=== PATIENT | female | born 1980 | race African-American/Black ===

== ENCOUNTER 2023-09-28 04:44 | Emergency (ER) | payer OTHER, SELFPAY ==
[2023-09-28] VITALS (48 sets, daily range): BP systolic 122–205; BP diastolic 80–117; PULSE 75–108; RESP 14–31; O2SAT 97–100
--- NOTE | 2023-09-28 04:45 | DI.RAD_ITS ---
Exam(s) XR PORTABLE CHEST AP EXAM: XR PORTABLE CHEST AP CLINICAL HISTORY: central chest paain TECHNIQUE: 2D digital imaging was performed. COMPARISON: No exams were available for comparison FINDINGS: LUNGS: Clear. No pleural abnormality seen. HEART: Normal size. AORTA: Normal diameter. BONES: Unremarkable for age. Soft tissues: Unremarkable. IMPRESSION: No acute findings. DATA REPOSITORY: RADIATION DOSE DELIVERED:
--- NOTE | 2023-09-28 04:45 | RT.EKG_ITS ---
APPROVED REPORT Exam: Resting ECG Reason for Exam: Patient Location: E HR:84 bpm ECG Measurements Heart Rate 84 AXIS CO 151 P 73 QRSd 77 QRS 27 QT 379 T 49 QTc 449 Conclusion Sinus rhythm...normal P axis, V-rate 60- 99 Probable left atrial enlargement...P >50mS, <-0.10mV V1 Probable left ventricular hypertrophy...multiple LVH criteria Physician: no stemi, peaking of t waves present, no prior for comparison
--- NOTE | 2023-09-28 04:56 | ED.GENADUL_ITS ---
Discharge Plan Disposition Patient Disposition: Against Medical Advice Discharge Details Clinical Impression: Chest pain, Calculus of left kidney, Hypertensive urgency Primary Care Provider: Faye,Local ED Provider: Aleksandra Liu Home Meds and New Rx's Prescriptions: No Action lisinopril 5 mg tablet 5 mg PO DAILY oxycodone 10 mg tablet 10 mg PO BID rosuvastatin 10 mg tablet 10 mg PO DAILY Discharge Instructions Additional Instructions: You are leaving the hospital AGAINST MEDICAL ADVICE. You have been having chest pain and had elevated blood pressure in the setting of significant coronary artery disease. You have also been diagnosed with a renal calculus. This is a fairly large stone and will likely need evaluation by a urologist. I recommend that you follow-up closely with your primary care provider or return to the emergency department for reevaluation of your symptoms and resumption of care. You have significant medical comorbidities and it is important that you take your medications daily. Please follow-up with your doctor. Discharge Data Discharge Date/Time-TO BE ENTERED AT DEPARTURE: 09/28/23 10:43 HPI General Date/Time Provider Initiated Documentation: 09/28/23 04:55 . 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 Patient states that 4 days ago she developed mild chest pain which she describes as a tightness and heaviness. She was also diagnosed with COVID at that time. The chest pain is worsened throughout the week, it is worse with activity, normally slightly improved with rest. Patient had been on medication for blood pressure cholesterol and Plavix but she stopped taking her Plavix a month ago because she felt like she was taking too many meds. She denies any falls or trauma. No long trips surgeries or procedures. She denies any tearing or ripping sensation. Pain is in the central chest back region. She denies arm or neck pain. She states that this feels very similar to her previous heart attack. No other complaints at this time. Related Data Home Medications ?Medication ?Instructions ?Recorded ?Confirmed lisinopril 5 mg tablet 5 mg PO DAILY 09/28/23 09/28/23 oxycodone 10 mg tablet 10 mg PO BID 09/28/23 09/28/23 rosuvastatin 10 mg tablet 10 mg PO DAILY 09/28/23 09/28/23 Allergies Allergy/AdvReac Type Severity Reaction Status Date / Time No Known Allergies Allergy Unverified 09/28/23 05:20 General Stated Complaint: Chest Pain [place]: 2 Review of Systems All systems reviewed & are unremarkable except as noted in HPI and below Exam Narrative Exam Narrative: 1.Const: Well-nourished, Well-developed, appearing stated age 2.Eyes: PERRL, no conjunctival injection, and symmetrical lids. 3.ENT: Atraumatic external nose and ears. Moist MM. Neck: Symmetric, trachea midline, No thyromegaly. 4.CVS: +S1/S2, No murmurs or gallops. Peripheral pulses 2+ and equal in all extremities. Brisk capillary refill in all extremities. Mild reproducible chest wall tenderness 5.RESP: Unlabored respiratory effort. Clear to auscultation bilaterally. No wheezes rales or rhonchi 6.GI: Soft, Nontender/Nondistended, No hepatosplenomegaly. No guarding or rebound. 7.MSK: Normocephalic/Atraumatic, Extremities w/o deformity or ttp No cyanosis or clubbing, Normal movement of all extremities, no calf tenderness 8.Skin: Warm, Dry. No rashes or lesions. 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 Sensation grossly intact, no focal neur ologic deficits. 10.Psych: (AAO) x3. 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 Patient states that 4 days ago she developed mild chest pain which she describes as a tightness and heaviness. She was also diagnosed with COVID at that time. The chest pain is worsened throughout the week, it is worse with activity, normally slightly improved with rest. Patient had been on medication for blood pressure cholesterol and Plavix but she stopped taking her Plavix a month ago because she felt like she was taking too many meds. She denies any falls or trauma. No long trips surgerie s or procedures. She denies any tearing or ripping sensation. Pain is in the central chest back region. She denies arm or neck pain. She states that this feels very similar to her previous heart attack. No other complaints at this time. Exam demonstrates an uncomfortable patient, vital signs demonstrate notable hypertension, oxygen saturations good. Radial pulses +2 bilaterally. Lungs are clear. Afebrile. EKG shows significantly peaked T waves in the 2 through V5, no evidence of STEMI. No prior EKG for comparison. She is notably hypertensive. Concern for unstable angina. Symptoms appear inconsistent with dissection or PE. Will get a chest x-ray, blood work, give nitroglycerin and 325 aspirin, monitor closely and reassess. 8:07 AM Patient states that her pain did not improve with the nitroglycerin, however her blood pressure did come down. Repeat EKG does not show change in T waves. No STEMI though. Eventually with some morphine the patient's pain did improve. CTA of the chest shows no evidence of dissection or aneurysm. However surprisingly there is evidence of a 0.5 x 0.4 x 0.8 cm stone in the left mid to distal ureter. There is some moderate hydroureter nephrosis. Creatinine is 1.3, GFR is 52. She has no left flank pain whatsoever. We are pending urinalysis. COVID is positive, proBNP is 1000, initial troponin normal. Pending repeat troponin. With the patient's risk factors and history I do feel that she would benefit from admission and stress testing. Patient will be signed out to my colleague Dr. Lui for follow-up on troponin. FINDINGS: Limitations: Mild motion artifact. VASCULATURE: Pulmonary arteries: Normal. No pulmonary emboli. Aorta: No aortic aneurysm. No aortic dissection. Moderate eccentric calcified and noncalcified plaque in the distal abdominal aorta. Celiac trunk and mesenteric arteries: No occlusion or significant stenosis. Renal arteries: No occlusion or significant stenosis. Single right renal artery. Two left renal arteries. Right iliac arteries: No occlusion or evidence of hemodynamically significant stenosis. Moderate calcified and noncalcified plaque in the right iliac arteries. Left iliac arteries: No occlusion or evidence of hemodynamically significant stenosis. Moderate calcified and noncalcified plaque in the left iliac arteries. CHEST: Lungs: Unremarkable. No consolidation. No masses. Pleural spaces: Unremarkable. No pneumothorax. No pleural effusion. Heart: Heart size at the upper limits of normal. Coronary arteries: No coronary artery calcification noted. ABDOMEN AND PELVIS: Liver: No mass. Gallbladder and biliary ducts: Unremarkable. No calcified stones. No ductal dilation. Pancreas: Unremarkable. No mass. No ductal dilation. Spleen: Unremarkable. No splenomegaly. Adrenal glands: Unremarkable. No mass. Kidneys and ureters: Moderate bilateral renal cortical thinning. A 0.5 x 0.4 x 0.8 cm stone in the left mid to distal ureter, at the level of the mid sacrum, resulting in moderate left hydroureteronephrosis. Mild delay in uptake of contrast material by the left kidney relative to the right kidney. Otherwise unremarkable kidneys. Stomach and bowel: Scattered colonic diverticula, without evidence of diverticulitis. The colon is decompressed, limiting evaluation. Mild prominence of the wall of colon may be related to underdistention. No other gross bowel abnormalities. No bowel obstruction. Appendix: Normal appendix. Intraperitoneal space: Unremarkable. No free air. No significant fluid collection. Urinary bladder: Unremarkable. No mass. Reproductive: Unremarkable as visualized. Lymph nodes: Unremarkable. No enlarged lymph nodes. Bones/joints: Unremarkable. No acute fracture. Soft tissues: Unremarkable. IMPRESSION: 1. A 0.5 x 0.4 x 0.8 cm stone in the left mid to distal ureter, at the level of the mid sacrum, resulting in moderate left hydroureteronephrosis. 2. No evidence of thoracic or abdominal aortic aneurysm or dissection. Quality:[facility] Health Related Social Needs: No Data to Display PFSH All Active Problems (Updated 09/28/23 @ 08:12 by Quentin Henley DO) Hypertensive urgency (Acute) Calculus of left kidney (Acute) Chest pain (Acute) Social History Smoking/Tobacco Use Status: Current-Occasional Smoking risk assessment performed?: Yes Alcohol Intake: never Substance use type: does not use Housing: apartment Do you feel safe at home: Yes Do you feel safe in your relationship?: Yes Sign Out Sign Out Data: Sign Out Comment: History of stents, presented with chest pain for the last 4 days, much worse this morning. Incidental finding of left-sided kidney stone, pending UA. Recommend admission for stress testing and observation secondary to risk factors Last updated by Quentin Henley DO at 09/28/23 08:15
[2023-09-28] MEDS: nitroGLYcerin 0.4 MG TAB (05:00)
[2023-09-28] MEDS: nitroGLYcerin 0.4 MG TAB SL ×2 (05:05→05:15)
[2023-09-28] MEDS: Aspirin 81 MG CHEW 324 MG CH (05:08)
[2023-09-28 05:11] LABS: Abs Immature Grans 0.02 10^3/uL (0.0-0.06); Absolute Basophil Count 0.02 10^3/uL (0.0-0.2); Absolute Eosinophil Count 0.01 10^3/uL (0.0-0.7); Absolute Lymphocyte Count 1.17 10^3/uL (1.2-3.4); Absolute Neutrophil Count 7.48 10^3/uL (1.2-6.7); Basophils % 0.2 %; Eosinophils % 0.1 %; HCT 44.1 % (36.0-46.0); HGB 13.1 g/dL (11.2-15.7); Immature Grans % 0.2 %; Lymphocytes % 13.1 %; MCH 23.6 pg (27.0-33.0); MCHC 29.7 % (32.0-36.0); MCV 79 fL (80-95); MPV 8.6 fL (8.0-11.0); Monocytes % 2.2 %; Neutrophils % 84.2 %; Platelet Count 359 10^3/uL (130-400); RBC 5.56 10^6/uL (3.93-5.22); RDW 20.8 % (11.7-14.6); RDW-SD 58.1 fL
[2023-09-28 05:19] LABS: Anisocytosis 1+
[2023-09-28] MEDS: MORPHine 4 MG/ML SYR IVP (05:19)
[2023-09-28 05:24] LABS: PTT Activated 27.9 sec (23.6-32.8); Prothrombin Time 9.8 sec (9.1-11.1)
[2023-09-28 05:33] LABS: ALT 18 U/L (14-59); AST 24 U/L (15-37); Albumin 3.7 g/dL (3.4-5.0); Alkaline Phosphatase 160 U/L (46-116); Anion Gap 12.5 mmol/L (3-11); BUN 6 mg/dL (7-18); Bilirubin, Total 0.78 mg/dL (0.2-1.0); CO2 21.5 mmol/L (21.0-32.0); CREATININE 1.3 mg/dL (0.55-1.02); Chloride 99 mmol/L (98-107); Estimated GFR 52.65 (mL/min/1.73m2); Glucose 154 mg/dL (74-106); NT-proBNP 1010 pg/mL (<300); Potassium 4.1 mmol/L (3.5-5.1); Sodium 133 mmol/L (136-145); Total Protein 9.8 g/dL (6.4-8.2); Troponin I < 50 ng/L (< or =60)
--- NOTE | 2023-09-28 05:36 | DI.CT_ITS ---
Exam(s) CT THORAX ABD/PEL CTA EXAM: CT THORAX ABD/PEL CTA CLINICAL HISTORY: chest pain, htn emergency, eval for dissection. TECHNIQUE: Imaging Protocol: Axial CT angiography was performed with multi-slice acquisition and m ulti-planar and/or 3D reconstructions. CONTRAST MATERIAL: Intravenous: Omnipaque 350 Contrast volume:structured data in ml Oral: / no COMPARISON: CR,XR XR PORTABLE CHEST AP from 09/28/2023 FINDINGS: CHEST: Pulmonary Arteries: No evidence of filling defect to suggest pulmonary emboli. Tracheobronchial tree: Patent where visualized. Mediastinum and Lucila: No dominant adenopathy or fluid collection. Pulmonary parenchyma: No consolidation or dominant measurable mass. No architectural distortion. Pleura: No effusion or pneumothorax. Heart: The heart is not dilated. No coronary artery calcifications are seen. Aorta: Thoracic aorta non-dilated. Minimal atherosclerotic plaque. No evidence of dissection. Bones: Normal. Tubes, Catheters, and Lines: ABDOMEN AND PELVIS: Abdomen: Celiac axis/mesenteric arteries: No evidence of occlusion or significant stenosis. Renal Arteries: No evidence of occlusion or significant stenosis. Single right renal artery. Two le ft renal arteries. Aorta: No evidence of occlusion or significant stenosis. Moderate to severe calcific plaque. No an eurysm or dissection. Pelvis: Iliac Arteries: Severe calcific plaque. Moderate bilateral stenosis. Common Femoral Arteries: Moderate plaque mild stenosis. ABDOMEN: Liver: Normal density. No measurable mass. Portal, Superior Mesenteric, and Splenic Veins: Unremarkable. Gallbladder and Biliary Tract: No radiodense calculus or dilation. Pancreas: Normal density, no abnormal calcifications or inflammatory process. Spleen: Normal. Adrenals: No masses seen. Kidneys: Normal size,. Multifocal areas of scarring versus lobulation.. Moderate left hydrone phrosis secondary to a 8 x 5 millimeter stone in the distal ureter, at the level of the upper sacrum. No masses seen. Bowel: No obstruction or bowel wall thickening. Appendix is unremarkable. Mild diverticulosis. Peritoneal Cavity: No ascites, collection or mesenteric inflammatory response. Lymph Nodes: Within normal limits. Bones: Unremarkable. Soft Tissues: Unremarkable. PELVIS: Bladder: Symmetric distention, no gross wall thickening. Reproductive Organs: Unremarkable as visualized. Lymph Nodes: Within normal limits. Bones: Within normal limits. IMPRESSION: Chest CT: No acute abnormality. Abdomen pelvic CT: Moderate left hydronephrosis secondary to an 8 x 5 millimeter stone in the lower u reter. Heavy calcific plaque in the mid to distal abdominal aorta is well as both iliac arteries. There is moderate bilateral iliac artery stenosis. RADIATION DOSE DELIVERED: Total DLP DATA REPOSITORY: All CT scans at this facility are submitted to the National Radiology Data Registry (NRDR) Dose Index Registry (DIR) with the [employer] (ACR). RADIATION OPTIMIZATION: All CT scans at this facility use at least one of these dose optimization te chniques: automated exposure control; mA and/or kV adjustment per patient size (includes targeted exa ms where dose is matched to clinical indication); or iterative reconstruction.
[2023-09-28 05:48] LABS: Influenza A PCR Negative (Negative); Influenza B PCR Negative (Negative); RSV PCR Negative (Negative)
[2023-09-28 05:52] LABS: COVID-19 PCR Positive (Negative); Source Nasopharynx
[2023-09-28] MEDS: Normal Saline - Diluent 50 ML VIAL IJ (05:59)
[2023-09-28] MEDS: Omnipaque 350 MG/ML 100 ML BTL IJ (06:00)
--- NOTE | 2023-09-28 06:15 | DI.VRAD_ITS ---
PROCEDURE INFORMATION: Exam: XR Chest Exam date and time: 09/28/2023 5:14 AM Age: 43 years old Clinical indication: Pain; Other: Central chest paain TECHNIQUE: Imaging protocol: Radiologic exam of the chest. Views: 1 view. COMPARISON: No relevant prior studies available. FINDINGS: Limitations: Low lung volumes. Portable technique. Lungs: Unremarkable. No consolidation. Pleural spaces: Unremarkable. No pleural effusion. No pneumothorax. Heart/Mediastinum: Prominence of the cardiac silhouette which may be related to magnification. Bones/joints: Unremarkable. IMPRESSION: No evidence of active cardiopulmonary disease. Dictated and Authenticated by: Crystal Hodge MD. Ordering:BETTY Saavedra MD
--- NOTE | 2023-09-28 06:58 | DI.VRAD_ITS ---
PROCEDURE INFORMATION: Exam: CTA Chest With Contrast CTA Abdomen and Pelvis With Contrast Exam date and time: 09/28/2023 5:52 AM Age: 43 years old Clinical indication: Other: Chest pain, HTN emergency, eval for dissection TECHNIQUE: Imaging protocol: Computed tomographic angiography of the chest with contrast. Exam focused on the arteries. Computed tomographic angiography of the abdomen and pelvis with contrast. Exam focused on the arteries. 3D rendering (Not supervised by radiologist): MIP and/or 3D reconstructed images were created by the technologist. Contrast material: OMNI 350; Contrast volume: 100 ml; Contrast route: INTRAVENOUS (IV); COMPARISON: CR XR PORTABLE CHEST AP 09/28/2023 5:14 AM FINDINGS: Limitations: Mild motion artifact. VASCULATURE: Pulmonary arteries: Normal. No pulmonary emboli. Aorta: No aortic aneurysm. No aortic dissection. Moderate eccentric calcified and noncalcified plaque in the distal abdominal aorta. Celiac trunk and mesenteric arteries: No occlusion or significant stenosis. Renal arteries: No occlusion or significant stenosis. Single right renal artery. Two left renal arteries. Right iliac arteries: No occlusion or evidence of hemodynamically significant stenosis. Moderate calcified and noncalcified plaque in the right iliac arteries. Left iliac arteries: No occlusion or evidence of hemodynamically significant stenosis. Moderate calcified and noncalcified plaque in the left iliac arteries. CHEST: Lungs: Unremarkable. No consolidation. No masses. Pleural spaces: Unremarkable. No pneumothorax. No pleural effusion. Heart: Heart size at the upper limits of normal. Coronary arteries: No coronary artery calcification noted. ABDOMEN AND PELVIS: Liver: No mass. Gallbladder and biliary ducts: Unremarkable. No calcified stones. No ductal dilation. Pancreas: Unremarkable. No mass. No ductal dilation. Spleen: Unremarkable. No splenomegaly. Adrenal glands: Unremarkable. No mass. Kidneys and ureters: Moderate bilateral renal cortical thinning. A 0.5 x 0.4 x 0.8 cm stone in the left mid to distal ureter, at the level of the mid sacrum, resulting in moderate left hydroureteronephrosis. Mild delay in uptake of contrast material by the left kidney relative to the right kidney. Otherwise unremarkable kidneys. Stomach and bowel: Scattered colonic diverticula, without evidence of diverticulitis. The colon is decompressed, limiting evaluation. Mild prominence of the wall of colon may be related to underdistention. No other gross bowel abnormalities. No bowel obstruction. Appendix: Normal appendix. Intraperitoneal space: Unremarkable. No free air. No significant fluid collection. Urinary bladder: Unremarkable. No mass. Reproductive: Unremarkable as visualized. Lymph nodes: Unremarkable. No enlarged lymph nodes. Bones/joints: Unremarkable. No acute fracture. Soft tissues: Unremarkable. IMPRESSION: 1. A 0.5 x 0.4 x 0.8 cm stone in the left mid to distal ureter, at the level of the mid sacrum, resulting in moderate left hydroureteronephrosis. 2. No evidence of thoracic or abdominal aortic aneurysm or dissection. Dictated and Authenticated by: Crystal Hodge MD. Ordering:BETTY Saavedra MD
--- NOTE | 2023-09-28 07:15 | RT.EKG_ITS ---
APPROVED REPORT Exam: Resting ECG Reason for Exam: chest pain Patient Location: E HR:84 bpm ECG Measurements Heart Rate 84 AXIS MD 142 P 49 QRSd 75 QRS 16 QT 401 T 55 QTc 474 Conclusion Sinus rhythm 84 no stemi
[2023-09-28] MEDS: Ketorolac 15 MG/ML VIAL IVP (08:09)
[2023-09-28] MEDS: Tamsulosin 0.4 MG CAPCR PO (08:09)
[2023-09-28 08:29] LABS: Troponin I < 50 ng/L (< or =60)
[2023-09-28] MEDS: Clopidogrel 300 MG TAB PO (08:36)
--- NOTE | 2023-09-28 10:35 | ED.PROG_ITS ---
Date of service: 09/28/23 Time of Service: 10:35 Medical Decision Making Patient was signed out to me from off going provider pending admission to the hospital. I did discussed with the hospitalist. The patient requires hospitalization for her high risk chest pain. Admit orders were placed. She does have a asymptomatic kidney stone at this time. Urinalysis was not obtained. Further evaluation by urology may be indicated. 1040 After admission, the patient was boarding in the emergency department. She stated that she would like to leave the hospital. She stated this just is not my seen . She has the capacity to make medical decisions for herself. I had a long discussion with the patient regarding risks, benefits, and alternatives to my recommended treatment plan, which includes hospitalization, further cardiac evaluation, stress testing, urology consultation and the patient declined, voic ing understanding of the risks but preferring instead to leave against medical advice. Some of the risks we specifically discussed included permanent disability or . I discussed with the patient that they were always welcome back to this department should they change their mind, and that regardless they should follow up with their primary care doctor at the soonest possible opportunity. All questions were answered and the patient left AMA in unchanged condition. Quality:[facility] Health Related Social Needs: No Data to Display Sign Out Sign Out Data: Sign Out Comment: History of stents, presented with chest pain for the last 4 days, much worse this morning. Incidental finding of left-sided kidney stone, pending UA. Recommend admission for stress testing and observation secondary to risk factors Last updated by Quentin Henley DO at 09/28/23 08:15 Discharge Plan Disposition Patient Disposition: Against Medical Advice Discharge Details Clinical Impression: Chest pain, Calculus of left kidney, Hypertensive urgency Primary Care Provider: Faye,Local ED Provider: Aleksandra Liu Home Meds and New Rx's Prescriptions: No Action lisinopril 5 mg tablet 5 mg PO DAILY oxycodone 10 mg tablet 10 mg PO BID rosuvastatin 10 mg tablet 10 mg PO DAILY Discharge Instructions Additional Instructions: You are leaving the hospital AGAINST MEDICAL ADVICE. You have been having chest pain and had elevated blood pressure in the setting of significant coronary artery disease. You have also been diagnosed with a renal calculus. This is a fairly large stone and will likely need evaluation by a urologist. I recommend that you follow-up closely with your primary care provider or return to the [facility] department for reevaluation of your symptoms and resumption of care. You have significant medical comorbidities and it is important that you take your medications daily. Please follow-up with your doctor.
== END 2023-09-28 10:43 | disposition left against medical advice (07) ==
PROVIDERS: Student in an Organized Health Care Education/Training Program; Emergency Provider Emergency Medicine
DX: N13.2 Hydronephrosis with renal and ureteral calculous obstruction (principal); I16.0 Hypertensive urgency; I10 Essential (primary) hypertension; I25.2 Old myocardial infarction; F17.200 Nicotine dependence, unspecified, uncomplicated; Z52.9 Donor of unspecified organ or tissue; Z95.5 Presence of coronary angioplasty implant and graft
CPT/HCPCS: 00123; 36415; 71275; 80053; 87637; 93005; 96374; 96375; 99285; 71045; 74174; 83880; 84484; 85025; 85610; 85730; 93010; 99284; J1885; J2270; J3490

== ENCOUNTER 2023-09-29 06:02 | Emergency (ER) | payer OTHER, SELFPAY ==
[2023-09-29] VITALS (34 sets, daily range): BP systolic 93–135; BP diastolic 59–87; PULSE 82–105; RESP 12–27; TEMP 36.7; O2SAT 97–100
--- NOTE | 2023-09-29 06:00 | RT.EKG_ITS ---
APPROVED REPORT Exam: Resting ECG Reason for Exam: chest pain Patient Location: E HR:102 bpm ECG Measurements Heart Rate 102 AXIS MO 142 P 57 QRSd 74 QRS 18 QT 349 T 80 QTc 455 Conclusion Sinus tachycardia...rate> 99 Left atrial enlargement...P, P'>60mS, <-0.15mV V1 Probable left ventricular hypertrophy...multiple LVH criteria Physician: no stemi, inverted t wave in AVL, improvement of t wave peaking in ant/lateral leads
--- NOTE | 2023-09-29 06:22 | ED.GENADUL_ITS ---
Discharge Plan Discharge Details Chief Complaint: Chest Pain Clinical Impression: Chest pain Primary Care Provider: FayeLocal ED Provider: Quentin Henley Home Meds and New Rx's Prescriptions: No Action lisinopril 5 mg tablet 5 mg PO DAILY oxycodone 10 mg tablet 10 mg PO BID rosuvastatin 10 mg tablet 10 mg PO DAILY clopidogrel [Plavix] 75 mg tablet 75 mg PO DAILY HPI General Date/Time Provider Initiated Documentation: 09/29/23 06:15 . 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 Patient was seen and assessed here by myself yesterday. Her EKGs demonstrated dynamic T wave peaking in the anterior lateral leads, no STEMI or ST elevation though. She did receive a CTA of the chest abdomen and pelvis which showed evidence of a 5 x 4 x 8 mm kidney stone distally in the left ureter. Pain eventually improved with NSAID therapy, morphine and nitro. Patient had been taking medications for cholesterol and hypertension, however she had stopped taking her Plavix. I Plavix loaded her with 300 mg yesterday. The plan was for her to stay and be admitted, at which point I signed her out to my colleague for further discussion with the hospitalist. Unfortunately the patient decided to leave AGAINST MEDICAL ADVICE after this because she wanted to go see her daughter before her daughter left to go traveling. She presents again this morning with continued and worsening chest pain, which continues to be exertional in nature, and improved by rest. She has not taken her morning Plavix. She admits to bilateral low mild back pain, but she denies fever or chills. She denies tearing or ripping sensation. She states the pain feels similar to when she had her last heart attack. Additionally she was diagnosed with COVID about 5 to 6 days ago, and continues to remain COVID-positive with testing including yesterday. She denies any other complaints at this time. No other modifying factors. Related Data Home Medications ?Medication ?Instructions ?Recorded ?Confirmed lisinopril 5 mg tablet 5 mg PO DAILY 09/28/23 09/29/23 oxycodone 10 mg tablet 10 mg PO BID 09/28/23 09/29/23 rosuvastatin 10 mg tablet 10 mg PO DAILY 09/28/23 09/29/23 clopidogrel 75 mg tablet (Plavix) 75 mg PO DAILY 09/29/23 09/29/23 Allergies Allergy/AdvReac Type Severity Reaction Status Date / Time No Known Allergies Allergy Unverified 09/29/23 06:08 General Stated Complaint: Chest Pain [place]: 3 Review of Systems All systems reviewed & are unremarkable except as noted in HPI and below Exam Narrative Exam Narrative: 1.Const: Well-nourished, Well-developed, appearing stated age 2.Eyes: PERRL, no conjunctival injection, and symmetrical lids. 3.ENT: Atraumatic external nose and ears. Moist MM. Neck: Symmetric, trachea midline, No thyromegaly. 4.CVS: +S1/S2, No murmurs or gallops. Peripheral pulses 2+ and equal in all extremities. Brisk capillary refill in all extremities. Radial pulses +2 bilaterally. Dorsalis pedis pulses +2 bilaterally. 5.RESP: Unlabored respiratory effort. Clear to auscultation bilaterally. No wheezes rales or rhonchi 6.GI: Soft, Nontender/Nondistended, No hepatosplenomegaly. No guarding or rebound. 7.MSK: Normocephalic/Atraumatic, Extremities w/o deformity or ttp No cyanosis or clubbing, Normal movement of all extremities 8.Skin: Warm, Dry. No rashes or lesions. 9.Neuro: brick dropper II-XII grossly intact. Sensation grossly intact, no focal neurologic deficits. 10.Psych: (AAO) x3. Appropriate mood and affect Course Vital Signs Vital signs: Vital Signs Temperature 36.7 C 09/29/23 06:05 Pulse 105 H 09/29/23 06:05 Respiratory Rate 20 09/29/23 06:05 Blood Pressure 127/81 09/29/23 06:05 Pulse Oximetry 97 09/29/23 06:05 Temperature 36.7 C 09/29/23 06:05 Temperature Source Oral 09/29/23 06:05 Pulse 105 H 09/29/23 06:05 Respiratory Rate 18 09/29/23 06:10 Respiratory Effort Normal, Non-Labored 09/29/23 06:10 Respiratory Depth Normal 09/29/23 06:10 Respiratory Pattern Normal 09/29/23 06:10 Blood Pressure 127/81 09/29/23 06:05 Blood Pressure Position Sitting 09/29/23 06:05 Pulse Oximetry 97 09/29/23 06:05 Oxygen Delivery Method Room Air 09/29/23 06:05 Oxygen Flow Rate 0 09/29/23 06:05 Pain Level 10 09/29/23 06:10 Medical Decision Making 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 Patient was seen and assessed here by myself yesterday. Her EKGs demonstrated dynamic T wave peaking in the anterior lateral leads, no STEMI or ST elevation though. She did receive a CTA of the chest abdomen and pelvis which showed evidence of a 5 x 4 x 8 mm kidney stone distally in the left ureter. Pain eventually improved with NSAID therapy, morphine and nitro. Patient had been taking medications for cholesterol and hypertension, however she had stopped taking her Plavix. I Plavix loaded her with 300 mg yesterday. The plan was for her to stay and be admitted, at which point I signed her out to my colleague for further discussion with the hospitalist. Unfortunately the patient decided to leave AGAINST MEDICAL ADVICE after this because she wanted to go see her daughter before her daughter left to go traveling. She presents again this morning with continued and worsening chest pain, which continues to be exertional in nature, and improved by rest. She has not taken her morning Plavix. She admits to bilateral low mild back pain, but she denies fever or chills. She denies tearing or ripping sensation. She states the pain feels similar to when she had her last heart attack. Additionally she was diagnosed with COVID about 5 to 6 days ago, and continues to remain COVID-positive with testing including yesterday. She denies any other complaints at this time. No other modifying factors. Exam demonstrates a stable appearing female, blood pressure is normal, mild tachycardia. Pulses intact. EKG shows resolution of the previous peaked T waves, which is certainly concerning in regards to the changes, but also her symptoms and history. No indication for repeat imaging at this time. We will give Flomax, rehydrate, monitor closely and reassess. I do feel that the patient would benefit from cardiac catheterization with her history, the dynamic EKG changes, and her current symptomatology. 7:25 AM Initial troponin stable, we have paged [facility] cardiology and are waiting for their call back. Patient remains hemodynamically stable at this time. Patient will be signed out to my colleague for follow-up with [facility]. Quality:SDOH Health Related Social Needs: No Data to Display [facility] All Active Problems (Updated 09/29/23 @ 07:26 by Quentin Henley DO) Hypertensive urgency (Acute) Calculus of left kidney (Acute) Chest pain (Acute) Social History Smoking/Tobacco Use Status: Current-Occasional Smoking risk assessment performed?: Yes Alcohol Intake: never Substance use type: does not use Housing: apartment Do you feel safe at home: Yes Do you feel safe in your relationship?: Yes
[2023-09-29 06:23] LABS: Abs Immature Grans 0.03 10^3/uL (0.0-0.06); Absolute Eosinophil Count 0.01 10^3/uL (0.0-0.7); Absolute Lymphocyte Count 2.09 10^3/uL (1.2-3.4); Absolute Monocyte Count 0.68 10^3/uL (0.1-0.8); Absolute Neutrophil Count 6.05 10^3/uL (1.2-6.7); Eosinophils % 0.1 %; HCT 39.2 % (36.0-46.0); HGB 11.6 g/dL (11.2-15.7); Immature Grans % 0.3 %; Lymphocytes % 23.6 %; MCH 23.5 pg (27.0-33.0); MCHC 29.6 % (32.0-36.0); MCV 80 fL (80-95); MPV 8.6 fL (8.0-11.0); Monocytes % 7.7 %; Neutrophils % 68.3 %; Platelet Count 275 10^3/uL (130-400); RBC 4.93 10^6/uL (3.93-5.22); RDW 20.5 % (11.7-14.6); RDW-SD 58.4 fL; WBC 8.86 10^3/uL (4.4-10.8)
[2023-09-29] MEDS: ACETAMINOPHEN 1,000 MG/100 ML BTL 400 MG IVPB (06:25)
[2023-09-29] MEDS: Tamsulosin 0.4 MG CAPCR 0.8 MG PO (06:25)
[2023-09-29 06:42] LABS: ALT 16 U/L (14-59); AST 16 U/L (15-37); Albumin 3.3 g/dL (3.4-5.0); Alkaline Phosphatase 137 U/L (46-116); Anion Gap 11.5 mmol/L (3-11); BUN 13 mg/dL (7-18); Bilirubin, Total 0.34 mg/dL (0.2-1.0); CO2 21.5 mmol/L (21.0-32.0); CREATININE 1.3 mg/dL (0.55-1.02); Calcium 8.8 mg/dL (8.5-10.1); Chloride 104 mmol/L (98-107); Estimated GFR 52.65 (mL/min/1.73m2); Glucose 123 mg/dL (74-106); Potassium 3.9 mmol/L (3.5-5.1); Sodium 137 mmol/L (136-145); Total Protein 8.7 g/dL (6.4-8.2); Troponin I < 50 ng/L (< or =60)
[2023-09-29] MEDS: Clopidogrel 75 MG TAB PO (06:43)
[2023-09-29] MEDS: Aspirin 81 MG CHEW 324 MG CH (06:43)
[2023-09-29] MEDS: nitroGLYcerin 0.4 MG TAB SL (07:01)
[2023-09-29 07:18] LABS: Anisocytosis 2+; Diff Comment RBC Morph Reviewed
[2023-09-29] MEDS: Heparin in 0.45% NaCl 25,000 UNIT/250 ML BAG 850 UNIT IV (08:02)
[2023-09-29] MEDS: Rosuvastatin 20 MG TAB 40 MG PO (08:29)
[2023-09-29 08:43] LABS: Bilirubin Negative (Negative); Blood Large (Negative); Clarity Cloudy (Clear); Glucose Negative (Negative); Ketones Negative (Negative); Leukocyte Esterase Large (Negative); Nitrite Negative (Negative); Urobilinogen 0.2 mg/dL (Up to 0.2)
--- NOTE | 2023-09-29 08:48 | W.EDPROG ---
Date of service: 09/29/23 Time of Service: 08:48 Medical Decision Making I received signout on this 43-year-old female with history of cardiac stents. She had ECG changes yesterday and central chest pressure. She has been clopidogrel loaded and is on a heparin drip excepted to the [facility] for left heart catheterization. She was found to have ureterolithiasis yesterday so we will obtain a urinalysis today to ensure that she does not have a UTI. 9:41 AM Patient had a urinalysis result as she was heading [place] [facility] She had large leuk esterase large blood. She was nitrite negative. I uploaded a copy of her results in the [facility] [place]. I asked the radiology team to have the CT chest abdomen pelvis pushed to [facility]. I spoke with cardiology at [facility] and advised Dr. Gracy Kelly about the patient's urinalysis and her left sided UVJ stone with moderate hydro seen on CT yesterday. She will follow-up with the admitting team and consult urology as needed once the patient arrives at [facility]. Quality:[facility] Health Related Social Needs: No Data to Display Sign Out Sign Out Data: Sign Out Comment: Chest pain with dynamic EKG changes. Left AMA yesterday, pending [facility] transfer. Last updated by Quentin Henley DO at 09/29/23 07:48 Discharge Plan Discharge Details Chief Complaint: Chest Pain Clinical Impression: Chest pain Primary Care Provider: Faye,Local ED Provider: Deng Manley Home Meds and New Rx's Prescriptions: No Action lisinopril 5 mg tablet 5 mg PO DAILY oxycodone 10 mg tablet 10 mg PO BID rosuvastatin 10 mg tablet 10 mg PO DAILY clopidogrel [Plavix] 75 mg tablet 75 mg PO DAILY
[2023-09-29 08:53] LABS: Bacteria Moderate HPF (Negative); C & S Indicated? Yes; Casts Negative LPF (Negative); Crystals Negative HPF (Negative); Epithelial Cells Few HPF (Negative); Mucus Negative (Negative); WBC >50 HPF (0-5)
--- NOTE | 2023-10-02 08:40 | NUR.NOTE ---
Urine culture result came back as ESBL ecoli positive. Pt transferred but has been discharged. Result given to Dr. Garcia to review. Nursing Note:
--- NOTE | 2023-10-02 09:24 | W.ED.FU ---
Date of service: 10/02/23 Time of Service: 09:24 Follow Up Plan: Patient's urine is growing resistant E. coli, per chart review also has a kidney stone. Reviewed records from [facility] and was not discharged with any antibiotics and still had a kidney stone when she was discharged. I called and left a message for the patient she did not answer her phone, advised to call back to review these results with her.
--- NOTE | 2023-10-03 09:41 | W.ED.FU ---
Date of service: 10/03/23 Time of Service: 09:41 Follow Up Plan: I called the patient at home as she had E. coli bacteriuria in the setting of ureterolithiasis with a 8 mm UVJ stone concerning for the possibility of infected stone. I advised that she would benefit from IV antibiotics and reassessment given that she was still having flank pain. She said that she would return to the emergency department.
== END 2023-09-29 09:23 | disposition short-term general hospital (02) ==
PROVIDERS: Student in an Organized Health Care Education/Training Program; Emergency Provider Emergency Medicine
DX: R07.9 Chest pain, unspecified (principal); N13.2 Hydronephrosis with renal and ureteral calculous obstruction; I25.2 Old myocardial infarction; I10 Essential (primary) hypertension; E78.00 Pure hypercholesterolemia, unspecified; Z95.5 Presence of coronary angioplasty implant and graft; Z79.02 Long term (current) use of antithrombotics/antiplatelets; Z82.49 Family history of ischemic heart disease and other diseases of the circulatory system
CPT/HCPCS: 00123; 80053; 87077; 93005; 96365; 99285; 81003; 81015; 84484; 85025; 87086; 87186; 93010; J0131; J1644

== ENCOUNTER 2023-10-03 18:44 | Day surgery (SDC) | payer OTHER, SELFPAY ==
[2023-10-03] VITALS (50 sets, daily range): BP systolic 96–145; BP diastolic 54–89; PULSE 100–118; RESP 14–29; TEMP 36.4; O2SAT 93–100
--- NOTE | 2023-10-03 18:45 | RT.EKG_ITS ---
APPROVED REPORT Exam: Resting ECG Reason for Exam: chest pain Patient Location: E HR:115 bpm ECG Measurements Heart Rate 115 AXIS MI 150 P 51 QRSd 73 QRS 29 QT 328 T 45 QTc 455 Conclusion Sinus tachycardia...rate> 99 Probable left atrial enlargement...P >50mS, <-0.10mV V1 Physician: no stemi
--- NOTE | 2023-10-03 19:15 | DI.CT_ITS ---
Exam(s) CT ABDOMEN PELVIS WO EXAM: CT ABDOMEN PELVIS WO CLINICAL HISTORY: vomiting, hx of kidney stone, eval for transition. TECHNIQUE: Imaging Protocol: Axial computed tomography images with coronal and sagittal reformatted images were created and reviewed. Oral: / no COMPARISON: CT CT THORAX ABD/PEL CTA from 09/28/2023 FINDINGS: Lung Bases: No acute findings. Liver: Normal density. No suspicious mass. Gallbladder and biliary tract: No radiodense calculus or biliary dilation. Pancreas: Normal density. No abnormal calcifications or inflammatory process. Spleen: Normal. Kidneys: Normal size, contour and axis. No significant change in position left ureteral calculus the left lower ureter. Similar moderate left hydronephrosis. Tiny nonobstructing stones also noted on the left. No suspicious masses seen. Adrenal glands: No masses seen. Lymph nodes: Within normal limits. Vasculature: Abdominal aorta non-dilated. Severe calcifications again noted. Soft tissues: Unremarkable. Bladder: No wall thickening. No mass or calculi. Bowel: No obstruction or bowel wall thickening. Peritoneal cavity: No ascites. No focal collection. No mesenteric inflammatory response. Reproductive organs: Unremarkable. Bones: Unremarkable for age. IMPRESSION: No change in position of 8 millimeter calculus in the distal left ureter. Stable moderate left hydro nephrosis. RADIATION DOSE DELIVERED: 420.09mGy.cm Total DLP DATA REPOSITORY: All CT scans at this facility are submitted to the National Radiology Data Registry (NRDR) Dose Index Registry (DIR) with the [employer] ([employer]). RADIATION OPTIMIZATION: All CT scans at this facility use at least one of these dose optimization te chniques: automated exposure control; mA and/or kV adjustment per patient size (includes targeted exa ms where dose is matched to clinical indication); or iterative reconstruction.
[2023-10-03 19:16] LABS: Abs Immature Grans 0.05 10^3/uL (0.0-0.06); Absolute Basophil Count 0.02 10^3/uL (0.0-0.2); Absolute Eosinophil Count 0.14 10^3/uL (0.0-0.7); Absolute Monocyte Count 0.65 10^3/uL (0.1-0.8); Absolute Neutrophil Count 4.13 10^3/uL (1.2-6.7); Basophils % 0.2 %; Eosinophils % 1.6 %; HCT 32.3 % (36.0-46.0); HGB 9.8 g/dL (11.2-15.7); Immature Grans % 0.6 %; Lymphocytes % 41.2 %; MCH 24.5 pg (27.0-33.0); MCHC 30.3 % (32.0-36.0); MCV 81 fL (80-95); MPV 8.7 fL (8.0-11.0); Monocytes % 7.7 %; Neutrophils % 48.7 %; Platelet Count 284 10^3/uL (130-400); RDW 20.6 % (11.7-14.6); RDW-SD 59.7 fL; WBC 8.49 10^3/uL (4.4-10.8)
[2023-10-03 19:27] LABS: Diff Comment RBC Morph Reviewed
[2023-10-03 19:28] LABS: Anisocytosis 1+; Hypochromasia 1+
[2023-10-03] MEDS: ACETAMINOPHEN 1,000 MG/100 ML BTL 400 MG IVPB (19:41)
[2023-10-03] MEDS: Ketorolac 15 MG/ML VIAL IVP (19:42)
[2023-10-03 19:45] LABS: ALT 18 U/L (14-59); AST 18 U/L (15-37); Albumin 3.3 g/dL (3.4-5.0); Alkaline Phosphatase 108 U/L (46-116); Anion Gap 7.8 mmol/L (3-11); BUN 16 mg/dL (7-18); Bilirubin, Total 0.22 mg/dL (0.2-1.0); CO2 26.2 mmol/L (21.0-32.0); CREATININE 1.3 mg/dL (0.55-1.02); Calcium 9.1 mg/dL (8.5-10.1); Chloride 105 mmol/L (98-107); Estimated GFR 52.65 (mL/min/1.73m2); Glucose 108 mg/dL (74-106); Potassium 4.9 mmol/L (3.5-5.1); Sodium 139 mmol/L (136-145); Total Protein 8.3 g/dL (6.4-8.2); Troponin I < 50 ng/L (< or =60)
[2023-10-03 20:08] LABS: Bilirubin Negative (Negative); Blood Large (Negative); Clarity Clear (Clear); Glucose Negative (Negative); Ketones Negative (Negative); Leukocyte Esterase Large (Negative); Nitrite Positive (Negative); Specific Gravity 1.015 (1.005-1.025); Urobilinogen 0.2 mg/dL (Up to 0.2)
[2023-10-03 20:21] LABS: Bacteria Moderate HPF (Negative); C & S Indicated? Yes; WBC >50 HPF (0-5)
--- NOTE | 2023-10-03 20:33 | W.ED.GENAD ---
Discharge Plan Discharge Details Chief Complaint: Chest Pain Clinical Impression: Calculus of left kidney Primary Care Provider: FayeLocal ED Provider: Quentin Henley Home Meds and New Rx's Prescriptions: No Action duloxetine [Cymbalta] 30 mg capsule,delayed release(DR/EC) 30 mg PO DAILY lisinopril 5 mg tablet 5 mg PO DAILY oxycodone 10 mg tablet 10 mg PO BID rosuvastatin 10 mg tablet 10 mg PO DAILY HPI General Date/Time Provider Initiated Documentation: 10/03/23 19:06. 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 Patient was recently seen and assessed here on 09/28/2023 for chest pain, CTA at that time showed evidence of a obstructing left-sided kidney stone. She was also COVID-positive. She was supposed to be admitted but eventually left AMA, she returned the next morning, and was seen and assessed again. She was transferred to [facility] for her continued chest pain and EKG changes. While there she had a TTE and stress test which showed no obvious perfusion defect, normal LVEF. She was discharged home with Plavix. It was recommended that she follow-up outpatient for her 8 x 5 mm left urolithiasis. Today at [facility] her urine culture results came back positive for E. coli. She was contacted and recommended that she come in for evaluation. She is not on any antibiotics. Currently she does complain of continued mild right sided chest pain. It is not severe. She still admits to mild fatigue. She also admits to notable left flank pain which is persistent. She admits to chills but she is COVID-positive. She denies any other complaints. Related Data Home Medications ?Medication ?Instructions ?Recorded ?Confirmed lisinopril 5 mg tablet 5 mg PO DAILY 09/28/23 10/03/23 oxycodone 10 mg tablet 10 mg PO BID 09/28/23 10/03/23 rosuvastatin 10 mg tablet 10 mg PO DAILY 09/28/23 10/03/23 duloxetine 30 mg capsule,delayed 30 mg PO DAILY 10/03/23 10/03/23 release (Cymbalta) Allergies Allergy/AdvReac Type Severity Reaction Status Date / Time No Known Allergies Allergy Verified 10/03/23 18:54 General Stated Complaint: Chest Pain [place]: 3 Review of Systems All systems reviewed & are unremarkable except as noted in HPI and below Exam Narrative Exam Narrative: 1.Const: Well-nourished, Well-developed, appearing stated age 2.Eyes: PERRL, no conjunctival injection, and symmetrical lids. 3.ENT: Atraumatic external nose and ears. Moist MM. Neck: Symmetric, trachea midline, No thyromegaly. 4.CVS: +S1/S2, No murmurs or gallops. Peripheral pulses 2+ and equal in all extremities. Brisk capillary refill in all extremities. Reproducible right sided chest wall pain. 5.RESP: Unlabored respiratory effort. Clear to auscultation bilaterally. No wheezes rales or rhonchi 6.GI: Soft, mild left-sided abdominal tenderness. No guarding or rebound. Mild left CVA tenderness. No right-sided tenderness. 7.MSK: Normocephalic/Atraumatic, Extremities w/o deformity or ttp No cyanosis or clubbing, Normal movement of all extremities 8.Skin: Warm, Dry. No rashes or lesions. 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 Sensation grossly intact, no focal neurologic deficits. 10.Psych: (AAO) x3. Appropriate mood and affect Course Vital Signs Vital signs: Vital Signs Temperature 36.4 C L 10/03/23 18:48 Pulse 117 H 10/03/23 18:48 Respiratory Rate 16 10/03/23 18:48 Blood Pressure 117/81 10/03/23 18:48 Pulse Oximetry 97 10/03/23 18:48 Temperature 36.4 C L 10/03/23 18:48 Temperature Source Temporal Artery Scan 10/03/23 18:48 Pulse 106 H 10/03/23 20:01 Pulse 107 H 10/03/23 20:01 Respiratory Rate 23 10/03/23 19:46 Respiratory Effort Normal, Non-Labored 10/03/23 19:13 Respiratory Depth Normal 10/03/23 19:13 Respiratory Pattern Normal 10/03/23 19:13 Blood Pressure 145/89 H 08/28/24 20:01 Blood Pressure Mean 109 08/28/24 20:01 Blood Pressure Position Sitting 10/03/23 18:48 Pulse Oximetry 100 10/03/23 20:01 Oxygen Delivery Method Room Air 10/03/23 18:48 Oxygen Flow Rate 0 10/03/23 18:48 Pain Level 6 10/03/23 19:16 Lab/Test Results Lab/Test Results: 10/03/23 19:59 Urine - Reflex from Ua Urine Culture - Pending Laboratory Tests Range/Units 10/03/23 10/03/23 19:07 19:59 WBC (4.4-10.8) 10^3/uL 8.49 RBC (3.93-5.22) 10^6/uL 4.00 Hgb (11.2-15.7) g/dL 9.8 L Hct (36.0-46.0) % 32.3 L MCV (80-95) fL 81 MCH (27.0-33.0) pg 24.5 L MCHC (32.0-36.0) % 30.3 L RDW (11.7-14.6) % 20.6 H Plt Count (130-400) 10^3/uL 284 MPV (8.0-11.0) fL 8.7 Immature Gran % % 0.6 Neutrophils % % 48.7 Lymphocytes % % 41.2 Monocytes % % 7.7 Eosinophils % % 1.6 Basophils % % 0.2 Nucleated RBC % (0.0-0.3) % 0.0 Absolute Neutrophils (1.2-6.7) 10^3/uL 4.13 Absolute Lymphocytes (1.2-3.4) 10^3/uL 3.50 H Absolute Monocytes (0.1-0.8) 10^3/uL 0.65 Absolute Eosinophils (0.0-0.7) 10^3/uL 0.14 Absolute Basophils (0.0-0.2) 10^3/uL 0.02 RBC Morphology See Below Hypochromasia 1+ Anisocytosis 1+ Sodium (136-145) mmol/L 139 Potassium (3.5-5.1) mmol/L 4.9 Chloride (98-107) mmol/L 105 Carbon Dioxide (21.0-32.0) mmol/L 26.2 Anion Gap (3-11) mmol/L 7.8 BUN (7-18) mg/dL 16 Creatinine (0.55-1.02) mg/dL 1.3 H Est GFR (CKD-EPI 2020) (mL/min/1.73m2) 52.65 Glucose (74-106) mg/dL 108 H Calcium (8.5-10.1) mg/dL 9.1 Total Bilirubin (0.2-1.0) mg/dL 0.22 AST (15-37) U/L 18 ALT (14-59) U/L 18 Alkaline Phosphatase (46-116) U/L 108 Troponin I (< or =60) ng/L < 50 Total Protein (6.4-8.2) g/dL 8.3 H Albumin (3.4-5.0) g/dL 3.3 L Urine Color (Yellow) Yellow Urine Clarity (Clear) Clear Urine pH (5-8) 6.0 Ur Specific [place] (1.005-1.025) 1.015 Urine Protein (Neg-Trace) mg/dL 30 H Urine Ketones (Negative) mg/dL Negative Urine Blood (Negative) Large H Urine Nitrite (Negative) Positive H Urine Bilirubin (Negative) Negative Urine Urobilinogen (Up to 0.2) mg/dL 0.2 Ur Leukocyte Esterase (Negative) Large H Urine RBC Not Applicable Urine WBC (0-5) HPF >50 H Ur Epithelial Cells Not Applicable Urine Crystals Not Applicable Urine Bacteria (Negative) HPF Moderate Urine Mucus Not Applicable Ur Culture Indicated? 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 Patient was recently seen and assessed here on 09/28/2023 for chest pain, CTA at that time showed evidence of a obstructing left-sided kidney stone. She was also COVID-positive. She was supposed to be admitted but eventually left AMA, she returned the next morning, and was seen and assessed again. She was transferred to [facility] for her continued chest pain and EKG changes. While there she had a TTE and stress test which showed no obvious perfusion defect, normal LVEF. She was discharged home with Plavix. It was recommended that she follow-up outpatient for her 8 x 5 mm left urolithiasis. Today at [facility] her urine culture results came back positive for E. coli. She was contacted and recommended that she come in for evaluation. She is not on any antibiotics. Currently she does complain of continued mild right sided chest pain. It is not severe. She still admits to mild fatigue. She also admits to notable left flank pain which is persistent. She admits to chills but she is COVID-positive. She denies any other complaints. Exam demonstrates a stable female, reproducible right-sided chest wall tenderness, reproducible left-sided abdominal pain. No guarding or rebound. Concern for continued obstructed stone. Patient is afebrile, however she does have chills which could be from COVID versus a urinary infection from a stone. No hypotension, no evidence of septic shock. She is mildly tachycardic. Will rehydrate, give Flomax, give cefepime, get a CT scan to evaluate for stone presence, monitor closely and reassess. EKG is demonstrates stability with no evidence of STEMI. 10:32 PM Patient's laboratory workup is returned, no white count, hemoglobin 9.8, no bandemia. Electrolytes normal, renal function stable, GFR 52. Troponin normal. Patient's urinalysis is positive for nitrites leuk esterase and greater than [address] scan shows a continued presence of the kidney stone on the left with obstruction. Patient is afebrile, no hypotension/shock. Patient does not demonstrate evidence of septic shock from urolithiasis. 2 g of cefepime has been administered. [facility] and [facility] are currently full with no availability for transfer. Dr. Caputo was contacted and a message was left. Unfortunately he is off today. However he has scheduled an OR time tomorrow morning at 7 AM. We will keep the patient here and monitor her closely. We will reach out to Dr. Caputo in the morning for potential stenting. But no evidence of septic shock at this time, I do not see an indication for emergent transfer. Additionally he has no local tertiary care centers are able to accept patients for transfer, it would be greater than at 9 or 10-hour disposition to transfer the patient at this point. Patient will be signed out to my colleague Dr Lee. FINDINGS: Lungs: Lung bases clear. Liver: Grossly unremarkable unenhanced liver. Gallbladder and biliary ducts: Gallbladder partially collapsed. No calcified gallstones seen. No biliary dilatation. Pancreas: Grossly unremarkable unenhanced pancreas. Spleen: Grossly unremarkable unenhanced spleen. Adrenal glands: Normal appearing adrenal glands. Kidneys and ureters: 6 mm x 3 mm x 7 mm calcification in the left pelvic ureteral segment just distal to where the ureter crosses the pelvic sidewall vasculature, not significantly changed in position compared with the prior exam from September 28, 2023. Prominent upstream ureterectasis and hydronephrosis, as seen on the prior exam in keeping with obstructive uropathy. Tiny nonobstructing left renal calcifications measuring approximately 1 mm each, presumably additional urinary tract stones and/or vascular calcifications. No right-sided renal calculi, hydronephrosis, or ureterectasis. Stomach and bowel: No oral contrast. Stomach moderately distended with ingested material. No small bowel dilatation to suggest obstruction. Normal-appearing fecal material throughout the colon. No evidence of diverticulitis or colitis. Appendix: Normal appendix. Intraperitoneal space: No gross ascites or free air. Vasculature: Normal caliber abdominal aorta. Moderately extensive atherosclerotic calcification. Lymph nodes: No pathologically enlarged mesenteric, retroperitoneal, or pelvic sidewall lymph nodes. Urinary bladder: Normal appearing urinary bladder. Reproductive: Anteverted uterus, normal in size. Normal-sized ovaries. 10 mm left ovarian follicle redemonstrated. Bones/joints: No acute fracture seen among the bones of the abdomen or pelvis. Soft tissues: Small regions of subcutaneous density in the right anterior abdominal wall. Recent subcutaneous injections? correlation with procedure history recommended. No significant ventral or inguinal hernia. IMPRESSION: 6 mm x 3 mm x 7 mm calcification redemonstrated in the left pelvic ureteral segment just distal to where the ureter crosses the pelvic sidewall vasculature, not significantly changed in position compared with the recent prior exam from September 28, 2023. Prominent upstream ureterectasis and hydronephrosis in keeping with obstructive uropathy. Thank you for allowing us to participate in the care of your patient. Dictated and Authenticated by: Clarence Lockhart MD 10/03/2023 9:02 PM Eastern Time ([place] & [place]) Quality:SDOH Health Related Social Needs: No Data to Display PFSH All Active Problems (Updated 10/03/23 @ 22:37 by Quentin Henley DO) Hypertensive urgency (Acute) Calculus of left kidney (Acute) Chest pain (Acute) Social History Smoking/Tobacco Use Status: Current-Occasional Smoking risk assessment performed?: Yes Alcohol Intake: never Substance use type: does not use Housing: apartment Do you feel safe at home: Yes Do you feel safe in your relationship?: Yes
[2023-10-03] MEDS: Lactated Ringers 1,000 ML 1000 ML IV (21:00)
[2023-10-03] MEDS: Tamsulosin 0.4 MG CAPCR 0.8 MG PO (21:00)
[2023-10-03] MEDS: CEFEPIME 2 GM in Normal Saline 100 ML IVPB (21:00)
--- NOTE | 2023-10-03 21:33 | DI.VRAD_ITS ---
PROCEDURE INFORMATION: Exam: CT Abdomen And Pelvis Without Contrast Exam date and time: 10/03/2023 7:45 PM Age: 43 years old Clinical indication: Other: Vomiting, HX of kidney stone, eval for transition TECHNIQUE: Imaging protocol: Computed tomography of the abdomen and pelvis without contrast. COMPARISON: CT THORAX ABD/PEL CTA 09/28/2023 5:52 AM FINDINGS: Lungs: Lung bases clear. Liver: Grossly unremarkable unenhanced liver. Gallbladder and biliary ducts: Gallbladder partially collapsed. No calcified gallstones seen. No biliary dilatation. Pancreas: Grossly unremarkable unenhanced pancreas. Spleen: Grossly unremarkable unenhanced spleen. Adrenal glands: Normal appearing adrenal glands. Kidneys and ureters: 6 mm x 3 mm x 7 mm calcification in the left pelvic ureteral segment just distal to where the ureter crosses the pelvic sidewall vasculature, not significantly changed in position compared with the prior exam from September 28, 2023. Prominent upstream ureterectasis and hydronephrosis, as seen on the prior exam in keeping with obstructive uropathy. Tiny nonobstructing left renal calcifications measuring approximately 1 mm each, presumably additional urinary tract stones and/or vascular calcifications. No right-sided renal calculi, hydronephrosis, or ureterectasis. Stomach and bowel: No oral contrast. Stomach moderately distended with ingested material. No small bowel dilatation to suggest obstruction. Normal-appearing fecal material throughout the colon. No evidence of diverticulitis or colitis. Appendix: Normal appendix. Intraperitoneal space: No gross ascites or free air. Vasculature: Normal caliber abdominal aorta. Moderately extensive atherosclerotic calcification. Lymph nodes: No pathologically enlarged mesenteric, retroperitoneal, or pelvic sidewall lymph nodes. Urinary bladder: Normal appearing urinary bladder. Reproductive: Anteverted uterus, normal in size. Normal-sized ovaries. 10 mm left ovarian follicle redemonstrated. Bones/joints: No acute fracture seen among the bones of the abdomen or pelvis. Soft tissues: Small regions of subcutaneous density in the right anterior abdominal wall. Recent subcutaneous injections? correlation with procedure history recommended. No significant ventral or inguinal hernia. IMPRESSION: 6 mm x 3 mm x 7 mm calcification redemonstrated in the left pelvic ureteral segment just distal to where the ureter crosses the pelvic sidewall vasculature, not significantly changed in position compared with the recent prior exam from September 28, 2023. Prominent upstream ureterectasis and hydronephrosis in keeping with obstructive uropathy. Dictated and Authenticated by: Clarence Lockhart MD. Ordering:BETTY Saavedra MD
[2023-10-03 23:25] LABS: Lipase 81 U/L (16-77)
[2023-10-03 23:33] LABS: Troponin I < 50 ng/L (< or =60)
[2023-10-04] VITALS (18 sets, daily range): BP systolic 122–148; BP diastolic 77–90; PULSE 92–115; RESP 13–27; O2SAT 93–100
--- NOTE | 2023-10-04 00:56 | ED.PROG_ITS ---
Date of service: 10/04/23 Time of Service: 00:56 Medical Decision Making This patient was signed out to me. Please see previous notes for H&P and initial eval. In brief, 43yo F with obstructing left nephrolithiasis and + UA. Vital signs reassuring. [facility] [place] [facility] both with no capacity; we will have urology available here at [facility] in the morning and it is unlikely patient will be able to be accepted and transported to a more distant tertiary care facility before that time so decision made to monitor closely overnight, discuss with [facility] urology in the am. Called to patient bedside at 0214 as she is stating she wants to leave. I discussed with her the importance of being treated for her infected kidney stone and that we were unable to transfer her overnight, and that urology would be available here in a few hours. I reviewed with her the severity of her condition including that she is at risk for sepsis and and permanent disability; she verbalized understanding of my concerned and stated I hate being in the hospital, I don't want to stay here tonight. She states I will come back in t he morning, this is ridiculous. She demonstrated decision making capacity and I have no indication to hold her against here against her will. Left AMA, declined written discharge instructions. Ambualted out of department with steady gait. Quality:SDOH Health Related Social Needs: No Data to Display Sign Out Sign Out Data: Sign Out Comment: Chronic chest pain, recent negative workup at [facility] just 48 hours ago. Presents with left flank pain, known left-sided obstructing stone, now infected. 2 g of cefepime given, as well as Flomax. NSAID therapy applied. Pending call to [facility] in AM for stenting/stone removal. Last updated by Quentin Henley DO at 10/03/23 23:06 Discharge Plan Disposition Patient Disposition: Against Medical Advice Condition: Serious Discharge Details Chief Complaint: Chest Pain Clinical Impression: Calculus of left kidney, UTI (urinary tract infection) Primary Care Provider: Faye,Local ED Provider: Anamaria Lee Home Meds and New Rx's Prescriptions: No Action duloxetine [Cymbalta] 30 mg capsule,delayed release(DR/EC) 30 mg PO DAILY lisinopril 5 mg tablet 5 mg PO DAILY oxycodone 10 mg tablet 10 mg PO BID rosuvastatin 10 mg tablet 10 mg PO DAILY
== END 2023-10-04 02:29 | disposition left against medical advice (07) ==
LOC: ER 10-04 02:22 → SUR 10-17 21:38
PROVIDERS: Student in an Organized Health Care Education/Training Program; Emergency Provider Student in an Organized Health Care Education/Training Program; Visit Provider Urology
DX: N13.2 Hydronephrosis with renal and ureteral calculous obstruction (principal); N39.0 Urinary tract infection, site not specified; I10 Essential (primary) hypertension; E78.00 Pure hypercholesterolemia, unspecified; Z82.49 Family history of ischemic heart disease and other diseases of the circulatory system; F17.210 Nicotine dependence, cigarettes, uncomplicated; Z53.29 Procedure and treatment not carried out because of patient's decision for other reasons
CPT/HCPCS: 00123; 36415; 80053; 83690; 87077; 93005; 96365; 96367; 96375; 99285; 74176; 81003; 81015; 84484; 85025; 87086; 87186; 93010; J0131; J0692; J1885

== ENCOUNTER 2023-10-04 08:29 | Inpatient (IN) | payer OTHER, SELFPAY ==
[2023-10-04] VITALS (18 sets, daily range): BP systolic 116–154; BP diastolic 62–96; PULSE 80–126; RESP 11–27; TEMP 36.2–36.4; O2SAT 96–99; BMI 27.6
[2023-10-04 10:54] LABS: Abs Immature Grans 0.05 10^3/uL (0.0-0.06); Absolute Basophil Count 0.02 10^3/uL (0.0-0.2); Absolute Eosinophil Count 0.12 10^3/uL (0.0-0.7); Absolute Lymphocyte Count 2.48 10^3/uL (1.2-3.4); Absolute Monocyte Count 0.73 10^3/uL (0.1-0.8); Absolute Neutrophil Count 5.65 10^3/uL (1.2-6.7); Basophils % 0.2 %; Eosinophils % 1.3 %; HCT 30.7 % (36.0-46.0); HGB 9.1 g/dL (11.2-15.7); Immature Grans % 0.6 %; Lymphocytes % 27.4 %; MCH 24.2 pg (27.0-33.0); MCHC 29.6 % (32.0-36.0); MCV 82 fL (80-95); MPV 9.4 fL (8.0-11.0); Monocytes % 8.1 %; Neutrophils % 62.4 %; Platelet Count 304 10^3/uL (130-400); RBC 3.76 10^6/uL (3.93-5.22); RDW 20.7 % (11.7-14.6); RDW-SD 60.9 fL; WBC 9.05 10^3/uL (4.4-10.8)
[2023-10-04 11:15] LABS: Influenza A PCR Negative (Negative); Influenza B PCR Negative (Negative); RSV PCR Negative (Negative)
[2023-10-04 11:17] LABS: COVID-19 PCR Positive (Negative); Source Nasopharynx
[2023-10-04 11:18] LABS: ALT 14 U/L (14-59); AST 15 U/L (15-37); Alkaline Phosphatase 101 U/L (46-116); Anion Gap 8.4 mmol/L (3-11); BUN 16 mg/dL (7-18); Bilirubin, Total 0.22 mg/dL (0.2-1.0); CO2 24.6 mmol/L (21.0-32.0); CREATININE 1.3 mg/dL (0.55-1.02); Chloride 103 mmol/L (98-107); Estimated GFR 52.65 (mL/min/1.73m2); Glucose 107 mg/dL (74-106); Potassium 4.3 mmol/L (3.5-5.1); Sodium 136 mmol/L (136-145); Total Protein 7.7 g/dL (6.4-8.2)
[2023-10-04 11:19] LABS: Anisocytosis 2+
[2023-10-04 11:21] LABS: C-Reactive Protein < 0.50 mg/dL (<or=0.5)
--- NOTE | 2023-10-04 11:28 | HPE_ITS ---
Date of service: 10/04/23 Time of Service: 12:08 Assessment and Plan Assessment and plan (1) UTI (urinary tract infection): Status: Acute (2) Left ureteral calculus: Status: Acute Assessment and plan: With her obstructing stone and her finding of a urinary tract infection, we would recommend placing a ureteral stent. We do not generally do ureteroscopy and holmium laser lithotripsy of the stone while there is an acute infection. She would then be discharged on antibiotics and brought back to the operating room for a second procedure. The procedure would include ureteroscopy and holmium laser lithotripsy and would be planned for a minimum of 1 to 2 weeks from now. 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 She is originally from the [facility]. She has a history of an LA. She has had multiple trips to our emergency department with chest pain. She was transferred to [facility] and had a cardiac workup. No cardiac source of her chest pain was identified. She has a 2-week history of left-sided flank pain. She has some nausea. She has no documented fever but does have some chills. During one of her emergency room visits, she had a CT angiogram looking for pulmonary embolism. An obstructing left ureteral stone was identified. A subsequent urinalysis shows an E. coli urinary tract infection. She is currently agreeable to placement of a ureteral stent to drain her hydronephrotic left kidney She has no prior history of kidney stones. She has no gout but she does tell me that she has rheumatoid arthritis. She routinely takes oxycodone for her arthritis pain. About 10 days ago, she had respiratory symptoms and tested positive for COVID on a home test. Her COVID status was confirmed during her hospital visits. She is now asymptomatic. She has had no prior urologic surgery. She has no history of gout or hyperparathyroidism. Review of Systems Narrative: No fevers No vision change or dysphasia No diabetes or thyroid dysfunction No shortness of breath, cough or hemoptysis Has had chest pain encounters for past week - found to be reproducible on palpations. No palpitations Nausea. No hepatitis, ulcers, jaundice, diarrhea or constipation No seizures, strokes or peripheral neuropathy No bleeding disorders or anemia Rheumatoid arthritis. No gout PFSH All Active Problems (Updated 10/04/23 @ 11:29 by Klever Caputo MD) Left ureteral calculus (Acute) UTI (urinary tract infection) (Acute) Hypertensive urgency (Acute) Calculus of left kidney (Acute) Chest pain (Acute) Social History Smoking/Tobacco Use Status: Current-Occasional Smoking risk assessment performed?: Yes Alcohol Intake: never Substance use type: does not use Housing: apartment Do you feel safe at home: Yes Do you feel safe in your relationship?: Yes Meds Allergies and Home Medications Allergies Allergy/AdvReac Type Severity Reaction Status Date / Time No Known Allergies Allergy Verified 10/04/23 08:44 Home Medications ?Medication ?Instructions ?Recorded ?Confirmed ?Type lisinopril 5 mg tablet 5 mg PO DAILY 09/28/23 10/04/23 History oxycodone 10 mg tablet 10 mg PO BID 09/28/23 10/04/23 History rosuvastatin 10 mg tablet 10 mg PO DAILY 09/28/23 10/04/23 History duloxetine 30 mg capsule,delayed 30 mg PO DAILY 10/03/23 10/04/23 History release (Cymbalta) Exam Narrative Exam Narrative: She does not appear septic or toxic Her vital signs are documented elsewhere in the chart Her chest wall motion is normal. She is not short of breath at rest. Her lungs are clear. Cardiac exam shows a regular rate and rhythm Her abdomen is soft with no peritoneal signs She is awake and alert I reviewed her CT scan on the PACS system. There is a ureteral stone on the left side at approximately the level of the pelvic brim. There is hydronephrosis above the level of the stone Her urinalysis and prior urine culture show an E. coli infection Her white blood count is normal. Her lactate is normal Results Labs 10/04/23 10:43 10/04/23 10:43 Labs: Laboratory Results - last 24 hr 10/04/23 10/04/23 10/04/23 09:05 09:12 10:29 WBC Cancelled RBC Cancelled Hgb Cancelled Hct Cancelled MCV Cancelled MCH Cancelled MCHC Cancelled RDW Cancelled Plt Count Cancelled MPV Cancelled Immature Gran % Cancelled Neutrophils % Cancelled Band Neutrophils % Cancelled Lymphocytes % Cancelled Atypical Lymphs % Cancelled Monocytes % Cancelled Eosinophils % Cancelled Basophils % Cancelled Metamyelocytes % Cancelled Myelocytes % Cancelled Promyelocytes % Cancelled Other Cells % Cancelled Nucleated RBC % Cancelled Absolute Neutrophils Cancelled Absolute Lymphocytes Cancelled Absolute Monocytes Cancelled Absolute Eosinophils Cancelled Absolute Basophils Cancelled RBC Morphology Cancelled Polychromasia Cancelled Hypochromasia Cancelled Poikilocytosis Cancelled Basophilic Stippling Cancelled Anisocytosis Cancelled Microcytosis Cancelled Macrocytosis Cancelled Spherocytes Cancelled Tear Drop Cells Cancelled Ovalocytes Cancelled Stomatocytes Cancelled [place]bl[place] Bodies Cancelled [place] Cells/Echinocytes Cancelled Acanthocytes (Spur) Cancelled Schistocytes Cancelled ESR Cancelled VBG Lactate Sodium Cancelled Potassium Cancelled Chloride Cancelled Carbon Dioxide Cancelled Anion Gap Cancelled BUN Cancelled Creatinine Cancelled Est GFR (CKD-EPI 2020) Cancelled Glucose Cancelled Calcium Cancelled Total Bilirubin Cancelled AST Cancelled ALT Cancelled Alkaline Phosphatase Cancelled C-Reactive Protein Total Protein Cancelled Albumin Cancelled COVID-19 Source Nasopharynx SARS-CoV-2 (PCR) Positive A Influenza Type A (PCR) Negative Influenza Type B (PCR) Negative RSV (PCR) Negative 10/04/23 10:43 WBC 9.05 RBC 3.76 L Hgb 9.1 L Hct 30.7 L MCV 82 MCH 24.2 L MCHC 29.6 L RDW 20.7 H Plt Count 304 MPV 9.4 Immature Gran % 0.6 Neutrophils % 62.4 Band Neutrophils % Lymphocytes % 27.4 Atypical Lymphs % Monocytes % 8.1 Eosinophils % 1.3 Basophils % 0.2 Metamyelocytes % Myelocytes % Promyelocytes % Other Cells % Nucleated RBC % 0.0 Absolute Neutrophils 5.65 Absolute Lymphocytes 2.48 Absolute Monocytes 0.73 Absolute Eosinophils 0.12 Absolute Basophils 0.02 RBC Morphology See Below Polychromasia Hypochromasia Poikilocytosis Basophilic Stippling Anisocytosis 2+ Microcytosis Macrocytosis Spherocytes Tear Drop Cells Ovalocytes Stomatocytes [place] Bodies [place] Cells/Echinocytes Acanthocytes (Spur) Schistocytes ESR VBG Lactate 1.0 Sodium 136 Potassium 4.3 Chloride 103 Carbon Dioxide 24.6 Anion Gap 8.4 BUN 16 Creatinine 1.3 H Est GFR (CKD-EPI 2020) 52.65 Glucose 107 H Calcium 9.0 Total Bilirubin 0.22 AST 15 ALT 14 Alkaline Phosphatase 101 C-Reactive Protein < 0.50 Total Protein 7.7 Albumin 3.0 L COVID-19 Source SARS-CoV-2 (PCR) Influenza Type A (PCR) Influenza Type B (PCR) RSV (PCR) Last Vital Signs Temp 36.4 C 10/04/23 08:43 Pulse 94 H 10/04/23 08:43 Resp 15 10/04/23 08:43 BP 144/90 H 10/04/23 08:43 Pulse Ox 96 10/04/23 08:43 Time Spent Time spent with Patient: <40 minutes Time was spent: preparing to see the patient(eg.review tests), obtaining and/or reviewing separately otained hiistory, referring, communicating with other health critical care physician, indepentently interpreting results and counseling the patient
--- NOTE | 2023-10-04 11:52 | ANES.PREOP_ITS ---
General Info Date of Service Date Performed: 10/04/23 Height: 5 ft 4 in Weight: 73.028 kg Body Mass Index (BMI): 27.6 Surgical Procedure: Operation Date: 10/04/23 10:55 Proposed Procedure Side Surgeon p Cystoscopy with Stent Insertion Left Klveer Caputo MD Meds Allergies and Home Medications Allergies Allergy/AdvReac Type Severity Reaction Status Date / Time No Known Allergies Allergy Verified 10/04/23 08:44 Home Medication ?Medication ?Instructions ?Recorded lisinopril 5 mg tablet 5 mg PO DAILY 09/28/23 oxycodone 10 mg tablet 10 mg PO BID 09/28/23 rosuvastatin 10 mg tablet 10 mg PO DAILY 09/28/23 duloxetine 30 mg capsule,delayed 30 mg PO DAILY 10/03/23 release (Cymbalta) [facility] Active Problems Active Problems: Problem Status Onset Code Left ureteral calculus Acute N20.1 UTI (urinary tract infection) Acute N39.0 Hypertensive urgency Acute I16.0 Calculus of left kidney Acute N20.0 Chest pain Acute R07.9 Tobacco Smoking/Tobacco Use Status: Current-Occasional Alcohol Alcohol Intake: never Substance Use Substance use type: does not use Vital Signs and Lab Results Vital Signs Most Recent Vital Signs in EMR: Most Recent Vital Signs Temp Pulse Resp BP Pulse Ox 36.4 C 94 H 15 144/90 H 96 10/04/23 08:43 10/04/23 08:43 10/04/23 08:43 10/04/23 08:43 10/04/23 08:43 Lab Results 10/04/23 10:43 10/04/23 10:43 Blood Type / Crossmatch: 2 No Data to Display Complete Blood Count: 2 White Blood Count 9.05 10^3/uL (4.4-10.8) 10/04/23 10:43 Red Blood Count 3.76 10^6/uL (3.93-5.22) L 10/04/23 10:43 Hemoglobin 9.1 g/dL (11.2-15.7) L 10/04/23 10:43 Hematocrit 30.7 % (36.0-46.0) L 10/04/23 10:43 Platelet Count 304 10^3/uL (130-400) 10/04/23 10:43 Venous Blood Lactate 1.0 mmol/L (0.6-1.4) 10/04/23 10:43 Complete Metabolic Panel: 2 Sodium 136 mmol/L (136-145) 10/04/23 10:43 Potassium 4.3 mmol/L (3.5-5.1) 10/04/23 10:43 Chloride 103 mmol/L (98-107) 10/04/23 10:43 Carbon Dioxide 24.6 mmol/L (21.0-32.0) 10/04/23 10:43 BUN 16 mg/dL (7-18) 10/04/23 10:43 Creatinine 1.3 mg/dL (0.55-1.02) H 10/04/23 10:43 Est GFR (CKD-EPI 2020) 52.65 (mL/min/1.73m2) 10/04/23 10:43 Calcium 9.0 mg/dL (8.5-10.1) 10/04/23 10:43 Albumin 3.0 g/dL (3.4-5.0) L 10/04/23 10:43 Glucose 107 mg/dL (74-106) H 10/04/23 10:43 C-Reactive Protein < 0.50 mg/dL (<or=0.5) 10/04/23 10:43 Liver Function Panel: 2 Alanine Aminotransferase (ALT/SGPT) 14 U/L (14-59) 10/04/23 10: 43 Aspartate Amino Transf (AST/SGOT) 15 U/L (15-37) 10/04/23 10:43 Coagulation Panel: 2 INR International Normalized Ratio 1.0 (0.9-1.1) 09/28/23 04:5 8 Prothrombin Time 9.8 sec (9.1-11.1) 09/28/23 04:58 Activated Partial Thromboplast Time 27.9 sec (23.6-32.8) 04:58 Cardiac Panel: 2 Troponin I < 50 ng/L (< or =60) 10/03/23 NT-Pro-B Natriuret Pep 1010 pg/mL (<300) H 09/28/23 Arterial Blood Gas: 2 No Data to Display Venous Blood Gas: 2 No Data to Display Pancreas Panel: 2 Lipase 81 U/L (16-77) H 10/03/23 23:05 Thyroid Panel: 2 No Data to Display Infectious Disease: 2 Coronavirus (COVID-19)(PCR) Positive (Negative) A 10/04/23 10: 29 Coronavirus 2019 Source Nasopharynx 10/04/23 10:29 Influenza Virus Type A (PCR) Negative (Negative) 10/04/23 10:2 9 Influenza Virus Type B (PCR) Negative (Negative) 10/04/23 10:2 9 Respiratory Syncytial Virus (PCR) Negative (Negative) 10/04/23 10:29 Blood Cultures: 2 No Data to Display Toxicology Panel: 2 No Data to Display Panel: 2 No Data to Display Imaging and Studies Imaging and Studies Study information below may be from another EMR and interpreted by another provider. Please see original notes in EMR for more complete details. EKG Summary: DATE/TIME OF SERVICE: 10/03/231846 : 1980 PERFORMING LOCATION: ER APPROVED REPORT Exam: Resting ECG Reason for Exam: chest pain Patient Location: E HR:115 bpm ECG Measurements Heart Rate 115 AXIS IN 150 P 51 QRSd 73 QRS 29 QT 328 T45 QTc 455 Conclusion Sinus tachycardia...rate> 99 Probable left atrial enlargement...P >50mS, <-0.10mV V1 Physician: no stemi Anesthesia Assessment and Plan Anesthesia History Personal History: No History of Anesthesia Complications Family History: No Family History of Anesthesia Complications Exercise Tolerance Exercise Tolerance: Metabolic Equivalents>4 Pertinent Negatives Pertinent Negatives: No Symptoms of GERD, No Major Pulmonary Symptoms or Complaints and No History of CVA/TIA Cardiac & Pulmonary Exam Cardiac Exam: Normal S1/S2 Heart Sounds Pulmonary Exam: Clear Bilateral Breath Sounds Implantable Cardiac Device Does patient have a Pacemaker or an ICD?: No Airway Exam Known Difficult Airway: No Mallampati Class: 2 Mouth Opening: Normal (> 3cm) Thyromental Distance: Greater than 3 cm Neck Range of Motion: Full ROM Neck Circumference: Normal Teeth Condition: Normal Dentition ASA Classification ASA Score: ASA 3 Emergency Case?: Yes NPO Status NPO Status: NPO Clears >2 hours, Solids >8 hours Status Status: Negative HCG Anesthesia Plan Resuscitation Status: Full Code Anesthesia Technique: General Anesthesia Airway Planned: Natural Airway Monitors Used: Standard Monitors Preoperative Comments:: Pt. has complicated cardiac history initially presenting with chest pain or DE with PCI/2 stents 01/27. She has stopped taking medications to include plavix, per patient with her physician. and has more recently presented to multiple hospitals with chest pain and nausea with negative troponins. Most recently to [facility] with same complaint, but a kidney stone was noted, despite no flank pain. Plan is to place stent today and admit patient. Pt. had cough and tested at home COVID positive on 09/25 and is now feeling better, no cough while we chatted.
[2023-10-04] MEDS: MORPHine 10 MG/ML VIAL 4 MG IVP (11:54)
[2023-10-04] MEDS: Normal Saline 500 ML IV (11:55)
[2023-10-04] MEDS: PIPERACILLIN/TAZO 3.375 GM in Normal Saline 50 ML IVPB (12:35)
[2023-10-04] MEDS: Omnipaque 300 MG/ML 50 ML BTL (13:07)
[2023-10-04] MEDS: Lidocaine 2% Jelly 11 ML SYR (13:08)
--- NOTE | 2023-10-04 13:31 | DI.RAD_ITS ---
Exam(s) XR RETROGRADE IN OR EXAM: XR RETROGRADE IN OR CLINICAL HISTORY: left kidney stone. TECHNIQUE: Fluoroscopy was provided for the referring physician for guidance with performing retrogr franky procedure. COMPARISON: No exams were available for comparison FINDINGS: Please see procedure note for details. Fluoro time: 46.8 seconds RADIATION DOSE DELIVERED: nayeli Freeman=10.08 mGy
--- NOTE | 2023-10-04 13:33 | ROE_ITS ---
Date of service: 10/04/23 Time of Service: 13:33 Operative Note Operative Note DATE OF PROCEDURE: 10/04/23 PRE-OP DIAGNOSIS: Left ureteral stone POST-OP DIAGNOSIS: same UTI PROCEDURE: Cystoscopy, left retrograde pyelogram, insert left ureteral stent SURGEON: Klever Caputo ANESTHESIA TYPE: Local By Surgeon and General:No Airway Refer to Anesthesia Record ESTIMATED BLOOD LOSS: 5 PATHOLOGY: none sent COMPLICATIONS: None Patient was transported to: floor Patient's condition: stable Implants: 6 [place]ian by 22 to 30 cm left ureteral stent Indications: This is a 43-year-old woman who has had about a 2-month history of left flank pain. She has had multiple ER visits for evaluation of chest pain. During one of the visits, she had a CT scan which demonstrated left hydronephrosis due to an obstructing stone. She has a positive urine culture. She presents for emergent stent placement Findings: Obstructing left ureteral stone Procedure Description: The patient was brought to the operating room on 10/04/2023. After successful induction of general anesthesia, she was placed in the dorsal lithotomy position. She had received a dose of IV antibiotics while she was in the em ergency department. Her genitalia was prepped with Betadine. 2% Xylocaine jelly was instilled into the urethra to act as a local anesthetic. A 22 [place]ian rigid cystoscope was then passed through the urethra into the bladder. The bladder was inspected with a 30 degree lens. Cloudy urine was obtained once the scope was passed into the bladder. The left orifice was identified and the orifice was cannulated with a 5 Namibian access catheter. A retrograde pyelogram was obtained by injecting Omnipaque through the access catheter under fluoroscopic guidance. Left hydronephrosis was identified down to an obstructing left distal ureteral stone. I was initially unable to pass an angled tipped guidewire above the level of the stone, but I was able to pass a straight guidewire above the stone to be dilated collecting system. I removed the access catheter and passed a 6 [place] variable length stent over the wire. The proximal end of the stent was curled in the renal pelvis and the distal end was curled in the bladder. The positioning of the stent was confirmed both fluoroscopically and cystoscopically. The patient tolerated the procedure well with no complications. She was taken up to the medical surgical unit in stable condition.
--- OUTSIDE RECORDS SUMMARY | 2023-10-04 13:53 | XMS_ITS | Encounter Summary ---
Author Organization [facility] Address [facility] [place] [address] Care Team Providers Care Demonstrator [employer] Name Role Phone None Primary Care Provider Unavailabl e Encounter Details Date Type Department Care Team (Late st Contact Info) Description 09/29/2023 Telephone Cardiology at [address] [place] [address] Gracy Kelly MD [facility] [place] [address] Social History Tobacco Use Types Packs/Day Years Used Date Smoking Tobacco: Never Smokeless Tobacco: Never Alcohol Use Standard Drinks/Week Comments Not Currently 0 (1 standard drink = 0.6 oz pur e alcohol) [facility] Inpatient Questions Answer Date Recorded Does Anyone Try to Keep You From Having Contact with Others or Doing Things Outside Your Home? no 09/29/2023 Feels Threatened by Someone no 09/06 Feels Unsafe at Home or Work/School no 09/29/2023 Physical Signs of Abuse Present no 09/29/2023 Sex and Gender Information Value Date Recorded Sex Assigned at Not on file Gender Identity Not on file Sexual Orientation Not on file documented as of this encounter Miscellaneous Notes * Telephone Encounter - Gracy Kelly MD - 09/29/2023 7:48 AM EDT Images from the original note were not included. 09/29/2023 Rod Herrmann Initial Contact Date: 09/29/2023 Initial contact time: 0700 Referring Provider: Dr. Henley Patient Location: [facility] Transfer request for: [facility] Past Medical History: CAD s/p PCI 1-2 years ago in [place] HTN HLD Family hx of CAD Presenting Symptoms per OSH: Patient presented on 09/28/23 with chest pain x2-3 days. Chest pain was mostly typical such as substernal CP when going up stairs. 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 She returned to the ED with chest pain on 09/28. Chest pain has continued to be typical with exertion but also chest pain at rest. Her most severe CP occurred on 09/[address] Henley. Chest pain improved with SL nitro. Patient told ED team that CP resembled that of her prior GA. ED provider reports no other symptoms. Patient was loaded with Plavix 300 and ASA 325 mg. Also received several sublingual nitroglycerintabs. Pertinent Diagnostic Findings 09/27-09/28: EKG: sinus, V1 with RAUL but no STEMI criteria, peaked T waves anterolaterally in earlier EKGs, normal R wave progression Troponins: negative x2 CBC - wbc 8.8, Hgb 11, Plts 215 CTA - no aortic dissection, no PE, heavily calcified aorta, incidental L renal stone nonobstructivebut some L hydronephrosis OSH Interventions: ASA 325 Plavix 300 SL Nitro Plan: Patient with known CAD and risk factors. Story concerning for unstable angina. Although provider says chest pain is relieved at this time. Patient accepted for transfer sometime later on 09/28 for ischemic evaluation - cath versus stress test pending patient's description of symptoms and chest pain syndrome when she arrives. I advised ED team to inquire about ongoing chest pain. If chest pain persists then patient should have heparin gtt added and nitro gtt if needed. I also instructed them to give high intensity statin. Above recommendations were based on my discussion with Dr. Henley; I have not personally interviewed or examined this patient. Advised to call the transfer center back with any changes in the patient condition. I have not personally reviewed all EKGs. Gracy Kelly MD Wire Sawyer PGY6 Pager [phone] Update @ [id number]: - Called from Dr. Manley to update us that: patient had UA that was equivocal. Results of UA can be found under media tab. The ED did NOT give her any antibiotics. This UA will reflex to culture. - [facility] is in the process of pushing those CTA images to us via the transfer center. documented in this encounter Plan of Treatment Not on file documented as of this encounter Visit Diagnoses Not on filedocumented in this encounter Care Teams Dem[employer] Relationship Specialty Start Date End Date None None PCP - General 03/17/23 documented as of this encounter
--- OUTSIDE RECORDS SUMMARY | 2023-10-04 13:53 | XMS_ITS | Clinical Summary ---
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 12/09/2022 Active folic acid (Vitamin B9) 1 mg tablet Take 1 mg by mouth daily. 06/29/2022 Active hydroxychloroquine (Plaquenil) 200 mg tablet Take 200 mg by mouth 2 times daily. 06/29/2022 Active levothyroxine (Synthroid) 50 mcg tablet Take 50 mcg by mouth daily. 03/09/2022 Active lisinopriL (Zestril) 5 mg tablet Take 5 mg by mouth daily. Active magnesium oxide (Mag-Ox) 400 mg (241.3 mg magnesium) Tablet Take 400 mg by mouth 2 times daily. 02/17/2022 Active medroxyPROGESTERone (Provera) 10 mg tablet Take 10 mg by mouth daily. 05/10/2022 Active meloxicam (Mobic) 15 mg tablet Take 15 mg by mouth every morning. 01/24/2022 Active metHOTREXate (TrexalL) 2.5 mg tablet Take 1 tablet by mouth once a week. 03/09/2022 Active potassium chloride ER (Klor-Con M) 10 mEq ER micro-encapsulated crystal tablet Take 10 mEq by mouth 2 times daily. 02/17/2022 Active rosuvastatin (Crestor) 5 mg tablet Take 5 mg by mouth daily. 06/29/2022 Active tiZANidine (Zanaflex) 2 mg tablet Take 2 mg by mouth Every 6 hours. 06/29/2022 Active aspirin EC 81 mg EC (DR) tablet Take 81 mg by mouth daily. Active acetaminophen (Tylenol) 500 mg tablet Take 1,000 mg by mouth every 6 hours as needed for Pain. Active aspirin 81 mg chewable tablet Take 81 mg by mouth daily. 7 tablet 03/17/2023 Active clopidogreL (Plavix) 75 mg tablet Take 1 tablet by mouth daily. 7 tablet 03/17/[address] (Cymbalta) [address] capsule Take 1 capsule by mouth daily. 7 tablet 03/17/2023 Active hydroxychloroquine (Plaquenil) 200 mg tablet Take 1 tablet by mouth 2 times daily. 14 tablet 03/17/2023 Active levothyroxine (Synthroid) 50 mcg tablet Take 1 tablet by mouth daily. 7 tablet 03/17/2023 Active lisinopriL (Zestril) 5 mg tablet Take 1 tablet by mouth daily. 7 tablet 03/17/2023 Active magnesium oxide (Mag-Ox) 400 mg (241.3 mg magnesium) Tablet Take 1 tablet by mouth daily. 7 tablet 03/17/2023 Active folic acid (Vitamin B9) 1 mg tablet Take 1 tablet by mouth daily. 7 tablet 03/17/2023 Active meloxicam (Mobic) 15 mg tablet Take 1 tablet by mouth every morning. 7 tablet 03/17/2023 Active potassium chloride ER (Klor-Con M) 10 mEq ER micro-encapsulated crystal tablet Take 1 tablet by mouth 2 times daily. 14 tablet 03/17/2023 Active rosuvastatin (Crestor) 5 mg tablet Take 1 tablet by mouth daily. 7 tablet 03/17/2023 Active tiZANidine (Zanaflex) 2 mg tablet Take 1 tablet by mouth every 6 hours as needed. 15 tablet 03/17/2023 Active morphine IR (MS IR) 15 mg IR tablet Take 1 tablet by mouth every 6 hours as needed for Pain. 2 tablet 04/09/2023 Active oxyCODONE (Roxicodone) 5 mg tablet Take 1-2 tablets by mouth every 6 hours as needed for Pain. No driving, no alcohol 12 tablet 04/22/2023 Active aspirin 81 mg chewable tabletIndications:DAP T s/p PCI Take 81 mg by mouth daily. Indications: DAPT s/p PCI Active atorvastatin (Lipitor) 40 mg tablet Take 1 tablet by mouth every evening. 1 tablet 3 10/01/2023 Active Active Problems Problem Noted Date Diagnosed Date COVID-19 09/30/2023 Overview (09/30/2023): HDS, not requiring supplemental O2, no treatment while admitted. Reported positive Sunday 09/24 Nephrolithiasis 09/30/2023 Overview (09/30/2023): Treated with tamsulosin to encourage stone passage Back pain 09/29/2023 Encounters Date Type Department Care Team Description 09/29/2023 10:48 AM EDT - 10/01/2023 5:00 PM EDT Hospital Encounter Heart and Vascular Unit Level 3 [place] [address] Jesse Best MD Murphy, Caroline E, MD Chest pain, unspecified type Discharge Disposition: Home 09/29/2023 Telephone Cardiology at [address] [address] Gracy Kelly MD 09/29/2023 External [place] [id number] 09/28/2023 Ancillary Procedure [place] [address] Jesse Best MD from Last 3 Months Social History Tobacco Use Types Packs/Day Years Used Date Smoking Tobacco: Never Smokeless Tobacco: Never Tobacco Cessation:Counseling Given: Not Answered Alcohol Use Standard Drinks/Week Comments Not Currently 0 (1 standard drink = 0.6 oz pur e alcohol) [facility] Utilities Answer Date Recorded In the past 12 months has e [employer], gas, oil, or water company threatened to shut off services in your home? No 10/01/2023 Hunger Vital Sign Answer Date Recorded Within the past 12 months, y ou worried that your food would run out before you got the money to buy more. Never true 10/01/19 24 Within the past 12 months, t he food you bought just didn't last and you didn't have money to get more. Never true 10/01/2023 PRAPARE - Transportation Answer Date Re corded In the past 12 months, has l ack of transportation kept you from medical appointments or from getting medications? No 09/06 In the past 12 months, has l ack of transportation kept you from meetings, work, or from getting things needed for daily living? No 10/01/2023 Housing Stability Vital Sign Answer Cedric e Recorded In the last 12 months, was t here a time when you were not able to pay the mortgage or rent on time? No 10/01/2023 In the past 12 months, how m any times have you moved where you were living? 0 10/01/2023 At any time in the past 12 m [facility], were you homeless or living in a skilled nursing (including now)? No 10/01/2023 DH IPV Inpatient Questions Answer Date Recorded Does Anyone [...] on file Sexual Orientation Not on file Last Filed Vital Signs Vital Sign Reading Time Taken Comments Blood Pressure 146/99 10/01/2023 8:13 AM EDT Pulse 85 10/01/2023 8:13 AM EDT Temperature 36.9 ??C (98.5 ??F) 10/01/2023 8:13 AM ED T Respiratory Rate 18 10/01/2023 8:13 AM EDT Oxygen Saturation 98% 10/01/2023 8:13 AM EDT Inhaled Oxygen Concentration - - Weight 72.3 kg (159 lb 4.8 oz) 10/01/2023 4:29 A M EDT Height 162.6 cm (5' 4) 09/29/2023 10:48 AM EDT Body Mass Index 27.34 09/29/2023 10:48 AM EDT Plan of Treatment Health Maintenance Due Date Last Done Comments HIV screen 05/13/1999 Hepatitis C Screening 05/13/1999 Hepatitis B vaccine (0-59 yr s) (1) 2000 Tdap adult 2000 Tetanus vaccine 2000 HPV test 05/13/2011 PAP Smear 05/13/2011 Breast Cancer Share Decision Needed 2021 Breast Cancer screening 2021 Covid-19 Vaccine (1 - 2022-2 4 season) 2022 Influenza (Flu) vaccine (1 o f 1 - Influenza standard series) 10/07/2023 Diabetes Screening (HgbA1C o r Glucose) 09/30/2026 10/01/2023, 09/30/2023, 09/29/2023, Additional history exists Lipid Screening Discontinued 09/29/2023 Procedures Procedure Name Priority Date/Time Associated Diagnosis Comments SCAN DOC: TELEMETRY STRIPS 10/01/2023 5:02 PM EDT ECHO COMPLETE Routine 10/01/2023 3:05 PM EDT Chest pain, unspecified type SCAN DOC: TELEMETRY STRIPS 10/01/2023 2:20 PM EDT NM PHARMACOLOGIC STRESS CT COMPONENT Routine 10/01/2023 1:40 PM EDT NUCLEAR PHARMACOLOGIC STRESS CARDIOLOGY Routine 10/01/2023 1:28 PM EDT NM PHARMACOLOGIC STRESS AND REST MYOCARDIAL PERFUSION Routine 10/01/2023 12:35 PM EDT SCAN DOC: TELEMETRY STRIPS 10/01/2023 7:34 AM EDT CBC (WITH DIFF) Routine 10/01/2023 4:22 AM EDT MAGNESIUM Routine 10/01/2023 4:21 AM EDT BASIC METABOLIC PANEL Routine 10/01/2023 4:21 AM EDT SCAN DOC: TELEMETRY STRIPS 10/01/2023 12:19 AM EDT SCAN DOC: TELEMETRY STRIPS 09/30/2023 8:41 PM EDT SCAN DOC: TELEMETRY STRIPS 09/30/2023 8:21 AM EDT SCAN DOC: TELEMETRY STRIPS 09/30/2023 7:20 AM EDT MAGNESIUM Routine 09/30/2023 2:58 AM EDT BASIC METABOLIC PANEL Routine 09/30/2023 2:58 AM EDT CBC (WITH DIFF) Routine 09/30/2023 2:58 AM EDT SCAN DOC: TELEMETRY STRIPS 09/30/2023 12:11 AM EDT TROPONIN - SINGLE STAT 09/29/2023 9:2 0 PM EDT EKG 12-LEAD STAT 09/29/2023 8:50 PM EDT Chest pain, unspecified type SCAN DOC: TELEMETRY STRIPS 09/29/2023 8:03 PM EDT RAPID COVID-19 PCR ([facility]) Routine 09/29/2023 3:51 PM EDT TROPONIN - SINGLE STAT 09/29/2023 12: 43 PM EDT TSH Routine 09/29/2023 12:43 PM EDT LIPID PANEL (REFLEX DIRECT LDL) Routine 09/29/2023 12:43 PM EDT HEMOGLOBIN A1C Routine 09/29/2023 12:43 PM EDT HEPATIC FUNCTION PANEL Routine 12:43 PM EDT PHOSPHORUS Routine 09/29/2023 12:43 PM EDT MAGNESIUM Routine 09/29/2023 12:43 PM EDT BASIC METABOLIC PANEL Routine 09/29/2023 12:43 PM EDT CBC (WITH DIFF) Routine 09/29/2023 12:43 PM EDT SCAN DOC: TELEMETRY STRIPS 09/29/2023 12:25 PM EDT SCAN DOC: TELEMETRY STRIPS 09/29/2023 11:45 AM EDT EKG 12-LEAD Routine 09/29/2023 10:55 AM EDT Chest pain, unspecified type MISC EXTERNAL CARDIOLOGY RESULT Routine 09/29/2023 7:03 AM EDT FILM LIBRARY STORAGE ONLY CT CHEST ABDOMEN PELVIS Routine 09/28/2023 12:00 AM EDT from Last 3 Months Results * Scan Doc: Telemetry Strips (10/01/2023 5:02 PM EDT) Only the most recent of11 resultswithin the time period is included. Narrative 10/01/2023 5:02 PM EDT Ordered by an unspecified provider. Scanning Provider MEDIA MGR SCAN EXT O RDR/RSLT * ECHO COMPLETE (10/01/2023 3:05 PM EDT) [facility] EF 58 HEARTLAB SYSTEM Anatomical Region Laterality Modality Cardiac Other 10/01/2023 2:11 PM EDT Narrative 10/01/2023 3:19 PM EDT [address] [place] [address] ? Echocardiogram Report Name: DOUGLAS LI ? Study Date: 10/01/2023 02:11 PM ?BP: 146/99 mmHg ?Patient Location: [facility] 0[facility] A : 1980 ?Height: 163 cm ? Account: [id number] Age: 43 yrs ?Weight: 72 kg Gender: Female ? BSA: 1.8 m2 Ordering Physician: JESSE BEST Referring Physician: DENNIS ANN Performed By: Jass Tan RDCS Reason For Study: chest pain Interpretation Summary Left ventricular systolic function is normal. The left ventricular ejection fraction is 58% by Harrison's biplane. There are no segmental wall motion abnormalities. The LA is moderately dilated. The aortic valve is trileaflet with moderate aortic regurgitation and no significant stenosis. The mitral valve is mildly thickened with moderate mitral regurgitation and no significant stenosis. Other details as noted below. Procedure Complete-[id number]. Satisfactory quality. Left Ventricle Left ventricle is of normal size. Wall thickness is normal. Global left ventricular systolic function is normal. Left ventricular systolic function is normal. The left ventricular ejection fraction is 58% by Harrison's biplane. There are no segmental wall motion abnormalities. Right Ventricle The right ventricle is not well visualized. The right ventricle is of normal size. Right ventricular systolic function is normal. Left Atrium The left atrium is moderately dilated. No abnormality of the interatrial septum is identified. Right Atrium The right atrium is normal. Aortic Valve The aortic valve is tricuspid. There is no aortic stenosis. There is mild to moderate aortic regurgitation. Mitral Valve The mitral valve is structurally normal. There is moderate mitral regurgitation. Tricuspid Valve The tricuspid valve is structurally and functionally normal. There is trace tricuspid regurgitation. Pulmonic Valve The pulmonic valve appears to be structurally and functionally normal. Great Arteries The aortic root is of normal size. No abnormalities are identified. No abnormalities of the pulmonary artery are identified. Venous Inferior vena cava is normal in size. Inferior vena cava collapse greater than 50% with respiration. Pericardium/Pleural The pericardium appears normal. Hemodynamics Left ventricular diastolic function is normal. Left ventricular filling pressure is normal. Ejection Fraction ?2D Measurements ? Volumes EF(MOD-bp): 58.8 % ?IVSd: 0.82 cm ?LAV(MOD- bp) Indexed: ?LVIDd: 5.6 cm ?LVIDs: 4.5 cm ?42.8 ml/m2 ? RA A4Cs_phl: 11.7 cm2 ?LVPWd: 0.82 cm ? EDV(MOD-bp) Indexed: ?RWT: 0.29 {ratio} ?LV mass(C)d: 173.1 grams ? 47.5 ml/m2 ?LV mass(C)dI: 97.2 grams/m2 ?ESV(MOD- bp) Indexed: ?Ao root diam: 2.8 cm ? 19.6 ml/m2 ?Ao root diam index: 1.5 ?SV(LVOT): 51.8 ml ?LVOT diam: 2.0 cm ?TAPSE_phl: 1.6 cm ?SI(LVOT): 29.1 ml/m2 Doppler LV V1 VTI: 17.0 cm Ao V2 VTI: 28.5 cm Ao Max: 170.7 cm/sec Ao valve max: 11.7 mmHg Ao valve mean: 5.7 mmHg MV E max farhad: 85.9 cm/sec MV A max farhad: 94.9 cm/sec MV E/A: 0.91 Lat Peak E' Farhad: 13.7 cm/sec E/e' (lat): 6.3 Med Peak E' Farhad: 9.1 cm/sec E/e' (med): 9.4 E/e' Average: 7.8 WENDY(I,D): 1.8 cm2 Dimensionless index Aov: 0.60 AI P1/2t: 530.4 msec I ?WMSI = 1.00 ? % Normal = 100 ?Segments ??Size X - Cannot ?2 - ?4 - ?1-2 ? small Interpret ?1 - Normal ?? Hypokinetic 3 - Akinetic Dyskinetic ?? 3-5 ? moderate 5 - ? 6-14 ?large Aneurysmal ?15-16 ?? diffuse Procedure Note Mark Mark MD - 10/01/2023 [address] [place] [id number] Echocardiogram Report Name: DOUGLAS LI Study Date: 10/01/2023 02:11 PM BP: 146/99mmHg Patient Location: [address] : 1980 Height: 163 cm Account:[id number] Age: 43 yrs Weight: 72 kg Gender: Female BSA: 1.8 m2 Ordering Physician: JESSE BEST Referring Physician: DENNIS ANN Performed By: Jass Tan RDCS Reason For Study: chest pain Interpretation Summary Left ventricular systolic function is normal. The left ventricularejection fraction is 58% by Harrison's biplane. There are no segmental wall motion abnormalities. The LA is moderately dilated. The aortic valve is trileaflet with moderate aortic regurgitation and no significant stenosis. The mitral valve is mildly thickened with moderate mitral regurgitationand no significant stenosis. Other details as noted below. Procedure Complete-[id number]. Satisfactory quality. Left Ventricle Left ventricle is of normal size. Wall thickness is normal. Global left ventricular systolic function is normal. Left ventricular systolicfunction is normal. The left ventricular ejection fraction is 58% by Harrison'sbiplane. There are no segmental wall motion abnormalities. Right Ventricle The right ventricle is not well visualized. The right ventricle is ofnormal size. Right ventricular systolic function is normal. Left Atrium The left atrium is moderately dilated. No abnormality of the interatrialseptum is identified. Right Atrium The right atrium is normal. Aortic Valve The aortic valve is tricuspid. There is no aortic stenosis. There is mildto moderate aortic regurgitation. Mitral Valve The mitral valve is structurally normal. There is moderate mitralregurgitation. Tricuspid Valve The tricuspid valve is structurally and functionally normal. There istrace tricuspid regurgitation. Pulmonic Valve The pulmonic valve appears to be structurally and functionally normal. Great Arteries The aortic root is of normal size. No abnormalities are identified. No abnormalities of the pulmonary artery are identified. Venous Inferior vena cava is normal in size. Inferior vena cava collapse greaterthan 50% with respiration. Pericardium/Pleural The pericardium appears normal. Hemodynamics Left ventricular diastolic function is normal. Left ventricular fillingpressure is normal. Ejection Fraction 2D Measurements Volumes EF(MOD-bp): 58.8 % IVSd: 0.82 cm LAV(MOD-bp)Indexed: LVIDd: 5.6 cm LVIDs: 4.5 cm 42.8 ml/m2 RA A4Cs_phl: 11.7cm2 LVPWd: 0.82 cm EDV(MOD-bp)Indexed: RWT: 0.29 {ratio} LV mass(C)d: 173.1 grams 47.5 ml/m2 LV mass(C)dI: 97.2 grams/m2 ESV(MOD-bp)Indexed: Ao root diam: 2.8 cm 19.6 ml/m2 Ao root diam index: 1.5 SV(LVOT): 51.8ml LVOT diam: 2.0 cm TAPSE_phl: 1.6 cm SI(LVOT): 29.1ml/m2 Doppler LV V1 VTI: 17.0 cm Ao V2 VTI: 28.5 cm Ao Max: 170.7 cm/sec Ao valve max: 11.7 mmHg Ao valve mean: 5.7 mmHg MV E max farhad: 85.9 cm/sec MV A max farhad: 94.9 cm/sec MV E/A: 0.91 Lat Peak E' Farhad: 13.7 cm/sec E/e' (lat): 6.3 Med Peak E' Farhad: 9.1 cm/sec E/e' (med): 9.4 E/e' Average: 7.8 WENDY(I,D): 1.8 cm2 Dimensionless index Aov: 0.60 AI P1/2t: 530.4 msec I WMSI = 1.00 % Normal = 100 SegmentsSize X - Cannot 2 - 4 - 1-2small Interpret 1 - Normal Hypokinetic 3 - Akinetic Dyskinetic 3-5moderate 5 - 6-14large Aneurysmal 15-16diffuse Jesse Best MD ECHO ORDERABLES * NM Pharmacologic Stress CT Component (10/01/2023 1:40 PM EDT) WORKSTATION ID [id number] [facility] Anatomical Region Laterality Modality Nuclear Medicine Impressions 10/01/2023 2:58 PM EDT 1. ??Limited study secondary to bowel artifact 2. ??No reversible perfusion defect visualized, however, interpretation of the inferior wall is limited 3. ??Visually normal LVEF Thank you for letting us participate in the care of this patient. ??If you are a health care provider and have any questions regarding this report, please contact the number below. ??For patients who have questions please contact the health medicare compliance auditor that requested your imaging first. ? Electronically signed by: José Soto MD, [facility] ([phone]), at 10/01/2023 2:58 PM Narrative 10/01/2023 2:58 PM EDT EXAMINATION: NM PHARMACOLOGIC STRESS AND REST MYOCARDIAL PERFUSION, NM PHARMACOLOGIC STRESS CT COMPONENT CLINICAL HISTORY: 43yo woman w Hx PCI 1-2y ago presenting with chest pain most consistent with Covid infection, but r/o ischemia TECHNIQUE: During rest, 10.4 mCi of technetium-99m sestamibi was administered intravenously. Approximately 20 minutes later, SPECT images of the heart were obtained with reconstruction in the short, vertical long and horizontal long axis. The patient then received regadenoson intravenously at a dose of 0.4 mg. 20 seconds later, 29 mCi of technetium-99m sestamibi was administered intravenously. Images of the heart were then again obtained with SPECT reconstruction. A low-dose CT scan was acquired for the purpose of attenuation correction COMPARISON: None FINDINGS: No fixed or reversible perfusion defects are present, however, study is significantly limited by bowel artifact. ??This limits interpretation of the inferior wall. Functional analysis: Myocardial function: There is normal wall thickening and wall motion. Visually normal ANCILLARY CT FINDINGS: See ct dated 09/28/2023. Procedure Note José Soto MD - 10/01/2023 EXAMINATION: NM PHARMACOLOGIC STRESS AND REST MYOCARDIAL PERFUSION, NM PHARMACOLOGIC STRESS CT COMPONENT CLINICAL HISTORY: 43yo woman w Hx PCI 1-2y ago presenting with chest painmost consistent with Covid infection, but r/o ischemia TECHNIQUE: During rest, 10.4 mCi of technetium-99m sestamibi wasadministered intravenously. Approximately 20 minutes later, SPECT images of the heartwere obtained with reconstruction in the short, vertical long and horizontallong axis. The patient then received regadenoson intravenously at a dose of 0.4 mg.20 seconds later, 29 mCi of technetium-99m sestamibi was administered intravenously. Images of the heart were then again obtained with SPECT reconstruction. A low-dose CT scan was acquired for the purpose of attenuationcorrection COMPARISON: None FINDINGS: No fixed or reversible perfusion defects are present, however, study is significantly limited by bowel artifact. This limits interpretation ofthe inferior wall. Functional analysis: Myocardial function: There is normal wall thickening and wall motion. Visually normal ANCILLARY CT FINDINGS: See ct dated 09/28/2023. IMPRESSION 1. Limited study secondary to bowel artifact 2. No reversible perfusion defect visualized, however, interpretation ofthe inferior wall is limited 3. Visually normal LVEF Thank you for letting us participate in the care of this patient. If youare a health care provider and have any questions regarding this report,please contact the number below. For patients who have questions please contactthe health medicare compliance auditor that requested your imaging first. Electronically signed by: José Soto MD, [facility]([phone]), at 10/01/2023 2:58 PM Jesse Best MD IMG NM ORDERABLES * Nuclear Pharmacologic Stress Cardiology (10/01/2023 1:28 PM EDT) Anatomical Region Laterality Modality Other Jesse Best MD CARDIAC SERVICES O RDERABLES * NM Pharmacologic Stress and Rest Myocardial Perfusion (10/01/2023 12:35 PM EDT) WORKSTATION ID [id number] [facility] Anatomical Region Laterality Modality Nuclear Medicine Impressions 10/01/2023 2:58 PM EDT 1. ??Limited study secondary to bowel artifact 2. ??No reversible perfusion defect visualized, however, interpretation of the inferior wall is limited 3. ??Visually normal LVEF Thank you for letting us participate in the care of this patient. ??If you are a health care provider and have any questions regarding this report, please contact the number below. ??For patients who have questions please contact the health medicare compliance auditor that requested your imaging first. ? Electronically signed by: José Soto MD, [facility] ([phone]), at 10/01/2023 2:58 PM Narrative 10/01/2023 2:58 PM EDT EXAMINATION: NM PHARMACOLOGIC STRESS AND REST MYOCARDIAL PERFUSION, NM PHARMACOLOGIC STRESS CT COMPONENT CLINICAL HISTORY: 43yo woman w Hx PCI 1-2y ago presenting with chest pain most consistent with Covid infection, but r/o ischemia TECHNIQUE: During rest, 10.4 mCi of technetium-99m sestamibi was administered intravenously. Approximately 20 minutes later, SPECT images of the heart were obtained with reconstruction in the short, vertical long and horizontal long axis. The patient then received regadenoson intravenously at a dose of 0.4 mg. 20 seconds later, 29 mCi of technetium-99m sestamibi was administered intravenously. Images of the heart were then again obtained with SPECT reconstruction. A low-dose CT scan was acquired for the purpose of attenuation correction COMPARISON: None FINDINGS: No fixed or reversible perfusion defects are present, however, study is significantly limited by bowel artifact. ??This limits interpretation of the inferior wall. Functional analysis: Myocardial function: There is normal wall thickening and wall motion. Visually normal ANCILLARY CT FINDINGS: See ct dated 09/28/2023. Procedure Note José Soto MD - 10/01/2023 EXAMINATION: NM PHARMACOLOGIC STRESS AND REST MYOCARDIAL PERFUSION, NM PHARMACOLOGIC STRESS CT COMPONENT CLINICAL HISTORY: 43yo woman w Hx PCI 1-2y ago presenting with chest painmost consistent with Covid infection, but r/o ischemia TECHNIQUE: During rest, 10.4 mCi of technetium-99m sestamibi wasadministered intravenously. Approximately 20 minutes later, SPECT images of the heartwere obtained with reconstruction in the short, vertical long and horizontallong axis. The patient then received regadenoson intravenously at a dose of 0.4 mg.20 seconds later, 29 mCi of technetium-99m sestamibi was administered intravenously. Images of the heart were then again obtained with SPECT reconstruction. A low-dose CT scan was acquired for the purpose of attenuationcorrection COMPARISON: None FINDINGS: No fixed or reversible perfusion defects are present, however, study is significantly limited by bowel artifact. This limits interpretation ofthe inferior wall. Functional analysis: Myocardial function: There is normal wall thickening and wall motion. Visually normal ANCILLARY CT FINDINGS: See ct dated 09/28/2023. IMPRESSION 1. Limited study secondary to bowel artifact 2. No reversible perfusion defect visualized, however, interpretation ofthe inferior wall is limited 3. Visually normal LVEF Thank you for letting us participate in the care of this patient. If youare a health care provider and have any questions regarding this report,please contact the number below. For patients who have questions please contactthe health medicare compliance auditor that requested your imaging first. Electronically signed by: José Soto MD, [facility]([phone]), at 10/01/2023 2:58 PM Jesse Best MD [facility] ORDERABLES * (ABNORMAL) CBC (with Diff) (10/01/2023 4:22 AM EDT) Only the most recent of3 resultswithin the time period is included. White Blood Cell 9.46 4.00 - 9.50 x10(3)/mc L 10/01/2023 4:37 AM [facility] Red Blood Cell 4.41 4.00 - 5.21 x10(6)/mc L 10/01/2023 4:37 AM [facility] [facility] Hemoglobin 10.6(L) 11.7 - 15.5 g/dL 10/01/2023 4:37 AM [facility] Hematocrit 35.5(L) 35.7 - 45.8 % 10/01/2023 4:37 AM [facility] Mean Cell Volume 80.5(L) 82.6 - 94.4 fL 10/01/2023 4:37 AM [facility] Mean Cell Hemoglobin 24.0(L) 27.1 - 32.0 pg 10/01/2023 4:37 AM [facility] Mean Cell Hemoglobin Concentration 29.9(L) 31.7 - 35.0 g/dL 10/01/2023 4:37 AM [facility] Platelet 269 145 - 357 x10(3)/mc L 10/01/2023 4:37 AM [facility] Mean Platelet Volume 9.0 7.6 - 12.9 fL 10/01/2023 4:37 AM [facility] RDW Standard Deviation 57.8(H) 37.0 - 46.0 fL 10/01/2023 4:37 AM [facility] RDW coefficient of variation 20.2(H) 11.5 - 14.1 % 10/01/2023 4:37 AM [facility] NRBC% auto 0.0 % 10/01/2023 4:37 AM [facility] NRBC Absolute 0.00 0.00 - 0.00 x10(3)/mc L 10/01/2023 4:37 AM [facility] Neutrophil % 62.3 % 10/01/2023 4:37 AM [facility] Neutrophil Absolute 5.89 1.70 - 6.10 x10(3)/mc L 10/01/2023 4:37 AM [facility] Lymph % 32.2 % 10/01/2023 4:37 AM [facility] Lymph Absolute 3.05 0.90 - 3.20 x10(3)/mc L 10/01/2023 4:37 AM [facility] Monocyte % 3.8 % 10/01/2023 4:37 AM [facility] Monocyte Absolute 0.36 0.30 - 0.90 x10(3)/mc L 10/01/2023 4:37 AM [facility] Eos % 1.1 % 10/01/2023 4:37 AM [facility] Eos Absolute 0.10 0.00 - 0.40 x10(3)/mc L 10/01/2023 4:37 AM [facility] Basophil % 0.3 % 10/01/2023 4:37 AM [facility] Baso Absolute 0.03 0.00 - 0.10 x10(3)/mc L 10/01/2023 4:37 AM [facility] Immature Gran % 0.3 % 4:37 AM [facility] Immature Gran Absolute 0.03 0.00 - 0.04 x10(3)/mc L 10/01/2023 4:37 AM EDT [facility] Blood VENOUS BLOOD SPECIMEN / Unknown IP Care Team Draw / Unknown 10/01/2023 4:22 AM EDT 10/01/2023 4:26 AM EDT Jesse Best MD HEMATOLOGY ORDERAB LES Performing Organization Address City/[facility] Co de Phone Number [facility] [place] [address] * Magnesium (10/01/2023 4:21 AM EDT) Only the most recent of3 resultswithin the time period is included. Magnesium 0.86 0.69 - 1.07 mMol/L 10/01/2023 5:03 AM EDT [facility] Blood VENOUS BLOOD SPECIMEN / Unknown IP Care Team Draw / Unknown 10/01/2023 4:21 AM EDT 10/01/2023 4:26 AM EDT Jesse Best MD CHEMISTRY ORDERABL ES Performing Organization Address [facility] de Phone Number [facility] [place] [address] * (ABNORMAL) Basic Metabolic Panel (10/01/2023 4:21 AM EDT) Only the most recent of3 resultswithin the time period is included. Glucose 95 65 - 99 mg/dL 10/01/2023 5:03 AM EDT [facility] Comment: Fasting Glucose Interpretive Criteria: Normal: 65-99 mg/dL ?? Prediabetes: 100-125 mg/dL ?? Consistent with Diabetes Mellitus: > or = 126 mg/dL ?? Classification and Diagnosis of Diabetes: Standards of Care in Diabetes - 2022. Diabetes Care 202; 46:S19. Fasting is defined as no caloric intake for at least 8 hours. Blood Urea Nitrogen 16 8 - 18 mg/dL 10/01/2023 5:03 AM [facility] Creatinine 1.10 0.70 - 1.20 mg/dL 10/01/2023 5:03 AM [facility] Sodium 134(L) 135 - 145 mMol/L 10/01/2023 5:03 AM [facility] Potassium 4.6 3.5 - 5.0 mMol/L 10/01/2023 5:03 AM [facility] Chloride 104 98 - 107 mMol/L 10/01/2023 5:03 AM [facility] Carbon Dioxide 21(L) 22 - 31 mMol/L 10/01/2023 5:03 AM [facility] Anion Gap 9 5 - 15 mMol/L 10/01/2023 5:03 AM [facility] Calcium 8.8 8.5 - 10.5 mg/dL 10/01/2023 5:03 AM [facility] Est Glomerular Filtration Rate - Female 64 mL/min/1. 73 m?? 10/01/2023 5:03 AM [facility] Comment: This patient's estimated GFR was calculated using the 2020 CKD-EPI equation. The estimated GFR can vary from the measured GFR by up to 30% in the absence of rapidly changing kidney function. Assessment of the estimated GFR is not appropriate when creatinine concentrations are rapidly changing. For clinical situations in which a more precise estimate of GFR is necessary, consider alternative methods of GFR estimation such as a 24-hour urine creatinine clearance. Assignment of CKD stage 1 - 5 for patients with an eGFR near the transition point between stages may be based on clinical assessment of muscle mass and symptoms in addition to eGFR. Link: eGFR Calculator [employer] Fasting Status Yes 10/01/2023 5:03 AM [facility] Blood VENOUS BLOOD SPECIMEN / Unknown IP Care Team Draw / Unknown 10/01/2023 4:21 AM EDT 10/01/2023 4:26 AM EDT Jesse Best MD CHEMISTRY ORDERABL ES [facility] [place] [address] * Troponin - Single (09/29/2023 9:20 PM EDT) Only the most recent of2 resultswithin the time period is included. [facility] Troponin-T, High Sensitivity <6 <=14 ng/L 09/29/2023 10:11 PM EDT [facility] Comment: This patient's troponin T concentration was determined using the A[employer] 5th Generation troponin T assay. According to the fourth universal definition of myocardial infarction, the term acute myocardial infarction should be used when there is acute myocardial injury with clinical evidence of acute myocardial ischemia and with detection of a rise and/or fall of cardiac troponin values with at least one value above the 99th percentile and at least one of the following: - Symptoms of myocardial ischemia; - New ischemic ECG changes; - Development of pathological Q waves; - Imaging evidence of new loss of viable myocardium or new regional wall motion ?? abnormality in a pattern consistent with an ischemic etiology; - Identification of a coronary thrombus by angiography or autopsy (not for type 2 or 3 ?? MIs) Serial measurement of troponin and the change in troponin concentration over time (delta) is crucial for the diagnosis of acute myocardial infarction. Guidance on the interpretation of the new 5th Generation Troponin T values and the delta troponin value can be found in the [facility] Laboratory Test Catalog Troponin - [email or web address] Reference: Fourth Wentworth Definition of Myocardial Infarction. Journal of the [place] College [employer] 2018;72:7946-7992 Blood VENOUS BLOOD SPECIMEN / Unknown IP Care Team Draw / Unknown 09/29/2023 9:20 PM EDT 09/29/2023 9:25 PM EDT Maria C Barnes MD CHEMISTRY ORDERABL ES [facility] [place] [address] * EKG 12 Lead (09/29/2023 8:50 PM EDT) [facility] Ventricular rate 84 BPM MUSE SYSTEM Atrial Rate 84 BPM MUSE SYSTEM P-R Interval 150 ms MUSE SYSTEM QRS Duration 72 ms MUSE SYSTEM Q-T Interval 376 ms MUSE SYSTEM QTC Calculated (Bezet) 444 ms MUSE SYSTEM Calculated P Garner 38 degrees MUSE SYSTEM Calculated R Garner 20 degrees MUSE SYSTEM Calculated T Garner 46 degrees MUSE SYSTEM INTERPRETATION Normal sinus rhythm Normal ECG When compared with ECG of 29-SEP-2023 10:55, No significant change was found Confirmed by MD STORM ARMIN ([id number]) on 09/30/2023 1:43:36 PM MUSE SYSTEM 09/29/2023 8:50 PM EDT 09/30/2023 1:43 PM EDT Jesse Best MD ECG ORDERABLES MUSE SYSTEM * (ABNORMAL) COVID-19 PCR (09/29/2023 3:51 PM EDT) [facility] SARS-CoV-2 RNA (Rapid) Detected( A) Not Detected 09/29/2023 5:42 PM EDT [facility] Swab SPECIMEN FROM NASOPHARYNGEAL STRUCTURE / Unknown Non Blood Collection / Unknown 09/29/2023 3:51 PM EDT 09/29/2023 3:57 PM EDT Alexa Duggan MD MICROBIOLOGY - GENE RAL ORDERABLES [facility] [place] [address] * TSH (09/29/2023 12:43 PM EDT) [facility] Thyroid Stimulating Hormone 0.70 0.27 - 4.20 mcIU/mL 09/29/2023 1:26 PM EDT [facility] Comment: Reference Interval (mcIU/mL): ?? Females: ? First Trimester: 0.23-3.88 ? Second Trimester: 0.22-3.90 ? Third Trimester: 0.44-4.66 Blood VENOUS BLOOD SPECIMEN / Unknown Venipuncture / Unknown 09/29/2023 12:43 PM EDT 09/29/2023 12:50 PM EDT Jesse Best MD CHEMISTRY ORDERABL ES Performing Organization Address City/[facility]/ZIP Co de Phone Number [facility] [place] [address] * Phosphorus (09/29/2023 12:43 PM EDT) Phosphorus 2.5 2.5 - 4.5 mg/dL 09/29/2023 1:26 PM EDT [facility] Blood VENOUS BLOOD SPECIMEN / Unknown Venipuncture / Unknown 09/29/2023 12:43 PM EDT 09/29/2023 12:50 PM EDT Jesse Best MD CHEMISTRY ORDERABL ES Performing Organization Address [facility] Co de Phone Number [facility] [place] [address] * (ABNORMAL) Hemoglobin A1c (09/29/2023 12:43 PM EDT) Hemoglobin A1c 6.0(H) 4.3 - 5.6 % 09/29/2023 1:09 PM EDT [facility] Comment: Per ADA guidelines, without clear symptoms of hyperglycemia or a random plasma glucose >199 mg/dL, a single abnormal A1c measurement cannot be used to diagnose diabetes mellitus. The diagnosis must be confirmed by either 1) a concurrent abnormal fasting plasma glucose or impaired response to oral glucose tolerance testing, or 2) an additional abnormal A1c, impaired fasting plasma glucose, or impaired response to oral glucose tolerance testing on a different day. A1c results obtained on patients with altered red blood cell turnover may not be patient portal representative of glycemic control. Reference Interval: 4.3 - 5.6% 5.7 - 6.4%: Consistent with prediabetes >=6.5%: Consistent with diagnosis of diabetes mellitus Estimated Average Glucose 126 mg/dL 09/29/2023 1:09 PM EDT [facility] Blood VENOUS BLOOD SPECIMEN / Unknown Venipuncture / Unknown 09/29/2023 12:43 PM EDT 09/29/2023 12:49 PM EDT Jesse Best MD CHEMISTRY ORDERABL ES Performing Organization Address [facility] de Phone Number [facility] [place] [address] * (ABNORMAL) Hepatic Function Panel (09/29/2023 12:43 PM EDT) Albumin 3.7 3.2 - 5.2 g/dL 09/29/2023 1:26 PM EDT [facility] Aspartate Aminotransferase 17 <=30 unit/L 09/29/2023 1:26 PM EDT [facility] Alanine Aminotransferase 12 0 - 30 unit/L 09/29/2023 1:26 PM EDT [facility] Alkaline Phosphatase 127(H) 35 - 105 unit/L 09/29/2023 1:26 PM EDT [facility] Bilirubin, Total 0.3 <=1.3 mg/dL 09/29/2023 1:26 PM EDT [facility] Bilirubin, Direct <0.2 0.0 - 0.3 mg/dL 09/29/2023 1:26 PM EDT [facility] Protein, Total 7.6 6.1 - 8.0 g/dL 09/29/2023 1:26 PM EDT [facility] Blood VENOUS BLOOD SPECIMEN / Unknown Venipuncture / Unknown 09/29/2023 12:43 PM EDT 09/29/2023 12:50 PM EDT Jesse Best MD CHEMISTRY ORDERABL ES Performing Organization Address [facility]/ZIP Co de Phone Number [facility] [place] [address] * Lipid Panel (Reflex Direct LDL) (09/29/2023 12:43 PM EDT) Cholesterol, Total 175 mg/dL 09/29/2023 1:26 PM EDT [facility] Comment: Desirable: < 200 mg/dL Borderline High: 200 - 239 mg/dL High: > or = 240 mg/dL Triglyceride 286 mg/dL 09/29/2023 1:26 PM EDT [facility] Comment: Normal: <150 mg/dL Borderline High: 150-199 mg/dL High: 200-499 mg/dL Very High: > or =500 mg/dL HDL Cholesterol 64 mg/dL 1:26 PM EDT [facility] Comment:Female: High Risk: < 50 mg/dL LDL Cholesterol 66 mg/dL 4 1:26 PM EDT [facility] Comment: Desirable: <100 mg/dL Above Desirable: 100-129 mg/dL Borderline High: 130-159 mg/dL High: 160-189 mg/dL Very High: > or =190 mg/dL Note: LDL calculation updated to the NIH LDL formula as of 09/09/2023 Non-HDL Cholesterol 111 mg/dL 09/29/2023 1:26 PM EDT [facility] Comment: Desirable: <130 mg/dL Above Desirable: 130-159 mg/dL Borderline High: 160-189 mg/dL High: 190-219 mg/dL Very High: > or = 220 mg/dL Blood VENOUS BLOOD SPECIMEN / Unknown Venipuncture / Unknown 09/29/2023 12:43 PM EDT 09/29/2023 12:50 PM EDT [facility] - 09/29/2023 1:26 PM EDT It is important to review the results of your lipid panel with your health care provider. You can compare your lipid results to the ranges below and whether they are in the desirable range. These ranges are only meant to be used for people without known cardiac disease, history of stroke, or peripheral vascular disease (blockages in the leg arteries or diabetes). If you have one of these conditions, your desirable LDL-C (bad cholesterol) will likely be even lower. ?? ACC/AHA Guidelines (most recently Nancy monroe al. JACC 11/08/21): * For individuals with atherosclerotic cardiovascular disease (ASCVD) or LDL >=190 mg/dL, use a high-intensity statin(40-80 mg atorvastatin or 20-40 mg rosuvastatin with goal >=50% LDL reduction) * For individuals with diabetes, age 40-75 without ASCVD, moderate-intensity statin (goal 30-49% LDL reduction); consider high intensity statin for those with increased risk. * For adults without diabetes or ASCVD, aged 40-75 with LDL 70-189 mg/dL, estimate 10 year ASCVD risk with smartphrase ??.ASCVDRISK ??or Dynamed Decisions. If 10 year risk is 7.5%-19.9% (intermediate risk), consider moderate intensity statin based on risk enhancers and patient preference. Consider coronary artery calcium test (CT)if there is concern regarding the benefit of a statin. If ten year risk is >=20%, initiate high-intensity statin. * Evaluate for secondary causes of Triglycerides >500 mg/dL or LDL >190 mg/dL. * Lifestyle modification is a critical component of ASCVD risk reduction. * If not reaching LDL goals on maximally tolerated statin, consider ezetimibe and/or a PCSK9 inhibitor: ?* Target for primary prevention: LDL<100 ?* Target for those with ASCVD or diabetes and 10-year risk >=20%: LDL<70 ?* Target for those with very high risk ASCVD: LDL<55 (Very high risk being the presence of 2 or more of: recent acute coronary syndrome, past ? myocardial infarction, ischemic stroke, symptomatic peripheral artery disease) Jesse Best MD CHEMISTRY ORDERABL ES [facility] [place] [address] * External Cardiology Result (09/29/2023 7:03 AM EDT) Anatomical Region Laterality Modality Other Historical Provider EXTERNAL CARDIOLO GY RESULT * Film Library- Storage Only CT Chest Abdomen Pelvis (09/28/2023 12:00 AM EDT) Narrative RAD - 09/29/2023 9:50 AM EDT This exam is auto-finalizing. It's purpose is for storage only. Jesse Best MD IMG FILM LIBRARY O RDERABLES [facility] [place] from Last 3 Months Additional Health Concerns Infection Onset Date Last Indicated COVID-19 Comment:Date of symptom onset: Date of positive test: 09/29/2023 Precautions may be discontinued by the provider care team after the required isolation period (10 or 20 days, depending on the clinical circumstances) when the patient is clinically improving and has been afebrile for 24 hours without fever reducing medications. Estimated date patient will be eligible for precaution removal: 10/10/2023 Please call [phone] with questions. 09/29/2023 09/29/2023 Advance Directives * Attempt Cardiopulmonary Resuscitation - Inpatient (Latest Code Status on File) Date Activated Date Inactivated Comments 09/29/2023 12:15 PM 10/01/2023 7:05 PM Question Answer Comments Code Status decision made by: Patient Content of discussion: Patient states sh e would want chest compressions and wants to live Care Teams Dope And Fabric Worker Relationship Specialty Start Date End Date None None PCP - General 03/17/23
--- OUTSIDE RECORDS SUMMARY | 2023-10-04 13:53 | XMS_ITS | Encounter Summary ---
Author Organization [facility] [place] [address] Care Team Providers Care Trucking Manager Name Role Phone None Primary Care Provider Unavailabl e Encounter Details Date Type Department Care Team (Late st Contact Info) Description 09/29/2023 [place] [id number] Social History Tobacco Use Types Packs/Day Years Used Date Smoking Tobacco: Never Smokeless Tobacco: Never Alcohol Use Standard Drinks/Week Comments Not Currently 0 (1 standard drink = 0.6 oz pur e alcohol) [facility] Utilities Answer Date Recorded In the past 12 months has th e electric, gas, oil, or water company threatened to shut off services in your home? No 10/01/2023 Hunger Vital Sign Answer Date Recorded Within the past 12 months, y ou worried that your food would run out before you got the money to buy more. Never true 10/01/19 Within the past 12 months, t he [...] any time in the past 12 m [facility], were you homeless or living in a [place] health care facility (including now)? No 10/01/2023 [facility] IP[facility] Inpatient [...] on file documented as of this encounter Plan of Treatment Not on file documented as of this encounter Procedures Procedure Name Priority Date/Time Associated Diagnosis Comments MISC EXTERNAL CARDIOLOGY RESULT Routine 09/29/2023 7:03 AM EDT documented in this encounter Results * External Cardiology Result (09/29/2023 7:03 AM EDT) Anatomical Region Laterality Modality Other Historical Provider EXTERNAL CARDIOLO GY RESULT documented in this encounter Visit Diagnoses Not on filedocumented in this encounter Additional Health Concerns Infection Onset Date Last Indicated Resolved Time Rule Out COVID-19 09/29/2023 09/29/2023 09/29/2023 5:42 PM EDT COVID-19 Comment:Date of symptom onset: Date of positive test: 09/29/2023 Precautions may be discontinued by the provider care team after the required isolation period (10 or 20 days, depending on the clinical circumstances) when the patient is clinically improving and has been afebrile for 24 hours without fever reducing medications. Estimated date patient will be eligible for precaution removal: 10/10/2023 Please call [phone] with questions. 09/29/2023 09/29/2023 documented as of this encounter Care Teams Trucking Manager Relationship Specialty Start Date End Date None None PCP - General 03/17/23 documented as of this encounter
--- OUTSIDE RECORDS SUMMARY | 2023-10-04 13:53 | XMS_ITS | Encounter Summary ---
Author Organization [facility] [place] [address] Care Team Providers Care Financial Sales Assistant Name Role Phone None Primary Care Provider Unavailabl e Reason for Visit * Reason Comments Dental Pain Encounter Details Date Type Department Care Team ([facility] st Contact Info) Description 04/09/2023 1:11 PM EST - 04/09/2023 2:47 PM EST Emergency Emergency Department at [address] [phone] Agustin De Santiago, [address] [address] Pain, dental Discharge Disposition: Home Social History Tobacco Use Types Packs/Day Years Used Date Smoking Tobacco: Every Day Cigarettes Smokeless Tobacco: Never DH IPV Inpatient Questions Answer Date Recorded Does Anyone Try to Keep You From Having Contact with Others or Doing Things Outside Your Home? no 04/10/2023 Feels Threatened by Someone no 06/2023 Feels Unsafe at Home or Work/School no 04/10/2023 Physical Signs of Abuse Present no 04/10/2023 Sex and Gender Information Value Date Recorded Sex Assigned at Not on file Gender Identity Not on file Sexual Orientation Not on file documented as of this encounter Last Filed Vital Signs Vital Sign Reading Time Taken Comments Blood Pressure 163/87 04/09/2023 1:15 PM EST Pulse 107 04/09/2023 1:15 PM EST Temperature 36.6 ??C (97.8 ??F) 04/09/2023 1:15 PM ES T Respiratory Rate 24 04/09/2023 1:15 PM EST Oxygen Saturation 100% 04/09/2023 1:15 PM EST Inhaled Oxygen Concentration - - Weight - - Height - - Body Mass Index - - documented in this encounter Discharge Instructions * Discharge Instructions* Agustin De Santiago DO - 04/09/2023 1:24 PM EST Continue antibiotics as prescribed. I provided you a small prescription of morphine IR to be taken for breakthrough pain if Tylenol and ibuprofen are not working. Please call your dentist as they should be managing your pain going forward. For your pain you can take [id number] ibuprofen 400 to 600 mg (2 to 3 tablets) every 6 to 8 hours as needed. If this is not enough you may add Tylenol (acetaminophen) 1-2 pills by mouth up to four times a day in addition to the ibuprofen. Remember that ibuprofen may cause some stomach upset and that taking it with some bland food might help. Tylenol if taken in excess can be very toxic so do not take more than 1 gram (2 x 500 mg pills - they come as 350 mg and 500 mg pills) per dose and not more than a total of 4 grams a day. Many other preparations have acetaminophen included so make sure your total dose does not exceed the limit. * Attachments The following attachments cannot be sent through Care Everywhere. * Tooth and Gum Pain (Citizen [place]) documented in this encounter Medications at Time of Discharge Medication Sig Dispensed Refills Start Date End Date DULoxetine DR (Cymbalta) [address] capsule Take 30 mg by mouth daily. 12/09/2022 folic acid (Vitamin B9) 1 mg tablet Take 1 mg by mouth daily. 06/29/2022 hydroxychloroquine (Plaquenil) 200 mg tablet Take 200 mg by mouth 2 times daily. 06/29/2022 levothyroxine (Synthroid) 50 mcg tablet Take 50 mcg by mouth daily. 03/09/2022 lisinopriL (Zestril) 5 mg tablet Take 5 mg by mouth daily. magnesium oxide (Mag-Ox) 400 mg (241.3 mg magnesium) Tablet Take 400 mg by mouth 2 times daily. 02/17/2022 medroxyPROGESTERone (Provera) 10 mg tablet Take 10 mg by mouth daily. 05/10/2022 meloxicam (Mobic) 15 mg tablet Take 15 mg by mouth every morning. 01/24/2022 metHOTREXate (TrexalL) 2.5 mg tablet Take 1 tablet by mouth once a week. 03/09/2022 potassium chloride ER (Klor-Con M) 10 mEq ER micro-encapsulated crystal tablet Take 10 mEq by mouth 2 times daily. 02/17/2022 rosuvastatin (Crestor) 5 mg tablet Take 5 mg by mouth daily. 06/29/2022 tiZANidine (Zanaflex) 2 mg tablet Take 2 mg by mouth Every 6 hours. 06/29/2022 aspirin EC 81 mg EC (DR) tablet Take 81 mg by mouth daily. acetaminophen (Tylenol) 500 mg tablet Take 1,000 mg by mouth every 6 hours as needed for Pain. morphine IR (MS IR) 15 mg IR tablet Take 1 tablet by mouth every 6 hours as needed for Pain. 2 tablet 04/09/2023 aspirin 81 mg chewable tablet Take 81 mg by mouth daily. 7 tablet 03/17/2023 clopidogreL (Plavix) 75 mg tablet Take 1 tablet by mouth daily. 7 tablet 03/17/[address] (Cymbalta) [address] capsule Take 1 capsule by mouth daily. 7 tablet 03/17/2023 hydroxychloroquine (Plaquenil) 200 mg tablet Take 1 tablet by mouth 2 times daily. 14 tablet 03/17/2023 levothyroxine (Synthroid) 50 mcg tablet Take 1 tablet by mouth daily. 7 tablet 03/17/2023 lisinopriL (Zestril) 5 mg tablet Take 1 tablet by mouth daily. 7 tablet 03/17/2023 magnesium oxide (Mag-Ox) 400 mg (241.3 mg magnesium) Tablet Take 1 tablet by mouth daily. 7 tablet 03/17/2023 folic acid (Vitamin B9) 1 mg tablet Take 1 tablet by mouth daily. 7 tablet 03/17/2023 meloxicam (Mobic) 15 mg tablet Take 1 tablet by mouth every morning. 7 tablet 03/17/2023 potassium chloride ER (Klor-Con M) 10 mEq ER micro-encapsulated crystal tablet Take 1 tablet by mouth 2 times daily. 14 tablet 03/17/2023 rosuvastatin (Crestor) 5 mg tablet Take 1 tablet by mouth daily. 7 tablet 03/17/2023 tiZANidine (Zanaflex) 2 mg tablet Take 1 tablet by mouth every 6 hours as needed. 15 tablet 03/17/2023 clindamycin (Cleocin) 300 mg capsule Take 1 capsule by mouth 3 times daily for 7 days. 21 capsule 04/06/2023 04/13/2023 documented as of this encounter ED Notes * Agustin De Santiago, - 04/09/2023 1:20 PM EST Chief Complaint Patient presents with Dental Pain History obtained from: [x] patient [] patient and family [] family [] EMS [] [facility] paperwork [] External records in [facility] reviewed, when available. Dental Pain 42-year-old female past medical history of inflammatory arthritis on [place] tract, hyperlipidemia, hypertension who presents emergency department with ongoing left lower dental pain. She reports is ongoing for several days. Was evaluated in the emergency department on April 05 again in April 06. She was prescribed clindamycin which she is continuing to take. She reports she was evaluated at [facility] in [place] this morning told she needs a tooth pulled to continue antibiotics as well as Tylenoland ibuprofen and will follow-up with them on May 02. She reports she is in severe pain and needssomething else for pain. She reports some mild subjective fevers but denies chills. Reports left-sided facial pain. She also reports ongoing intermittent chest pain for which she has been seen in theemergency department twice for recently and has an extensive workup including labs, EKGs, and a CATscan of the chest which were unremarkable. She denies abdominal pain, nausea, vomiting, diarrhea, or skin rash. Allergies Allergen Reactions Penicillins Itching Pertinent Past Medical and Surgical Histories, Social History, Medications, Allergies were reviewedin the chart. Review of Systems as per HPI. Physical Exam Vitals and nursing note reviewed. Constitutional: General: She is in acute distress. Appearance: She is well-developed. Comments: Tearful HENT: Head: Normocephalic. Nose: Nose normal. Mouth/Throat: Mouth: Mucous membranes are moist. Pharynx: Oropharynx is clear. Comments: Diffuse poor dentition. Points to left posterior molar as site of pain. No obvious abscess. No trismus or facial edema. Eyes: Conjunctiva/sclera: Conjunctivae normal. Cardiovascular: Rate and Rhythm: Normal rate and regular rhythm. Heart sounds: Normal heart sounds. Pulmonary: Effort: Pulmonary effort is normal. Breath sounds: Normal breath sounds. Lymphadenopathy: Cervical: No cervical adenopathy. Skin: General: Skin is warm and dry. Findings: No rash. Neurological: Mental Status: She is alert and oriented to person, place, and time. Procedures RUI Andrade presents emergency department tearful complaining of ongoing left lower dental pain. She saw [facility] this morning has appointment on May 02 but she tells me she is having difficulty affording her dental care. They had recommended Tylenol and ibuprofen for pain. She is requesting something more for pain and reports that her pain is uncontrolled. Have agreed to give her to tablets ofmorphine IR as a prescription for breakthrough pain however I did discuss with her that her pain should be managed at this point by her dentist. She is also going to continue to call dentist on the dental list per sliding scale services to find something more affordable for her. She did complain of ongoing chest pain which she reports is unchanged from prior. She had an extensive workup for this from the last several days including labs, EKGs, and a CT of the chest which were unremarkable. I donot think additional workup is indicated for her chest pain at this time. ED Course: No orders to display Did this case involve critical care? No 1. Pain, dental Agustin De Santiago DO 04/09/23 [id number] documented in this encounter Plan of Treatment Not on file documented as of this encounter Visit Diagnoses Diagnosis Pain, dental Unspecified disorder of the teeth and supporting structures documented in this encounter Care Teams Financial Sales Assistant Relationship Specialty Start Date End Date None None PCP - General 03/17/23 documented as of this encounter
--- OUTSIDE RECORDS SUMMARY | 2023-10-04 13:53 | XMS_ITS | Encounter Summary ---
Author Organization [facility] [place] [address] Care Team Providers Care Small Animal Veterinarian Name Role Phone None Primary Care Provider Unavailabl e Encounter Details Date Type Department Care Team (Latest Contact Info) Description 04/22/2023 Travel Social History Tobacco Use Types Packs/Day Years Used Date Smoking Tobacco: Every Day Cigarettes Smokeless Tobacco: Never DH IPV Inpatient Questions Answer Date Recorded Does Anyone Try to Keep You From Having Contact with Others or Doing Things Outside Your Home? no 04/22/2023 Feels Threatened by Someone no 04/05 Feels Unsafe at Home or Work/School no 04/22/2023 Physical Signs of Abuse Present no 04/22/2023 Sex and Gender Information Value Date Recorded Sex Assigned at Not on file Gender Identity Not on file Sexual Orientation Not on file documented as of this encounter Plan of Treatment Not on file documented as of this encounter Visit Diagnoses Not on filedocumented in this encounter Care Teams Small Animal Veterinarian Relationship Specialty Start Date End Date None None PCP - General 03/17/23 documented as of this encounter
--- OUTSIDE RECORDS SUMMARY | 2023-10-04 13:53 | XMS_ITS | Encounter Summary ---
Author Organization [facility] Address [place] [id number] Care Team Providers Care Assistant Professor Nurse Education Name Role Phone None Primary Care Provider Unavailabl e Reason for Visit * Reason Comments Chest Pain Encounter Details Date Type Department Care Team ([facility] st Contact Info) Description 04/10/2023 10:37 PM EST - 04/11/2023 3:42 AM EST Emergency Emergency Department at [address] [phone] Elizabeth Thacker MD [address] [place] [address] [place] [address] Chest pain, unspecified type Discharge Disposition: Home Social History Tobacco Use [...] Sign Reading Time Taken Comments Blood Pressure 149/96 04/11/2023 3:00 AM EST Pulse 62 04/11/2023 3:00 AM EST Temperature 36.9 ??C (98.4 ??F) 04/10/2023 10:[address] Respiratory Rate 18 04/11/2023 3:00 AM EST Oxygen Saturation 100% 04/11/2023 3:00 AM EST Inhaled Oxygen Concentration - - Weight 70.8 kg (156 lb 1.4 oz) 04/10/2023 10:40 PM EST Height 162.6 cm (5' 4) 04/10/2023 10:40 PM EST Body Mass Index 26.79 04/10/2023 10:40 PM EST documented in this encounter Discharge Instructions * Discharge Instructions* Elizabeth Thacker MD - 04/11/2023 3:05 AM EST Please read all of the information that accompanies these instructions. You came to the emergency department with chest pain. You have been diagnosed with chest pain. I am not sure what is causing your chest pain at this point. There is no evidence of heart attack or other emergent cause of your chest pain. Please understand that no emergency visit is complete without a follow-up appointment with your primary care provider. Please contact your primary care providers clinic to schedule this follow-up appointment. This is important. You have been given or prescribed medications during this visit that may make you tired or drowsy. Do not drive, do not operate machinery, do not care for others, do no consume alcohol until they arecompletely clear from your system and you feel normal or as directed by a physician. Please seek medical care or return to the emergency department if you develop new or concerning symptom. We are open 24 hours a day, 7 days a week. * Attachments The following attachments cannot be sent through Care Everywhere. * Chest Pain ([place]) documented in this encounter Medications at Time [...] as of this encounter ED Notes * Elizabeth Thacker MD - 04/11/2023 3:42 AM EST Chief Complaint Patient presents with Chest Pain History obtained from: [x] patient [] patient and family [] family [] EMS [] alf paperwork [] External records in [facility] reviewed, when available. Additional records obtained from [] also reviewed. HPI Lupe Herrmann is a 42 y.o. female who presents to the ED w/ chest pain. 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 She has been having severe chest pain over the past several weeks. She hasbeen seen here several times for this, once by myself, and she is continuing to have pain. It was thought that some of her pain was radiation from dental pain but it has been uncontrolled despite morphine at home. She is frustrated because she cannot get her teeth pulled for several weeks. No facial or neck swelling, no fevers. Her chest pain has continued relatively unchanged. It is central, sharp, nonradiating. It doesn't really feel like her prior Mis. Nothing seems to make it better or worse. Allergies Allergen Reactions Penicillins Itching Pertinent Past Medical and Surgical Histories, Social History, Medications, Allergies were reviewedin the chart. Review of Systems as per HPI. Physical Exam Vitals and nursing note reviewed. Constitutional: General: She is in acute distress. Appearance: She is well-developed. She is not diaphoretic. HENT: Head: Normocephalic and atraumatic. Eyes: Conjunctiva/sclera: Conjunctivae normal. Cardiovascular: Rate and Rhythm: Normal rate and regular rhythm. Pulmonary: Effort: Pulmonary effort is normal. No respiratory distress. Breath sounds: Normal breath sounds. No stridor. Abdominal: General: There is no distension. Tenderness: There is no abdominal tenderness. Musculoskeletal: Cervical back: Neck supple. Skin: General: Skin is warm and dry. Capillary Refill: Capillary refill takes less than 2 seconds. Neurological: General: No focal deficit present. Mental Status: She is alert. Psychiatric: Mood and Affect: Mood is anxious. Affect is tearful. Procedures MDM Initial Evaluation, Assessment, and Plan Lupe Herrmann is a 42 y.o. female with hx of CAD who presents to the ED with persistent severe chest pain. She is quite distressed. Vitals are reassuring. I am not quite sure what is causing this pain. It certainly could be referred pain from her teeth but this is unchanged with no evidence of deep space neck infection. She has had evaluation for aortic dissection which was negative. Today whilein the waiting room she had delta troponins which were negative for acs per the institutions hs-[place] guidelines. The description of her pain is not really consistent with acs either so do not feel thatshcaty would benefit from SEPIDEH for chest pain as given the time course of her pain, if this was ACS related, would expect a positive troponin at one of these visits. Her lungs are clear and she has no respiratory component to her pain. I wonder if some of this could be related to esophageal spasm, unfortunately that's not something that can be diagnosed in the emergency department. I do think she would benefit from returning to her home area for more comprehensive outpatient care for further evaluation of what is going on, as we are only able to rule out medical emergencies in the ED and are not going to be able to do the comprehensive follow up that she likely needs for further evaluation of this pain. Important historical elements Chronic conditions addressed that impacted patient's care: CAD, RA Social determinants that impacted care: traveling nurse, no area outpatient care Clinical information obtained from an independent historian: n/a External records reviewed: yes Clinical communication Management of the patient disucssed with the following: n/a Radiology discussion: n/a Management considerations Testing considerations: as documented above in MDM/ED Course I also considered additional diagnoses as documented above Consideration of escalation of care as documented above Data Review and interpretation Labs: See ED course Imaging independently reviewed and interpreted by me: See ED course ED Course: ED Course as of 04/12/232140Apr 11, 20235 Troponin-T HS: 10 XR Chest One View ED Interpretation Noacute process Final Result Negative chest Thank you for letting us participate in the care of this patient. If you are a health care provider and have any questions regarding this report, please contact the number below. For patients who have questions please contact the health assurance services manager health care that requested your imaging first. Electronically signed by: REY OLIVAS MD, [facility] ([phone]), at 04/11/2023 8:24 AM Did this case involve critical care? No 1. Chest pain, unspecified type Elizabeth Thacker MD 04/12/230 documented in this encounter Miscellaneous Notes * ED Triage - Markos Pal RN - 04/10/2023 10:42 PM EST HPI (Adult) Stated Reason for Visit: Pt. presents to the ED with complaints of chest pain. Pt. states that she has had left sided chest pain all day with associated shortness of breath. Pt. states that the pain feels like something is sitting on her chest. Pt. has been seen in this ED recently with similar complaints. History Obtained From: patient documented in this encounter Plan of Treatment Not on file documented as of this encounter Procedures Procedure Name Priority Date/Time Associated Diagnosis Comments HC VENIPUNCTURE Timed 04/11/2023 1:57 AM EST XR CHEST ONE VIEW STAT 04/11/2023 1:2 6 AM EST TROPONIN - SERIES Timed 04/10/2023 11: 52 PM EST TROPONIN - SERIES STAT 04/10/2023 10: 59 PM EST HEMOGRAM STAT 04/10/2023 10:59 PM EST DIFFERENTIAL, AUTOMATED STAT 04/10/2023 10:59 PM EST GOLD TUBE HOLD STAT 04/10/2023 10:59 PM EST BLUE TUBE HOLD STAT 04/10/2023 10:59 PM EST CBC (WITH DIFF) STAT 04/10/2023 10:59 PM EST BASIC METABOLIC PANEL STAT 04/10/2023 10:59 PM EST EKG 12-LEAD STAT 04/10/2023 10:47 PM EST SCAN DOC - EKG PRELIM 04/10/2023 12:00 AM EST documented in this encounter Results * Troponin (04/11/2023 1:57 AM EST) [facility] Troponin-T, High Sensitivity 10 <=14 ng/L [facility] Comment: This patient's troponin T concentration was determined using the Ailyn 5th Generation troponin T assay. The 99th percentile for Troponin T for this test is 14 ng/L for females, and 22 ng/L for males. According to the fourth universal definition of [...] viable myocardium or new regional wall motion abnormality in a pattern consistent with an ischemic etiology; - Identification of a coronary thrombus by angiography or autopsy (not for type 2 or 3 MIs) Serial measurement of troponin and the change in troponin concentration over time (delta) is crucial for the diagnosis of acute myocardial infarction. Guidance on the interpretation of the new 5th Generation Troponin T values and the delta troponin value can be found in the [facility] Test Catalog Troponin - [facility] Test Catalog Reference: Fourth [place] Definition of Myocardial Infarction. Journal of the [place] College [employer] 2018;72:6446-5492 Blood 04/11/2023 1:57 AM EST 04/11/2023 1:59 AM EST Narrative Resulting Agency Comment Spec In Lab Elizabeth Thacker MD CHEMISTRY ORDERABLES [facility] [address] [place] [address] * XR Chest One View (04/11/2023 1:26 AM EST) Anatomical Region Laterality Modality Chest N/A Computed Radiogr aphy Impressions 04/11/2023 8:24 AM EST Negative chest Thank you for letting us participate in the care of this patient. ??If you are a health care provider and have any questions regarding this report, please contact the number below. ??For patients who have questions please contact the health assurance services manager health care that requested your imaging first. ? Electronically signed by: REY OLIVAS MD, [facility] ([phone]), at 04/11/2023 8:24 AM Narrative 04/11/2023 8:24 AM EST EXAMINATION: XR CHEST ONE VIEW CLINICAL HISTORY: CP, SOB TECHNIQUE: 1 view of the chest COMPARISON: None FINDINGS: Procedure Note Rey Olivas MD - 04/11/2023 EXAMINATION: XR CHEST ONE VIEW CLINICAL HISTORY: CP, SOB TECHNIQUE: 1 view of the chest COMPARISON: None FINDINGS: IMPRESSION Negative chest Thank you for letting us participate in the care of this patient. If youare a health care provider and have any questions regarding this report,please contact the number below. For patients who have questions please contactthe health assurance services manager health care that requested your imaging first. Electronically signed by: REY OLIVAS MD, [facility]([phone]), at 04/11/2023 8:24 AM Agustin De Santiago DO IMG DX ORDERABLES * Troponin (04/10/2023 11:52 PM EST) Troponin-T, High Sensitivity 9 <=14 ng/L [facility] Comment: This patient's troponin T concentration was determined using the Ailyn 5th Generation troponin T assay. The 99th percentile for Troponin T for this test is 14 ng/L for females, and 22 ng/L for males. According to the fourth universal definition of [...] viable myocardium or new regional wall motion abnormality in a pattern consistent with an ischemic etiology; - Identification of a coronary thrombus by angiography or autopsy (not for type 2 or 3 MIs) Serial measurement of troponin and the change in troponin concentration over time (delta) is crucial for the diagnosis of acute myocardial infarction. Guidance on the interpretation of the new 5th Generation Troponin T values and the delta troponin value can be found in the [facility] Test Catalog Troponin - [facility] Test Catalog Reference: Fourth [place] Definition of Myocardial Infarction. Journal of the [place] College [employer] 2018;72:3260-2025 Blood 04/10/2023 11:5 2 PM EST 04/11/2023 12:28 AM EST Narrative Resulting Agency Comment Spec In Lab Elizabeth Thacker MD CHEMISTRY ORDERABLES Performing Organization Address City/[facility]/ZIP Co de Phone Number [facility] [address] [place] [address] * Gold Tube HOLD (04/10/2023 10:59 PM EST) Gold Hold Sample in lab. [facility] Blood No Charge / Unknown 04/10/2023 10:59 PM EST 04/10/2023 11:02 PM EST Lab CHEMISTRY ORDERABLES Performing Organization Address City/[facility]/ZIP Co de Phone Number [facility] [address] [place] [phone] * (ABNORMAL) Differential, Automated (04/10/2023 10:59 PM EST) Neutrophil % 53.6 % [facility] Neutrophil Absolute 5.12 1.70 - 6.10 x10(3)/mc L [facility] Lymph % 34.2 % [facility] Lymphocytes Abs 3.3(H) 0.9 - 3.2 x10(3)/mc L [facility] Monocyte % 9.6 % [facility] Monocyte Abs 0.9 0.3 - 0.9 x10(3)/mc L [facility] Eos % 2.0 % [facility] Eosinophils Abs 0.2 0.0 - 0.4 x10(3)/ L [facility] Basophil % 0.4 % [facility] Baso Absolute 0.0 0.0 - 0.1 x10(3)/mc L [facility] Immature Gran % 0.20 % [facility] Comment: Immature granulocytes(IG's)percentage and absolute count will include metamyelocytes, myelocytes, and promyelocytes. Blood smears from CBCs yielding IG's will be scanned manually for concordance. If this scan disagrees with the automated IG or if promyelocytes are noted, a manual differential will be performed. Immature Gran Absolute 0.02 0.00 - 0.04 x10(3)/mc L [facility] Blood 04/10/2023 10:5 9 PM EST 04/10/2023 11:00 PM EST Narrative Resulting Agency Comment Spec In Lab Elizabeth Thacker MD HEMATOLOGY ORDERABLE S [facility] [address] [place] [address] * (ABNORMAL) Hemogram (04/10/2023 10:59 PM EST) White Blood Cell 9.6(H) 4.0 - 9.5 x10(3)/mc L [facility] Red Blood Cell 4.97 4.00 - 5.21 x10(6)/mc L [facility] Hemoglobin 12.8 11.7 - 15.5 g/dL [facility] Hematocrit 41.1 35.7 - 45.8 % [facility] Mean Cell Volume 82.7 82.6 - 94.4 fL [facility] Mean Cell Hemoglobin 25.8(L) 27.1 - 32.0 pg [facility] Mean Cell Hemoglobin Concentration 31.1(L) 31.7 - 35.0 g/dL [facility] Platelet 346 145 - 357 x10(3)/mc L [facility] RDW Standard Deviation 54.6(H) 37.0 - 46.0 fL [facility] RDW coefficient of variation 19.1(H) 11.5 - 14.1 % [facility] Mean Platelet Volume 8.3 7.6 - 12.9 fL [facility] NRBC% auto 0.0 % [facility] NRBC Absolute 0.000 0.000 - 0.000 x10(3)/mc L [facility] Blood 04/10/2023 10:5 9 PM EST 04/10/2023 11:00 PM EST Narrative Resulting Agency Comment Spec In Lab Elizabeth Thacker MD HEMATOLOGY ORDERABLE S [facility] [address] [place] [id number] * Troponin (04/10/2023 10:59 PM EST) Troponin-T, High Sensitivity 9 <=14 ng/L [facility] Comment: This patient's troponin T concentration was determined using the Ailyn 5th Generation troponin T assay. The 99th percentile for Troponin T for this test is 14 ng/L for females, and 22 ng/L for males. According to the fourth universal definition of [...] viable myocardium or new regional wall motion abnormality in a pattern consistent with an ischemic etiology; - Identification of a coronary thrombus by angiography or autopsy (not for type 2 or 3 MIs) Serial measurement of troponin and the change in troponin concentration over time (delta) is crucial for the diagnosis of acute myocardial infarction. Guidance on the interpretation of the new 5th Generation Troponin T values and the delta troponin value can be found in the [facility] Test Catalog Troponin - [facility] Test Catalog Reference: Fourth [place] Definition of Myocardial Infarction. Journal of the [place] College [employer] 2018;72:4210-2747 Blood 04/10/2023 10:5 9 PM EST 04/10/2023 11:00 PM EST Narrative Resulting Agency Comment Spec In Lab Elizabeth Thacker MD CHEMISTRY ORDERABLES [facility] [address] [place] [address] * Basic Metabolic Panel (non-fasting) (04/10/2023 10:59 PM EST) Glucose 97 65 - 199 mg/dL [facility] Comment:Diabetes: >=200 mg/d L plus symptoms Blood Urea Nitrogen 17 8 - 18 mg/dL [facility] Creatinine 1.15 0.70 - 1.20 mg/dL [facility] Sodium 137 135 - 145 mmol/L [facility] Potassium 4.1 3.5 - 5.0 mmol/L [facility] Comment: Please note: ??Patients with WBC >100,000 may have falsely elevated Potassium levels. ??For accurate Potassium quantification in these patients send serum separator tube (gold top) for subsequent determinations. ??Contact the Clinical Chemistry Laboratory if there are any questions. Chloride 101 98 - 107 mmol/L [facility] Carbon Dioxide 22 22 - 31 mmol/L [facility] Anion Gap 14 5 - 15 mmol/L [facility] Calcium 9.6 8.5 - 10.5 mg/dL [facility] Est Glomerular Filtration Rate 61 >=60 mL/min/1. 73 m?? [facility] Comment: This patient's estimated GFR was [...] urine creatinine clearance. Assignment of CKD stage 1-5 for patients with an eGFR near the transition point between stages may be based on clinical assessment of muscle mass and symptoms in addition to eGFR. Blood 04/10/2023 10:5 9 PM EST 04/10/2023 11:00 PM EST Narrative Resulting Agency Comment Spec In Lab Elizabeth Thacker MD CHEMISTRY ORDERABLES Performing Organization Address [facility] Co de Phone Number [facility] [address] [place] [address] * Blue Tube HOLD (04/10/2023 10:59 PM EST) Blue Hold Sample in lab. [facility] Blood 04/10/2023 10:5 9 PM EST 04/10/2023 11:00 PM EST Elizabeth Thacker MD HEMATOLOGY ORDERABLE S Performing Organization Address [facility] Co de Phone Number [facility] [address] [place] [address] * EKG 12 Lead (04/10/2023 10:47 PM EST) Ventricular rate 107 BPM MUSE SYSTEM Atrial Rate 107 BPM MUSE SYSTEM P-R Interval 136 ms MUSE SYSTEM QRS Duration 84 ms MUSE SYSTEM Q-T Interval 356 ms MUSE SYSTEM QTC Calculated (Bezet) 475 ms MUSE SYSTEM Calculated P [place] 73 degrees MUSE SYSTEM Calculated R [place] 67 degrees MUSE SYSTEM Calculated T [place] 58 degrees MUSE SYSTEM INTERPRETATION Sinus tachycardia Biatrial enlargement Nonspecific T wave abnormality Abnormal ECG When compared with ECG of 07-APR-2023 17:31, No significant change was found Confirmed by Matilda Quezada ([id number]) on 04/11/2023 11:53:50 AM MUSE SYSTEM 04/10/2023 10:4 7 PM EST 04/11/2023 11:53 AM EST Elizabeth Thacker MD ECG ORDERABLES Performing Organization Address [facility] Co de Phone Number MUSE SYSTEM * SCAN DOC - EKG PRELIM (04/10/2023 12:00 AM EST) Narrative 04/10/2023 12:00 AM EST Ordered by an unspecified provider. Scanning Provider MEDIA MGR SCAN EXT O RDR/RSLT documented in this encounter Visit Diagnoses Diagnosis Chest pain, unspecified type documented in this encounter Administered Medications Inactive Administered Medications - up to 3 most recent administrations Medication Order MAR Action Action Date Dose Rate Site morphine (4 mg/mL) injection 4 mg 4 mg, Intramuscular, ONCE, 1 dose, On Sun04/11/23 at 0240, STAT Given 04/11/2023 2:51 AM EST 4 mg Right Deltoid documented in this encounter Active and Recently Administered Medications Times are shown in EST. Scheduled Medication Order 04/09/2023 04/10/2023 04/11/2023 morphine (4 mg/mL) injection 4 mg (COMPLETED) 4 mg, Intramuscular, ONCE, 1 dose, On Sun04/11/23 at 0240, STAT 0251 (Given - Provid er: Candis Rg RN) documented in this encounter Care Teams Assistant Professor Nurse Education Relationship Specialty Start Date End Date None None PCP - General 03/17/23 documented as of this encounter
--- OUTSIDE RECORDS SUMMARY | 2023-10-04 13:53 | XMS_ITS | Encounter Summary ---
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 Name Role Phone None Primary Care Provider Unavailabl e Reason for Visit * Reason Comments Chest Pain Encounter Details Date Type Department Care Team ([facility] Contact Info) Description 04/06/2023 12:32 AM EST - 04/06/2023 4:26 AM EST Emergency Emergency Department at [address] [id number] Elizabeth Thacker MD [address] [place] [address] [place] [address] Chest pain, unspecified type; Pain due to dental caries Discharge Disposition: Home Social History Tobacco Use Types Packs/Day Years Used Date Smoking Tobacco: Every Day Cigarettes Smokeless Tobacco: Never DH IPV Inpatient Questions Answer Date Recorded Does Anyone Try to Keep You From Having Contact with Others or Doing Things Outside Your Home? no 04/07/2023 Feels Threatened by Someone no 03/2023 Feels Unsafe at Home or Work/School no 04/07/2023 Physical Signs of Abuse Present no 04/07/2023 Sex and Gender Information Value Date Recorded Sex Assigned at Not on file Gender Identity Not on file Sexual Orientation Not on file documented as of this encounter Last Filed Vital Signs Vital Sign Reading Time Taken Comments Blood Pressure 137/96 04/06/2023 4:24 AM EST Pulse 79 04/06/2023 4:24 AM EST Temperature 36.5 ??C (97.7 ??F) 04/06/2023 4:26 AM ES T Respiratory Rate 22 04/06/2023 4:24 AM EST Oxygen Saturation 100% 04/06/2023 4:24 AM EST Inhaled Oxygen Concentration - - Weight 70.8 kg (156 lb) 04/06/2023 12:39 AM EST Height - - Body Mass Index 25.96 03/17/2023 6:18 PM EST documented in this encounter Discharge Instructions * Discharge Instructions* Elizabeth Thacker MD - 04/06/2023 4:17 AM EST Please read all of the information that accompanies these instructions. You came to the emergency department with chest pain and dental pain. You have been diagnosed with chest pain and dental infection. During your emergency department visit, we evaluated you for emergency causes of your chest pain. Specifically, we ruled out cardiac ischemia (heart attack), pneumothorax (collapsed lung), pulmonary embolism (blood clot in the lungs), pneumonia among other diagnoses. It is possible your chest pain is related to referred pain from your tooth infection. We recommend treating your pain with as needed tylenol, ibuprofen. If your pain does not improve in the next several days, please follow up with your PCP or return to the ED for reevaluation. Take the antibiotics prescribed for your dental infection. Please understand that no emergency visit is [...] to the emergency department if you develop chest pain or pressure, shortness of breath, difficulty breathing, fainting, near fainting, dizziness, or a new or concerning symptom. We are open 24 hours a day, 7 days a week. * Attachments The following attachments cannot be sent through Care Everywhere. * Tooth Decay (Haitian) * Chest Pain (Haitian) documented in this encounter Medications at Time [...] every 6 hours as needed for Pain. aspirin 81 mg chewable tablet Take 81 [...] 6 hours as needed. 15 tablet 03/17/2023 oxyCODONE-acetaminophen (Percocet) 10-325 mg tablet Take 1 tablet by mouth Three times daily as needed. 06/23/2022 04/09/2023 clindamycin (Cleocin) 300 mg capsule Take 1 capsule by mouth 3 times daily for 7 days. 21 capsule 04/06/2023 04/13/2023 oxyCODONE-acetaminophen (Percocet) 10-325 mg tablet Take 1 tablet by mouth every 4 hours as needed for Pain. 15 tablet 03/17/2023 04/09/2023 documented as of this encounter ED Notes * Elizabeth Thacker MD - 04/06/2023 3:12 AM EST Chief Complaint Patient presents with ??? Chest Pain History obtained from: [x] patient [] patient and family [] family [] EMS [] [facility] paperwork [] External records in [facility] reviewed, when available. Additional records obtained from [] also reviewed. LUCA Herrmann is a 42 y.o. female who presents to the ED w/ chest pain. Pt had acute onset of severe central chest pain radiating to her back starting at 8am this morning. It has been constant sinceonset, nothing makes it worse or better. It is characterized as sharp. She has had chest pain in the past and reports a prior hx of MN but is unsure if this pain is similar. She also notes around the same time sudden onset of left upper tooth pain. She has poor dentition at baseline. No face swelling, no foul taste in her mouth. No SOB, no cough, no fevers. No medication taken prior to arrival. Allergies Allergen Reactions ??? Penicillins Itching Pertinent Past Medical and Surgical Histories, Social History, Medications, Allergies were reviewedin the chart. Review of Systems as per HPI. Physical Exam Vitals and nursing note reviewed. Constitutional: General: She is in acute distress. Appearance: She is well-developed. She is not diaphoretic. HENT: Head: Normocephalic and atraumatic. Mouth/Throat: Comments: Poor dentition, multiple broken left upper jaw teeth with exposed nerve roots. No fluctuance or abscess. Floor of mouth is soft, not elevated. No trismus, controlling secretions. No facial or neck swelling Eyes: Conjunctiva/sclera: Conjunctivae normal. Cardiovascular: Rate and Rhythm: Normal rate and regular rhythm. Pulmonary: Effort: Pulmonary effort is normal. Abdominal: General: There is no distension. Musculoskeletal: Cervical back: Neck supple. Skin: General: Skin is warm and dry. Neurological: Mental Status: She is alert and oriented to person, place, and time. Psychiatric: Mood and Affect: Mood is anxious. Affect is tearful. Procedures MDM Initial Evaluation, Assessment, and Plan See ed course Important historical elements Chronic conditions addressed that impacted patient's care: CAD, diabetes, htn, hypothyroid, RA Social determinants that impacted care: traveler Clinical information obtained from an independent historian: [...] course ED Course: ED Course as of 04/06/23 0419 SunApr 06, 2023 005 Lupe Herrmann is a 42 y.o. female who presents to the ED w/ chest pain and dental pain. Pt isanxious and tearful, appears distressed. Vitals significant for hypertension. Poor dentiiton on oral exam without evidence of abscess. Pt has prior hx of CAD, will obtain troponins. Will obtain d dimer to risk stratify for PE. Will treat pain. EKG nsr rate 92, nromal axis, normal intervals, no acute ischemic changes. 0135 Basic Metabolic Panel (non-fasting) Bmp unremarkable 013 Troponin-T HS: 8 Initial trop normal 0136 D-Dimer, Quant: 428 Age adjusted d dimer wnl. No PE scan but given severity of pain on arrival with htn, plan for cta dissection protocol 0304 Troponin-T HS: 7 Pt ruled out for ACS per our institution's hs-TN protocol, awaiting CTA 0325 Beta hCG Quant: <1 0336 Troponin-T HS: [address] Angiogram Chest Abdomen Pelvis w Contrast No acute process on CT scan. She does have atherosclerosis. Workup otherwise reassuring. Plan for d/c home CT Angiogram Chest Abdomen Pelvis w Contrast Final Result 1. Mild to moderate atherosclerotic disease. No aortic dissection or other acute aortic syndrome. 2. No acute abdominal or pelvic process. Thank you for letting us participate in the care of this patient. If you are a health care provider and have any questions regarding this report, please contact the number below. For patients who have questions please contact the health care director rn that requested your imaging first. Did this case involve critical care? No 1. Chest pain, unspecified type 2. Pain due to dental caries Elizabeth Thacker MD 04/06/23 0419 documented in this encounter Plan of Treatment Not on file documented as of this encounter Procedures Procedure Name Priority Date/Time Associated Diagnosis Comments CT ANGIOGRAM CHEST ABDOMEN PELVIS W CONTRAST STAT 04/06/2023 3:43 AM EST TROPONIN - SERIES Timed 04/06/2023 2:5 6 AM EST TROPONIN - SERIES Timed 04/06/2023 2:1 4 AM EST BETA HCG, QUANTITATIVE STAT 04/06/2023 2:14 AM EST TROPONIN - SERIES STAT 04/06/2023 1:0 5 AM EST HEMOGRAM STAT 04/06/2023 1:05 AM EST DIFFERENTIAL, AUTOMATED STAT 04/06/2023 1:05 AM EST D-DIMER, QUANTITATIVE STAT 04/06/2023 1:05 AM EST GOLD TUBE HOLD Routine 04/06/2023 1:05 AM EST BLUE TUBE HOLD STAT 04/06/2023 1:05 AM EST CBC (WITH DIFF) STAT 04/06/2023 1:05 AM EST BASIC METABOLIC PANEL STAT 04/06/2023 1:05 AM EST EKG 12-LEAD STAT 04/06/2023 12:40 AM EST SCAN DOC - EKG PRELIM 04/06/2023 12:00 AM EST documented in this encounter Results * CT Angiogram Chest Abdomen Pelvis w Contrast (04/06/2023 3:43 AM EST) Anatomical Region Laterality Modality Abdomen, Chest Computed Tomogra phy Impressions 04/06/2023 4:12 AM EST 1. ??Mild to moderate atherosclerotic disease. No aortic dissection or other acute aortic syndrome. 2. ??No acute abdominal or pelvic process. Thank you for letting us participate in the care of this patient. ??If you are a health care provider and have any questions regarding this report, please contact the number below. ??For patients who have questions please contact the health care director rn that requested your imaging first. ? Narrative 04/06/2023 4:12 AM EST EXAMINATION: CT ANGIOGRAM CHEST ABDOMEN PELVIS W CONTRAST CLINICAL HISTORY: Severe chest pain radiating to back, hypertension, concern for dissection TECHNIQUE: Helical CT angiogram of the chest, abdomen and pelvis following the intravenous administration of contrast. 85 mL of Omnipaque 350. Maximum intensity projection (MIP) were reformatted. 3-D images were generated on an independent workstation. COMPARISON: None FINDINGS: VASCULAR FINDINGS Heart: Normal size. Thoracic aorta: No stenosis or aneurysm. Arch branch vessel origins: Patent origin and proximal great vessels. Pulmonary arteries: No central or segmental pulmonary artery filling defects Abdominal aorta: Mild narrowing at the juxtarenal and infrarenal renal segment without focal stenosis or aneurysm. Celiac: No stenosis. SMA: No stenosis. Right renal artery: No stenosis. Left renal artery: Duplicated, no stenosis. KESHAV: No stenosis. Right: Common iliac artery: Mild to moderate narrowing, patent. Internal iliac artery: Mild to moderate narrowing, patent. External iliac artery: Scattered mild to moderate narrowing, patent Common femoral artery: Mild narrowing, patent. Proximal superficial femoral artery: Minimal narrowing proximally, patent. Proximal deep profunda femoral arteries mild narrowing proximally, patent. Left: Common iliac artery: Moderate narrowing throughout, patent. Internal iliac artery: Mild narrowing proximally, patent. External iliac artery: Mild narrowing with scattered areas of moderate narrowing, patent. Common femoral artery: Mild to moderate narrowing, patent. Proximal superficial femoral artery: Mild narrowing proximally, patent. Proximal deep profunda femoral arteries mild narrowing proximally, patent. NON-VASCULAR FINDINGS Lungs and large airways: Patent central airways. Minimal dependent atelectasis. No abnormal parenchymal opacity. Pleura: No pleural effusion or pneumothorax. Mediastinum and roger: No mediastinal or hilar lymphadenopathy. Circumferential thickening of the distal esophagus that may represent esophagitis. Liver: Normal. Bile ducts: Not dilated. Gallbladder: No calcified gallstones. No pericholecystic inflammation. Pancreas: Normal. No duct dilation. No peripancreatic stranding or fluid. Spleen: Normal. Adrenals: Normal. Kidneys: Symmetric enhancement. No hydronephrosis. Lymph Nodes: No enlarged lymph nodes. Bowel: No abnormal enhancement, dilation or surrounding inflammatory change. Normal appendix. Peritoneum: No free air. No free or loculated fluid collection. Abdominal wall: Normal. Urinary Bladder: Normal. Reproductive organs: Normal. Osseous structures: No acute osseous findings suspicious osseous lesions. Procedure Note Peri Badillo MD - 04/06/2023 EXAMINATION: CT ANGIOGRAM CHEST ABDOMEN PELVIS W CONTRAST CLINICAL HISTORY: Severe chest pain radiating to back, hypertension,concern for dissection TECHNIQUE: Helical CT angiogram of the chest, abdomen and pelvis followingthe intravenous administration of contrast. 85 mL of Omnipaque 350. Maximum intensity projection (MIP) were reformatted. 3-D images were generated adonay independent workstation. COMPARISON: None FINDINGS: VASCULAR FINDINGS Heart: Normal size. Thoracic aorta: No stenosis or aneurysm. Arch branch vessel origins: Patent origin and proximal great vessels. Pulmonary arteries: No central or segmental pulmonary artery fillingdefects Abdominal aorta: Mild narrowing at the juxtarenal and infrarenal renalsegment without focal stenosis or aneurysm. Celiac: No stenosis. SMA: No stenosis. Right renal artery: No stenosis. Left renal artery: Duplicated, no stenosis. KESHAV: No stenosis. Right: Common iliac artery: Mild to moderate narrowing, patent. Internal iliac artery: Mild to moderate narrowing, patent. External iliac artery: Scattered mild to moderate narrowing, patent Common femoral artery: Mild narrowing, patent. Proximal superficial femoral artery: Minimal narrowing proximally,patent. Proximal deep profunda femoral arteries mild narrowing proximally,patent. Left: Common iliac artery: Moderate narrowing throughout, patent. Internal iliac artery: Mild narrowing proximally, patent. External iliac artery: Mild narrowing with scattered areas of moderate narrowing, patent. Common femoral artery: Mild to moderate narrowing, patent. Proximal superficial femoral artery: Mild narrowing proximally, patent. Proximal deep profunda femoral arteries mild narrowing proximally,patent. NON-VASCULAR FINDINGS Lungs and large airways: Patent central airways. Minimal dependentatelectasis. No abnormal parenchymal opacity. Pleura: No pleural effusion or pneumothorax. Mediastinum and roger: No mediastinal or hilar lymphadenopathy.Circumferential thickening of the distal esophagus that may represent esophagitis. Liver: Normal. Bile ducts: Not dilated. Gallbladder: No calcified gallstones. No pericholecystic inflammation. Pancreas: Normal. No duct dilation. No peripancreatic stranding orfluid. Spleen: Normal. Adrenals: Normal. Kidneys: Symmetric enhancement. No hydronephrosis. Lymph Nodes: No enlarged lymph nodes. Bowel: No abnormal enhancement, dilation or surrounding inflammatorychange. Normal appendix. Peritoneum: No free air. No free or loculated fluid collection. Abdominal wall: Normal. Urinary Bladder: Normal. Reproductive organs: Normal. Osseous structures: No acute osseous findings suspicious osseouslesions. IMPRESSION 1. Mild to moderate atherosclerotic disease. No aortic dissection orother acute aortic syndrome. 2. No acute abdominal or pelvic process. Thank you for letting us participate in the care of this patient. If youare a health care provider and have any questions regarding this report,please contact the number below. For patients who have questions please contactthe health care director rn that requested your imaging first. Elizabeth Thacker MD IM CT ORDERABLES * Troponin (04/06/2023 2:56 AM EST) Troponin-T, High Sensitivity 8 <=14 ng/L [facility] Comment: This patient's troponin T concentration [...] troponin value can be found in the [facility] Test Catalog Troponin - [facility] Test Catalog Reference: Fourth [place] Definition of Myocardial Infarction. Journal of the [place] College [employer] 2018;72:7651-6720 Blood 04/06/2023 2:56 AM EST 04/06/2023 3:04 AM EST Narrative Resulting Agency Comment Spec In Lab Elizabeth Thacker MD CHEMISTRY ORDERABLES [facility] [address] [facility] [place] [address] * Beta HCG, quantitative (04/06/2023 2:14 AM EST) Beta Human Chorionic Gonadotropin, Quantitative <1 mlU/ML [facility] Comment: REFERENCE RANGES NON- FEMALE: ??Less than 5 mIU/mL POSTMENOPAUSAL FEMALE: ??Less than 8 mIU/mL ? -- FEMALES -- Weeks of ? HCG range ??(mIU/mL) ? 3 weeks ? 5.8 - 71.2 ? 4 weeks ? 9.5 - 750 ? 5 weeks ? 217 - 7,138 ? 6 weeks ? 158 - 31,795 ? 7 weeks ? 3,697 - 163,563 ? 8 weeks ? 32,065 - 149,571 ? 9 weeks ? 63,803 - 151,410 ?10 weeks ? 46,509 - 186,977 ?12 weeks ? 27,832 - 210,612 ?14 weeks ? 13,950 - 62,530 ?15 weeks ? 12,039 - 70,971 ?16 weeks ? 9,040 - 56,451 ?17 weeks ? 8,175 - 75,868 ?18 weeks ? 8,150 - 57,176 This result was generated using a Ailyn Navdeep immunoassay. ??Results obtained from other methods or manufacturers cannot be used interchangeably with this method. Blood 04/06/2023 2:14 AM EST 04/06/2023 2:29 AM EST Narrative Resulting Agency Comment Spec In Lab Elizabeth Thcaker MD CHEMISTRY ORDERABLES Performing Organization Address City/State/[facility] Co de Phone Number [facility] [address] [place] [address] * Troponin (04/06/2023 2:14 AM EST) Troponin-T, High Sensitivity 7 <=14 ng/L [facility] Comment: This patient's troponin T concentration [...] troponin value can be found in the [facility] Test Catalog Troponin - [facility] Test Catalog Reference: Fourth [place] Definition of Myocardial Infarction. Journal of the [place] College of [employer]iology 2018;72:9048-3105 Blood 04/06/2023 2:14 AM EST 04/06/2023 2:29 AM EST Narrative Resulting Agency Comment Spec In Lab Elizabeth Thacker MD CHEMISTRY ORDERABLES Performing Organization Address [facility] de Phone Number [facility] [address] [place] [address] * Gold Tube HOLD (04/06/2023 1:05 AM EST) Gold Hold Sample in lab. [facility] Blood No Charge / Unknown 04/06/2023 1:05 AM EST 04/06/2023 1:10 AM EST Elizabeth Thacker MD CHEMISTRY ORDERABLES Performing Organization Address [facility] Co de Phone Number [facility] [address] [place] [address] * Differential, Automated (04/06/2023 1:05 AM EST) Neutrophil % 59.2 % [facility] Neutrophil Absolute 6.05 1.70 - 6.10 x10(3)/mcL [facility] Lymph % 29.5 % [facility] Lymphocytes Abs 3.0 0.9 - 3.2 x10(3)/[facility] Monocyte % 9.0 % [facility] Monocyte Abs 0.9 0.3 - 0.9 x10(3)/[facility] Eos % 1.8 % [facility] Eosinophils Abs 0.2 0.0 - 0.4 x10(3)/[facility] Basophil % 0.3 % [facility] Baso Absolute 0.0 0.0 - 0.1 x10(3)/[facility] Immature Gran % 0.20 % [facility] Comment: Immature granulocytes(IG's)percentage and absolute count will include metamyelocytes, myelocytes, and promyelocytes. Blood smears from CBCs yielding IG's will be scanned manually for concordance. If this scan disagrees with the automated IG or if promyelocytes are noted, a manual differential will be performed. Immature Gran Absolute 0.02 0.00 - 0.04 x10(3)/[facility] Blood 04/06/2023 1:05 AM EST 04/06/2023 1:10 AM EST Narrative Resulting Agency Comment Spec In Lab Elizabeth Thacker MD HEMATOLOGY ORDERABLE S [facility] [address] [place] [id number] * (ABNORMAL) Hemogram (04/06/2023 1:05 AM EST) White Blood Cell 10.2(H) 4.0 - 9.5 x10(3)/mc L [facility] Red Blood Cell 4.96 4.00 - 5.21 x10(6)/mc L [facility] Hemoglobin 12.9 11.7 - 15.5 g/dL [facility] Hematocrit 41.2 35.7 - 45.8 % [facility] Mean Cell Volume 83.1 82.6 - 94.4 fL [facility] Mean Cell Hemoglobin 26.0(L) 27.1 - 32.0 pg [facility] Mean Cell Hemoglobin Concentration 31.3(L) 31.7 - 35.0 g/dL [facility] Platelet 290 145 - 357 x10(3)/mc L [facility] RDW Standard Deviation 63.8(H) 37.0 - 46.0 fL [facility] RDW coefficient of variation 20.8(H) 11.5 - 14.1 % [facility] Mean Platelet Volume 8.3 7.6 - 12.9 fL [facility] NRBC% auto 0.0 % [facility] NRBC Absolute 0.000 0.000 - 0.000 x10(3)/mc L [facility] Blood 04/06/2023 1:05 AM EST 04/06/2023 1:10 AM EST Narrative Resulting Agency Comment Spec In Lab Elizabeth Thacker MD HEMATOLOGY ORDERABLE S Performing Organization Address [facility] Number [facility] [address] [place] [address] * D-Dimer, Quantitative (04/06/2023 1:05 AM EST) D-Dimer 428 0 - 500 FEU ng/ml [facility] Comment: The D-Dimer assay is used to aid in the diagnosis of deep vein thrombosis and pulmonary embolism. A normal D-Dimer result (less than 500 FEU ng/ml) has a negative predictive value of approximately 95% for the exclusion of acute PE and DVT when there is low to moderate pretest probability. Blood 04/06/2023 1:05 AM EST 04/06/2023 1:10 AM EST Narrative Resulting Agency Comment Spec In Lab Elizabeth Thacker MD HEMATOLOGY ORDERABLE S Performing Organization Address [facility] de Phone Number [facility] [address] [place] [address] * Troponin (04/06/2023 1:05 AM EST) Troponin-T, High Sensitivity 8 <=14 ng/L [facility] Comment: This patient's troponin T concentration [...] troponin value can be found in the [facility] Test Catalog Troponin - [facility] Test Catalog Reference: Fourth [place] Definition of Myocardial Infarction. Journal of the [place] [employer] 2018;72:0303-0367 Blood 04/06/2023 1:05 AM EST 04/06/2023 1:10 AM EST Narrative Resulting Agency Comment Spec In Lab Elizabeth Thacker MD CHEMISTRY ORDERABLES [facility] [address] [place] [address] * Basic Metabolic Panel (non-fasting) (04/06/2023 1:05 AM EST) Glucose 116 65 - 199 mg/dL [facility] Comment:Diabetes: >=200 mg/d L plus symptoms Blood Urea Nitrogen 16 8 - 18 mg/dL [facility] Creatinine 1.08 0.70 - 1.20 mg/dL [facility] Sodium 137 135 - 145 mmol/L [facility] Potassium 4.1 3.5 - 5.0 mmol/L [facility] Comment: Please note: ??Patients with WBC >100,000 may have falsely elevated Potassium levels. ??For accurate Potassium quantification in these patients send serum separator tube (gold top) for subsequent determinations. ??Contact the Clinical Chemistry Laboratory if there are any questions. Chloride 100 98 - 107 mmol/L [facility] Carbon Dioxide 27 22 - 31 mmol/L [facility] Anion Gap 10 5 - 15 mmol/L [facility] Calcium 9.4 8.5 - 10.5 mg/dL [facility] Est Glomerular Filtration Rate 66 >=60 mL/min/1. 73 m?? [facility] Comment: This patient's estimated GFR was [...] and symptoms in addition to eGFR. Blood 04/06/2023 1:05 AM EST 04/06/2023 1:10 AM EST Narrative Resulting Agency Comment Spec In Lab Elizabeth Thacker MD CHEMISTRY ORDERABLES Performing Organization Address [facility] de Phone Number [facility] [address] [place] [address] * Blue Tube HOLD (04/06/2023 1:05 AM EST) Blue Hold Sample in lab. [facility] [facility] Blood 04/06/2023 1:05 AM EST 04/06/2023 1:10 AM EST Elizabeth Thacker MD HEMATOLOGY ORDERABLE S Performing Organization Address [facility] de Phone Number [facility] [address] [place] [address] * EKG 12 Lead (04/06/2023 12:40 AM EST) Ventricular rate 92 BPM MUSE SYSTEM Atrial Rate 92 BPM MUSE SYSTEM P-R Interval 148 ms MUSE SYSTEM QRS Duration 72 ms MUSE SYSTEM Q-T Interval 360 ms MUSE SYSTEM QTC Calculated (Bezet) 445 ms MUSE SYSTEM Calculated P Labelle 75 degrees MUSE SYSTEM Calculated R Labelle 70 degrees MUSE SYSTEM Calculated T Labelle 71 degrees MUSE SYSTEM INTERPRETATION Normal sinus rhythm Biatrial enlargement Abnormal ECG When compared with ECG of 17-MAR-2023 17:09, No significant change was found Confirmed by DO Moya Todd A ([id number]) on 04/06/2023 1:03:06 PM MUSE SYSTEM 04/06/2023 12:4 0 AM EST 04/06/2023 1:03 PM EST Elizabeth Thacker MD ECG ORDERABLES MUSE SYSTEM * SCAN DOC - EKG PRELIM (04/06/2023 12:00 AM EST) Narrative 04/06/2023 12:00 AM EST Ordered by an unspecified provider. Scanning Provider MEDIA MGR SCAN EXT O RDR/RSLT documented in this encounter Visit Diagnoses Diagnosis Chest pain, unspecified type Pain due to dental caries documented in this encounter Administered Medications Inactive Administered Medications - up to 3 most recent administrations Medication Order MAR Action Action Date Dose Rate Site aspirin chewable tablet 324 mg 324 mg, Oral, ONCE, 1 dose, On Sun04/06/23 at 0052, STAT Given 04/06/2023 1:10 AM EST 324 mg iohexoL (Omnipaque) (350 mg/mL) solution 85 mL 85 mL, Intravenous, ONCE PRN, 1 dose, Starting on Sun04/06/23 at 0345, Until Sun04/06/23 at 0345, Per Protocol, Warning Vesicant/Irritant Medication , Routine Given 04/06/2023 3:45 AM EST 85 mLs morphine (4 mg/mL) injection 4 mg 4 mg, Intravenous, ONCE, 1 dose, On Sun04/06/23 at 0052, STAT Given 04/06/2023 1:10 AM EST 4 mg documented in this encounter Active and Recently Administered Medications Times are shown in EST. Scheduled Medication Order 04/04/2023 04/05/2023 04/06/2023 aspirin chewable tablet 324 mg (COMPLETED) 324 mg, Oral, ONCE, 1 dose, On Sun04/06/23 at 0052, STAT 0110 (Given - Provid er: Derrell He RN) morphine (4 mg/mL) injection 4 mg (COMPLETED) 4 mg, Intravenous, ONCE, 1 dose, On Sun04/06/23 at 0052, STAT 0110 (Given - Provid er: Derrell He RN) PRN Medication Order 04/04/2023 04/05/2023 04/06/2023 iohexoL (Omnipaque) (350 mg/mL) solution 85 mL (COMPLETED) 85 mL, Intravenous, ONCE PRN, 1 dose, Starting on Sun04/06/23 at 0345, Until Sun04/06/23 at 0345, Per Protocol, Warning Vesicant/Irritant Medication , Routine 0345 (Given - Provid er: Shauna Calderón) documented in this encounter Care Teams Developmental Mathematics Professor Relationship Specialty Start Date End Date None None PCP - General 03/17/23 documented as of this encounter
--- OUTSIDE RECORDS SUMMARY | 2023-10-04 13:53 | XMS_ITS | Encounter Summary ---
Author Organization [facility] [place] [address] Care Team Providers Care Groundwater Consultant Name Role Phone None Primary Care Provider Unavailabl e Encounter Details Date Type Department Care Team (Latest Contact Info) Description 04/09/2023 Travel Social History Tobacco Use Types Packs/Day [...] on filedocumented in this encounter Care Teams Groundwater Consultant Relationship Specialty Start Date End Date None None PCP - General 03/17/23 documented as of this encounter
--- OUTSIDE RECORDS SUMMARY | 2023-10-04 13:53 | XMS_ITS | Encounter Summary ---
Author Organization [facility] [place] [address] Care Team Providers Care Special Education Coordinator Name Role Phone None Primary Care Provider Unavailabl e Encounter Details Date Type Department Care Team (Latest Contact Info) Description 04/07/2023 Travel Social History Tobacco Use Types Packs/Day [...] on filedocumented in this encounter Care Teams Special Education Coordinator Relationship Specialty Start Date End Date None None PCP - General 03/17/23 documented as of this encounter
--- OUTSIDE RECORDS SUMMARY | 2023-10-04 13:53 | XMS_ITS | Encounter Summary ---
[place] [address] Care Team Providers Care Rug Scratcher Name Role Phone None Primary Care Provider Unavailabl e Reason for Visit * Auth/Cert (Routine) Specialty Diagnoses / Procedures Referred By Roverto t Referred To Contact Diagnoses Back pain [place] / dynamic ekg changes Procedures ER OBSVO Alexa Duggan MD [address] [place] [id number] [facility] Referral ID Status Reason Start Date Expiration Date Visits Re quested Visits Authorized [id number] 1 1 Encounter Details Date Type Department Care Team (Latest Contact Info) Description 09/29/2023 10:48 AM EDT - 10/01/2023 5:00 PM EDT Hospital Encounter Heart and Vascular Unit Level 3 [place] [address] Jesse Malave MD [facility] [place] [address] Alexa Duggan MD [address] [place] [id number] Chest pain, unspecified type Discharge Disposition: Home Social History Tobacco Use Types Packs/Day Years Used Date Smoking Tobacco: Never Smokeless Tobacco: Never Tobacco Cessation:Counseling Given: Not Answered Alcohol Use Standard Drinks/Week Comments Not Currently 0 (1 standard drink = 0.6 oz pur e alcohol) [facility] Utilities Answer Date Recorded In the past 12 months has [employer], gas, oil, or water [employer] threatened to shut off services in your [...] any time in the past 12 m [facility], were you homeless or living in a half-way (including now)? No 10/01/2023 IPV Inpatient Questions Answer Date Recorded Does [...] Mass Index 27.34 09/29/2023 10:48 AM EDT documented in this encounter Discharge Summaries * Silvina Kim MD - 10/01/2023 4:19 PM EDT Cardiology - Discharge Summary Patient Name: Douglas Herrmann Patient Age: 43 y.o. Birthdate: 1980 Admit date: 09/29/2023 Discharge date and time: 10/01/2023 Attending Physician: Jesse Malave MD ID: Douglas Herrmann is a 43 y.o. female w/ PMH CAD s/p PCI 1-2y ago, HTN, HLD presenting with chest pain in the setting of Covid-19 infection and back pain 2/2 left nephrolithiasis. Follow-up Recommendations for Providers: Primary Care - Please review Lupe's progress post hospitalization for nephrolithiasis and COVID-19 infection and manage any cardiac risk factors or medication side effects. - Follow up for resolution of her nephrolithiasis - Follow up for prediabetes - Follow up for HTN (not currently on any antihypertensives, was on lisinopril previously. - She was started on atorvastatin 40mg while admitted - Consider SGLT-2i - Follow up for elevated Triglycerides Cardiology - Follow up results of nuclear stress test and TTE obtained while inpatient. - She was started on atorvastatin 40mg daily while admitted PCP Contact Information: No primary care provider on file. No primary physician on file. Phone: None Fax: None Discharge Diagnoses (Hospital Problems) and Secondary Diagnoses (Chronic Problems): Active Hospital Problems Diagnosis Back pain COVID-19 Nephrolithiasis Resolved Hospital Problems No resolved problems to display. Procedures/Cardiac Studies: Pharmacologic stress testing (see full report below) History of Presentation: Ms. Herrmann initially presented yesterday, 09/28/23, to an OSH for 2-3 days of chest pain. The pain waspresent both at rest and with exertion, and was similar to the pain she experienced with her prior WA. She was given SL nitro with improvement. She was loaded with ASA 325 and Plavix 300. She left AMA to see her daughter who was leaving to move to [place] with her family. She then re-presented to the this morning with ongoing chest pain. Her troponins were negative and EKG did not meet STEMI criteria. She underwent CTA showing no PE or aortic dissection, however there was L nephrolithiasis with associated L hydronephrosis. Ms. Herrmann was then transferred to for further evaluation of chest pain. Of note, she tested positive for Covid-19 at home two days ago and endorses a cough. On assessment, she appears comfortable and is afebrile, HDS and on RA. She does endorse ongoing chest pain which is reproducible on palpation. She also endorses significant left flank pain. She denies a Hx of pyelonephritis. Hospital Course: Douglas Herrmann was admitted to the Cardiology Service on 09/29/2023. The following acute and chronic medical issues were identified during this phase of their hospitalization, and managed as summarizedbelow by problem: #CAD with Hx PCI #Chest pain syndrome iso Covid-19 infection Initial concern for ACS given chest pain and history of PCI. Reassuringly, troponins were negative both at OSH and here, and EKG did not meet STEMI criteria. Chest pain was also significantly worsened with palpation on exam. In combination, these findings strongly suggest a chest pain syndrome 2/2 Covid-19 infection. We obtained additional cardiac workup to rule out underlying ischemic etiology with TTE and stress test, which showed no obvious perfusion defect, normal LVEF. We D/C'd her home Plavix as her PCI was >1y ago. On exam, Ms. Herrmann was saturating well on RA and did not require additional treatment of her Covid infection. Continued her home ASA 81mg. Discontinued Plavix given >1yr since PCI. While admitted we also added Atorvastatin 40mg daily given her history of PCI. #Left nephrolithiasis with hydronephrosis CTA from OSH showed an 8x5mm left lower ureter stone with associated hydronephrosis. We encouraged PO hydration, and given the stone size initiated tamsulosin until stone passage. #Prediabetes Douglas's Hb A1c was noted to be 6.0. She had never previously been treated for elevated blood glucose. It was recommended taht she discuss with her PCP at home in [place] regarding further blood glucose management Important Studies and Lab Data: Discharge Labs: Recent Labs 10/01/23 0422 09/30/23 0258 09/29/23 1243 WBC 9.46 6.80 7.00 HGB 10.6* 9.9* 11.0* PLATELET 269 244 276 Recent Labs 10/01/23 0421 09/30/23 0258 09/29/23 1243 NA 134* 136 137 K 4.6 3.9 4.2 CL 104 105 106 CO2 21* 21* 20* BUN 16 19* 14 CREATININE 1.10 1.07 1.11 GLUCOSE 95 101 112 Recent Labs 10/01/23 0421 09/30/23 0258 09/29/23 1243 CALCIUM 8.8 8.4* 8.4* MAGNESIUM 0.86 0.89 0.93 PHOS -- -- 2.5 No results for input(s): CK, TROPONINT in the last 168 hours. Recent Labs 09/29/23 1243 AST 17 ALT 12 ALKPHOS 127* BILITOT 0.3 BILIDIR <0.2 No results for input(s): INR in the last 168 hours. Lab Results Component Value Date CHLPL 175 09/29/2023 HDL 64 09/29/2023 TRIG 286 09/29/2023 LDLCHOL 66 09/29/2023 Recent Labs 09/29/23 1243 HA1C 6.0* Studies: NM Stress Test 09/30 IMPRESSION 1. Limited study secondary to bowel artifact 2. No reversible perfusion defect visualized, however, interpretation of the inferior wall is limited 3. Visually normal LVEF TTE 09/30 Left ventricular systolic function is normal. The left ventricular ejection fraction is 58% by Harrison's biplane. There are no segmental wall motion abnormalities. The LA is moderately dilated. The aortic valve is trileaflet with moderate aortic regurgitation and no significant stenosis. The mitral valve is mildly thickened with moderate mitral regurgitation and no significant stenosis. Other details as noted below. Pending Studies and Lab Data: none Discharge Conditions/Prognosis: Upon discharge the pt is hemodynamically stable, fully ambulatory without requiring supplemental oxygen, afebrile and pain free controlled with stable oral regimen. Discharge to: home without services Discharge Medications: Your Medications New Medications Dose Details atorvastatin 40 mg tablet Commonly known as: Lipitor Take 1 tablet by mouth every evening. 40 mg Quantity: 1 tablet Refills: 3 Continued medications, unchanged Dose Details aspirin 81 mg chewable tablet Take 81 mg by mouth daily. Indications: DAPT s/p PCI 81 mg Refills: 0 STOPPED Medications clopidogreL 75 mg tablet Commonly known as: Plavix Updated Allergies/ADRs: No Known Allergies General Instructions None Patient Instructions Patient Instructions on Discharge to Home Why you were hospitalized: You were hospitalized due to chest and back pain. You had workup at the hospital to determine if your chest pain was due to a blockage in one of the vessels of your heart. Reassuringly, we determinedyou likely did not have a heart attack as the cause of your chest pain. Your pain was likely due toyour viral infection with COVID-19. Your back pain was due to a kidney stone. It was thought that this stone would successfully pass with medication alone, which we administered in the hospital. New Medications: These medications were sent to [facility] on [address] in [place] Aspirin: this is a platelet inhibitor that will help prevent clot build up in your arteries, as well as in the stent that was placed. Continue taking 81mg daily indefinitely. Atorvastatin (lipitor): this is a cholesterol-lowering medication that helps prevent build up of plaque in your arteries. Take this every evening. Medication Changes: Clopidogrel (plavix): you have been on this medication since your previous heart attack. Since ithas been >1 year since your heart attack and stents, you do not need to take this medication anylonger. Please STOP taking your Plavix. When to call your doctor: - Chest pain, worsening shortness of breath, fatigue with usual exertion, or new rest/night time symptoms. - If you become short of breath, cannot lie down to sleep, or have swelling in your legs/ankles or abdomen, contact your health care provider. - Call if you have reduced urination during the day, or worsening back pain. - Call if you develop a temp >100.5 Diet: - Heart healthy: low salt, low fat, low concentrated sweets. Remember to avoid added salt, canned foods, processed foods (ie hot dogs, sausage, cold meats), and foods naturally high in salt, such as potato chips or pizza. Exercise: - Exercise 5-7 days per week as tolerated with gradual increase to 30 minutes per day. Smoking cessation: - If you are currently a smoker, you are strongly urged to stop smoking! Smoking increases the severity and incidence of heart disease, and is a risk factor for cancer and emphysema. Your health careprovider can provide specific measures to assist you, including nicotine supplements, anti-anxiety meds, and support groups in your community. Follow up Appointments: No future appointments. Edger Machine Operator: Please keep your scheduled cardiology follow-up appointment in October in [place] and discuss the medication changes made at this hospitalization. We can have your documents from thisadmission sent over to your cupola patcher helper's office. Your Primary Care Provider: You follow with a PCP at home in [place]. Please follow up with them when you return home in order to discuss your new medications, and potentially getting started on additional medications to manageyour blood sugars. Your Inpatient Doctor(s) at [facility]: Alexa Duggan MD - Attending physician Jesse Malave MD - Attending Physician Silvina Kim MD - Promotions Assistant physician If you have non-emergent questions between now and the time of your follow up appointments: During 8am-5pm Sunday through Sunday call [phone] to speak with a nurse in the cardiology clinic All other times call [phone] and ask to speak to the cnc supervisor upper extremity surgeon. Provider Contact Information: No primary care provider on file. No primary physician on file. Phone: None Fax: None Discharge References/Attachments: Discharge References/Attachments None For questions regarding this document or issues relating to this hospitalization on the Medical Service, please contact your inpatient physician through the [facility] [employer] Counter Person . Issues afterhours and on weekends will be handled by the Edger Machine Operator staff on-call. Signed: Silvina Kim MD Neurology, PGY-1 Cardiology Team S2. Pager [phone] 10/01/2023 documented in this encounter Discharge Instructions * Patient Instructions* Silvina Kim MD - 09/30/2023 9:03 AM EDT Patient Instructions on Discharge to Home Why you were hospitalized: You were hospitalized due to chest and back pain. You had workup at the hospital to determine if your chest pain was due to a blockage in one of the vessels of your heart. Reassuringly, we determinedyou likely did not have a heart attack as the cause of your chest pain. Your pain was likely due toyour viral infection with COVID-19. Your back pain was due to a kidney stone. It was thought that this stone would successfully pass with medication alone, which we administered in the hospital. New Medications: These medications were sent to [facility] on [address] in [place] Aspirin: this is a platelet inhibitor that will help prevent clot build up in your arteries, as well as in the stent that was placed. Continue taking 81mg daily indefinitely. Atorvastatin (lipitor): this is a cholesterol-lowering medication that helps prevent build up of plaque in your arteries. Take this every evening. Medication Changes: Clopidogrel (plavix): you have been on this medication since your previous heart attack. Since ithas been >1 year since your heart attack and stents, you do not need to take this medication anylonger. Please STOP taking your Plavix. When to call your doctor: - Chest pain, worsening shortness of breath, fatigue with usual exertion, or new rest/night time symptoms. - If you become short of breath, cannot lie down to sleep, or have swelling in your legs/ankles or abdomen, contact your health care provider. - Call if you have reduced urination during the day, or worsening back pain. - Call if you develop a temp >100.5 Diet: - Heart healthy: low salt, low fat, low concentrated sweets. Remember to avoid added salt, canned foods, processed foods (ie hot dogs, sausage, cold meats), and foods naturally high in salt, such as potato chips or pizza. Exercise: - Exercise 5-7 days per week as tolerated with gradual increase to 30 minutes per day. Smoking cessation: - If you are currently a smoker, you are strongly urged to stop smoking! Smoking increases the severity and incidence of heart disease, and is a risk factor for cancer and emphysema. Your health careprovider can provide specific measures to assist you, including nicotine supplements, anti-anxiety meds, and support groups in your community. Follow up Appointments: No future appointments. Edger Machine Operator: Please keep your scheduled cardiology follow-up appointment in October in [place] and discuss the medication changes made at this hospitalization. We can have your documents from thisadmission sent over to your cupola patcher helper's office. Your Primary Care Provider: You follow with a PCP at home in [place]. Please follow up with them when you return home in order to discuss your new medications, and potentially getting started on additional medications to manageyour blood sugars. Your Inpatient Doctor(s) at [facility]: Alexa Duggan MD - Attending physician Jesse Malave MD - Attending Physician Silivna Kim MD - Promotions Assistant physician If you have non-emergent questions between now and the time of your follow up appointments: During 8am-5pm Sunday through Sunday call [phone] to speak with a nurse in the cardiology clinic All other times call [phone] and ask to speak to the cnc supervisor upper extremity surgeon. documented in this encounter Medications at Time [...] every 6 hours as needed for Pain. atorvastatin (Lipitor) 40 mg tablet Take 1 tablet by mouth every evening. 1 tablet 3 10/01/2023 aspirin 81 mg chewable tabletIndications:DAPT s/p PCI Take 81 mg by mouth daily. Indications: DAPT s/p PCI oxyCODONE (Roxicodone) 5 mg tablet Take 1-2 tablets by mouth every 6 hours as needed for Pain. No driving, no alcohol 12 tablet 04/22/2023 morphine IR (MS IR) 15 mg IR [...] 6 hours as needed. 15 tablet 03/17/2023 documented as of this encounter Progress Notes * Erika Santos RN - 10/01/2023 4:55 PM EDT Patient alert and oriented x4 throughout shift. Patient had complaint of pain on a couple occasionstreated with tylenol. Patient first refused tele, vitals and echo, but reconsidered and completed nm stress test as well as TTE. Later, patient decided she would be leaving and team decided to discharge her. Discharge instructions provided. Patient had some difficulty obtaining a ride. Ultimately, patient said she would be walking to the gas station where her daughter would pick her up in an hourand a half. * Jesse Malave MD - 10/01/2023 1:01 PM EDT Inpatient Cardiology Progress Note Patient Name: Douglas Herrmann Date of Admission: 09/29/2023 ( Hospital Day 0 days ) Service: S1 ID: Douglas Herrmann is a 43 y.o. female with PMH CAD s/p PCI 1-2y ago, HTN, HLD presenting with chestpain in the setting of Covid-19 infection and back pain 2/2 left nephrolithiasis. Active Problems: Active Hospital Problems Diagnosis Back pain COVID-19 Nephrolithiasis Resolved Hospital Problems No resolved problems to display. 24 hr events: - No acute events overnight - Complained of some worsened flank pain not responding to dilaudid, given 10mg of oxycodone with good effect. - this AM had some CP, reproducible again on exam. ROS: Chest pain reproducible on exam. Denies SOB, palpitations, PND, Orthopnea, dizziness/LH, LE swelling or pain, n/v, abd pain. Physical Exam: Last value Range last 24 hrs Temperature Temp: 36.9 ??C (98.5 ??F) Temp: [36.6 ??C (97.9 ??F)-37.1 ??C (98.8 ??F)] Heart Rate Heart Rate: 85 Heart Rate: [72-92] Blood Pressure BP: (!) 146/99 BP: (124-146)/(83-99) Respiratory Rate Resp: 18 Resp: [18-20] SpO2 SpO2: 98 % SpO2: [98 %-100 %] Weight: Patient Vitals for the past 168 hrs: Weight 10/01/23 0429 72.3 kg (159 lb 4.8 oz) 09/30/23 0730 71.9 kg (158 lb 8.2 oz) 09/29/23 1048 71.3 kg (157 lb 3 oz) Admit Weight: 71.3 kg Yesterday's net I/O's: Intake/Output Summary (Last 24 hours) at 10/01/2023 1328 Last data filed at 10/01/2023 0800 Gross per 24 hour Intake 1900 ml Output 1000 ml Net 900 ml Gen: pleasant female in NAD HEENT: MMM CV: RRR, s1/s2 of nl character and amplitude, no m/r/g Resp: CTAB Abd: nondistended, soft, NT, nabs throughout Ext: WWP, ++ dp/pt pulses, no edema Neuro: alert and responsive. Without focal deficit Labs Recent Labs 10/01/2342109/30/23 0258 09/29/23 1243 WBC 9.46 6.80 7.00 HGB 10.6* 9.9* 11.0* HCT 35.5* 32.7* 36.1 PLATELET 269 244 276 Recent Labs 10/01/2342009/30/23 0258 09/29/23 1243 NA 134* 136 137 K 4.6 3.9 4.2 CL 104 105 106 CO2 21* 21* 20* BUN 16 19* 14 CREATININE 1.10 1.07 1.11 Recent Labs 09/29/23 1243 AST 17 ALT 12 ALKPHOS 127* BILITOT 0.3 BILIDIR <0.2 Recent Labs 10/01/23 04209/30/23 0258 09/29/23 1243 CALCIUM 8.8 8.4* 8.4* MAGNESIUM 0.86 0.89 0.93 PHOS -- -- 2.5 Troponin 6 -> <6 Imaging/Studies: CT Chest 09/27 without evidence of consolidation or effusion 8x5mm left lower ureter stone with associated hydronephrosis. Scheduled Medications: atorvastatin 40 mg Oral QPM sodium chloride 0.9 % (flush) 5 mL Intravenous BID heparin (porcine) 5,000 Units Subcutaneous Q8H KAMRYN tamsulosin 0.4 mg Oral Daily aspirin 81 mg Oral Daily lidocaine 1 patch Transdermal Q24H capsaicin Topical (Top) BID Infusing Medications: PRN Medications: nitroGLYcerin, sodium chloride 0.9 % (flush), lidocaine, benzocaine, acetaminophen Assessment: 43 y.o. female w/ PMH CAD s/p PCI 1-2y ago, HTN, HLD presenting with chest pain in the setting of Covid-19 infection and back pain 2/2 left nephrolithiasis. Initial concern for ACS given chest pain and history of PCI. Reassuringly, troponins were negative both at OSH and here, and EKG did not meet STEMI criteria. Chest pain was also significantly worsened with palpation on exam. In combination, these findings strongly suggest a chest pain syndrome 2/2 Covid-19 infection. Will obtain additional cardiac workup to rule out underlying ischemic etiology with TTE and stress test today 09/30. Will D/C home Plavix as her PCI was >1y ago. On exam, Ms. Herrmann is saturating well on RA and does not require additional treatment of her Covid infection at this time. Will continue conservative management. CTA from OSH showing an 8x5mm left lower ureter stone with associated hydronephrosis. She believes this has passed with the use of tamsulosin. Will manage any residual flank and chest pain with low dose oral dilaudid vs oxycodone in the short term. Plan: #CAD with Hx PCI #Chest pain syndrome iso Covid-19 infection - Continue home ASA 81mg - Started atorvastatin 40mg - d/c'd Metoprolol succinate 25mg - pend TTE - pend Nuclear stress test - Contact and airborne precautions #Left nephrolithiasis with hydronephrosis - Tamsulosin 0.4mg QD - PO oxycodone 5mg q6 prn for pain #COVID-19 infection - Symptomatic management as needed #Routine Diet: Regular diet DVT Prophylaxis: Heparin GI Prophylaxis: Not needed Dispo: Likely suitable for d/c tomorrow 10/01 pending stress test/echo Code Status: Attempt Cardiopulmonary Resuscitation - Inpatient Silvina Kim MD Neurology, PGY-1 Pager [phone], M1-S2 Service 10/01/2023 1:28 PM Cardiology Attending Note I interviewed and examined the patient during comprehensive bedside rounds. I concur with the summary of interval events, active hospital-focused problem list and plan of care as described in the note below. I personally reviewed the medications, laboratory results, treatment decisions and updated the patient. Jesse Malave MD, FACP, FACC Section of Cardiovascular Medicine [facility] [employer] Stewardesselectronics assembler and tester [facility] This patient meets or has met medical criteria to require an inpatient level of care, i.e. a minimum of two midnights in the hospital with multiple complex problems. * Alexa Duggan MD - 09/30/2023 5:56 AM EDT Inpatient Cardiology Progress Note Patient Name: Douglas Herrmann Date of Admission: 09/29/2023 ( Hospital Day 0 days ) Service: S1 ID: Douglas Herrmann is a 43 y.o. female with PMH CAD s/p PCI 1-2y ago, HTN, HLD presenting with chestpain in the setting of Covid-19 infection and back pain 2/2 left nephrolithiasis. Active Problems: Active Hospital Problems Diagnosis Back pain COVID-19 Nephrolithiasis Resolved Hospital Problems No resolved problems to display. 24 hr events: - No acute events overnight - this AM had some CP, reproducible again on exam. ROS: Chest pain reproducible on exam. Denies SOB, palpitations, PND, Orthopnea, dizziness/LH, LE swelling or pain, n/v, abd pain. Physical Exam: Last value Range last 24 hrs Temperature Temp: 37 ??C (98.6 ??F) Temp: [36.8 ??C (98.2 ??F)-37 ??C (98.6 ??F)] Heart Rate Heart Rate: 77 Heart Rate: [77-101] Blood Pressure BP: 142/84 BP: (117-151)/(84-99) Respiratory Rate Resp: 19 Resp: [16-19] SpO2 SpO2: 100 % SpO2: [98 %-100 %] Weight: Patient Vitals for the past 168 hrs: Weight 09/30/23 0730 71.9 kg (158 lb 8.2 oz) 09/29/23 1048 71.3 kg (157 lb 3 oz) Admit Weight: 71.3 kg Yesterday's net I/O's: Intake/Output Summary (Last 24 hours) at 09/30/2023 1136 Last data filed at 09/30/2023 0700 Gross per 24 hour Intake 340 ml Output 300 ml Net 40 ml Gen: pleasant female in NAD HEENT: MMM CV: RRR, s1/s2 of nl character and amplitude, no m/r/g Resp: CTAB Abd: nondistended, soft, NT, nabs throughout Ext: WWP, ++ dp/pt pulses, no edema Neuro: alert and responsive. Without focal deficit Labs Recent Labs 09/30/23 0258 09/29/23 1243 WBC 6.80 7.00 HGB 9.9* 11.0* HCT 32.7* 36.1 PLATELET 244 276 Recent Labs 09/30/23 0258 09/29/23 1243 NA 136 137 K 3.9 4.2 CL 105 106 CO2 21* 20* BUN 19* 14 CREATININE 1.07 1.11 Recent Labs 09/29/23 1243 AST 17 ALT 12 ALKPHOS 127* BILITOT 0.3 BILIDIR <0.2 Recent Labs 09/30/23 0258 09/29/23 1243 CALCIUM 8.4* 8.4* MAGNESIUM 0.89 0.93 PHOS -- 2.5 Troponin 6 -> <6 Imaging/Studies: CT Chest 09/27 without evidence of consolidation or effusion 8x5mm left lower ureter stone with associated hydronephrosis. Scheduled Medications: atorvastatin 40 mg Oral QPM metoprolol succinate XL 25 mg Oral Daily sodium chloride 0.9 % (flush) 5 mL Intravenous BID heparin (porcine) 5,000 Units Subcutaneous Q8H KAMRYN tamsulosin 0.4 mg Oral Daily aspirin 81 mg Oral Daily lidocaine 1 patch Transdermal Q24H capsaicin Topical (Top) BID Infusing Medications: PRN Medications: nitroGLYcerin, sodium chloride 0.9 % (flush), lidocaine, HYDROmorphone OR HYDROmorphone, benzocaine, acetaminophen Assessment: 43 y.o. female w/ PMH CAD s/p PCI 1-2y ago, HTN, HLD presenting with chest pain in the setting of Covid-19 infection and back pain 2/2 left nephrolithiasis. Initial concern for ACS given chest pain and history of PCI. Reassuringly, troponins were negative both at OSH and here, and EKG did not meet STEMI criteria. Chest pain was also significantly worsened with palpation on exam. In combination, these findings strongly suggest a chest pain syndrome 2/2 Covid-19 infection. Will obtain additional cardiac workup to rule out underlying ischemic etiology with TTE and stress test. Will D/C home Plavix as her PCI was >1y ago. On exam, Ms. Herrmann is saturating well on RA and does not require additional treatment of her Covid infection at this time. Will continue conservative management. CTA from OSH showing an 8x5mm left lower ureter stone with associated hydronephrosis. Will encourage PO hydration, and given the stone size will initiate tamsulosin until stone passage. Will manage flank pain with low dose oral dilaudid in the short term. Plan: #CAD with Hx PCI #Chest pain syndrome iso Covid-19 infection - Continue home ASA 81mg - Started atorvastatin 40mg - Started Metoprolol succinate 25mg daily - TTE - Nuclear stress test - Contact and airborne precautions #Left nephrolithiasis with hydronephrosis - Tamsulosin 0.4mg QD - PO Dilaudid 1-2mg for pain #COVID-19 infection - Symptomatic management as needed #Routine Diet: Regular diet DVT Prophylaxis: Heparin GI Prophylaxis: Not needed Dispo: Likely suitable for d/c tomorrow 09/30 pending stress test/echo Code Status: Attempt Cardiopulmonary Resuscitation - Inpatient Silvina Kim MD Neurology, PGY-1 Pager [phone], [id number] Service 09/30/2023 11:36 AM CARDIOLOGY ATTENDING NOTE Patient: Douglas Herrmann Date of Service: 09/30/2023 Date of Admission: 09/29/2023 Length of Stay Hospital Day 0 days 43 year old with history of CAD s/p PCI in 2020 who presented to outside hospital with complaint ofchest discomfort and back pain. Outside troponins x2 and ECG were negative but patient was transferred due to concern for unstable angina. Here trops neg x1 and ECG reassuring. Patient did state thatchest discomfort was central chest pressure similar to prior [place] symptoms - however very reassuring that markers have been negative. I highly suspect discomfort secondary to viral illness, but think reasonable to obtain stress test prior to discharge given known history of early CAD. #Chest Discomfort #Coronary Artery Disease s/p PCI 2020 Plan: -echo, MPS. If low risk, safe for discharge -BB initiation, statin, asa. -stop plavix (erroneously continued since 2020) -hydration, pain support for renal stone -viral illness supportive care Anticipate likely d/c [id number] Attending Attestation Please see Silvina Kim MD???s note for details of the patient history of presentation and data. I have seen and examined the patient myself and reviewed pertinent studies. I have discussed, reviewed and agree with the documented History, Physical findings, Assessment and Plan of care. 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 Cardiology H&P Patient info: Name: Douglas Herrmann : 1980 PCP: No primary care provider on file. PCP phone number: None Date of Admission: 09/29/2023 ( Hospital Day 0 days ) Attending:Alexa Duggan MD ID: Douglas Herrmann is a 43 y.o. female w/ PMH CAD s/p PCI 1-2y ago, HTN, HLD presenting with chest pain in the setting of Covid-19 infection and back pain 2/2 left nephrolithiasis. Ms. Herrmann initially presented yesterday, 09/28/23, to an OSH for 2-3 days of chest pain. The pain waspresent both at rest and with exertion, and was similar to the pain she experienced with her prior [place]. She was given SL nitro with improvement. She was loaded with ASA 325 and Plavix 300. She left AMA to see her daughter who was leaving to move to [place] with her family. She then re-presented to the this morning with ongoing chest pain. Her troponins were negative and EKG did not meet STEMI criteria. She underwent CTA showing no PE or aortic dissection, however there was L nephrolithiasis with associated L hydronephrosis. Ms. Herrmann was then transferred to for further evaluation of chest pain. Of note, she tested positive for Covid-19 at home two days ago and endorses a cough. On assessment, she appears comfortable and is afebrile, HDS and on RA. She does endorse ongoing chest pain which is reproducible on palpation. She also endorses significant left flank pain. She denies a Hx of pyelonephritis. ROS: Per HPI. Home Medications: ASA 81mg QD Plavix 75mg QD PRN Oxycodone for pain related to arthritis Family History: Hx of CAD Social History Tobacco: Smokes ~5 cigarettes daily Vaping: None EtOH: None Illicit drugs: None Objective: Vitals BP 133/81 (BP Location (NBP): Left arm, Patient Position: Lying) Pulse 86 Temp 37.1 ??C (98.7 ??F) (Oral) Resp 18 Ht 162.6 cm (5' 4) Wt 71.3 kg (157 lb 3 oz) LMP 09/29/2023 SpO2 100% BMI 26.98 kg/m?? Physical Exam: Gen: NAD HEENT: anicteric, EOMI intact CV: RRR, no murmurs/rubs/gallops Resp: CTAB, NWOB Abd: Soft, NT, no peritoneal signs Ext: no pedal edema Neuro: no focal deficits noted Skin: no rashes, lesions, or ulcerations noted Labs: Recent Labs 09/29/23 1243 WBC 7.00 HGB 11.0* HCT 36.1 PLATELET 276 MCV 78.1* Recent Labs 09/29/23 1243 NA 137 CL 106 CO2 20* K 4.2 MAGNESIUM 0.93 PHOS 2.5 CALCIUM 8.4* BUN 14 CREATININE 1.11 LFTs Recent Labs 09/29/23 1243 PROT 7.6 ALBUMIN 3.7 AST 17 ALT 12 ALKPHOS 127* BILITOT 0.3 BILIDIR <0.2 Endocrine Recent Labs 09/29/23 1243 TSH 0.70 Imaging/Diagnostics: CT A/P 09/28/23 at OSH Impression: Chest CT: No acute abnormality Abdomen pelvic CT: Moderate left hydronephrosis secondary to an 8x5 millimeter stone in the lower ureter Heavy calcific plaque in the mid to distal abdominal aorta as well as both iliac arteries. There ismoderate bilateral iliac artery stenosis Assessment & Plan: Douglas Herrmann is a 43 y.o. female w/ PMH CAD s/p PCI 1-2y ago, HTN, HLD presenting with chest pain in the setting of Covid-19 infection and back pain 2/2 left nephrolithiasis. #CAD with Hx PCI #Chest pain syndrome iso Covid-19 infection Initial concern for ACS given chest pain and history of PCI. Reassuringly, troponins were negative both at OSH and here, and EKG did not meet STEMI criteria. Chest pain was also significantly worsened with palpation on exam. In combination, these findings strongly suggest a chest pain syndrome 2/2 Covid-19 infection. Will obtain additional cardiac workup to rule out underlying ischemic etiology with TTE and stress test. Will D/C home Plavix as her PCI was >1y ago. On exam, Ms. Herrmann is saturating well on RA and does not require additional treatment of her Covid infection at this time. Will continue conservative management. - Continue home ASA 81mg - TTE - Nuclear stress test - Contact and airborne precautions #Left nephrolithiasis with hydronephrosis CTA from OSH showing an 8x5mm left lower ureter stone with associated hydronephrosis. Will encourage PO hydration, and given the stone size will initiate tamsulosin until stone passage. Will manage flank pain with low dose oral dilaudid in the short term. - Tamsulosin 0.4mg QD - PO Dilaudid 1-2mg for pain #Routine Diet: Regular diet DVT Prophylaxis: Heparin GI Prophylaxis: Not needed Dispo: Pending clinical course - would be appropriate for medicine transfer at this time. Code Status: Attempt Cardiopulmonary Resuscitation - Inpatient Tena Martinez MD Internal Medicine PGY-2 09/29/23 2:02 PM CARDIOLOGY ATTENDING NOTE Patient: Douglas Herrmann Date of Service: 09/29/2023 Date of Admission: 09/29/2023 Length of Stay Hospital Day 0 days Please see the above note for details. This was a shared encounter during which I provided the medical decision making. I have interviewed and examined the patient independently and I concur with theassessment and plan as documented, with exceptions/additions/emphases as noted below. The case was discussed on cardiology rounds and we reviewed the plan of care with the team and patient. 43 year old with history of CAD s/p PCI in 2020 who presented to outside hospital with complaint ofchest discomfort and back pain. Outside troponins x2 and ECG were negative but patient was transferred due to concern for unstable angina. Patient reports pain started on Sunday; on Sunday she alsotested positive for COVID19. Cardiopulmonary exam was notable for chest discomfort being reproducedwith chest wall palpation, and made worse with inspiration. Patient also notably diagnosed with nonobstructive renal stone, so suspect back pain is renal colic #Chest discomfort The timing and character of pain is highly suggestive of noncardiac chest discomfort, and it is reassuring that ECG and trops have been negative Plan: - will plan to obtain echocardiogram and think MPS for risk stratifcation prior to discharge is reasonable given higher pre-test probability of CAD. Otherwise - supportive care for renal stone and viral illness. Anticipate likely discharge Sunday PM Alexa Duggan MD Cardiovascular Medicine Personal Pager [phone] 09/29/2023 documented in this encounter Miscellaneous Notes * Care Management Discharge - Jonna Castorena RN - 10/01/2023 5:00 PM EDT CARE MANAGEMENT FINAL DISCHARGE NOTE Chart reviewed, care reviewed with primary team and at interdisciplinary rounds. Patient is medically ready for discharge to home. Needs for Transition of Care: Per discharge instructions Plan for discharge is: Home w/o Services Outpatient Agency/Support Group Needs: None Agency Referrals & Follow-up Care: Per discharge instructions Transportation: See final CM note Wheelchair van/Ambulance? No Functional status prior to admission: Independent Home Environment: Others in the home: spouse. Current Living Arrangements: home/apartment/condo. Accessibility Concerns:1 level house, 10 RAUL, + hand railing. Current Functional Ability: Independent DME used at home: none DME Needed at Discharge: none Patient is insured through: Primary Insurance: [employer] Payor: CIGNA / Plan: CIGNA POS OPEN ACC / Product Type: *No Product type* / Secondary Insurance: N/A Prescription Coverage: Yes During IA with CM this AM, need for hospital assistance with ride back [facility]. Patient informed that OCM can assist when she is discharged-per team, expected tomorrow. During IA patient tearful and expressed wanting to go home and follow up outpatient. CM messaged MD during discussion and MD stated he was rounding on her shortly. CM discussed with patient and patient agreed to speak with team during rounds before deciding if she would leave AMA. At end of IA discussion, CM informed patient that if after speaking with team she was wanting to leave AMA, notify nurse to request CM to contact for ride assistance. Both MD and bedside RN notified and aware. After rounds MD sent CM message that patient agreed to stay for testing. No further communication receivedon patient. At 4:15 pm CM received message that patient was upset and wanting to leave and expressing that she was not being helped with a ride. CM was unaware of patient need for ride after communication with MD. Team RS and team FINISH REPAIR WORKER out of office for the day at that time. CM looped in ED SW to assist. By the time contact was made with ED SW, patient reportedly had contacted her daughter who waspicking her up and walked out of hospital. * Initial Assessments - Jonna Castorena RN - 10/01/2023 10:32 AM EDT Office of Care Management Initial Assessment Jonna Castorena RN reviewed record and discussed patient with Care Team. Source of Information: Team, bedside nurse, medical record, and Patient, Chart Review Introduced self/reviewed role; services accepted. CM met with patient via telephone to complete IA as patient has COVID. Admitted From: Transfer from another hospital Location: [facility] Reason for Hospitalization: Chest pain Past medical History: No past medical history on file. Hospitalizations Within the Past 30 Days: no previous admission in last 30 days Current Decision-Making Capacity: Self If AD's have not been completed the following surrogate would be surrogate decision maker per [place] surrogate decision making law. (Only good for 180 days) Any patient receiving care in [place] must abide by [place] law. The hierarchy for surrogate decision making is: (a) Patient???s spouse or civil union partner unless there is a divorce proceeding, separation agreement, or restraining order limiting that person???s relationship with the patient. Gilberto Herrmann () [phone] (b) Any adult son or daughter of the patient. (c) Either parent of the patient. (d) Any adult brother or sister of the patient. (e) Any adult grandchild of the patient. (f) Any grandparent of the patient. (g) Any adult aunt, uncle, niece, or nephew of the patient. (h) A close friend of the patient. (i) The agent with financial power of attorney at law or a conservator appointed in accordance with RSA 464-A. (j) The guardian of the patient???s estate. Advance Care Planning: Attempt Cardiopulmonary Resuscitation - Inpatient <no information> -Advanced Directive: No, declines Current Coping/Education/Information Needs: Denies Current Functional Ability: Independent Functional Status Prior to Admission: Independent Prior ADLs & IADLs: Independent with all ADLs & IADLs Home Environment: Others in the home: spouse. Current Living Arrangements: home/apartment/condo. Accessibility Concerns:1 level house, 10 RAUL, + hand railing. In the last 12 months, was there a time when you were not able to pay the mortgage or rent on time?: No In the past 12 months, how many times have you moved where you were living?: 0 At any time in the past 12 months, were you homeless or living in a half-way (including now)?: No In the past 12 months has the electric, gas, oil, or water company threatened to shut off services in your home?: No Within the past 12 months, you worried that your food would run out before you got the money to buymore.: Never true Within the past 12 months, the food you bought just didn't last and you didn't have money to get more.: Never true Resource / Environmental Concerns: Resource/Environmental Concerns: none Home Accessibility Concerns: other (see comments) (no concerns) In the past 12 months, has lack of transportation kept you from medical appointments or from getting medications?: No In the past 12 months, has lack of transportation kept you from meetings, work, or from getting things needed for daily living?: No Current DME: none Home Address confirmed as: [address] [place] [address] [place] [address] Social & Family Supports: All names listed below confirmed with patient as current and correct Extended Emergency Contact Information Primary Emergency Contact: Gilberto Herrmann Mobile Relation: Spouse Current Care Provided by: self Provides Primary Care For: no one Caregiver if needed: none Quality of Family relationships: supportive Community Resources being provided currently: none Behavioral Health History: Denies Substance Use/Abuse listed: Social History Tobacco Use Smoking Status Never Smokeless Tobacco Never In the past year have you used an illegal drug or used a prescription medication for non-medical reasons?: No 0 No problems reported 1-2 Low level 3-5 Moderate level 6-8 Substantial level 9- 10 Severe level In the past year have you had 4 or more drinks a day containing alcohol?: No 0 to 7 points: Low risk 8 to 15 points: Medium risk 16 to 19 points: High risk 20 to 40 points: Addiction likely Other Pertinent/Service Specific Information: Patient lives in [place]. She is up in [place] on a work contract. She is up here alone. Health/Prescription Coverage: Primary Insurance: N/A Payor: / Secondary Insurance: N/A ; Prescription Coverage: Yes Preferred Pharmacy: [address] [facility] [address] [place] [address] [place] Status: Patient is a : No Primary Care Provider confirmed: No primary care provider on file. None [facility] [place] [address] [facility] [place] [address] *Patient does not recall the name of the MD she sees at the [facility] clinic, but confirms she is seen regularly at clinic listed above. Info sent to Arjun to update. Patient/Caregiver Goals of Treatment: Return home at prior level of independent functioning Potential Needs for Transition of Care: outpatient care Agency Referrals: Not Applicable Transportation: other (see comments) (Generally no concerns, However, currently she will need a ride from the hospital to her [facility]) Transportation Anticipated: taxi Concerns to be Addressed: other (see comments) (Requesting hospital assitance returning to her car (left at referring hospital)) Assessment: Patient is admitted to Cardiology S2 service for back pain, COVID- 19, nephrolithiasis. Plan going forward: ECHO, stress test, med optimization, supportive care. CM department to assist with coordination of ride when patient medically ready for d/c. Care Management team will continue to follow and assist with discharge planing and coordination of care as indicated. * Plan of Care - Lulu Egan RN - 10/01/2023 7:26 AM EDT OUTCOME EVALUATION NOTE: OUTCOME SUMMARY: VS stable. NSR on telemetry. Breathing comfortably with acceptable sats on room air. Had severe pain in legs that patient says is her RA pain and also had reproducible chest pain. Oxycodone was givenfor the chest pain unrelieved by hydromorphone and for the pain in legs with good results. PLAN MOVING FORWARD: Pain relief. INDIVIDUALIZED FALL PREVENTION INTERVENTIONS: Patient-specific fall risk factors per assessment: [current deficits]: None Assistance [level of assistance required for transfers and ambulation]: independent Supervision [direct monitoring required during toileting and ADLs]: independent Surveillance [continuous indirect monitoring]: Telemetry Patient-specific fall prevention interventions for sensory deficits provided, if applicable: [X] N/A CPG GOAL OUTCOME EVALUATION: Problem: Adult Inpatient Plan of Care Goal: Plan of Care Review Outcome: Ongoing (Interventions Implemented as Appropriate) Goal: Patient-Specific Goal (Individualized) Outcome: Ongoing (Interventions Implemented as Appropriate) Goal: Absence of Hospital-Acquired Illness or Injury Outcome: Ongoing (Interventions Implemented as Appropriate) Goal: Optimal Comfort and Wellbeing Outcome: Ongoing (Interventions Implemented as Appropriate) Goal: Readiness for Transition of Care Outcome: Ongoing (Interventions Implemented as Appropriate) Problem: Chest Pain Goal: Resolution of Chest Pain Symptoms Outcome: Ongoing (Interventions Implemented as Appropriate) * Plan of Care - Erika Santos RN - 09/30/2023 6:42 PM EDT Problem: Adult Inpatient Plan of Care Goal: Plan of Care Review Outcome: Ongoing (Interventions Implemented as Appropriate) Goal: Patient-Specific Goal (Individualized) Outcome: Ongoing (Interventions Implemented as Appropriate) Goal: Absence of Hospital-Acquired Illness or Injury Outcome: Ongoing (Interventions Implemented as Appropriate) Goal: Optimal Comfort and Wellbeing Outcome: Ongoing (Interventions Implemented as Appropriate) Goal: Readiness for Transition of Care Outcome: Ongoing (Interventions Implemented as Appropriate) Problem: Chest Pain Goal: Resolution of Chest Pain Symptoms Outcome: Ongoing (Interventions Implemented as Appropriate) * Plan of Care - Lulu Egan RN - 09/30/2023 6:42 AM EDT OUTCOME EVALUATION NOTE: OUTCOME SUMMARY: Oriented times 4. VS stable. NSR on telemetry. Breathing comfortably on room air w/ acceptable O2 sats. Had an episode of 8/10 chest pain/pressure. No relief from 1 SL NTG. ECG obtained and was unchanged. Patient was unwilling to take any more NTG d/t headache. Dr. Barnes came to examine the patient and found that the chest pain was reproducible and probably not cardiac. Capsacin cream was applied, but the patient couldn't tolerate it d/t burning. Wiped it off. Lidocaine patch applied. Shedenied any pain relief from the lidocaine PLAN MOVING FORWARD: Pain management. Pharmacologic Stress test and TTE pending. INDIVIDUALIZED FALL PREVENTION INTERVENTIONS: Patient-specific fall risk factors per assessment: [current deficits]: none Assistance [level of assistance required for transfers and ambulation]: Independent Supervision [direct monitoring required during toileting and ADLs]: independent Surveillance [continuous indirect monitoring]: Telemetry Patient-specific fall prevention interventions for sensory deficits provided, if applicable: [X] N/A CPG GOAL OUTCOME EVALUATION: Problem: Adult Inpatient Plan of Care Goal: Plan of Care Review Outcome: Ongoing (Interventions Implemented as Appropriate) Goal: Patient-Specific Goal (Individualized) Outcome: Ongoing (Interventions Implemented as Appropriate) Goal: Absence of Hospital-Acquired Illness or Injury Outcome: Ongoing (Interventions Implemented as Appropriate) Goal: Optimal Comfort and Wellbeing Outcome: Ongoing (Interventions Implemented as Appropriate) Goal: Readiness for Transition of Care Outcome: Ongoing (Interventions Implemented as Appropriate) Problem: Chest Pain Goal: Resolution of Chest Pain Symptoms Outcome: Ongoing (Interventions Implemented as Appropriate) * Plan of Care - Erika Santos, RN - 09/29/2023 3:02 PM EDT Problem: Adult Inpatient Plan of Care Goal: Plan of Care Review Outcome: Ongoing (Interventions Implemented as Appropriate) Goal: Patient-Specific Goal (Individualized) Outcome: Ongoing (Interventions Implemented as Appropriate) Goal: Absence of Hospital-Acquired Illness or Injury Outcome: Ongoing (Interventions Implemented as Appropriate) Goal: Optimal Comfort and Wellbeing Outcome: Ongoing (Interventions Implemented as Appropriate) Goal: Readiness for Transition of Care Outcome: Ongoing (Interventions Implemented as Appropriate) documented in this encounter Plan of Treatment Pending Results Name Type Priority Associated Diagnoses Date /Time EKG 12 Lead ECG Routine Chest pain, unspecified type 09/29/2023 10:55 AM EDT documented as of this encounter Procedures Procedure Name Priority Date/Time Associated Diagnosis Comments ECHO COMPLETE Routine 10/01/2023 3:05 PM EDT Chest pain, unspecified type NM PHARMACOLOGIC STRESS CT COMPONENT Routine 10/01/2023 1:40 PM EDT NUCLEAR PHARMACOLOGIC STRESS CARDIOLOGY Routine 10/01/2023 1:28 PM EDT NM PHARMACOLOGIC STRESS AND REST MYOCARDIAL PERFUSION Routine 10/01/2023 12:35 PM EDT CBC (WITH DIFF) Routine 10/01/2023 4:22 AM EDT MAGNESIUM Routine 10/01/2023 4:21 AM EDT BASIC METABOLIC PANEL Routine 10/01/2023 4:21 AM EDT CBC (WITH DIFF) Routine 09/30/2023 2:58 AM EDT MAGNESIUM Routine 09/30/2023 2:58 AM EDT BASIC METABOLIC PANEL Routine 09/30/2023 2:58 AM EDT TROPONIN - SINGLE STAT 09/29/2023 9:2 0 PM EDT EKG 12-LEAD STAT 09/29/2023 8:50 PM EDT Chest pain, unspecified type RAPID COVID-19 PCR ([facility]) Routine 09/29/2023 3:51 PM EDT TROPONIN - SINGLE STAT 09/29/2023 12: 43 PM EDT CBC (WITH DIFF) Routine 09/29/2023 12:43 PM EDT TSH Routine 09/29/2023 12:43 PM EDT PHOSPHORUS Routine 09/29/2023 12:43 PM EDT MAGNESIUM Routine 09/29/2023 12:43 PM EDT HEMOGLOBIN A1C Routine 09/29/2023 12:43 PM EDT HEPATIC FUNCTION PANEL Routine 12:43 PM EDT LIPID PANEL (REFLEX DIRECT LDL) Routine 09/29/2023 12:43 PM EDT BASIC METABOLIC PANEL Routine 09/29/2023 12:43 PM EDT EKG 12-LEAD Routine 09/29/2023 10:55 AM EDT Chest pain, unspecified type documented in this encounter Results * ECHO COMPLETE (10/01/2023 3:05 PM EDT) EF 58 [facility] Anatomical Region Laterality Modality Cardiac Other 10/01/2023 2:11 PM EDT Narrative 10/01/2023 3:19 PM EDT 1 [place] [address] ? Echocardiogram Report Name: DOUGLAS HERRMANN ? Study Date: 10/01/2023 02:11 PM ?BP: 146/99 mmHg ?Patient Location: [facility] 0366 A : 1980 ?Height: 163 cm ? Account: [id number] Age: 43 yrs ?Weight: 72 kg Gender: Female ? BSA: 1.8 m2 Ordering Physician: JESSE MALAVE Referring Physician: DENNIS ANN Performed By: Jass [...] stenosis. Other details as noted below. Procedure Complete-[id number]. Satisfactory quality. Left Ventricle Left ventricle is [...] Note Mark Mark MD - 10/01/2023 1 [place] [address] Echocardiogram Report Name: DOUGLAS HERRMANN Study Date: 10/01/2023 02:11 PM BP: 146/99mmHg Patient Location: [address] : 1980 Height: 163 cm Account:[id number] Age: 43 yrs Weight: 72 kg Gender: Female BSA: 1.8 m2 Ordering Physician: JESSE MALAVE Referring Physician: DENNIS ANN Performed By: Jass [...] stenosis. Other details as noted below. Procedure Complete-[id number]. Satisfactory quality. Left Ventricle Left ventricle is [...] 3-5moderate 5 - 6-14large Aneurysmal 15-16diffuse Jesse Malave MD ECHO ORDERABLES * NM Pharmacologic Stress CT Component (10/01/2023 1:40 PM EDT) WORKSTATION ID [id number] [facility] Anatomical Region Laterality Modality Nuclear [...] who have questions please contact the health critical care clinical nurse specialist that requested your imaging first. ? Narrative 10/01/2023 2:58 PM EDT EXAMINATION: NM [...] patients who have questions please contactthe health critical care clinical nurse specialist that requested your imaging first. Jesse Malave MD [facility] NM ORDERABLES * Nuclear Pharmacologic Stress Cardiology (10/01/2023 1:28 PM EDT) Anatomical Region Laterality Modality Other Jesse Malave MD CARDIAC SERVICES O RDERABLES * NM Pharmacologic Stress and Rest Myocardial Perfusion (10/01/2023 12:35 PM EDT) WORKSTATION ID [id number] [facility] Anatomical Region Laterality Modality Nuclear [...] who have questions please contact the health critical care clinical nurse specialist that requested your imaging first. ? Narrative 10/01/2023 2:58 PM EDT EXAMINATION: NM [...] NM PHARMACOLOGIC STRESS AND REST MYOCARDIAL PERFUSION, [place] PHARMACOLOGIC STRESS CT COMPONENT CLINICAL HISTORY: 43yo [...] patients who have questions please contactthe health critical care clinical nurse specialist that requested your imaging first. Jesse Malave MD [facility] ORDERABLES * (ABNORMAL) CBC (with Diff) (10/01/2023 4:22 AM EDT) White Blood Cell 9.46 4.00 - 9.50 x10(3)/mc L 10/01/2023 4:[address] [facility] Red Blood Cell 4.41 4.00 - 5.21 x10(6)/mc L 10/01/2023 4:[address] [facility] Hemoglobin 10.6(L) 11.7 - 15.5 g/dL 10/01/2023 4:[address] [facility] Hematocrit 35.5(L) 35.7 - 45.8 % 10/01/2023 4:[address] [facility] Mean Cell Volume 80.5(L) 82.6 - 94.4 fL 10/01/2023 4:[address] [facility] Mean Cell Hemoglobin 24.0(L) 27.1 - 32.0 pg 10/01/2023 4:[address] [facility] Mean Cell Hemoglobin Concentration 29.9(L) 31.7 - 35.0 g/dL 10/01/2023 4:[address] [facility] Platelet 269 145 - 357 x10(3)/mc L 10/01/2023 4:[address] [facility] Mean Platelet Volume 9.0 7.6 - 12.9 fL 10/01/2023 4:[address] [facility] RDW Standard Deviation 57.8(H) 37.0 - 46.0 fL 10/01/2023 4:[address] [facility] RDW coefficient of variation 20.2(H) 11.5 - 14.1 % 10/01/2023 4:[address] [facility] NRBC% auto 0.0 % 10/01/2023 4:[address] [facility] NRBC Absolute 0.00 0.00 - 0.00 x10(3)/mc L 10/01/2023 4:[address] [facility] Neutrophil % 62.3 % 10/01/2023 4:[address] [facility] Neutrophil Absolute 5.89 1.70 - 6.10 x10(3)/mc L 10/01/2023 4:37 AM EDT [facility] Lymph % 32.2 % 10/01/2023 4:37 AM EDT [facility] Lymph Absolute 3.05 0.90 - 3.20 x10(3)/mc L 10/01/2023 4:37 AM EDT [facility] Monocyte % 3.8 % 10/01/2023 4:37 AM EDT [facility] Monocyte Absolute 0.36 0.30 - 0.90 x10(3)/mc L 10/01/2023 4:37 AM EDT [facility] Eos % 1.1 % 10/01/2023 4:37 AM EDT [facility] Eos Absolute 0.10 0.00 - 0.40 x10(3)/mc L 10/01/2023 4:37 AM EDT [facility] Basophil % 0.3 % 10/01/2023 4:37 AM EDT [facility] Baso Absolute 0.03 0.00 - 0.10 x10(3)/mc L 10/01/2023 4:37 AM EDT [facility] Immature Gran % 0.3 % 4:37 AM EDT [facility] Immature Gran Absolute 0.03 0.00 - 0.04 x10(3)/mc L 10/01/2023 4:37 AM EDT [facility] Blood VENOUS BLOOD SPECIMEN / Unknown IP Care Team Draw / Unknown 10/01/2023 4:22 AM EDT 10/01/2023 4:26 AM EDT Jesse Malave MD HEMATOLOGY ORDERAB LES [facility] [place] [address] * Magnesium (10/01/2023 4:21 AM EDT) Magnesium 0.86 0.69 - 1.07 mMol/L 10/01/2023 5:03 AM EDT [facility] Blood VENOUS BLOOD SPECIMEN / Unknown IP Care Team Draw / Unknown 10/01/2023 4:21 AM EDT 10/01/2023 4:26 AM EDT Jesse Malave MD CHEMISTRY ORDERABL ES [facility] [place] [address] * (ABNORMAL) Basic Metabolic Panel (10/01/2023 4:21 AM EDT) Glucose 95 65 - 99 mg/dL 10/01/2023 5:03 AM EDT [facility] Comment: Fasting Glucose Interpretive Criteria: Normal: 65-99 mg/dL ?? Prediabetes: 100-125 mg/dL ?? Consistent with Diabetes Mellitus: > or = 126 mg/dL ?? Classification and Diagnosis of Diabetes: Standards of Care in Diabetes - 2022. Diabetes Care 2022; 46:S19. Fasting is defined as no caloric intake for at least 8 hours. Blood Urea Nitrogen 16 8 - 18 mg/dL 10/01/2023 5:[address] [facility] Creatinine 1.10 0.70 - 1.20 mg/dL 10/01/2023 5:[address] [facility] Sodium 134(L) 135 - 145 mMol/L 10/01/2023 5:[address] [facility] Potassium 4.6 3.5 - 5.0 mMol/L 10/01/2023 5:[address] [facility] Chloride 104 98 - 107 mMol/L 10/01/2023 5:[address] [facility] Carbon Dioxide 21(L) 22 - 31 mMol/L 10/01/2023 5:[address] [facility] Anion Gap 9 5 - 15 mMol/L 10/01/2023 5:[address] [facility] Calcium 8.8 8.5 - 10.5 mg/dL 10/01/2023 5:03 AM EDT [facility] Est Glomerular Filtration Rate - Female 64 mL/min/1. 73 m?? 10/01/2023 5:03 AM EDT [facility] Comment: This patient's estimated GFR was [...] Foundation Fasting Status Yes 10/01/2023 5:03 AM EDT [facility] Blood VENOUS BLOOD SPECIMEN / Unknown IP Care Team Draw / Unknown 10/01/2023 4:21 AM EDT 10/01/2023 4:26 AM EDT Jesse Malave MD CHEMISTRY ORDERABL ES Performing Organization Address City/[facility]/ZIP Co de Phone Number [facility] [place] [address] * Magnesium (09/30/2023 2:58 AM EDT) Magnesium 0.89 0.69 - 1.07 mMol/L 09/30/2023 4:00 AM EDT [facility] Blood VENOUS BLOOD SPECIMEN / Unknown IP Care Team Draw / Unknown 09/30/2023 2:58 AM EDT 09/30/2023 3:20 AM EDT Jesse Malave MD CHEMISTRY ORDERABL ES Performing Organization Address City/[facility]/ZIP Co de Phone Number [facility] [place] [address] * (ABNORMAL) Basic Metabolic Panel (09/30/2023 2:58 AM EDT) Glucose 101 65 - 199 mg/dL 09/30/2023 4:[address] [facility] Comment:Glucose Concentratio n >=200 mg/dL plus symptoms is consistent with Diabetes Mellitus. Blood Urea Nitrogen 19(H) 8 - 18 mg/dL 09/30/2023 4:[address] [facility] Creatinine 1.07 0.70 - 1.20 mg/dL 09/30/2023 4:[address] [facility] Sodium 136 135 - 145 mMol/L 09/30/2023 4:[address] [facility] Potassium 3.9 3.5 - 5.0 mMol/L 09/30/2023 4:[address] [facility] Chloride 105 98 - 107 mMol/L 09/30/2023 4:[address] [facility] Carbon Dioxide 21(L) 22 - 31 mMol/L 09/30/2023 4:[address] [facility] Anion Gap 10 5 - 15 mMol/L 09/30/2023 4:[address] [facility] Calcium 8.4(L) 8.5 - 10.5 mg/dL 09/30/2023 4:[address] [facility] Est Glomerular Filtration Rate - Female 67 mL/min/1. 73 m?? 09/30/2023 4:[address] [facility] Comment: This patient's estimated GFR was [...] eGFR. Link: eGFR Calculator [employer] Blood VENOUS BLOOD SPECIMEN / Unknown IP Care Team Draw / Unknown 09/30/2023 2:58 AM EDT 09/30/2023 3:20 AM EDT Jesse Malave MD CHEMISTRY ORDERABL ES [facility] [place] [address] * (ABNORMAL) CBC (with Diff) (09/30/2023 2:58 AM EDT) White Blood Cell 6.80 4.00 - 9.50 x10(3)/mc L 09/30/2023 3:34 AM EDT [facility] Red Blood Cell 4.11 4.00 - 5.21 x10(6)/mc L 09/30/2023 3:34 AM EDT [facility] Hemoglobin 9.9(L) 11.7 - 15.5 g/dL 09/30/2023 3:34 AM EDT [facility] Hematocrit 32.7(L) 35.7 - 45.8 % 09/30/2023 3:34 AM EDT [facility] Mean Cell Volume 79.6(L) 82.6 - 94.4 fL 09/30/2023 3:34 AM EDT [facility] Mean Cell Hemoglobin 24.1(L) 27.1 - 32.0 pg 09/30/2023 3:34 AM EDT [facility] Mean Cell Hemoglobin Concentration 30.3(L) 31.7 - 35.0 g/dL 09/30/2023 3:34 AM EDT [facility] Platelet 244 145 - 357 x10(3)/mc L 09/30/2023 3:34 AM EDT [facility] Mean Platelet Volume 9.0 7.6 - 12.9 fL 09/30/2023 3:34 AM EDT [facility] RDW Standard Deviation 57.6(H) 37.0 - 46.0 fL 09/30/2023 3:34 AM EDT [facility] RDW coefficient of variation 20.0(H) 11.5 - 14.1 % 09/30/2023 3:[address] [facility] NRBC% auto 0.0 % 09/30/2023 3:[address] [facility] NRBC Absolute 0.00 0.00 - 0.00 x10(3)/mc L 09/30/2023 3:[address] [facility] Neutrophil % 55.7 % 09/30/2023 3:[address] [facility] Neutrophil Absolute 3.78 1.70 - 6.10 x10(3)/mc L 09/30/2023 3:[address] [facility] Lymph % 38.5 % 09/30/2023 3:[address] [facility] Lymph Absolute 2.62 0.90 - 3.20 x10(3)/mc L 09/30/2023 3:[address] [facility] Monocyte % 4.9 % 09/30/2023 3:[address] [facility] Monocyte Absolute 0.33 0.30 - 0.90 x10(3)/mc L 09/30/2023 3:[address] [facility] Eos % 0.7 % 09/30/2023 3:[address] [facility] Eos Absolute 0.05 0.00 - 0.40 x10(3)/mc L 09/30/2023 3:[address] [facility] Basophil % 0.1 % 09/30/2023 3:[address] [facility] Baso Absolute 0.01 0.00 - 0.10 x10(3)/mc L 09/30/2023 3:[address] [facility] Immature Gran % 0.1 % 3:[address] [facility] Immature Gran Absolute 0.01 0.00 - 0.04 x10(3)/mc L 09/30/2023 3:[address] [facility] Blood VENOUS BLOOD SPECIMEN / Unknown IP Care Team Draw / Unknown 09/30/2023 2:58 AM EDT 09/30/2023 3:20 AM EDT Jesse Malave MD HEMATOLOGY ORDERAB LES Performing Organization Address City/[facility]/ZIP Co de Phone Number [facility] [place] [address] * Troponin - Single (09/29/2023 9:20 PM EDT) Troponin-T, High Sensitivity <6 <=14 ng/L 09/29/2023 10:11 PM EDT [facility] Comment: This patient's troponin T concentration [...] troponin value can be found in the [facility] Test Catalog Troponin - [email or web address]/catalogs/[email or web address] Reference: Fourth White Definition of Myocardial Infarction. Journal of the [employer] 2018;72:5589-4856 Blood VENOUS BLOOD SPECIMEN / Unknown IP Care Team Draw / Unknown 09/29/2023 9:20 PM EDT 09/29/2023 9:25 PM EDT Maria C Barnes MD CHEMISTRY ORDERABL ES Performing Organization Address City/[facility]/ZIP Co de Phone Number [facility] [place] [address] * EKG 12 Lead (09/29/2023 8:50 PM EDT) Ventricular rate 84 BPM MUSE SYSTEM Atrial Rate 84 BPM MUSE SYSTEM P-R Interval 150 ms MUSE SYSTEM QRS Duration 72 ms MUSE SYSTEM Q-T Interval 376 ms MUSE SYSTEM QTC Calculated (Bezet) 444 ms MUSE SYSTEM Calculated P [place] 38 degrees MUSE SYSTEM Calculated R [place] 20 degrees MUSE SYSTEM Calculated T [place] 46 degrees MUSE SYSTEM INTERPRETATION Normal sinus rhythm Normal ECG When compared with ECG of 29-SEP-2023 10:55, No significant change was found Confirmed by MD STORM ARMIN ([id number]) on 09/30/2023 1:43:36 PM MUSE SYSTEM 09/29/2023 8:50 PM EDT 09/30/2023 1:43 PM EDT Jesse Malave MD ECG ORDERABLES Performing Organization Address City/[facility]/ZIP Co de Phone Number MUSE SYSTEM * (ABNORMAL) COVID-19 PCR (09/29/2023 3:51 PM EDT) Pathologist [facility] SARS-CoV-2 RNA (Rapid) Detected( A) Not Detected 09/29/2023 5:42 PM EDT [facility] Swab SPECIMEN FROM NASOPHARYNGEAL STRUCTURE / Unknown Non Blood Collection / Unknown 09/29/2023 3:51 PM EDT 09/29/2023 3:57 PM EDT Alexa Duggan MD MICROBIOLOGY - GENE RAL ORDERABLES [facility] [place] [address] * Troponin - Single (09/29/2023 12:43 PM EDT) Pathologist [facility] Troponin-T, High Sensitivity 6 <=14 ng/L 09/29/2023 1:26 PM EDT [facility] Comment: This patient's troponin T concentration [...] troponin value can be found in the [facility] Test Catalog Troponin - [email or web address]/catalogs/[email or web address] Reference: Fourth White Definition of Myocardial Infarction. Journal of the [employer] 2018;72:4031-0400 Blood VENOUS BLOOD SPECIMEN / Unknown Venipuncture / Unknown 09/29/2023 12:43 PM EDT 09/29/2023 12:50 PM EDT Jesse Malave MD CHEMISTRY ORDERABL ES Performing Organization Address City/State/[facility] de Phone Number [facility] [place] [address] * TSH (09/29/2023 12:43 PM EDT) Thyroid Stimulating Hormone 0.70 0.27 - 4.20 mcIU/mL 09/29/2023 1:26 PM EDT [facility] Comment: Reference Interval (mcIU/mL): ?? Females: ? First Trimester: 0.23-3.88 ? Second Trimester: 0.22-3.90 ? Third Trimester: 0.44-4.66 Blood VENOUS BLOOD SPECIMEN / Unknown Venipuncture / Unknown 09/29/2023 12:43 PM EDT 09/29/2023 12:50 PM EDT Jesse Malave MD CHEMISTRY ORDERABL ES [facility] [place] [address] * Lipid Panel (Reflex Direct LDL) (09/29/2023 12:43 PM EDT) Cholesterol, Total 175 mg/dL 09/29/2023 1:26 PM EDT [facility] Comment: Desirable: < 200 mg/dL Borderline High: 200 - 239 mg/dL High: > or = 240 mg/dL Triglyceride 286 mg/dL 09/29/2023 1:26 PM EDT [facility] Comment: Normal: <150 mg/dL Borderline High: 150-199 mg/dL High: 200-499 mg/dL Very High: > or =500 mg/dL HDL Cholesterol 64 mg/dL 1:26 PM EDT [facility] Comment:Female: High Risk: < 50 mg/dL LDL Cholesterol 66 mg/dL 1:26 PM EDT [facility] Comment: Desirable: <100 mg/dL Above Desirable: 100-129 mg/dL Borderline High: 130-159 mg/dL High: 160-189 mg/dL Very High: > or =190 mg/dL Note: LDL calculation updated to the NIH LDL formula as of 09/09/2023 Non-HDL Cholesterol 111 mg/dL 09/29/2023 1:26 PM EDT [facility] Comment: Desirable: <130 mg/dL Above Desirable: 130-159 mg/dL Borderline High: 160-189 mg/dL High: 190-219 mg/dL Very High: > or = 220 mg/dL Blood VENOUS BLOOD SPECIMEN / Unknown Venipuncture / Unknown 09/29/2023 12:43 PM EDT 09/29/2023 12:50 PM EDT Narrative [facility] - 09/29/2023 1:26 PM EDT It [...] ACC/AHA Guidelines (most recently Nancy monroe al. [facility] 11/08/21): * For individuals with atherosclerotic cardiovascular [...] ischemic stroke, symptomatic peripheral artery disease) Jesse Malave MD [place] [address] * (ABNORMAL) Hemoglobin A1c (09/29/2023 12:43 PM EDT) [facility] Hemoglobin A1c 6.0(H) 4.3 - 5.6 % 09/29/2023 1:09 PM EDT [facility] Comment: Per ADA guidelines, without clear [...] red blood cell turnover may not be customer field representative of glycemic control. Reference Interval: 4.3 - 5.6% 5.7 - 6.4%: Consistent with prediabetes >=6.5%: Consistent with diagnosis of diabetes mellitus Estimated Average Glucose 126 mg/dL 09/29/2023 1:09 PM EDT [facility] Blood VENOUS BLOOD SPECIMEN / Unknown Venipuncture / Unknown 09/29/2023 12:43 PM EDT 09/29/2023 12:49 PM EDT Jesse Malave MD CHEMISTRY ORDERABL ES [facility] [place] [address] * (ABNORMAL) Hepatic Function Panel (09/29/2023 12:43 PM EDT) [facility] Albumin 3.7 3.2 - 5.2 g/dL 09/29/2023 1:26 PM EDT [facility] Aspartate Aminotransferase 17 <=30 unit/L 09/29/2023 1:26 PM EDT [facility] Alanine Aminotransferase 12 0 - 30 unit/L 09/29/2023 1:26 PM EDT [facility] Alkaline Phosphatase 127(H) 35 - 105 unit/L 09/29/2023 1:26 PM EDT [facility] Bilirubin, Total 0.3 <=1.3 mg/dL 09/29/2023 1:26 PM EDT [facility] Bilirubin, Direct <0.2 0.0 - 0.3 mg/dL 09/29/2023 1:26 PM EDT [facility] Protein, Total 7.6 6.1 - 8.0 g/dL 09/29/2023 1:26 PM EDT [facility] Blood VENOUS BLOOD SPECIMEN / Unknown Venipuncture / Unknown 09/29/2023 12:43 PM EDT 09/29/2023 12:50 PM EDT Jesse Malave MD CHEMISTRY ORDERABL ES Performing Organization Address City/[facility]/ZIP Co de Phone Number [facility] [place] [address] * Phosphorus (09/29/2023 12:43 PM EDT) Phosphorus 2.5 2.5 - 4.5 mg/dL 09/29/2023 1:26 PM EDT [facility] Blood VENOUS BLOOD SPECIMEN / Unknown Venipuncture / Unknown 09/29/2023 12:43 PM EDT 09/29/2023 12:50 PM EDT Jesse Malave MD CHEMISTRY ORDERABL ES Performing Organization Address City/[facility]/ZIP Co de Phone Number [facility] [place] [address] * Magnesium (09/29/2023 12:43 PM EDT) Magnesium 0.93 0.69 - 1.07 mMol/L 09/29/2023 1:26 PM EDT [facility] Blood VENOUS BLOOD SPECIMEN / Unknown Venipuncture / Unknown 09/29/2023 12:43 PM EDT 09/29/2023 12:50 PM EDT Jesse Malave MD CHEMISTRY ORDERABL ES [facility] [place] [address] * (ABNORMAL) Basic Metabolic Panel (09/29/2023 12:43 PM EDT) Glucose 112 65 - 199 mg/dL 09/29/2023 1:26 PM EDT [facility] Comment:Glucose Concentratio n >=200 mg/dL plus symptoms is consistent with Diabetes Mellitus. Blood Urea Nitrogen 14 8 - 18 mg/dL 09/29/2023 1:26 PM EDT [facility] Creatinine 1.11 0.70 - 1.20 mg/dL 09/29/2023 1:26 PM EDT [facility] Sodium 137 135 - 145 mMol/L 09/29/2023 1:26 PM EDT [facility] Potassium 4.2 3.5 - 5.0 mMol/L 09/29/2023 1:26 PM EDT [facility] Chloride 106 98 - 107 mMol/L 09/29/2023 1:26 PM EDT [facility] Carbon Dioxide 20(L) 22 - 31 mMol/L 09/29/2023 1:26 PM EDT [facility] Anion Gap 11 5 - 15 mMol/L 09/29/2023 1:26 PM EDT [facility] Calcium 8.4(L) 8.5 - 10.5 mg/dL 09/29/2023 1:26 PM EDT [facility] Est Glomerular Filtration Rate - Female 64 mL/min/1. 73 m?? 09/29[facility]2023 1[facility] Comment: This patient's estimated GFR was [...] eGFR. Link: eGFR Calculator [employer] Blood VENOUS BLOOD SPECIMEN / Unknown Venipuncture / Unknown 09/29/2023 12:43 PM EDT 09/29/2023 12:50 PM EDT Jesse Malave MD CHEMISTRY ORDERABL ES [facility] [place] [address] * (ABNORMAL) CBC (with Diff) (09/29/2023 12:43 PM EDT) White Blood Cell 7.00 4.00 - 9.50 x10(3)/mc L 09/29/2023 12:53 PM EDT [facility] Red Blood Cell 4.62 4.00 - 5.21 x10(6)/mc L 09/29/2023 12:53 PM EDT [facility] Hemoglobin 11.0(L) 11.7 - 15.5 g/dL 09/29/2023 12:53 PM EDT [facility] Hematocrit 36.1 35.7 - 45.8 % 09/29/2023 12:53 PM EDT [facility] Mean Cell Volume 78.1(L) 82.6 - 94.4 fL 09/29/2023 12:53 PM EDT [facility] Mean Cell Hemoglobin 23.8(L) 27.1 - 32.0 pg 09/29/2023 12:53 PM EDT [facility] Mean Cell Hemoglobin Concentration 30.5(L) 31.7 - 35.0 g/dL 09/29/2023 12:53 PM EDT [facility] Platelet 276 145 - 357 x10(3)/mc L 09/29/2023 12:53 PM EDT [facility] Mean Platelet Volume 8.7 7.6 - 12.9 fL 09/29/2023 12:53 PM EDT [facility] RDW Standard Deviation 57.0(H) 37.0 - 46.0 fL 09/29/2023 12:[address] [facility] RDW coefficient of variation 20.2(H) 11.5 - 14.1 % 09/29/2023 12:[address] [facility] NRBC% auto 0.0 % 09/29/2023 12:[address] [facility] NRBC Absolute 0.00 0.00 - 0.00 x10(3)/mc L 09/29/2023 12:53 PM EDT [facility] Neutrophil % 58.4 % 09/29/2023 12:[address] [facility] Neutrophil Absolute 4.08 1.70 - 6.10 x10(3)/mc L 09/29/2023 12:[address] [facility] Lymph % 34.1 % 09/29/2023 12:[address] [facility] Lymph Absolute 2.39 0.90 - 3.20 x10(3)/mc L 09/29/2023 12:[address] [facility] Monocyte % 6.7 % 09/29/2023 12:[address] [facility] Monocyte Absolute 0.47 0.30 - 0.90 x10(3)/mc L 09/29/2023 12:[address] [facility] Eos % 0.4 % 09/[facility] Eos Absolute 0.03 0.00 - 0.40 x10(3)/mc L 09/29/2023 12:[address] [facility] Basophil % 0.1 % 09/29/2023 12:[address] [facility] Baso Absolute 0.01 0.00 - 0.10 x10(3)/mc L 09/29/2023 12:53 [facility] Gran % 0.3 % 12:53 PM [facility] Immature Gran Absolute 0.02 0.00 - 0.04 x10(3)/mc L 09/29/2023 12:53 PM EDT [facility] Blood VENOUS BLOOD SPECIMEN / Unknown Venipuncture / Unknown 09/29/2023 12:43 PM EDT 09/29/2023 12:50 PM EDT Jesse Malave MD HEMATOLOGY ORDERAB LES [facility] [place] [address] documented in this encounter Visit Diagnoses Diagnosis Back pain- Primary Backache, unspecified Chest pain, unspecified type COVID-19 Nephrolithiasis Calculus of kidney documented in this encounter Admitting Diagnoses Diagnosis Back pain Backache, unspecified documented in this encounter Administered Medications Inactive Administered Medications - up to 3 most recent administrations Medication Order MAR Action Action Date Dose Rate Site acetaminophen (Tylenol) tablet 650 mg 650 mg, Oral, EVERY 6 HOURS PRN, Starting on 09/29/23 at 1949, Until 10/01/23 at 1900, Pain, Maximum dose of acetaminophen is 4,000 mg from all sources in 24 hours. When ordered for pain, acetaminophen should be given even when other ordered pain medications are indicated., Routine Given 10/01/2023 2:03 PM EDT 650 mg Given 10/01/2023 8:28 AM EDT 650 mg Given 09/30/2023 8:37 PM EDT 650 mg aspirin chewable tablet 81 mg 81 mg, Oral, DAILY, First dose (after last modification) on 09/29/23 at 1330, Until Discontinued, Routine Given 10/01/2023 8:28 AM EDT 81 mg Given 09/30/2023 8:57 AM EDT 81 mg Given 09/29/2023 1:32 PM EDT 81 mg atorvastatin (Lipitor) tablet 40 mg 40 mg, Oral, EVERY EVENING, First dose on 09/30/23 at 1700, Until Discontinued, Routine Given 09/30/2023 5:11 PM EDT 40 mg benzocaine (Orajel) 20 % gel 1 each 1 each, Mucous Membrane, 2 TIMES DAILY PRN, Oral Pain, Starting on 09/29/23 at 1948, Until 10/01/23 at 1900 Given 09/29/2023 9:00 PM EDT 1 each capsaicin (Zostrix) 0.025 % cream Topical (Top), 2 TIMES DAILY, First dose on 09/29/23 at 2200, Until Discontinued Given 09/29/2023 10:08 PM EDT heparin (porcine) (5,000 units/1 mL) subcutaneous injection 5,000 Units 5,000 Units, Subcutaneous, EVERY 8 HOURS SCHEDULED, First dose on 09/29/23 at 1400, Until Discontinued, Routine Given 10/01/2023 2:03 PM EDT 5,000 Units Given 10/01/2023 7:23 AM EDT 5,000 Units Given 09/30/2023 10:20 PM EDT 5,000 Units HYDROmorphone (Dilaudid) tablet 2 mg 2 mg, Oral, EVERY 4 HOURS PRN, Starting on 09/29/23 at 1220, Until Sun10/01/23 at 0413, Pain, For severe pain, Routine Given 09/30/2023 8:37 PM EDT 2 mg Given 09/30/2023 3:18 PM EDT 2 mg Given 09/30/2023 10:45 AM EDT 2 mg ibuprofen (Motrin) tablet 400 mg 400 mg, Oral, EVERY 6 HOURS PRN, Starting on 09/30/23 at 1233, Until Sun10/01/23 at 0900, Pain, for cramping pain, Administer orally with milk or food to minimize GI irritation. Maximum dose of 3,200 mg from all sources in 24 hours, Routine Given 09/30/2023 12:49 PM EDT 400 mg lidocaine (Lidoderm) 5% patch 1 patch 1 patch, Transdermal, Administer over 12 Hours, EVERY 24 HOURS, First dose on 09/29/23 at 2130, Until Discontinued, Apply patch(es) for 12 hours, and then remove for 12 hours., Routine Patch Applied 09/30/2023 10:22 PM EDT 1 patch 20-Other (document in comment section) Patch Applied 09/29/2023 10:08 PM EDT 1 patch 12- Chest (Right) metoprolol succinate XL (Toprol-XL) tablet 25 mg 25 mg, Oral, DAILY, First dose on [place] 09/30/23 at 0945, Until Discontinued, DO NOT CRUSH OR OPEN, Routine Given 10/01/2023 8:28 AM EDT 25 mg Given 09/30/2023 10:45 AM EDT 25 mg nitroGLYcerin (Nitrostat) disintegrating tablet 0.4 mg 0.4 mg, Sublingual, EVERY 5 MIN PRN, Starting on 09/29/23 at 1119, Until Sun10/01/23 at 1900, Chest pain, May repeat every 5 minutes for a total of three doses. Notify provider if chest pain not relieved with nitroGLYcerin. Do not administer nitroGLYcerin if the patient has received or taken phosphodiesterase (PDE-5) inhibitors such as sildenafiL, tadalafiL or vardenafiL within the last 24 to 72 hours., Routine Given 09/29/2023 8:51 PM EDT 0.4 mg oxyCODONE (Roxicodone) tablet 10 mg 10 mg, Oral, ONCE, 1 dose, On 09/30/23 at 2300, Routine Given 09/30/2023 10:49 PM EDT 10 mg oxyCODONE (Roxicodone) tablet 5 mg 5 mg, Oral, EVERY 6 HOURS PRN, Starting on 10/01/23 at 0413, Until Sun10/01/23 at 0905, Pain, Routine Given 10/01/2023 4:30 AM EDT 5 mg regadenoson (Lexiscan) injection 0.4 mg 0.4 mg, Intravenous, ONCE, 1 dose, On Sun10/01/23 at 1415, Radiology Contrast, Routine Given 10/01/2023 1:20 PM EDT 0.4 mg Left Arm sodium chloride 0.9 % (flush) (BD PosiFlush Normal Saline 0.9) flush 5 mL 5 mL, Intravenous, 2 TIMES DAILY, First dose on 09/29/23 at 1330, Until Discontinued, Routine Given 10/01/2023 8:29 AM EDT 5 mLs Given 09/30/2023 8:30 PM EDT 5 mLs Given 09/30/2023 8:57 AM EDT 5 mLs tamsulosin (Flomax) capsule 0.4 mg 0.4 mg, Oral, DAILY, First dose on 09/29/23 at 1300, Until Discontinued, DO NOT CRUSH OR CHEW, Routine Given 10/01/2023 8:28 AM EDT 0.4 mg Given 09/30/2023 8:57 AM EDT 0.4 mg Given 09/29/2023 1:31 PM EDT 0.4 mg technetium (Tc-99m) sestamibi injection 0-30 mCi 0-30 mCi, Intravenous, 2 TIMES DAILY PRN, 2 doses, Starting on Sun10/01/23 at 1232, Until Sun10/01/23 at 1321, Per Protocol, Radiology Contrast, Routine Given 10/01/2023 1:21 PM EDT 29 mCi Left Arm Given 10/01/2023 12:30 PM EDT 10.4 mCi L eft Arm documented in this encounter Active and Recently Administered Medications Times are shown in EDT. Scheduled Medication Order 09/29/2023 09/30/2023 10/01/2023 aspirin chewable tablet 81 mg 81 mg, Oral, DAILY, First dose (after last modification) on Sun09/29/23 at 1330, Until Discontinued, Routine 1332 (Given - Provider: Erika Santos RN) 0857 (Given - Provider: Erika Santos RN) 0828 (Given - Provider: Erika Santos, PRISCILLA) atorvastatin (Lipitor) tablet 40 mg 40 mg, Oral, EVERY EVENING, First dose on Sun09/30/23 at 1700, Until Discontinued, Routine 1711 (Given - Provider: Erika Santos RN) 1700 (Due) capsaicin (Zostrix) 0.025 % cream Topical (Top), 2 TIMES DAILY, First dose on Sun09/29/23 at 2200, Until Discontinued 2208 (Given - Provider: Lulu Egan, PRISCILLA) 0900 (Not Given - Provider: Erika Santos RN - Reason: Patient/family refused)2100 (Not Given - Provider: Lulu Egan RN - Reason: Patient/family refused) 0900 (Not Given - Provider: Erika Santos RN - Reason: Patient/family refused) heparin (porcine) (5,000 units/1 mL) subcutaneous injection 5,000 Units 5,000 Units, Subcutaneous, EVERY 8 HOURS SCHEDULED, First dose on Sun09/29/23 at 1400, Until Discontinued, Routine 1331 (Given - Provider: Erika Santos RN)2209 (Given - Provider: Lulu Egan, PRISCILLA) 0706 (Given - Provider: Lulu Egan, PRISCILLA)1518 (Given - Provider: Erika Santos RN)2220 (Given - Provider: Lulu Egan, PRISCILLA) 0723 (Given - Provider: Lulu Egan, RN)1403 (Given - Provider: Erika Santos RN) lidocaine (Lidoderm) 5% patch 1 patch 1 patch, Transdermal, Administer over 12 Hours, EVERY 24 HOURS, First dose on 09/29/23 at 2130, Until Discontinued, Apply patch(es) for 12 hours, and then remove for 12 hours., Routine 220 (Patch Applied - Provider: Lulu Egan RN) 1008 (Patch Removed - Provider: Erika Santos RN)2222 (Patch Applied - Provider: Lulu Egan RN - Comment: mid chest) 1022 (Patch Removed - Provider: Erika Santos RN) magnesium sulfate 2 g in sterile water 50 mL infusion 2 g, Intravenous, ONCE, 1 dose, On Sun10/01/23 at 1530, Administer over 120 Minutes 1530 (Not Given - Provider: Erika Santos RN - Reason: Patient/family refused) metoprolol succinate XL (Toprol-XL) tablet 25 mg (CANCELED) 25 mg, Oral, DAILY, First dose on 09/30/23 at 0945, Until Discontinued, DO NOT CRUSH OR OPEN, Routine 1045 (Given - Provider: Erika Santos RN) 0828 (Given - Provider: Erika Santos RN) oxyCODONE (Roxicodone) tablet 10 mg (COMPLETED) 10 mg, Oral, ONCE, 1 dose, On 09/30/23 at 2300, Routine 2249 (Given - Provider: Lulu Egan RN) regadenoson (Lexiscan) injection 0.4 mg (COMPLETED) 0.4 mg, Intravenous, ONCE, 1 dose, On 10/01/23 at 1415, Radiology Contrast, Routine 1320 (Given - Provider: Zahida Hess - Comment: Inj Site: LAC[facility]) sodium chloride 0.9 % (flush) (BD PosiFlush Normal Saline 0.9) flush 5 mL 5 mL, Intravenous, 2 TIMES DAILY, First dose on 09/29/23 at 1330, Until Discontinued, Routine 133 (Not Given - Provider: Erika Santos RN - Reason: See comment)2058 (Given - Provider: Lulu Egan RN) 0857 (Given - Provider: Erika Santos, PRISCILLA)2029 (Given - Provider: Lulu Egan RN) 0829 (Given - Provider: Erika Santos, PRISCILLA) tamsulosin (Flomax) capsule 0.4 mg 0.4 mg, Oral, DAILY, First dose on 09/29/23 at 1300, Until Discontinued, DO NOT CRUSH OR CHEW, Routine 133 (Given - Provider: Erika Santos RN) 0857 (Given - Provider: Erika Santos RN) 0828 (Given - Provider: Erika Santos RN) PRN Medication Order 09/29/2023 09/30/2023 10/01/2023 acetaminophen (Tylenol) tablet 650 mg 650 mg, Oral, EVERY 6 HOURS PRN, Starting on 09/29/23 at 1949, Until 10/01/23 at 1900, Pain, Maximum dose of acetaminophen is 4,000 mg from all sources in 24 hours. When ordered for pain, acetaminophen should be given even when other ordered pain medications are indicated., Routine 2031 (Given - Provider: Lulu Egan RN) 0707 (Given - Provider: Lulu Egan RN)2036 (Given - Provider: Lulu Egan RN) 0828 (Given - Provider: Erika Santos RN)140 (Given - Provider: Erika Santos, PRISCILLA) benzocaine (Orajel) 20 % gel 1 each 1 each, Mucous Membrane, 2 TIMES DAILY PRN, Oral Pain, Starting on 09/29/23 at 1948, Until Sun10/01/23 at 1900 2100 (Given - Provider: Lulu Egan RN) HYDROmorphone (Dilaudid) tablet 2 mg (CANCELED)(Linked Group 1) 2 mg, Oral, EVERY 4 HOURS PRN, Starting on 09/29/23 at 1220, Until Sun10/01/23 at 0413, Pain, For severe pain, Routine 1331 (Given - Provider: Erika Santos RN)1854 (Given - Provider: Erika Santos RN) 0124 (Given - Provider: Lulu Egan RN)0706 (Given - Provider: Lulu Egan RN)1045 (Given - Provider: Erika Santos RN)1518 (Given - Provider: Erika Santos RN)2036 (Given - Provider: Lulu Egan RN) ibuprofen (Motrin) tablet 400 mg (CANCELED) 400 mg, Oral, EVERY 6 HOURS PRN, Starting on 09/30/23 at 1233, Until Sun10/01/23 at 0900, Pain, for cramping pain, Administer orally with milk or food to minimize GI irritation. Maximum dose of 3,200 mg from all sources in 24 hours, Routine 1249 (Given - Provider: Erika Santos RN) lidocaine (Xylocaine) 1% (10 mg/mL) injection 3 mg 3 mg (0.3 mL), Subcutaneous, ONCE PRN, 1 dose, Starting on 09/29/23 at 1307, Until Sun10/01/23 at 1900, for discomfort with PIV insertion, Routine nitroGLYcerin (Nitrostat) disintegrating tablet 0.4 mg 0.4 mg, Sublingual, EVERY 5 MIN PRN, Starting on 09/29/23 at 1119, Until Sun10/01/23 at 1900, Chest pain, May repeat every 5 minutes for a total of three doses. Notify provider if chest pain not relieved with nitroGLYcerin. Do not administer nitroGLYcerin if the patient has received or taken phosphodiesterase (PDE-5) inhibitors such as sildenafiL, tadalafiL or vardenafiL within the last 24 to 72 hours., Routine 2050 (Given - Provider: Lulu Egan RN) oxyCODONE (Roxicodone) tablet 5 mg (CANCELED) 5 mg, Oral, EVERY 6 HOURS PRN, Starting on 10/01/23 at 0413, Until Sun10/01/23 at 0905, Pain, Routine 0430 (Given - Provider: Lulu Egan RN) sodium chloride 0.9 % (flush) (BD PosiFlush Normal Saline 0.9) flush 5-20 mL 5-20 mL, Intravenous, EVERY 1 MIN PRN, Starting on 09/29/23 at 1307, Until Sun10/01/23 at 1900, flush, Flush pertains to all indwelling lines. Flush per protocol found in the job aid using the link provided on this medication record., Routine technetium (Tc-99m) sestamibi injection 0-30 mCi (COMPLETED) 0-30 mCi, Intravenous, 2 TIMES DAILY PRN, 2 doses, Starting on 10/01/23 at 1232, Until Sun10/01/23 at 1321, Per Protocol, Radiology Contrast, Routine 1230 (Given - Provider: Marquez Vanessa - Comment: LAC)1321 (Given - Provider: Zahida Hess - Comment: Inj Site: [facility]) Linked Groups Order Group 1: HYDROmorphone (Dilaudid) tablet 1 mg (CANCELED) 1 mg, Oral, EVERY 4 HOURS PRN, Starting on 09/29/23 at 1220, Until Sun10/01/23 at 0413, Pain, For moderate pain, Routine Or HYDROmorphone (Dilaudid) tablet 2 mg (CANCELED)Jump to med 2 mg, Oral, EVERY 4 HOURS PRN, Starting on 09/29/23 at 1220, Until Sun10/01/23 at 0413, Pain, For severe pain, Routine documented in this encounter Additional Health Concerns Infection [...] eligible for precaution removal: 10/10/2023 Please call [phone] with questions. 09/29/2023 09/29/2023 documented as of this encounter Care Teams Rug Scratcher Relationship Specialty Start Date End Date None None PCP - General 03/17/23 documented as of this encounter
--- OUTSIDE RECORDS SUMMARY | 2023-10-04 13:53 | XMS_ITS | Encounter Summary ---
Author Organization [facility] [place] [address] Care Team Providers Care Adjunct Teacher Name Role Phone None Primary Care Provider Unavailabl e Reason for Visit * Reason Comments Back Pain Chest Pain Encounter Details Date Type Department Care Team ([facility] st Contact Info) Description 04/22/2023 1:52 PM EDT - 04/22/2023 5:53 PM EDT Emergency Emergency Department [address] [id number] Wilson Frias MD [address] [place] [id number] Chronic bilateral low back pain without sciatica; Chest pain, unspecified type Discharge Disposition: Home [...] Sign Reading Time Taken Comments Blood Pressure 134/79 04/22/2023 5:39 PM EDT Pulse 86 04/22/2023 5:39 PM EDT Temperature 36.5 ??C (97.7 ??F) 04/22/2023 1:56 PM ED T Respiratory Rate 16 04/22/2023 5:39 PM EDT Oxygen Saturation 98% 04/22/2023 5:39 PM EDT Inhaled Oxygen Concentration - - Weight 70.8 kg (156 lb) 04/22/2023 1:56 PM EDT Height 162.6 cm (5' 4) 04/22/2023 1:56 PM EDT Body Mass Index 26.78 04/22/2023 1:56 PM EDT documented in this encounter Discharge Instructions * Discharge Instructions* Andrew Damon APRN - 04/22/2023 5:10 PM EDT Please read all of the information that accompanies these instructions. You came to the emergency department with chest pain, back pain. You have been diagnosed with chestpain, uncertain cause, back pain musculoskeletal injury. Please understand that no emergency visit is [...] to the emergency department if you develop any new or concerningsymptom. We are open 24 hours a day, 7 days a week. * Attachments The following attachments cannot be sent through Care Everywhere. * Chest Pain (Israeli) * Back Pain (Israeli) documented in this encounter Medications at Time [...] every 6 hours as needed for Pain. oxyCODONE (Roxicodone) 5 mg tablet Take 1-2 [...] tablet 03/17/2023 documented as of this encounter ED Notes * Andrew Damon APRN - 04/22/2023 5:53 PM EDT Chief Complaint Patient presents with Back Pain Chest Pain 1. Chronic bilateral low back pain without sciatica 2. Chest pain, unspecified type Andrew Damon APRN 04/22/23 1805 * Dori Anders - 04/22/2023 3:46 PM EDT Patient presents with: Back Pain Chest Pain HPI Back Pain Associated symptoms include chest pain. Chest Pain Lupe is a 42 years old female with past medical history of Coronary artery disease, s/p LA Dec 2022, hypertension, hyperlipidemia,hypothyroidism, rheumatoid arthritis, who presents to the ER todaywith chief complain of chest pain and back pain which she reported started last night while she wasat work trying to help / lift a patient. She described her back pain as throbbing pain, 11/14. Patient reported having a similar episode couple weeks ago. She reports taking some tylenol at 4am with no significant relieve, indicates that her pain gets worse with trying to lift, pull, or pick anything. Patient reports chills and sweats when her symptomsstarted but no fever. Patient reports a chest pain with dyspnea. Lupe denied nausea, vomiting ordiarrhea. Lupe reports her back pain is new but she has had chest pain before. 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[employer], Allergies Allergen Reactions Penicillins Itching lidocaine (Lidoderm) 5% patch 1 patch morphine IR (MS IR) 15 mg IR tablet DULoxetine DR (Cymbalta) [address] capsule folic acid (Vitamin B9) 1 mg tablet hydroxychloroquine (Plaquenil) 200 mg tablet levothyroxine (Synthroid) 50 mcg tablet lisinopriL (Zestril) 5 mg tablet magnesium oxide (Mag-Ox) 400 mg (241.3 mg magnesium) Tablet medroxyPROGESTERone (Provera) 10 mg tablet meloxicam (Mobic) 15 mg tablet metHOTREXate (TrexalL) 2.5 mg tablet potassium chloride ER (Klor-Con M) 10 mEq ER micro-encapsulated crystal tablet rosuvastatin (Crestor) 5 mg tablet tiZANidine (Zanaflex) 2 mg tablet aspirin EC 81 mg EC (DR) tablet acetaminophen (Tylenol) 500 mg tablet aspirin 81 mg chewable tablet clopidogreL (Plavix) [address] (Cymbalta) [address] capsule hydroxychloroquine (Plaquenil) 200 mg tablet levothyroxine (Synthroid) 50 mcg tablet lisinopriL (Zestril) 5 mg tablet magnesium oxide (Mag-Ox) 400 mg (241.3 mg magnesium) Tablet folic acid (Vitamin B9) 1 mg tablet meloxicam (Mobic) 15 mg tablet potassium chloride ER (Klor-Con M) 10 mEq ER micro-encapsulated crystal tablet rosuvastatin (Crestor) 5 mg tablet tiZANidine (Zanaflex) 2 mg tablet Patient Vitals for the past 8 hrs: BP Temp Pulse Resp SpO2 Height Weight 04/22/23 1356 (!) 148/97 36.5 ??C (97.7 ??F) (!) 108 20 100 % 162.6 cm (5' 4) 70.8 kg (156 lb) Past Medical History: Diagnosis Date CAD (coronary artery disease) Hyperlipidemia Hypertension Hypothyroidism Rheumatoid arthritis Physical Exam Constitutional: Appearance: Normal appearance. HENT: Head: Normocephalic. Cardiovascular: Rate and Rhythm: Tachycardia present. Heart sounds: Normal heart sounds. Pulmonary: Effort: Pulmonary effort is normal. Breath sounds: Normal breath sounds. No wheezing or rhonchi. Comments: Patient lying down on the stretcher in the room, tearing and feels her chest hurts when she breaths. Abdominal: General: Bowel sounds are normal. Palpations: Abdomen is soft. Skin: General: Skin is warm. Neurological: General: No focal deficit present. Mental Status: She is alert and oriented to person, place, and time. Sensory: Sensation is intact. Motor: Motor function is intact. No weakness. Gait: Gait is intact. Deep Tendon Reflexes: Reflexes abnormal. Reflex Scores: Patellar reflexes are 0 on the right side and 0 on the left side. Psychiatric: Mood and Affect: Mood normal. Comments: Patient is tearing and feels anxious Results for orders placed or performed during the hospital encounter of 04/22/23 Basic Metabolic Panel (non-fasting) Result Value Ref Range Glucose Lvl 77 65 - 199 mg/dL BUN 14 8 - 18 mg/dL Creatinine 0.98 0.70 - 1.20 mg/dL Sodium 138 135 - 145 mmol/L Potassium 3.8 3.5 - 5.0 mmol/L Chloride 103 98 - 107 mmol/L CO2 21 (L) 22 - 31 mmol/L Anion Gap 14 5 - 15 mmol/L Calcium 9.9 8.5 - 10.5 mg/dL Estimated GFR 74 >=60 mL/min/1.73 m?? Troponin Result Value Ref Range Troponin-T HS 8 <=14 ng/L Troponin Result Value Ref Range Troponin-T HS 7 <=14 ng/L Hemogram Result Value Ref Range WBC 9.0 4.0 - 9.5 x10(3)/mcL RBC 5.10 4.00 - 5.21 x10(6)/mcL Hemoglobin 13.4 11.7 - 15.5 g/dL Hematocrit 41.9 35.7 - 45.8 % MCV 82.2 (L) 82.6 - 94.4 fL MCH 26.3 (L) 27.1 - 32.0 pg MCHC 32.0 31.7 - 35.0 g/dL Platelets 354 145 - 357 x10(3)/mcL RDWSD 47.4 (H) 37.0 - 46.0 fL RDWCV 17.7 (H) 11.5 - 14.1 % MPV 8.2 7.6 - 12.9 fL nRBC % Auto 0.0 % nRBC Abs Auto 0.000 0.000 - 0.000 x10(3)/mcL Differential, Automated Result Value Ref Range Neutrophils % 59.0 % Neutr Abs (ANC) 5.31 1.70 - 6.10 x10(3)/mcL Lymphocytes % 30.8 % Lymphocytes Abs 2.8 0.9 - 3.2 x10(3)/mcL Monocytes % 8.4 % Monocyte Abs 0.8 0.3 - 0.9 x10(3)/mcL Eosinophils % 1.2 % Eosinophils Abs 0.1 0.0 - 0.4 x10(3)/mcL Basophils % 0.3 % Basophils Abs 0.0 0.0 - 0.1 x10(3)/mcL Immature Gran % 0.30 % Aleisha Gran Abs 0.03 0.00 - 0.04 x10(3)/mcL Gold Tube HOLD Result Value Ref Range Gold Hold Sample in lab. Gold Tube HOLD Result Value Ref Range Gold Hold Sample in lab. Blue Tube HOLD Result Value Ref Range Blue Hold Sample in lab. EKG 12 Lead Result Value Ref Range Ventricular rate 102 BPM Atrial Rate 102 BPM P-R Interval 144 ms QRS Duration 76 ms Q-T Interval 354 ms QTC Calculated (Bezet) 461 ms Calculated P Quap[place] 76 degrees Calculated R Quap[place] 67 degrees Calculated T [place]ap[place] 83 degrees INTERPRETATION Sinus tachycardia Possible Left atrial enlargement Nonspecific ST and T wave abnormality Abnormal ECG When compared with ECG of 10-APR-2023 22:47, No significant change was found Problem List Items Addressed This Visit None Visit Diagnoses Chronic bilateral low back pain without sciatica Chest pain, unspecified type MDM Lupe, 42 years old, who presents with back pain with associated chest pain. Labs were unrevealing for any acute process, patient r/o for ACS. EKG was not significantly different from 04/10/23. Herchest xray was unremarkable for any consolidation, or pleural effusion. Patient had no signs of cauda equina, was treated for musculoskeletal back injury, will have patient follow up with occupational health at her pace of employment. Reviewed return precautions to the ER should any symptoms changeor worsen. Associated attestation - Andrew Damon APRN - 04/22/2023 6:03 PM EDT The patient was seen in conjunction with the nurse practitioner student. I have independently performed saini portions of the history and physical exam. I have personally reviewed nursing notes, vital signs, and diagnostic studies including labs, imaging studies, and EKGs. I have discussed details ofthe case with the student and agree with the assessment and plan as described in the student's note, unless stated otherwise in my separate note. Lupe is a 42-year-old female who presents emergency department today with chief complaint of center lower back pain that developed late last night while she was working after lifting a patient. She reports she has developed chest pain as well. She had per her report a heart attack in 2022. She reports that she gets periodic episodes of chest pain since then. Pain will be center chest, nonradiating will last anywhere from seconds to couple of minutes and generally occurs once to twice a day. This has been ongoing for weeks and not recently changed or worsened. The back pain has no features of cauda equina, no bowel or bladder involvement, no saddle anesthesia, there is no history of IV drug abuse. Patient ruled out for ACS while in the ER, chest x-ray was unrevealing. ECG was without evidence of STEMI. I discussed the findings with Lidia and advised her to contact her cardiology providers for discussion of need for further testing. As to her back pain she will continue NSAIDs at home I will provide a short course of oxycodone to be used for severe pain or to help facilitate sleep. I put her out of work for the next week. She will follow-up with employee health for repeat evaluation in relation to the back pain. I discussed with her return precautions to the ER should her symptoms change, worsen, or recur. * Wilson Frias MD - 04/22/2023 2:02 PM EDT TRIAGE Patient who has history of hypertension, rheumatoid arthritis on methotrexate and ischemic heart disease, status post LA and stenting in December 2022, presents today with chest and back pain. She states that her discomfort started at 4 AM this morning when she was attempting to lift an overweight patient. 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 She reports diffuse pain across her chest and in her upper back. She cannot tell where the primary area of discomfort is. It has been constant since. She is a sobbing and tearful and states that she is afraid to have another heart attack. Looks like the patient has been seen here multiple times this month for dental pain and also chest pain. She has had full chest pain workup on a couple of occasions at least. Patient states she has frequent chest pain. Her pain today is also worse with movement. On physical exam she has diffuse tenderness to palpation of her chest wall as well as her upper back. She is crying and sobbing. She is fully clothed. She will need a full exam once she is in the room. Patient did not fall to the ground or get crushed by the patient. EKG shows sinus tachycardia at 102. No ST elevation or depression Labs to include troponins have been ordered. Will defer pain management and imaging if necessary toprovider in main ED Wilson Frias MD 04/22/23 1405 documented in this encounter Miscellaneous Notes * ED Procedure Note - Andrew Damon APRN - 04/22/2023 5:53 PM EDT Images from the original note were not included. Dori Anders [employer] Instructor Student Emergency Medicine ED Notes Attested Date of Service: 04/22/2023 3:46 PM Attestation signed by Andrew Damon APRN at 04/22/2023 6:03 PM The patient was seen in conjunction with the nurse practitioner student. I have independently performed saini portions of the history and physical exam. I have personally reviewed nursing notes, vital signs, and diagnostic studies including labs, imaging studies, and EKGs. I have discussed details ofthe case with the student and agree with the assessment and plan as described in the student's note, unless stated otherwise in my separate note. Lupe is a 42-year-old female who presents emergency department today with chief complaint of center lower back pain that developed late last night while she was working after lifting a patient. She reports she has developed chest pain as well. She had per her report a heart attack in 2022. She reports that she gets periodic episodes of chest pain since then. Pain will be center chest, nonradiating will last anywhere from seconds to couple of minutes and generally occurs once to twice a day. This has been ongoing for weeks and not recently changed or worsened. The back pain has no features of cauda equina, no bowel or bladder involvement, no saddle anesthesia, there is no history of IV drug abuse. Patient ruled out for ACS while in the ER, chest x-ray was unrevealing. ECG was without evidence of STEMI. I discussed the findings with Lidia and advised her to contact her cardiology providers for discussion of need for further testing. As to her back pain she will continue NSAIDs at home I will provide a short course of oxycodone to be used for severe pain or to help facilitate sleep. I put her out of work for the next week. She will follow-up with employee health for repeat evaluation in relation to the back pain. I discussed with her return precautions to the ER should her symptoms change, worsen, or recur. Expand All Collapse All Patient presents with: Back Pain Chest Pain HPI Back Pain Associated symptoms include chest pain. Chest Pain Lupe is a 42 years old female with past medical history of Coronary artery disease, s/p LA Dec 2022, hypertension, hyperlipidemia,hypothyroidism, rheumatoid arthritis, who presents to the ER todaywith chief complain of chest pain and back pain which she reported started last night while she wasat work trying to help / lift a patient. She described her back pain as throbbing pain, 10/10. Patient reported having a similar episode couple weeks ago. She reports taking some tylenol at 4am with no significant relieve, indicates that her pain gets worse with trying to lift, pull, or pick anything. Patient reports chills and sweats when her symptomsstarted but no fever. Patient reports a chest pain with dyspnea. Lupe denied nausea, vomiting ordiarrhea. Lupe reports her back pain is new but she has had chest pain before. 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[employer], Allergies Allergen Reactions Penicillins Itching lidocaine (Lidoderm) 5% patch 1 patch morphine IR (MS IR) 15 mg IR tablet DULoxetine DR (Cymbalta) [address] capsule folic acid (Vitamin B9) 1 mg tablet hydroxychloroquine (Plaquenil) 200 mg tablet levothyroxine (Synthroid) 50 mcg tablet lisinopriL (Zestril) 5 mg tablet magnesium oxide (Mag-Ox) 400 mg (241.3 mg magnesium) Tablet medroxyPROGESTERone (Provera) 10 mg tablet meloxicam (Mobic) 15 mg tablet metHOTREXate (TrexalL) 2.5 mg tablet potassium chloride ER (Klor-Con M) 10 mEq ER micro-encapsulated crystal tablet rosuvastatin (Crestor) 5 mg tablet tiZANidine (Zanaflex) 2 mg tablet aspirin EC 81 mg EC (DR) tablet acetaminophen (Tylenol) 500 mg tablet aspirin 81 mg chewable tablet clopidogreL (Plavix) [address] (Cymbalta) [address] capsule hydroxychloroquine (Plaquenil) 200 mg tablet levothyroxine (Synthroid) 50 mcg tablet lisinopriL (Zestril) 5 mg tablet magnesium oxide (Mag-Ox) 400 mg (241.3 mg magnesium) Tablet folic acid (Vitamin B9) 1 mg tablet meloxicam (Mobic) 15 mg tablet potassium chloride ER (Klor-Con M) 10 mEq ER micro-encapsulated crystal tablet rosuvastatin (Crestor) 5 mg tablet tiZANidine (Zanaflex) 2 mg tablet Patient Vitals for the past 8 hrs: BP Temp Pulse Resp SpO2 Height Weight 04/22/23 1356 (!) 148/97 36.5 ??C (97.7 ??F) (!) 108 20 100 % 162.6 cm (5' 4) 70.8 kg (156 lb) Past Medical History Past Medical History: Diagnosis Date CAD (coronary artery disease) Hyperlipidemia Hypertension Hypothyroidism Rheumatoid arthritis Physical Exam Constitutional: Appearance: Normal appearance. HENT: Head: Normocephalic. Cardiovascular: Rate and Rhythm: Tachycardia present. Heart sounds: Normal heart sounds. Pulmonary: Effort: Pulmonary effort is normal. Breath sounds: Normal breath sounds. No wheezing or rhonchi. Comments: Patient lying down on the stretcher in the room, tearing and feels her chest hurts when she breaths. Abdominal: General: Bowel sounds are normal. Palpations: Abdomen is soft. Skin: General: Skin is warm. Neurological: General: No focal deficit present. Mental Status: She is alert and oriented to person, place, and time. Sensory: Sensation is intact. Motor: Motor function is intact. No weakness. Gait: Gait is intact. Deep Tendon Reflexes: Reflexes abnormal. Reflex Scores: Patellar reflexes are 0 on the right side and 0 on the left side. Psychiatric: Mood and Affect: Mood normal. Comments: Patient is tearing and feels anxious Results for orders placed or performed during the hospital encounter of 04/22/23 Basic Metabolic Panel (non-fasting) Result Value Ref Range Glucose Lvl 77 65 - 199 mg/dL BUN 14 8 - 18 mg/dL Creatinine 0.98 0.70 - 1.20 mg/dL Sodium 138 135 - 145 mmol/L Potassium 3.8 3.5 - 5.0 mmol/L Chloride 103 98 - 107 mmol/L CO2 21 (L) 22 - 31 mmol/L Anion Gap 14 5 - 15 mmol/L Calcium 9.9 8.5 - 10.5 mg/dL Estimated GFR 74 >=60 mL/min/1.73 m?? Troponin Result Value Ref Range Troponin-T HS 8 <=14 ng/L Troponin Result Value Ref Range Troponin-T HS 7 <=14 ng/L Hemogram Result Value Ref Range WBC 9.0 4.0 - 9.5 x10(3)/mcL RBC 5.10 4.00 - 5.21 x10(6)/mcL Hemoglobin 13.4 11.7 - 15.5 g/dL Hematocrit 41.9 35.7 - 45.8 % MCV 82.2 (L) 82.6 - 94.4 fL MCH 26.3 (L) 27.1 - 32.0 pg MCHC 32.0 31.7 - 35.0 g/dL Platelets 354 145 - 357 x10(3)/mcL RDWSD 47.4 (H) 37.0 - 46.0 fL RDWCV 17.7 (H) 11.5 - 14.1 % MPV 8.2 7.6 - 12.9 fL nRBC % Auto 0.0 % nRBC Abs Auto 0.000 0.000 - 0.000 x10(3)/mcL Differential, Automated Result Value Ref Range Neutrophils % 59.0 % Neutr Abs (ANC) 5.31 1.70 - 6.10 x10(3)/mcL Lymphocytes % 30.8 % Lymphocytes Abs 2.8 0.9 - 3.2 x10(3)/mcL Monocytes % 8.4 % Monocyte Abs 0.8 0.3 - 0.9 x10(3)/mcL Eosinophils % 1.2 % Eosinophils Abs 0.1 0.0 - 0.4 x10(3)/mcL Basophils % 0.3 % Basophils Abs 0.0 0.0 - 0.1 x10(3)/mcL Immature Gran % 0.30 % Aleisha Gran Abs 0.03 0.00 - 0.04 x10(3)/mcL Gold Tube HOLD Result Value Ref Range Gold Hold Sample in lab. Gold Tube HOLD Result Value Ref Range Gold Hold Sample in lab. Blue Tube HOLD Result Value Ref Range Blue Hold Sample in lab. EKG 12 Lead Result Value Ref Range Ventricular rate 102 BPM Atrial Rate 102 BPM P-R Interval 144 ms QRS Duration 76 ms Q-T Interval 354 ms QTC Calculated (Bezet) 461 ms Calculated P Quap[place] 76 degrees Calculated R Quapaw 67 degrees Calculated T [place]apaw 83 degrees INTERPRETATION Sinus tachycardia Possible Left atrial enlargement Nonspecific ST and T wave abnormality Abnormal ECG When compared with ECG of 10-APR-2023 22:47, No significant change was found Problem List Items Addressed This Visit None Visit Diagnoses Chronic bilateral low back pain without sciatica Chest pain, unspecified type MDM Lupe, 42 years old, who presents with back pain with associated chest pain. Labs were unrevealing for any acute process, patient r/o for ACS. EKG was not significantly different from 04/10/23. Herchest xray was unremarkable for any consolidation, or pleural effusion. Patient had no signs of cauda equina, was treated for musculoskeletal back injury, will have patient follow up with occupational health at her pace of employment. Reviewed return precautions to the ER should any symptoms changeor worsen. documented in this encounter Plan of Treatment Not on file documented as of this encounter Procedures Procedure Name Priority Date/Time Associated Diagnosis Comments XR CHEST ONE VIEW STAT 04/22/2023 4:1 1 PM EDT HC VENIPUNCTURE Timed 04/22/2023 4:05 PM EDT HC TROPONIN T STAT 04/22/2023 2:54 PM EDT HEMOGRAM STAT 04/22/2023 2:54 PM EDT DIFFERENTIAL, AUTOMATED STAT 04/22/2023 2:54 PM EDT GOLD TUBE HOLD STAT 04/22/2023 2:54 PM EDT GOLD TUBE HOLD STAT 04/22/2023 2:54 PM EDT BLUE TUBE HOLD STAT 04/22/2023 2:54 PM EDT CBC (WITH DIFF) STAT 04/22/2023 2:54 PM EDT BASIC METABOLIC PANEL STAT 04/22/2023 2:54 PM EDT EKG 12-LEAD STAT 04/22/2023 2:00 PM EDT SCAN DOC - EKG PRELIM 04/22/2023 12:00 AM EDT documented in this encounter Results * XR Chest One View (04/22/2023 4:11 PM EDT) Anatomical Region Laterality Modality Chest N/A Computed Radiogr aphy Impressions 04/22/2023 5:13 PM EDT No consolidation. No pleural effusion. Cardiac silhouette is within normal limits. No evidence of pneumothorax. ?? Thank you for letting us participate in the care of this patient. ??If you are a health care provider and have any questions regarding this report, please contact the number below. ??For patients who have questions please contact the health child care that requested your imaging first. ? Electronically signed by: VINAY ALVAREZ MD, [facility] ([phone]), at 04/22/2023 5:13 PM Narrative 04/22/2023 5:13 PM EDT EXAMINATION: XR CHEST ONE VIEW CLINICAL HISTORY: chest pain TECHNIQUE: 1 views chest COMPARISON: 04/11/2023 FINDINGS: No consolidation. No pleural effusion. Cardiac silhouette is within normal limits. No evidence of pneumothorax. Procedure Note Vinay Alvarez MD - 04/22/2023 EXAMINATION: XR CHEST ONE VIEW CLINICAL HISTORY: chest pain TECHNIQUE: 1 views chest COMPARISON: 04/11/2023 FINDINGS: No consolidation. No pleural effusion. Cardiac silhouette is withinnormal limits. No evidence of pneumothorax. IMPRESSION No consolidation. No pleural effusion. Cardiac silhouette is withinnormal limits. No evidence of pneumothorax. Thank you for letting us participate in the care of this patient. If youare a health care provider and have any questions regarding this report,please contact the number below. For patients who have questions please contactthe health child care that requested your imaging first. Electronically signed by: VINAY ALVAREZ MD, [facility] ([phone]), at 04/22/2023 5:13 PM Andrew Damon [employer] IMG DX ORDERABLES * Troponin (04/22/2023 4:05 PM EDT) Troponin-T, High Sensitivity 7 <=14 ng/L [facility] Comment: This patient's troponin T [...] in the [facility] Test Catalog Troponin - [facility] Test Catalog Reference: Fourth Sheridan Definition of Myocardial Infarction. Journal of the [place] 2018;72:9816-5170 Blood 04/22/2023 4:05 PM EDT 04/22/2023 4:23 PM EDT Narrative Resulting Agency Comment Spec In Lab Wilson Frias MD CHEMISTRY ORDERA BLES Performing Organization Address [facility] Co de Phone Number [facility] [address] [place] [address] * Blue Tube HOLD (04/22/2023 2:54 PM EDT) Blue Hold Sample in lab. [facility] Blood Venous Draw / Unknown 04/22/2023 2:54 PM EDT 04/22/2023 3:00 PM EDT Wilson Frias MD HEMATOLOGY ORDER MATTI Performing Organization Address [facility] Co de Phone Number [facility] [address] [place] [address] * Gold Tube HOLD (04/22/2023 2:54 PM EDT) Gold Hold Sample in lab. [facility] Blood Venous Draw / Unknown 04/22/2023 2:54 PM EDT 04/22/2023 2:59 PM EDT Wilson Frias MD CHEMISTRY ORDERA BLES Performing Organization Address [facility]/ZIP Co de Phone Number [facility] [address] [place] [address] * Gold Tube HOLD (04/22/2023 2:54 PM EDT) Gold Hold Sample in lab. [facility] Blood Venous Draw / Unknown 04/22/2023 2:54 PM EDT 04/22/2023 2:59 PM EDT Wilson Frias MD CHEMISTRY ORDERA BLES Performing Organization Address City/[facility]/ZIP Co de Phone Number [facility] [address] [place] [address] * Differential, Automated (04/22/2023 2:54 PM EDT) Neutrophil % 59.0 % [facility] Neutrophil Absolute 5.31 1.70 - 6.10 x10(3)/[facility] Lymph % 30.8 % [facility] Lymphocytes Abs 2.8 0.9 - 3.2 x10(3)/[facility] Monocyte % 8.4 % [facility] Monocyte Abs 0.8 0.3 - 0.9 x10(3)/[facility] Eos % 1.2 % [facility] Eosinophils Abs 0.1 0.0 - 0.4 x10(3)/[facility] Basophil % 0.3 % [facility] Baso Absolute 0.0 0.0 - 0.1 x10(3)/[facility] Immature Gran % 0.30 % [facility] Comment: Immature granulocytes(IG's)percentage and absolute count will include metamyelocytes, myelocytes, and promyelocytes. Blood smears from CBCs yielding IG's will be scanned manually for concordance. If this scan disagrees with the automated IG or if promyelocytes are noted, a manual differential will be performed. Immature Gran Absolute 0.03 0.00 - 0.04 x10(3)/[facility] Blood 04/22/2023 2:54 PM EDT 04/22/2023 2:59 PM EDT Narrative Resulting Agency Comment Spec In Lab Wilson Frias MD HEMATOLOGY ORDER MATTI Performing Organization Address City/[facility]/ZIP Co de Phone Number [facility] [address] [place] [address] * (ABNORMAL) Hemogram (04/22/2023 2:54 PM EDT) White Blood Cell 9.0 4.0 - 9.5 x10(3)/mc L [facility] Red Blood Cell 5.10 4.00 - 5.21 x10(6)/mc L [facility] Hemoglobin 13.4 11.7 - 15.5 g/dL [facility] Hematocrit 41.9 35.7 - 45.8 % [facility] Mean Cell Volume 82.2(L) 82.6 - 94.4 fL [facility] Mean Cell Hemoglobin 26.3(L) 27.1 - 32.0 pg [facility] Mean Cell Hemoglobin Concentration 32.0 31.7 - 35.0 g/dL [facility] Platelet 354 145 - 357 x10(3)/mc L [facility] RDW Standard Deviation 47.4(H) 37.0 - 46.0 fL [facility] RDW coefficient of variation 17.7(H) 11.5 - 14.1 % [facility] Mean Platelet Volume 8.2 7.6 - 12.9 fL [facility] NRBC% auto 0.0 % [facility] NRBC Absolute 0.000 0.000 - 0.000 x10(3)/mc L [facility] Blood 04/22/2023 2:54 PM EDT 04/22/2023 2:59 PM EDT Narrative Resulting Agency Comment Spec In Lab Wilson Frias MD HEMATOLOGY ORDER MATTI [facility] [address] [place] [address] * Troponin (04/22/2023 2:54 PM EDT) Troponin-T, High Sensitivity 8 <=14 ng/L [facility] Comment: This patient's troponin T [...] in the [facility] Test Catalog Troponin - [facility] Test Catalog Reference: Fourth [place]idan Definition of Myocardial Infarction. Journal of the [place] [employer] 2018;72:8133-6903 Blood 04/22/2023 2:54 PM EDT 04/22/2023 2:59 PM EDT Narrative Resulting Agency Comment Spec In Lab Wilson Frias MD CHEMISTRY ORDERA ELVIRA [facility] [address] [place] [address] * (ABNORMAL) Basic Metabolic Panel (non-fasting) (04/22/2023 2:54 PM EDT) Glucose 77 65 - 199 mg/dL [facility] Comment:Diabetes: >=200 mg/d L plus symptoms Blood Urea Nitrogen 14 8 - 18 mg/dL [facility] Creatinine 0.98 0.70 - 1.20 mg/dL [facility] Sodium 138 135 - 145 mmol/L [facility] Potassium 3.8 3.5 - 5.0 mmol/L [facility] Comment: Please note: ??Patients with WBC >100,000 may have falsely elevated Potassium levels. ??For accurate Potassium quantification in these patients send serum separator tube (gold top) for subsequent determinations. ??Contact the Clinical Chemistry Laboratory if there are any questions. Chloride 103 98 - 107 mmol/L [facility] Carbon Dioxide 21(L) 22 - 31 mmol/L [facility] Anion Gap 14 5 - 15 mmol/L [facility] Calcium 9.9 8.5 - 10.5 mg/dL [facility] Est Glomerular Filtration Rate 74 >=60 mL/min/1. 73 m?? [facility] Comment: This patient's estimated GFR was [...] and symptoms in addition to eGFR. Blood 04/22/2023 2:54 PM EDT 04/22/2023 2:59 PM EDT Narrative Resulting Agency Comment Spec In Lab Wilson Frias MD CHEMISTRY ORDERA BLES Performing Organization Address [facility] Co de Phone Number [facility] [address] [place] [address] * EKG 12 Lead (04/22/2023 2:00 PM EDT) Ventricular rate 102 BPM MUSE SYSTEM Atrial Rate 102 BPM MUSE SYSTEM P-R Interval 144 ms MUSE SYSTEM QRS Duration 76 ms MUSE SYSTEM Q-T Interval 354 ms MUSE SYSTEM QTC Calculated (Bezet) 461 ms MUSE SYSTEM Calculated [place] 76 degrees MUSE SYSTEM Calculated [place] 67 degrees MUSE SYSTEM Calculated [place] 83 degrees MUSE SYSTEM INTERPRETATION Sinus tachycardia Possible Left atrial enlargement Nonspecific ST and T wave abnormality Abnormal ECG When compared with ECG of 10-APR-2023 22:47, No significant change was found Confirmed by MD Elías, [place] ([id number]) on 04/24/2023 10:18:50 AM MUSE SYSTEM 04/22/2023 2:00 PM EDT 04/24/2023 10:18 AM EDT Wilson Frias MD ECG ORDERABLES Performing Organization Address [facility] Co de Phone Number MUSE SYSTEM * SCAN DOC - EKG PRELIM (04/22/2023 12:00 AM EDT) Narrative 04/22/2023 12:00 AM EDT Ordered by an unspecified provider. Scanning Provider MEDIA MGR SCAN EXT O RDR/RSLT documented in this encounter Visit Diagnoses Diagnosis Chronic bilateral low back pain without sciatica Chest pain, unspecified type documented in this encounter Administered Medications Inactive Administered Medications - up to 3 most recent administrations Medication Order MAR Action Action Date Dose Rate Site acetaminophen (Tylenol) tablet 975 mg 975 mg, Oral, ONCE, 1 dose, On 04/22/23 at 1604, Maximum dose of acetaminophen is 4,000 mg from all sources in 24 hours. When ordered for pain, acetaminophen should be given even when other ordered pain medications are indicated., STAT Given 04/22/2023 4:18 PM EDT 975 mg lidocaine (Lidoderm) 5% patch 1 patch 1 patch, Transdermal, Administer over 12 Hours, EVERY 24 HOURS, First dose on 04/22/23 at 1538, Until Discontinued, Apply patch(es) for 12 hours, and then remove for 12 hours., Routine Patch Applied 04/22/2023 3:50 PM EDT 1 patch 20-Other (document in comment section) oxyCODONE (Roxicodone) tablet 10 mg 10 mg, Oral, ONCE, 1 dose, On 04/22/23 at 1604, Do not crush or chew, STAT Given 04/22/2023 4:18 PM EDT 10 mg documented in this encounter Active and Recently Administered Medications Times are shown in EDT. Scheduled Medication Order 04/20/2023 04/21/2023 04/22/2023 acetaminophen (Tylenol) tablet 975 mg (COMPLETED) 975 mg, Oral, ONCE, 1 dose, On 04/22/23 at 1604, Maximum dose of acetaminophen is 4,000 mg from all sources in 24 hours. When ordered for pain, acetaminophen should be given even when other ordered pain medications are indicated., STAT 1618 (Given - Provid er: Eloina Fagan RN) lidocaine (Lidoderm) 5% patch 1 patch 1 patch, Transdermal, Administer over 12 Hours, EVERY 24 HOURS, First dose on 04/22/23 at 1538, Until Discontinued, Apply patch(es) for 12 hours, and then remove for 12 hours., Routine 1550 (Patch Applied - Provider: Eloina Fagan RN - Comment: Mid lower back)1753 (Due: Patch Removed - Provider: Automatic Discharge Provider - Comment: Time automatically adjusted from order being discontinued) oxyCODONE (Roxicodone) tablet 10 mg (COMPLETED) 10 mg, Oral, ONCE, 1 dose, On 04/22/23 at 1604, Do not crush or chew, STAT 1618 (Given - Provid er: Eloina Fagan RN) documented in this encounter Care Teams Adjunct Teacher Relationship Specialty Start Date End Date None None PCP - General 03/17/23 documented as of this encounter
--- OUTSIDE RECORDS SUMMARY | 2023-10-04 13:53 | XMS_ITS | Encounter Summary ---
Author Organization [facility] [place] [address] Care Team Providers Care Post Secondary Professional Name Role Phone None Primary Care Provider Unavailabl e Encounter Details Date Type Department Care Team (Latest Contact Info) Description 04/06/2023 Travel Social History Tobacco Use Types Packs/Day [...] on filedocumented in this encounter Care Teams Post Secondary Professional Relationship Specialty Start Date End Date None None PCP - General 03/17/23 documented as of this encounter
--- OUTSIDE RECORDS SUMMARY | 2023-10-04 13:53 | XMS_ITS | Encounter Summary ---
Author Organization [facility] [place] [address] Care Team Providers Care Mix Mill Tender Name Role Phone None Primary Care Provider Unavailabl e Encounter Details Date Type Department Care Team (Latest Contact Info) Description 04/11/2023 Travel Social History Tobacco Use Types Packs/Day [...] on filedocumented in this encounter Care Teams Mix Mill Tender Relationship Specialty Start Date End Date None None PCP - General 03/17/23 documented as of this encounter
--- OUTSIDE RECORDS SUMMARY | 2023-10-04 13:53 | XMS_ITS | Encounter Summary ---
Author Organization [place] [address] Care Team Providers Care Employment Office Clerk Name Role Phone None Primary Care Provider Unavailabl e Encounter Details Date Type Department Care Team (Latest Contact Info) Description 03/17/2023 Travel Social History Tobacco Use Types Packs/Day Years Used Date Smoking Tobacco: Every Day Cigarettes Smokeless Tobacco: Never DH IPV Inpatient Questions Answer Date Recorded Does Anyone Try to Keep You From Having Contact with Others or Doing Things Outside Your Home? no 03/17/2023 Feels Threatened by Someone no 03/08 Feels Unsafe at Home or Work/School no 03/17/2023 Physical Signs of Abuse Present no 03/17/2023 Sex and Gender Information Value Date Recorded Sex Assigned at Not on file Gender Identity Not on file Sexual Orientation Not on file documented as of this encounter Plan of Treatment Not on file documented as of this encounter Visit Diagnoses Not on filedocumented in this encounter Care Teams Employment Office Clerk Relationship Specialty Start Date End Date None None PCP - General 03/17/23 documented as of this encounter
--- OUTSIDE RECORDS SUMMARY | 2023-10-04 13:53 | XMS_ITS | Encounter Summary ---
Author Organization [facility] [place] [address] Care Team Providers Care Jewel Bearing Grinder Name Role Phone None Primary Care Provider Unavailabl e Reason for Visit * Reason Comments Chest Pain Encounter Details Date Type Department Care Team ([facility] st Contact Info) Description 03/17/2023 5:03 PM EST - 03/17/2023 11:30 PM EST Emergency Emergency Department at [address] [id number] Agustin De Santiago, [address] [place] [address] Lashaun Burrows MD [address] [place] [id number] Chest pain, unspecified type Discharge Disposition: Home [...] Sign Reading Time Taken Comments Blood Pressure 215/103 03/17/2023 11:27 PM EST Pulse 84 03/17/2023 9:01 PM EST Temperature 36.9 ??C (98.5 ??F) 03/17/2023 5:07 PM ES T Respiratory Rate 29 03/17/2023 9:01 PM EST Oxygen Saturation 100% 03/17/2023 9:01 PM EST Inhaled Oxygen Concentration - - Weight 74.8 kg (165 lb) 03/17/2023 6:18 PM EST Height 165.1 cm (5' 5) 03/17/2023 6:18 PM EST Body Mass Index 27.46 03/17/2023 6:18 PM EST documented in this encounter Discharge Instructions * Discharge Instructions* Lashaun Burrows MD - 03/17/2023 10:49 PM EST -Please read all of the information that accompanies these instructions. -You came to the emergency department with chest pain and muscle aches. Your evaluation did not show any evidence of heart attack or infection. -You had been provided with copies of your imaging results, EKGs and lab results to review with your primary provider. -Electronic prescriptions have been sent to [facility] pharmacy in [facility] for a 5 to 7-day supply of your medications. -Please understand that no emergency visit is complete without a follow-up appointment with your primary care provider. Please contact your primary care providers clinic to schedule this follow-up appointment. This is important. -Please seek medical care or return to the emergency department if you develop a new or concerning symptom. We are open 24 hours a day, 7 days a week. * Attachments The following attachments cannot be sent through Care Everywhere. * Chest Pain (Mauritanian) documented in this encounter Medications at Time [...] Three times daily as needed. 06/23/2022 04/09/2023 oxyCODONE-acetaminophen (Percocet) 10-325 mg tablet Take 1 tablet by mouth every 4 hours as needed for Pain. 15 tablet 03/17/2023 04/09/2023 documented as of this encounter ED Notes * Lashaun Burrows MD - 03/17/2023 6:03 PM EST Chief Complaint Patient presents with Chest Pain History obtained from: [x] patient [] patient and family [] family [] EMS [] FDC paperwork [] External records in [facility] reviewed, when available. Additional records obtained from [] also reviewed. Chest Pain 42-year-old female with PMH of CAD (stents in place), hypothyroidism, hypertension and rheumatoid arthritis presents to the emergency department due to chest pain which she describes as an elephant sitting on her chest. Says her symptoms started around 9 AM. Says that she has felt short of breathand nausea. Mild diaphoresis. Pain does not radiate to her back, arms, neck or jaw. She does also say that she has pain in her legs and has not had any of her medications over the past week. Says that she did take her prescription bottles into the pharmacy but they have not filled her medications. She does smoke. She has not otherwise been ill. 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 Allergies Allergen Reactions Penicillins Itching Pertinent Past Medical and Surgical Histories, Social History, Medications, Allergies were reviewedin the chart. Review of Systems as per HPI. No data found. Physical Exam Vitals reviewed. Constitutional: General: She is not in acute distress. Appearance: She is well-developed. She is not ill-appearing, toxic-appearing or diaphoretic. HENT: Head: Normocephalic and atraumatic. Mouth/Throat: Mouth: Mucous membranes are moist. Eyes: General: Right eye: No discharge. Left eye: No discharge. Pupils: Pupils are equal, round, and reactive to light. Cardiovascular: Rate and Rhythm: Normal rate and regular rhythm. Pulses: Normal pulses. Heart sounds: Normal heart sounds. No murmur heard. Pulmonary: Effort: Pulmonary effort is normal. No respiratory distress. Breath sounds: Normal breath sounds. No stridor. No wheezing, rhonchi or rales. Abdominal: General: Bowel sounds are normal. There is no distension. Palpations: Abdomen is soft. Tenderness: There is no abdominal tenderness. There is no right CVA tenderness, left CVA tenderness, guarding or rebound. Musculoskeletal: General: Normal range of motion. Cervical back: Normal range of motion and neck supple. Right lower leg: No edema. Left lower leg: No edema. Skin: General: Skin is warm and dry. Neurological: Mental Status: She is alert and oriented to person, place, and time. Psychiatric: Behavior: Behavior normal. Procedures MDM [] [Chronic conditions affecting care of your patient:] [Discussion of management with physician, qualified healthcare practitioner or appropriate service:] [Consideration of escalation of care/de-escalation of care:] I have reviewed labs and imaging, images and available reports, and they are significant for: [You must include clinically relevant interpretation of images, labs and EKG. Merely including results orthe radiologist's interpretation does not count toward your medical decision making] [Diagnostic tests and prescription drug management considered but not performed:] [Meds managed, started, changed, stopped, or decisions to keep unchanged] ED Course: ED Course as of 03/18/23 2336 Sat Mar 17, 2023 1803 EKG 12 Lead I have reviewed the EKG timed 1709: My interpretation is a narrow complex regular rhythm with a rate of 99, consistent with normal sinus rhythm. No STEMI. 180 WBC: 7.1 No leukocytosis. No anemia. 1802 Creatinine: 1.12 No electrolyte disturbances. No acute kidney injury. 180 Troponin-T HS: 12 I have reviewed the troponin. It is below the maximum upper limit for females. HEART score is 3 based on age, troponin and risk factors (hypertension, smoking, CAD). 181 42-year-old female presents due to chest pain and myalgias. She is afebrile with stable vital signs. Clinically, she is not acutely ill or toxic in appearance. On exam, she is awake, alert and cooperative with the evaluation. Heart has a regular rate and rhythm. Lungs are clear to auscultationbilaterally. Abdomen is soft and nontender. No pedal edema. EKG, initial labs and chest x-ray have been completed and reviewed. Serial troponins are pending. 1907 Troponin-T HS: 9 I have reviewed troponin #2. The delta is -3. 2117 Troponin-T HS: 9 I have reviewed troponin #3. The overall delta is -3. My interpretation is the patient has ruled out for ACS. 2140 EKG 12 Lead I have reviewed the EKG timed 2129: My interpretation is a narrow complex regular rhythm with a rate of 80, consistent with normal sinus rhythm. No STEMI. CT Head wo Contrast (Generic) Final Result No acute intracranial abnormality. Thank you for letting us participate in the care of this patient. If you are a health care provider and have any questions regarding this report, please contact the number below. For patients who have questions please contact the health customer care assistant that requested your imaging first. Electronically signed by: VINAY ALVAREZ MD, [facility] ([phone]), at 03/17/2023 8:31 PM XR Chest PA & Lateral (Generic) ED Interpretation No cardiomegaly. No widened mediastinum. No infiltrate. No acute disease. Anahy Burrows MD Final Result No consolidation. No pleural effusion. Cardiac silhouette is within normal limits. Thank you for letting us participate in the care of this patient. If you are a health care provider and have any questions regarding this report, please contact the number below. For patients who have questions please contact the health customer care assistant that requested your imaging first. Electronically signed by: VINAY ALVAREZ MD, [facility] ([phone]), at 03/17/2023 6:58 PM Results for orders placed or performed during the hospital encounter of 03/17/23 Basic Metabolic Panel (non-fasting) Result Value Ref Range Glucose Lvl 110 65 - 199 mg/dL BUN 10 8 - 18 mg/dL Creatinine 1.12 0.70 - 1.20 mg/dL Sodium 138 135 - 145 mmol/L Potassium 4.1 3.5 - 5.0 mmol/L Chloride 102 98 - 107 mmol/L CO2 25 22 - 31 mmol/L Anion Gap 11 5 - 15 mmol/L Calcium 9.3 8.5 - 10.5 mg/dL Estimated GFR 63 >=60 mL/min/1.73 m?? Troponin Result Value Ref Range Troponin-T HS 12 <=14 ng/L Troponin Result Value Ref Range Troponin-T HS 9 <=14 ng/L Hemogram Result Value Ref Range WBC 7.1 4.0 - 9.5 x10(3)/mcL RBC 5.27 (H) 4.00 - 5.21 x10(6)/mcL Hemoglobin 13.2 11.7 - 15.5 g/dL Hematocrit 43.2 35.7 - 45.8 % MCV 82.0 (L) 82.6 - 94.4 fL MCH 25.0 (L) 27.1 - 32.0 pg MCHC 30.6 (L) 31.7 - 35.0 g/dL Platelets 415 (H) 145 - 357 x10(3)/mcL RDWSD 68.7 (H) 37.0 - 46.0 fL RDWCV 23.5 (H) 11.5 - 14.1 % MPV 8.4 7.6 - 12.9 fL nRBC % Auto 0.0 % nRBC Abs Auto 0.000 0.000 - 0.000 x10(3)/mcL Differential, Automated Result Value Ref Range Neutrophils % 46.3 % Neutr Abs (ANC) 3.30 1.70 - 6.10 x10(3)/mcL Lymphocytes % 39.9 % Lymphocytes Abs 2.8 0.9 - 3.2 x10(3)/mcL Monocytes % 10.7 % Monocyte Abs 0.8 0.3 - 0.9 x10(3)/mcL Eosinophils % 2.4 % Eosinophils Abs 0.2 0.0 - 0.4 x10(3)/mcL Basophils % 0.4 % Basophils Abs 0.0 0.0 - 0.1 x10(3)/mcL Immature Gran % 0.30 % Aleisha Gran Abs 0.02 0.00 - 0.04 x10(3)/mcL Blue Tube HOLD Result Value Ref Range Blue Hold Sample in lab. Gold Tube HOLD Result Value Ref Range Gold Hold Sample in lab. Scan, Peripheral Blood Result Value Ref Range Plat Estimate Increased RBC Morphology Abnormal Macrocytes 1-5 /HPF Microcytes 1-5 /HPF Troponin Result Value Ref Range Troponin-T HS 9 <=14 ng/L EKG 12 Lead Result Value Ref Range Ventricular rate 99 BPM Atrial Rate 99 BPM P-R Interval 142 ms QRS Duration 74 ms Q-T Interval 356 ms QTC Calculated (Bezet) 456 ms Calculated P Lawton 50 degrees Calculated R Lawton 20 degrees Calculated T Law[place] 43 degrees INTERPRETATION Normal sinus rhythm Biatrial enlargement Abnormal ECG No previous ECGs available Did this case involve critical care? No 1. Chest pain, unspecified type -Please read all of the information that accompanies these instructions. -You came to the emergency department with chest pain and muscle aches. Your evaluation did not show any evidence of heart attack or infection. -You had been provided with copies of your imaging results, EKGs and lab results to review with your primary provider. -Electronic prescriptions have been sent to [facility] pharmacy in [facility] for a 5 to 7-day supply of your medications. -Please understand that no emergency visit is complete without a follow-up appointment with your primary care provider. Please contact your primary care providers clinic to schedule this follow-up appointment. This is important. -Please seek medical care or return to the emergency department if you develop a new or concerning symptom. We are open 24 hours a day, 7 days a week. Lashaun Burrows MD 03/18/23 3016 * Agustin De Santiago, DO - 03/17/2023 5:06 PM EST TEAM TRIAGE PROVIDER NOTE: 42-year-old female history coronary disease reports past heart attack in the end of 2022 presents to the emergency department with onset of nonradiating chest pressure described as an elephant sitting on my chest is 9 AM today. Reports associated mild shortness of breath and nausea. Reports mild diaphoresis. She denies recent fever, chills, cough, abdominal pain, vomiting, diarrhea, urinary symptoms or skin rash. She reports the symptoms are similar to her past [place]. She reports being out of her medications for approximately 1 week. She smokes cigarettes. 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 Patient Vitals for the past 24 hrs: Temp Pulse Resp BP SpO2 O2 Device 03/17/23 1707 36.9 ??C (98.5 ??F) 95 17 (!) 158/99 100 % RA EKG shows normal sinus rhythm rate of [address] changes. CBC, BMP, troponin protocol, chest x-ray ordered Agustin De Santiago DO 03/17/23 1711 documented in this encounter Miscellaneous Notes * Consult Note - Jasmin Reese, [facility] - 03/17/2023 6:59 PM EST TelePharmacy Home Medication List Update for Medication Reconciliation 03/17/23 6:59 PM Leeann Herrmann 1980 Allergies Allergen Reactions Penicillins Itching Person Interviewed: patient Quality of Interview/accuracy of medication list: fair Sources used to compile medication list: [x] Epic medication list [x] SureScripts/Dispense Report [] PCP/Specialist list [] Retail pharmacy [x] Patient list [] MAR [x] Other PDMPs for [place] and [place] Changes made to home medication list: Additions: APAP 1000 mg po q6h prn ASA 81 mg po qday Duloxetine 30 mg po qday Folic acid 1 mg po qday Hydroxychloroquine 200 mg po bid Levothyroxine 50 mcg po qday Lisinopril 5 mg po qday Magnesium oxide 400 mg po bid Medroxyprogesterone 10 mg po qday Meloxicam 15 mg po qam MTX 2.5 mg 1 tab po qweek on Oxycodone/APAP 10/325 po tid q4h prn KCl 10 mEq po bid Rosuvastatin 5 mg po qday Tizanidine 2 mg po q6h Deletions: None Changes: None Additional Notes: Pt reports that she has not had any meds (besides APAP) in a week and a half due to issues with pharmacy, pt reports [facility] rx bottles from [facility] to a pharmacy but possibly not actually having anyvalid refills. Per [place] PDMP, pt was getting Percocet 10/325 (90 tabs for 30 day supply) filled regularly while she lived there,she picked up last fill on 01/09/23. Per [place] PDMP, pt has not received any CS rxs yet. Either pt misremembers her sig for MTX or she has been taking it incorrectly- reports taking 1 tab per dose. Recommended changes: Once/if pt restarts opioid tx, educate pt that she cannot take any oral OTC pain meds- Percocet has APAP in it and pt also takes meloxicam. If these are insufficient, she can trytopical diclofenac gel, lidocaine patches, etc. The home medication list is now updated to the best of my knowledge and is ready to be reconciled by the provider. Please contact the TelePharmacy Medication Reconciliation Pharmacist at for any questions. Jasmin Reese RPH documented in this encounter Plan of Treatment Scheduled Orders Name Type Priority Associated Diagnoses Orde r Schedule EKG 12 Lead ECG STAT One Time for 1 Occurrences starting 03/17/2023 until 03/17/2023 documented as of this encounter Procedures Procedure Name Priority Date/Time Associated Diagnosis Comments TROPONIN - SERIES Timed 03/17/2023 8:[address] HEAD WO CONTRAST (GENERIC) STAT 03/17/2023 7:49 PM EST TROPONIN - SERIES Timed 03/17/2023 6:2 6 PM EST XR CHEST PA AND LATERAL STAT 03/17/2023 5:38 PM EST TROPONIN - SERIES STAT 03/17/2023 5:2 2 PM EST SCAN, PERIPHERAL BLOOD STAT 03/17/2023 5:22 PM EST HEMOGRAM STAT 03/17/2023 5:22 PM EST DIFFERENTIAL, AUTOMATED STAT 03/17/2023 5:22 PM EST GOLD TUBE HOLD STAT 03/17/2023 5:22 PM EST BLUE TUBE HOLD STAT 03/17/2023 5:22 PM EST CBC (WITH DIFF) STAT 03/17/2023 5:22 PM EST BASIC METABOLIC PANEL STAT 03/17/2023 5:22 PM EST EKG 12-LEAD STAT 03/17/2023 5:09 PM EST documented in this encounter Results * Troponin (03/17/2023 8:32 PM EST) Troponin-T, High Sensitivity 9 <=14 ng/L [facility] Comment: This patient's troponin T concentration [...] troponin value can be found in the [facility] Test Catalog Troponin - [facility] Test Catalog Reference: Fourth Fourmile Definition of Myocardial Infarction. Journal of the [place] College [employer] 2018;72:4123-1213 Blood 03/17/2023 8:32 PM EST 03/17/2023 8:34 PM EST Narrative Resulting Agency Comment Spec In Lab Agustin De Santiago DO CHEMISTRY ORDERABLES [facility] [address] [place] [address] * CT Head wo Contrast (Generic) (03/17/2023 7:49 PM EST) Anatomical Region Laterality Modality Head Computed Tomogra phy Impressions 03/17/2023 8:31 PM EST No acute intracranial abnormality. Thank you for letting us participate in the care of this patient. ??If you are a health care provider and have any questions regarding this report, please contact the number below. ??For patients who have questions please contact the health customer care assistant that requested your imaging first. ? Electronically signed by: VINAY ALVAREZ MD, [facility] ([phone]), at 03/17/2023 8:31 PM Narrative 03/17/2023 8:31 PM EST EXAMINATION: CT HEAD WO CONTRAST (GENERIC) CLINICAL HISTORY: Headache, new or worsening, neuro deficit (Age 19-49y) MIPS: Unless otherwise stated or recommended, any incidental findings do not require imaging follow up. Dose control: Automated exposure control utilized. Patient had 0 ??CT scan(s) and 0 myocardial perfusion scan(s) in the past 12 months. Any incidental pulmonary nodules require follow-up based on Fleischner Society Guidelines, except patients with an active diagnosis or history of cancer (except basal cell and squamous cell skin carcinoma) and lung cancer screening patients. TECHNIQUE: CT head performed without intravenous contrast administration. COMPARISON: None FINDINGS: Brain: There is no mass or mass effect. There is no hyperdense extra or intra-axial fluid collection. Cerebral ventricles: There is no ventriculomegaly. Paranasal sinuses: Well aerated. Mastoid air cells: Well aerated. ?? Bones/joints: No calvarial fracture. Soft tissues: No evidence of large scalp hematoma or laceration. Procedure Note Vinay Alvarez MD - 03/17/2023 EXAMINATION: CT HEAD WO CONTRAST (GENERIC) CLINICAL HISTORY: Headache, new or worsening, neuro deficit (Age 19-49y) MIPS: Unless otherwise stated or recommended, any incidental findings do notrequire imaging follow up. Dose control: Automated exposure control utilized. Patient had 0 CT scan(s) and 0 myocardial perfusion scan(s) in the past12 months. Any incidental pulmonary nodules require follow-up based on [facility] Guidelines, except patients with an active diagnosis or history ofcancer (except basal cell and squamous cell skin carcinoma) and lung cancerscreening patients. TECHNIQUE: CT head performed without intravenous contrast administration. COMPARISON: None FINDINGS: Brain: There is no mass or mass effect. There is no hyperdense extra or intra-axial fluid collection. Cerebral ventricles: There is no ventriculomegaly. Paranasal sinuses: Well aerated. Mastoid air cells: Well aerated. Bones/joints: No calvarial fracture. Soft tissues: No evidence of large scalp hematoma or laceration. IMPRESSION No acute intracranial abnormality. Thank you for letting us participate in the care of this patient. If youare a health care provider and have any questions regarding this report,please contact the number below. For patients who have questions please contactthe health customer care assistant that requested your imaging first. Electronically signed by: VINAY ALVAREZ MD, [facility] ([phone]), at 03/17/2023 8:31 PM Lashaun Burrows MD [facility] CT ORDERABLES * Troponin (03/17/2023 6:26 PM EST) Troponin-T, High Sensitivity 9 <=14 ng/L [facility] Comment: This patient's troponin T concentration [...] troponin value can be found in the [facility] Test Catalog Troponin - [facility] Test Catalog Reference: Fourth Fourmile Definition of Myocardial Infarction. Journal of the [place] College of [employer]iology 2018;72:7190-6857 Blood 03/17/2023 6:26 PM EST 03/17/2023 6:28 PM EST Narrative Resulting Agency Comment Spec In Lab Agustin De Santiago DO CHEMISTRY ORDERABLES [facility] [address] [place] [address] * XR Chest PA & Lateral (Generic) (03/17/2023 5:38 PM EST) Anatomical Region Laterality Modality Chest N/A Computed Radiogr aphy Impressions 03/17/2023 6:58 PM EST No consolidation. No pleural effusion. Cardiac silhouette is within normal limits. ?? Thank you for letting us participate in the care of this patient. ??If you are a health care provider and have any questions regarding this report, please contact the number below. ??For patients who have questions please contact the health customer care assistant that requested your imaging first. ? Electronically signed by: VINAY ALVAREZ MD, [facility] ([phone]), at 03/17/2023 6:58 PM Narrative 03/17/2023 6:58 PM EST EXAMINATION: XR CHEST PA AND LATERAL (GENERIC) CLINICAL HISTORY: chest pain TECHNIQUE: 2 views chest COMPARISON: None. FINDINGS: No consolidation. No pleural effusion. Cardiac silhouette is within normal limits. Procedure Note Vinay Alvarez MD - 03/17/2023 EXAMINATION: XR CHEST PA AND LATERAL (GENERIC) CLINICAL HISTORY: chest pain TECHNIQUE: 2 views chest COMPARISON: None. FINDINGS: No consolidation. No pleural effusion. Cardiac silhouette is withinnormal limits. IMPRESSION No consolidation. No pleural effusion. Cardiac silhouette is withinnormal limits. Thank you for letting us participate in the care of this patient. If youare a health care provider and have any questions regarding this report,please contact the number below. For patients who have questions please contactthe health customer care assistant that requested your imaging first. Electronically signed by: VINAY ALVAREZ MD, [facility] ([phone]), at 03/17/2023 6:58 PM Agustin De Santiago DO IMG DX ORDERABLES * Scan, Peripheral Blood (03/17/2023 5:22 PM EST) Plat estimate Increased [facility] RBC Morphology Abnormal [facility] Macrocyte 1-5 /HPF [facility] Microcyte 1-5 /HPF [facility] Blood 03/17/2023 5:22 PM EST 03/17/2023 5:30 PM EST Narrative Resulting Agency Comment Spec In Lab Agustin De Santiago DO HEMATOLOGY ORDERABLE S Performing Organization Address [facility] Co de Phone Number [facility] [address] [place] [address] * Gold Tube HOLD (03/17/2023 5:22 PM EST) Pathologist [facility] Gold Hold Sample in lab. [facility] Blood Venous Draw / Unknown 03/17/2023 5:22 PM EST 03/17/2023 5:32 PM EST Agustin De Santiago DO CHEMISTRY ORDERABLES Performing Organization Address [facility]/ZIP Co de Phone Number [facility] [address] [place] [address] * Blue Tube HOLD (03/17/2023 5:22 PM EST) Blue Hold Sample in lab. [facility] Blood Venous Draw / Unknown 03/17/2023 5:22 PM EST 03/17/2023 5:30 PM EST Agustin [facility] HEMATOLOGY ORDERABLE S [facility] [address] [place] [address] * Differential, Automated (03/17/2023 5:22 PM EST) Pathologist [facility] Neutrophil % 46.3 % [facility] Neutrophil Absolute 3.30 1.70 - 6.10 x10(3)/[facility] Lymph % 39.9 % [facility] Lymphocytes Abs 2.8 0.9 - 3.2 x10(3)/[facility] Monocyte % 10.7 % [facility] Monocyte Abs 0.8 0.3 - 0.9 x10(3)/[facility] Eos % 2.4 % [facility] Eosinophils Abs 0.2 0.0 - 0.4 x10(3)/[facility] Basophil % 0.4 % [facility] Baso Absolute 0.0 0.0 - 0.1 x10(3)/[facility] Immature Gran % 0.30 % [facility] Comment: Immature granulocytes(IG's)percentage and absolute count will include metamyelocytes, myelocytes, and promyelocytes. Blood smears from CBCs yielding IG's will be scanned manually for concordance. If this scan disagrees with the automated IG or if promyelocytes are noted, a manual differential will be performed. Immature Gran Absolute 0.02 0.00 - 0.04 x10(3)/[facility] LABORATORY Blood 03/17/2023 5:22 PM EST 03/17/2023 5:30 PM EST Narrative Resulting Agency Comment Spec In Lab Agustin Lenard [facility] HEMATOLOGY ORDERABLE S [facility] [address] [place] [address] * (ABNORMAL) Hemogram (03/17/2023 5:22 PM EST) White Blood Cell 7.1 4.0 - 9.5 x10(3)/mc L [facility] Red Blood Cell 5.27(H) 4.00 - 5.21 x10(6)/mc L [facility] Hemoglobin 13.2 11.7 - 15.5 g/dL [facility] Hematocrit 43.2 35.7 - 45.8 % [facility] Mean Cell Volume 82.0(L) 82.6 - 94.4 fL [facility] Mean Cell Hemoglobin 25.0(L) 27.1 - 32.0 pg [facility] Mean Cell Hemoglobin Concentration 30.6(L) 31.7 - 35.0 g/dL [facility] Platelet 415(H) 145 - 357 x10(3)/mc L [facility] RDW Standard Deviation 68.7(H) 37.0 - 46.0 fL [facility] RDW coefficient of variation 23.5(H) 11.5 - 14.1 % [facility] Mean Platelet Volume 8.4 7.6 - 12.9 fL [facility] NRBC% auto 0.0 % [facility] NRBC Absolute 0.000 0.000 - 0.000 x10(3)/ L [facility] Blood 03/17/2023 5:22 PM EST 03/17/2023 5:30 PM EST Narrative Resulting Agency Comment Spec In Lab Agustin De Santiago DO HEMATOLOGY ORDERABLE S Performing Organization Address City/State/[facility] Co de Phone Number [facility] [address] [place] [address] * Troponin (03/17/2023 5:22 PM EST) Troponin-T, High Sensitivity 12 <=14 ng/L [facility] Comment: This patient's troponin T concentration [...] troponin value can be found in the [facility] Laboratory Test Catalog Troponin - [facility] Laboratory Test Catalog Reference: Fourth [place] Definition of Myocardial Infarction. Journal of the [place] [employer] 2018;72:0560-1322 Blood 03/17/2023 5:22 PM EST 03/17/2023 5:30 PM EST Narrative Resulting Agency Comment Spec In Lab Agustin De Santiago DO CHEMISTRY ORDERABLES Performing Organization Address City/State/[facility] Co de Phone Number [facility] [address] [place], [place] [id number] * Basic Metabolic Panel (non-fasting) (03/17/2023 5:22 PM EST) Glucose 110 65 - 199 mg/dL [facility] Comment:Diabetes: >=200 mg/d L plus symptoms Blood Urea Nitrogen 10 8 - 18 mg/dL [facility] Creatinine 1.12 0.70 - 1.20 mg/dL [facility] Sodium 138 135 - 145 mmol/L [facility] Potassium 4.1 3.5 - 5.0 mmol/L [facility] Comment: Please note: ??Patients with WBC >100,000 may have falsely elevated Potassium levels. ??For accurate Potassium quantification in these patients send serum separator tube (gold top) for subsequent determinations. ??Contact the Clinical Chemistry Laboratory if there are any questions. Chloride 102 98 - 107 mmol/L [facility] Carbon Dioxide 25 22 - 31 mmol/L [facility] Anion Gap 11 5 - 15 mmol/L [facility] Calcium 9.3 8.5 - 10.5 mg/dL [facility] Est Glomerular Filtration Rate 63 >=60 mL/min/1. 73 m?? [facility] Comment: This patient's estimated GFR was [...] and symptoms in addition to eGFR. Blood 03/17/2023 5:22 PM EST 03/17/2023 5:30 PM EST Narrative Resulting Agency Comment Spec In Lab Agustin De Santiago DO CHEMISTRY ORDERABLES [facility] [address] [place] [address] * EKG 12 Lead (03/17/2023 5:09 PM EST) Ventricular rate 99 BPM MUSE SYSTEM Atrial Rate 99 BPM MUSE SYSTEM P-R Interval 142 ms MUSE SYSTEM QRS Duration 74 ms MUSE SYSTEM Q-T Interval 356 ms MUSE SYSTEM QTC Calculated (Bezet) 456 ms MUSE SYSTEM Calculated P [place] 50 degrees MUSE SYSTEM Calculated R [place] 20 degrees MUSE SYSTEM Calculated T [place] 43 degrees MUSE SYSTEM INTERPRETATION Normal sinus rhythm Biatrial enlargement Abnormal ECG No previous ECGs available Confirmed by DO Moya Todd A ([id number]) on 03/19/2023 12:15:19 PM MUSE SYSTEM 03/17/2023 5:09 PM EST 03/19/2023 12:15 PM EST Agustin De Santiago DO ECG ORDERABLES MUSE SYSTEM documented in this encounter Visit Diagnoses Diagnosis Chest pain, unspecified type documented in this encounter Administered Medications Inactive Administered Medications - up to 3 most recent administrations Medication Order MAR Action Action Date Dose Rate Site aspirin chewable tablet 324 mg 324 mg, Oral, ONCE, 1 dose, On 03/17/23 at 1812, STAT Given 03/17/2023 6:24 PM EST 324 mg aspirin chewable tablet 324 mg 324 mg, Oral, ONCE, 1 dose, On 03/17/23 at 2240, STAT Given 03/17/2023 11:03 PM EST 324 mg morphine (4 mg/mL) injection 4 mg 4 mg, Intravenous, ONCE, 1 dose, On 03/17/23 at 1934, STAT Given 03/17/2023 7:38 PM EST 4 mg sodium chloride 0.9% infusion 500 mL, at 4,000 mL/hr, Intravenous, ONCE, 1 dose, On 03/17/23 at 1813 New Bag 03/17/2023 6:25 PM EST 500 mLs 4000 mL/ hr documented in this encounter Active and Recently Administered Medications Times are shown in EST. Scheduled Medication Order 03/15/2023 03/16/2023 03/17/2023 aspirin chewable tablet 324 mg (COMPLETED) 324 mg, Oral, ONCE, 1 dose, On 03/17/23 at 1812, STAT 1824 (Given - Provid er: Markos Pal RN) aspirin chewable tablet 324 mg (COMPLETED) 324 mg, Oral, ONCE, 1 dose, On 03/17/23 at 2240, STAT 2303 (Given - Provid er: Merced Lang RN) morphine (4 mg/mL) injection 4 mg (COMPLETED) 4 mg, Intravenous, ONCE, 1 dose, On 03/17/23 at 1934, STAT 1938 (Given - Provid er: Markos Conway NRP) sodium chloride 0.9% infusion (COMPLETED) 500 mL, at 4,000 mL/hr, Intravenous, ONCE, 1 dose, On 03/17/23 at 1813 1825 (New Bag - Prov ider: Markos Pal RN)1909 (Stopped - Provider: Lauro Starkey NRP) documented in this encounter Care Teams Jewel Bearing Grinder Relationship Specialty Start Date End Date None None PCP - General 03/17/23 documented as of this encounter
--- OUTSIDE RECORDS SUMMARY | 2023-10-04 13:53 | XMS_ITS | Encounter Summary ---
Author Organization [facility] Address [facility] [place] [address] Care Team Providers Care Manager Mail Name Role Phone None Primary Care Provider Unavailabl e Encounter Details Date Type Department Care Team (Late st Contact Info) Description 09/28/2023 Ancillary Procedure [place] [address] Jesse Malave MD [facility] [place] [address] Social History Tobacco Use Types Packs/Day Years Used Date Smoking Tobacco: Never Assessed [facility] Inpatient Questions Answer Date Recorded Does Anyone [...] Procedure Name Priority Date/Time Associated Diagnosis Comments FILM LIBRARY STORAGE ONLY CT CHEST ABDOMEN PELVIS Routine 09/28/2023 12:00 AM EDT documented in this encounter Results * Film Library- Storage Only CT Chest Abdomen Pelvis (09/28/2023 12:00 AM EDT) Narrative [facility] - 09/29/2023 9:50 AM EDT This exam is auto-finalizing. It's purpose is for storage only. Jesse Malave MD IMG FILM LIBRARY O RDERABLES [place], [place] documented in this encounter Visit Diagnoses Not on filedocumented in this encounter Care Teams Manager Mail Relationship Specialty Start Date End Date None None PCP - General 03/17/23 documented as of this encounter
--- OUTSIDE RECORDS SUMMARY | 2023-10-04 13:53 | XMS_ITS | Encounter Summary ---
Author Organization [facility] [place] [address] Care Team Providers Care Creative Recruiter Name Role Phone None Primary Care Provider Unavailabl e Reason for Visit * Reason Comments Chest Pain Dental Pain Encounter Details Date Type Department Care Team ([facility] st Contact Info) Description 04/07/2023 5:19 PM EST - 04/07/2023 7:18 PM EST Emergency Emergency Department at [address] [phone] Quentin Fischer MD [address] [place] [address] Pain, dental Discharge Disposition: Home Social History [...] Sign Reading Time Taken Comments Blood Pressure 155/90 04/07/2023 6:52 PM EST Pulse 75 04/07/2023 6:52 PM EST Temperature 36.8 ??C (98.2 ??F) 04/07/2023 6:52 PM ES T Respiratory Rate 18 04/07/2023 6:52 PM EST Oxygen Saturation 100% 04/07/2023 6:52 PM EST Inhaled Oxygen Concentration - - Weight 70.8 kg (156 lb 1.4 oz) 04/07/2023 5:24 P M EST Height 165.1 cm (5' 5) 04/07/2023 5:24 PM EST Body Mass Index 25.97 04/07/2023 5:24 PM EST documented in this encounter Discharge Instructions * Discharge Instructions* Zahida Yeager PA - 04/07/2023 7:00 PM EST Please read all of the information that accompanies these instructions. You came to the emergency department with jaw pain. You have been diagnosed with dental pain, dental caries. Please understand that no emergency visit is complete without a follow-up appointment. Please follow-up with the dentist as scheduled on Sunday. This is important. Given you a list of local dentists if you are unable to follow-up with your dentist as scheduled onSunday. The antibiotics that you are prescribed by Dr. Thacker according to label instructions. Continue with your meloxicam. Use Tylenol, [id number] according to label instructions. Heat or ice on your face to help alleviate discomfort. Gargle with warm salt water several times a day, avoid sugary drinks. Please seek medical care or return to the emergency department if you develop [] or a new or concerning symptom. We are open 24 hours a day, 7 days a week. * Attachments The following attachments cannot be sent through Care Everywhere. * Tooth and Gum Pain (Iraqi) documented in this encounter Medications at Time [...] as of this encounter ED Notes * Zahida Yeager PA - 04/07/2023 5:26 PM EST Images from the original note were not included. Chief Complaint Patient presents with Chest Pain Dental Pain History obtained from: x patient Patient and family Family EMS senior living paperwork External records in [facility] reviewed, when available. Additional records obtained from also reviewed. 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 She is also complaining of Right Sided chest wall pain from the underwire from her bra. Review of the chart, the patient was seen in the emergency department overnight, she had a workup that included 2 negative troponin, CT angiogram of the chest, abdomen and pelvis that were negative for acute disease, EKG negative for ischemia. Reports she has an appointment with a dentist in [place], [place] in 2 days. Allergies Allergen Reactions Penicillins Itching Pertinent Past Medical and Surgical Histories, Social History, Medications, Allergies were reviewedin the chart. Review of Systems as per HPI. Physical Exam Vitals and nursing note reviewed. Constitutional: Comments: Tearful, sitting up on the stretcher. HENT: Mouth/Throat: Cardiovascular: Rate and Rhythm: Tachycardia present. Lymphadenopathy: Cervical: No cervical adenopathy. Procedures MDM 42-year-old female, left upper dental pain, dental caries without evidence for dental abscess, trismus or submandibular cellulitis. Seen yesterday with chest pain, had a large workup that was negative for an acute cardiac or intra-abdominal event. Is for discharged home, she was given written discharge instructions, she was given a list of localdentist in order to set up ointment for definitive care of her dental pain. Chronic conditions affecting care of your patient: As in HPI Discussion of management with physician, qualified healthcare practitioner or appropriate service: Not applicable Consideration of escalation of care/de-escalation of care: No indication for hospitalization I have reviewed labs and imaging, images and available reports, and they are significant for: Reviewed the workup from yesterday that was extensive for her chest pain and negative. Meds managed, started, changed, stopped, or decisions to keep unchanged [id number] Tylenol and she can either use her prescribed meloxicam or ibuprofen as prescribed. Below are both the pertinent social determinants of health which are impacting this patient's care in the ED today as well the relevant steps taken to address each factor: She does not have a local PCP. 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 She is due to stay until June. For primary care panel management in case she staysin the area and would like to set up with a local primary care provider. She was also given a list of dentists order to arrange follow-up. She reports she has a dentist appointment on Sunday with a dentist in [place], [place]. She was given this list in case the dental appointment falls through. ED Course: ED Course as of 04/07/23 1900 Sat Apr 07, 2023 1801 EKG performed at 1731, normal sinus rhythm, some T wave flattening in V5 and V6. Ventricular rate of 89. 1814 Pt given oxycodone as ordered by triage physician. I offered tylenol & ibuprofen, she declined & requested aspirin. No orders to display Did this case involve critical care? No 1. Pain, dental Please read all of the information that accompanies these instructions. You came to the emergency department with jaw pain. You have been diagnosed with dental pain, dental caries. Please understand that no emergency visit is complete without a follow-up appointment. Please follow-up with the dentist as scheduled on Sunday. This is important. Given you a list of local dentists if you are unable to follow-up with your dentist as scheduled onSunday. The antibiotics that you are prescribed by Dr. Thacker according to label instructions. Continue with your meloxicam. Use Tylenol, [id number] according to label instructions. Heat or ice on your face to help alleviate discomfort. Gargle with warm salt water several times a day, avoid sugary drinks. Please seek medical care or return to the emergency department if you develop or a new or concerning symptom. We are open 24 hours a day, 7 days a week. Zahida Yeager PA 04/07/23 192 documented in this encounter Plan of Treatment Not on file documented as of this encounter Procedures Procedure Name Priority Date/Time Associated Diagnosis Comments SCAN DOC - EKG PRELIM 04/09/2023 12:00 AM EST EKG 12-LEAD STAT 04/07/2023 5:31 PM EST documented in this encounter Results * SCAN DOC - EKG PRELIM (04/09/2023 12:00 AM EST) Narrative 04/09/2023 12:00 AM EST Ordered by an unspecified provider. Scanning Provider MEDIA MGR SCAN EXT O RDR/RSLT * EKG 12 Lead (04/07/2023 5:31 PM EST) Ventricular rate 89 BPM MUSE SYSTEM Atrial Rate 89 BPM MUSE SYSTEM P-R Interval 146 ms MUSE SYSTEM QRS Duration 76 ms MUSE SYSTEM Q-T Interval 374 ms MUSE SYSTEM QTC Calculated (Bezet) 455 ms MUSE SYSTEM Calculated P [place] 67 degrees MUSE SYSTEM Calculated R [place] 62 degrees MUSE SYSTEM Calculated T [place]aka 69 degrees MUSE SYSTEM INTERPRETATION Normal sinus rhythm Biatrial enlargement Nonspecific T wave abnormality Abnormal ECG When compared with ECG of 06-APR-2023 00:40, Nonspecific T wave abnormality now evident in Lateral leads Confirmed by Matilda Quezada ([id number]) on 04/09/2023 2:49:02 PM MUSE SYSTEM 04/07/2023 5:31 PM EST 04/09/2023 2:49 PM EST Quentin Fischer MD ECG ORDERABLES [employer] SYSTEM documented in this encounter Visit Diagnoses Diagnosis Pain, dental Unspecified disorder of the teeth and supporting structures documented in this encounter Administered Medications Inactive Administered Medications - up to 3 most recent administrations Medication Order MAR Action Action Date Dose Rate Site aspirin EC tablet 81 mg 81 mg, Oral, ONCE, 1 dose, On 04/07/23 at 1817, STAT Given 04/07/2023 6:32 PM EST 81 mg oxyCODONE (Roxicodone) tablet 10 mg 10 mg, Oral, ONCE, 1 dose, On 04/07/23 at 1727, Do not crush or chew, STAT Given 04/07/2023 5:53 PM EST 10 mg documented in this encounter Active and Recently Administered Medications Times are shown in EST. Scheduled Medication Order 04/05/2023 04/06/2023 04/07/2023 aspirin EC tablet 81 mg (COMPLETED) 81 mg, Oral, ONCE, 1 dose, On 04/07/23 at 1817, STAT 1832 (Given - Provid er: Mikey Solis RN) oxyCODONE (Roxicodone) tablet 10 mg (COMPLETED) 10 mg, Oral, ONCE, 1 dose, On 04/07/23 at 1727, Do not crush or chew, STAT 1753 (Given - Provid er: Mikey Solis RN) documented in this encounter Care Teams Creative Recruiter Relationship Specialty Start Date End Date None None PCP - General 03/17/23 documented as of this encounter
--- OUTSIDE RECORDS SUMMARY | 2023-10-04 13:54 | XMS_ITS | Encounter Summary ---
Author Organization [facility] Address [address] [place] [id number] Care Team Providers Care Ledger Clerk Name Role Phone Out Of Area, Pcp-Mp Primary Care Provider Zuly dawson Reason for Visit * Reason Comments Chest Pain Pt arrived with c/o of chest pain that radiates into jaw that have been ongoing for 3 days without improvement. C/o of diaphoresis and SOB. no N/V or syncope. PMH of stent placement 2022. Encounter Details Date Type Department Care Team (Late st Contact Info) Description 09/22/2023 15:20 EDT - 09/22/2023 19:31 EDT Emergency [facility] Emergency Department [address] [place] [id number] Frankie Sears MD [address] [place] [address] Arie Guzman MD [address] [facility], Level [address] [place] [address] Chest pain, unspecified type (Primary Dx) Discharge Disposition: Home or Self Care Social History Tobacco Use Types Packs/Day Years Used Date Smoking Tobacco: Never Assessed Sex and Gender Information Value Date Recorded Sex Assigned at Not on file Gender Identity Not on file Sexual Orientation Not on file documented as of this encounter Last Filed Vital Signs Vital Sign Reading Time Taken Comments Blood Pressure 195/112 09/22/2023 1830 EDT Pulse 96 09/22/2023 1528 EDT Temperature 36.8 ??C (98.2 ??F) 09/22/2023 1531 EDT Respiratory Rate 15 09/22/2023 1830 EDT Oxygen Saturation 100% 09/22/2023 1700 EDT Inhaled Oxygen Concentration - - Weight - - Height - - Body Mass Index - - documented in this encounter Discharge Instructions * Discharge Instructions* Laurita Hernandez MD - 09/22/2023 19:13 EDT You were seen in the emergency department for chest pain and shortness of breath that worsened earlier today. Your labs and EKG were reassuring - it does not look like there has been any stress on your heart or signs of a heart attack or blood clot. We gave you some medicine for pain and acid reflux, as sometimes this can also cause chest pain. We recommend following-up with your regular air carrier operations inspector and family doctor when you return home to [place]. Return to the emergency department for any new or concerning symptoms such as worseningchest pain or shortness of breath. * Attachments The following attachments cannot be sent through Care Everywhere. * Chest Pain (Kiswahili) documented in this encounter Medications at Time of Discharge Medication Sig Dispensed Refills Start Date End Date nitrofurantoin, macrocrystal-monohydrat e, (MACROBID) 100 mg capsule Take 1 Capsule by mouth 2 times daily for 5 days. 10 Capsule 09/24/2023 09/29/2023 documented as of this encounter Ordered Prescriptions Prescription Sig Dispensed Refills Start Date End Da te nitrofurantoin, macrocrystal-monohydrate , (MACROBID) 100 mg capsule Take 1 Capsule by mouth 2 times daily for 5 days. 10 Capsule 09/24/2023 09/29/2023 documented in this encounter Discharge Disposition Disposition Code Departure Means Destination Comment s Home or Self [facility] To home, no s/s of distress. Up with steady gait. documented in this encounter ED Notes * Alejandra Pedro - 09/22/2023 1405 EDT Meal order placed * Alejandra Pedro - 09/22/2023 1527 EDT 12 Lead EKG Performed by Alejandra Pedro and shown to Dr. Sears * Frankie Sears MD - 09/22/2023 1519 EDT Emergency Department Visit I, Frankie Sears MD, performed a history and exam of this patient and discussed the case with the resident. I have reviewed and edited this note, and the documentation is consistent with my findings, assessment and plan. I fully participated in the medical decision making. 43-year-old female with prior CAD with PCI in January of last year presenting with 3 days of chestpain is described as sharp. Workup thus far is reassuring with nondiagnostic EKG, initial troponin negative, and negative D-dimer. A second troponin at 3 hours is pending. She has a positive UA however microscopy indicates possible contamination. Will defer antibiotics if patient is asymptomatic. Patient care signed out to Dr. Guzman at change of shift, resident physician Dr. Turpin will follow-up on the 3-hour troponin, please see her full ED note Medical Decision Making This is a 43-year-old female with CAD who presents to the emergency department for chest pain that has been ongoing for the last 3 days but worsened earlier today. Upon arrival in the emergency department she is hemodynamically stable she is very anxious appearing. Her EKG is reassuring. My differential diagnosis includes but is not limited to ACS, pericarditis, PE, costochondritis, pneumonia versus URI or pneumothorax. Will plan for basic cardiac labs including D-dimer and chest x-ray. 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 [SJ] 1638 My independent interpretation no focal infiltrates, no pleural effusions, cardiac silhouette not enlarged [SJ] 1703 Updated the patient on the diagnostic studies so far and plan for repeat troponin @ 1830. she states that her chest pain now feels like her normal episodes and the pain has improved. [SJ] 1713 Urine Squamous Count, Auto(!): Many Contaminated urine sample and patient denies urinary symptoms [SJ] 1752 XR CHEST 2 VIEWS No active cardiopulmonary disease [SJ] 1858 Signed out pending repeat Trope, plan will be to clarify with patient whether she is having kirstin urine symptoms. UA concerning for infection but also grossly contaminated. [GK] 1910 Troponin I (ng/mL): <0.034 [SJ] 1922 Troponin I (second troponin in 3 hours) [GK] 1928 Updated the patient on the repeat troponin which was negative. She is feeling better at this time and agreeable with the plan for discharge home. She also denies having any dysuria or other urinary symptoms. Discussed return precautions as well as that she should reach out to her regular air carrier operations inspector just to let him know that she was in the emergency department for chest pain she was otherwise remained hemodynamically stable [SJ] Relevant Data User Index [GK] Arie Guzman MD [SJ] Laurita Hernandez MD Medical Decision Making Problems Addressed: Chest pain, unspecified type: complicated acute illness or injury Amount and/or Complexity of Data Reviewed Labs: ordered. Decision-making details documented in ED Course. Radiology: ordered. Decision-making details documented in ED Course. ECG/medicine tests: Decision-making details documented in ED Course. Risk OTC drugs. Prescription drug management. Final diagnoses: Chest pain, unspecified type Disposition: Discharged Chief complaint: chest pain LUCA Herrmann is a 43 y.o. female with CAD (stent 2022), HTN and RA who presents to the ED for chest pain that worsened earlier today. The patient notes that she has had intermittent chest pain sinceshe had her stents in January 2023 but over the last 3 days it has become more consistent. The pain has become constant since this morning and it is currently a sharp 9 out of 10. It also radiates down her left arm and she has some associated shortness of breath. Denies recent fever, chills, nausea or vomiting or lower extremity edema. 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 The patient had a prior NSTEMI last year and has multiple stents placed in her heart. She is currently still taking aspirin as well as Plavix and rosuvastatin but does not remember the rest of her medications. History was provided by: patient Records reviewed include:none available Patient's pertinent PMH, FH, SH were reviewed and edited as necessary. Nursing notes reviewed. A medical screening exam was performed. Physical Exam BP (!) 195/112 Pulse 96 Temp 36.8 ??C (98.2 ??F) (Oral) Resp 15 SpO2 100% Physical Exam General: Alert and oriented, tearful Head: Atraumatic Eyes: EOM intact, sclera anicteric, no conjunctival pallor Ears: External ears normal, hearing intact to voice Nose: No discharge or deformities Neck: Supple, full ROM Heart: Regular rate and rhythm, normal S1, S2, no S3, S4, murmurs, or rubs Lungs: Normal work of breathing. Clear to ausculation bilaterally, no wheezing, crackles, or stridor Abdomen: No tenderness to palpation, nondistended, no guarding, peritoneal signs, or masses : Deferred Extremities: 2+ DP and radial pulses bilaterally, warm and well perfused MSK: Normal ROM, no deformities or tenderness to extremities Neuro: Alert and oriented X4 Skin: Warm and dry. No rashes, lesions, or ecchymosis Psych: Normal mood and affect, normal behavior Procedures Procedures documented in this encounter Plan of Treatment Not on file documented as of this encounter Procedures Procedure Name Priority Date/Time Associated Diagnosis Comments ECG REPORT - SCANNED 09/23/2023 22:34 EDT TROPONIN I STAT 09/22/2023 18:28 EDT POCT URINE DIPSTICK, VISUAL READ STAT 09/22/2023 16:41 EDT UA WITH REFLEX SEDIMENT (CULTURE IF POS) Routine 09/22/2023 16:30 EDT Chest pain, unspecified type UA SEDIMENT + REFLEX TO CULTURE Today 09/22/2023 16:30 EDT Chest pain, unspecified type BACTERIAL CULTURE, URINE Today 09/22/2023 16:30 EDT Chest pain, unspecified type XR CHEST 2 VIEWS STAT 09/22/2023 16:0 9 EDT HOLD BLUE TOP STAT 09/22/2023 15:27 EDT TROPONIN I STAT 09/22/2023 15:27 EDT D-DIMER STAT Add-on 09/22/2023 15:27 EDT COMPLETE BLOOD COUNT AND DIFFERENTIAL STAT 09/22/2023 15:27 EDT MAGNESIUM STAT 09/22/2023 15:27 EDT BASIC METABOLIC PANEL (BMP) STAT 09/22/2023 15:27 EDT EKG 12-LEAD STAT 09/22/2023 15:25 EDT documented in this encounter Results * ECG REPORT - SCANNED (09/23/2023 22:34 EDT) 09/23/2023 22:3 4 EDT Scan 2 Product Coordinator PROCEDURE/MINOR ABE GICAL ORDERABLES * TROPONIN I (09/22/2023 18:28 EDT) Troponin I (ng/mL) <0.034 <0.034 ng/mL 09/22/2023 19:[address] [facility] Blood VENOUS BLOOD / Unknown Venipuncture / Unknown 09/22/2023 18:28 EDT 09/22/2023 18:[address] [facility] - 09/22/2023 19:06 EDT The results of this assay can be falsely lowered due to the consumption of Biotin. Frankie Sears MD CHEMISTRY & BLOO D GAS ORDERABLES [facility] [address] [place] [address] * (ABNORMAL) POCT URINE DIPSTICK, VISUAL READ (09/22/2023 16:41 EDT) Color, UA Yellow Yellow, Colorless Clarity, UA Cloudy(A) Clear Glucose, UA Negative Negative mg/dL Bilirubin, UA Negative Negative Ketones, UA Negative Negative mg/dL Spec Grav, UA 1.015 1.001 - 1.030 Blood, UA Trace(A) Negative pH, UA 7.0 5.0 - 8.0 Protein, UA Negative Negative mg/dL Urobilinogen, UA 0.2 0.2 - 1.0 E.U./dL Nitrite, UA Negative Negative Leuk Esterase 3+(A) Negative Comment Urine URINE SPECIMEN OBTAINED BY CLEAN CATCH PROCEDURE / Unknown 09/22/2023 16:41 EDT Frankie Sears MD POINT OF CARE TE ST ORDERABLES * (ABNORMAL) BACTERIAL CULTURE, URINE (09/22/2023 16:30 EDT) Organism ID Greater than 100,000 CFU/ml Escherichia coli(A) VITEK SUSCEPTIBILITY 09/24/2023 7:[address] [facility] Urine URINE SPECIMEN OBTAINED BY CLEAN CATCH PROCEDURE / Unknown Urine Collect / Unknown 09/22/2023 16:30 EDT 09/22/2023 17:06 EDT Narrative Organism Antibiotic Method Susceptibility Escherichia coli Amoxicillin Clavulan ic acid VITEK SUSCEPTIBILITY >=32 ug/mL: Resistant Escherichia coli Ampicillin VITEK SUSCEPTIBILITY >=32 ug/mL: Resistant Escherichia coli Ampicillin Sulbactam VITEK SUSCEPTIBI LITY >=32 ug/mL: Resistant Escherichia coli Cefazolin VITEK SUSCEPTIBILITY >=64 ug/mL: Resistant Escherichia coli Cefepime VITEK SUSCEPTIBILITY <=1 ug/mL: Susceptible Escherichia coli Ceftriaxone VITEK SUSCEPTIBILITY 8 ug/mL: Resistant Escherichia coli Ciprofloxacin VITEK SUSCEPTIBILITY >=4 ug/mL: Resistant Escherichia coli Ertapenem VITEK SUSCEPTIBILITY <=0.5 ug/mL: Susceptible Escherichia coli Gentamicin VITEK SUSCEPTIBILITY <=1 ug/mL: Susceptible Escherichia coli Levofloxacin VITEK SUSCEPTIBILITY >=8 ug/mL: Resistant Escherichia coli Nitrofurantoin VITEK SUSCEPTIBILITY <=16 ug/mL: Susceptible Escherichia coli Piperacillin Tazobactam VITEK SUSCEPT IBILITY 8 ug/mL: Susceptible Escherichia coli Tobramycin VITEK SUSCEPTIBILITY >=16 ug/mL: Resistant Escherichia coli Trimethoprim-Sulfame thox azole VITEK SUSCEPTIBILITY <=20 ug/mL: Susceptible Frankie Sears MD MICROBIOLOGY - G ENERAL ORDERABLES [facility] [address] [place] [address] * (ABNORMAL) UA SEDIMENT + REFLEX TO CULTURE (09/22/2023 16:30 EDT) Urine RBC Count, Manual 0 - 2 0 - 2 Cells/HPF 09/22/2023 17:06 [facility] Urine WBC Count 10 - 50(A) 0 - 3 Cells/HPF 09/22/2023 17:06 [facility] Urine Squamous Count, Manual Many(A) None Seen Cells/HPF 09/22/2023 17:06 [facility] Urine Hyaline Cast Count, Manual <=10 <=10 Casts/LPF 09/22/2023 17:06 [facility] Urine Bacteria Count, Manual Many(A) None Seen Bacteria/H PF 09/22/2023 17:06 [facility] Urine URINE SPECIMEN OBTAINED BY CLEAN CATCH PROCEDURE / Unknown Urine Collect / Unknown 09/22/2023 16:30 EDT 09/22/2023 16:48 EDT [facility] - 09/22/2023 17:06 EDT Urine Sediment Analysis results are unreliable on urines that are unrefrigerated for >2 hrs or refrigerated >8 hrs. A Urine Culture test has been reflexively ordered based on result criteria from the Urine Sediment Analysis. Frankie Sears MD URINALYSIS ORDER MATTI [facility] [address] [place] [address] * (ABNORMAL) UA CASCADE TO CULTURE (09/22/2023 16:30 EDT) Color UA Yellow Colorless, Yellow 09/22/2023 17:03 [facility] Clarity UA Cloudy(A) Clear 09/22/2023 17:03 [facility] Glucose UA Negative Negative mg/dL 09/22/2023 17:03 [facility] Bilirubin UA Negative Negative 09/22/2023 17:03 [facility] Ketones UA Negative Negative 09/22/2023 17:03 [facility] Specific [place], Urine 1.010 1.001 - 1.030 09/22/2023 17:03 [facility] Blood UA Trace(A) Negative 09/22/2023 17:03 [facility] pH, UA 6.0 5.0 - 8.0 09/22/2023 17:03 [facility] Protein UA Negative Negative mg/dL 09/22/2023 17:03 [facility] Urobilinogen UA 0.2 0.2-1.0 mg/dL mg/dL 09/22/2023 17:03 [facility] Nitrite UA Positive(A) Negative 09/22/2023 17:03 [facility] Leukocyte Esterase UA 3+(A) Negative 09/22/2023 17:03 [facility] Urine URINE SPECIMEN OBTAINED BY CLEAN CATCH PROCEDURE / Unknown Urine Collect / Unknown 09/22/2023 16:30 EDT 09/22/2023 16:48 EDT Frankie Sears MD URINALYSIS ORDER MATTI [facility] [address] [place] [address] * XR CHEST 2 VIEWS (09/22/2023 16:09 EDT) Anatomical Region Laterality Modality Computed Radiogr aphy 09/22/2023 16:0 6 EDT Impressions 09/22/2023 17:51 EDT No active cardiopulmonary disease. THIS DOCUMENT HAS BEEN ELECTRONICALLY SIGNED BY NEVILLE SANTOS MD FOR ANY QUESTIONS OR CONCERNS REGARDING THIS REPORT PLEASE CALL [facility] AT [phone] Narrative 09/22/2023 17:51 EDT PROCEDURE INFORMATION: Exam: XR Chest Exam date and time: 09/22/2023 4:06 PM Age: 43 years old Clinical indication: Pain; Chest pressure; Additional info: Chest pain, shortness of breath TECHNIQUE: Imaging protocol: Radiologic exam of the chest. Views: 2 views. COMPARISON: No relevant prior studies available. FINDINGS: Lungs: Lungs are clear with no infiltrate or nodule. Pleural spaces: Unremarkable. No pleural effusion. No pneumothorax. Heart/Mediastinum: Cardiomediastinal silhouette is normal. Bones/joints: Unremarkable. Procedure Note Neville Santos MD - 09/22/2023 PROCEDURE INFORMATION: Exam: XR Chest Exam date and time: 09/22/2023 4:06 PM Age: 43 years old Clinical indication: Pain; Chest pressure; Additional info: Chest pain, shortness of breath TECHNIQUE: Imaging protocol: Radiologic exam of the chest. Views: 2 views. COMPARISON: No relevant prior studies available. FINDINGS: Lungs: Lungs are clear with no infiltrate or nodule. Pleural spaces: Unremarkable. No pleural effusion. No pneumothorax. Heart/Mediastinum: Cardiomediastinal silhouette is normal. Bones/joints: Unremarkable. IMPRESSION No active cardiopulmonary disease. THIS DOCUMENT HAS BEEN ELECTRONICALLY SIGNED BY NEVILLE SANTOS MD FOR ANY QUESTIONS OR CONCERNS REGARDING THIS REPORT PLEASE CALL [facility] [phone] Frankie Sears MD IMG DIAGNOSTIC I MAGING ORDERABLES * D-DIMER (09/22/2023 15:27 EDT) D-Dimer <150 <=230 ng/mL DDU 09/22/2023 16:[address] [facility] Blood VENOUS BLOOD / Unknown Venipuncture / Unknown 09/22/2023 15:27 EDT 09/22/2023 15:[address] [facility] - 09/22/2023 16:00 EDT Cutoff value for the exclusion of DVT and PE: 230 ng/mL D-dimer units. Frankie Sears MD HEMATOLOGY & PF4 ORDERABLES Performing Organization Address [facility]/ZIP Co de Phone Number [facility] [address] [place] [address] * HOLD BLUE TOP (09/22/2023 15:27 EDT) Hold Hold 09/22/2023 16:[address] [facility] Blood VENOUS BLOOD / Unknown Venipuncture / Unknown 09/22/2023 15:27 EDT 09/22/2023 15:31 EDT Frankie Sears MD LAB INFO SERVICE AND SUPPORT & PHONE RESULT Performing Organization Address [facility] Co de Phone Number [facility] [address] [place] [address] * MAGNESIUM (09/22/2023 15:27 EDT) Pathologist [facility] Magnesium 2.0 1.7 - 2.8 mg/dL 09/22/2023 15:[address] [facility] Blood VENOUS BLOOD / Unknown Venipuncture / Unknown 09/22/2023 15:27 EDT 09/22/2023 15:31 EDT Frankie Sears MD CHEMISTRY & BLOO D GAS ORDERABLES Performing Organization Address City/[facility]/ZIP Co de Phone Number [facility] [address] [place], [place] [id number] * TROPONIN I (09/22/2023 15:27 EDT) [facility] Troponin I (ng/mL) <0.034 <0.034 ng/mL [facility]/22[facility]2023 15[facility] Blood VENOUS BLOOD / Unknown Venipuncture / Unknown 09/22/2023 15:27 EDT 09/22/2023 15:31 EDT [facility] - 09/22/2023 15:59 EDT The results of this assay can be falsely lowered due to the consumption of Biotin. Frankie Sears MD CHEMISTRY & BLOO D GAS ORDERABLES [facility] [address] [place] [address] * (ABNORMAL) BASIC METABOLIC PANEL (BMP) (09/22/2023 15:27 EDT) [facility] Sodium 138 136 - 145 mmol/L 09/22/2023 15:52 [facility] Potassium 3.8 3.5 - 5.0 mmol/L 09/22/2023 15:52 [facility] Chloride 108 96 - 110 mmol/L 09/22/2023 15:52 [facility] CO2 Total 20(L) 22 - 32 mmol/L 09/22/2023 15:52 [facility] Anion Gap 10 5 - 14 mmol/L 09/22/2023 15:52 [facility] Glucose 98 70 - 99 mg/dl 09/22/2023 15:52 [facility] Calcium 8.7 8.5 - 10.5 mg/dL 09/22/2023 15:52 [facility] BUN 11 10 - 26 mg/dL 09/22/2023 15:52 [facility] Creatinine 1.10(H) 0.52 - 1.04 mg/dL 09/22/2023 15:52 [facility] eGFR 64 >60 mL/min/1.73 m2 09/22/2023 15:52 [facility] Blood VENOUS BLOOD / Unknown Venipuncture / Unknown 09/22/2023 15:27 EDT 09/22/2023 15:31 EDT Frankie Sears MD CHEMISTRY & BLOO D GAS ORDERABLES [facility] [address] [place] [address] * (ABNORMAL) COMPLETE BLOOD COUNT AND DIFFERENTIAL (09/22/2023 15:27 EDT) WBC 6.31 4.00 - 12.40 K/cmm 09/22/2023 15:34 [facility] RBC 4.09 3.86 - 5.04 M/cmm 09/22/2023 15:34 [facility] Hemoglobin 9.6(L) 11.6 - 15.2 g/dL 09/22/2023 15:34 [facility] HCT 32.1(L) 34.9 - 44.4 % 09/22/2023 15:34 [facility] MCV 79(L) 81 - 98 fL 09/22/2023 15:34 [facility] MCH 23.5(L) 26.7 - 33.3 pg 09/22/2023 15:34 [facility] Hypochromia 1+ 09/22/2023 15:34 [facility] MCHC 29.9(L) 32.1 - 35.9 g/dL 09/22/2023 15:34 [facility] RDW-CV 20.2(H) <14.7 % 09/22/2023 15:34 [facility] RDW-SD 57.5(H) <50.4 fl 09/22/2023 15:34 [facility] Anisocytosis 2+ 09/22/2023 15:34 [facility] PLT 283 141 - 377 K/cmm 09/22/2023 15:34 [facility] MPV 8.3(L) 9.5 - 12.7 fL 09/22/2023 15:34 [facility] % Neutrophils 63.0 % 09/22/2023 15:34 [facility] % Lymphocytes 20.8 % 09/22/2023 15:34 [facility] % Monocytes 13.6 % 09/22/2023 15:34 [facility] % Eosinophils 1.7 % 09/22/2023 15:34 [facility] % Basophils 0.6 % 09/22/2023 15:34 [facility] % Immature Grans 0.3 <0.9 % 09/22/19 15:34 [facility] Absolute Neutrophils 3.97 2.20 - 8.85 K/cmm 09/22/2023 15:34 [facility] Absolute Lymphocytes 1.31 1.09 - 3.30 K/cmm 09/22/2023 15:34 [facility] Absolute Monocytes 0.86(H) 0.10 - 0.80 K/cmm 09/22/2023 15:34 [facility] Absolute Eosinophils 0.11 0.03 - 0.61 K/cmm 09/22/2023 15:34 [facility] ABS Basophils 0.04 0.01 - 0.11 K/cmm 09/22/2023 15:34 [facility] Absolute Immature Grans 0.02 0.00 - 0.06 K/cmm 09/22/2023 15:34 [facility] Type of Differential: Auto 09/22/2023 15:34 [facility] Blood VENOUS BLOOD / Unknown Venipuncture / Unknown 09/22/2023 15:27 EDT 09/22/2023 15:31 EDT Frankie Sears MD PACKAGES & DNA P ROBE ORDERABLES [facility] [address] [place] [address] * EKG 12-LEAD (09/22/2023 15:25 EDT) 09/22/2023 15:2 5 EDT Narrative [facility] - 09/23/2023 22:23 EDT ? [facility] ? Test Date: ?2023-09-22 Pat Name: ? SHANTHEL JEN ?Department: ? Room: ? A03 Gender: ? Female ? 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 DL : ?1980 ? Requested By: ELIAS NORTON Order Number: [id number] ? Georgiana PHELPS: ?? CESILIA DICKSON MD ? Measurements Intervals ?[place] ? Rate: ? 99 ? P: ?46 IL: ? 156 ?QRS: ?17 QRSD: ? 78 ? T: ?45 QT: ? 354 ? QTc: ?454 ? Interpretive Statements Normal sinus rhythm Possible Left atrial enlargement No previous ECG available for comparison I reviewed the tracing and have either agreed or edited the findings in this report. Electronically Signed On 09-23-2023 22:23:29 EDT by CESILIA DICKSON MD. Procedure Note Cesilia Dickson MD - 09/23/2023 [facility] [place] Test Date: 2023-09-22 Pat Name: DOUGLAS HERRMANN Department: Room: A03 Gender: Female Nightclub Manager: DL : 1980 Requested By: ELIAS FISCHER Order Number: [id number] Reading MD: CESILIA DICKSON MD Measurements Intervals [place] Rate: 99 P: 46 IL: 156 QRS: 17 QRSD: 78 T: 45 QT: 354 QTc: 454 Interpretive Statements Normal sinus rhythm Possible Left atrial enlargement No previous ECG available for comparison I reviewed the tracing and have either agreed or edited the findings inthis report. Electronically Signed On 09-23-2023 22:23:29 EDT by WADE PHELPS. Frankie Sears MD CARDIAC ECG AVTAR ANDINO [facility] Organization Address City/State/ZIP Co de Phone Number [facility] documented in this encounter Visit Diagnoses Diagnosis Chest pain, unspecified type- Primary documented in this encounter Administered Medications Inactive Administered Medications - up to 3 most recent administrations Medication Order MAR Action Action Date Dose Rate Site acetaminophen (TYLENOL) tablet 975 mg 975 mg (rounded from 1,000 mg), oral, NOW X1, 1 dose, On 09/22/23 at 1930, Routine Given 09/22/2023 19:15 EDT 975 mg HYDROmorphone (PF) (DILAUDID) 0.5 mg/0.5 mL syringe 0.5 mg 0.5 mg, intravenous, NOW X1, 1 dose, On 09/22/23 at 1600, Routine Given 09/22/2023 15:43 EDT 0.5 mg pantoprazole (PROTONIX) tablet 40 mg 40 mg, oral, NOW X1, 1 dose, On 09/22/23 at 1930, STAT Given 09/22/2023 19:15 EDT 40 mg documented in this encounter Active and Recently Administered Medications Times are shown in EDT. Scheduled Medication Order 09/20/2023 09/21/2023 09/22/2023 acetaminophen (TYLENOL) tablet 975 mg (COMPLETED) 975 mg (rounded from 1,000 mg), oral, NOW X1, 1 dose, On 09/22/23 at 1930, Routine 1915 (Given - Provid er: Eliel Walker RN) HYDROmorphone (PF) (DILAUDID) 0.5 mg/0.5 mL syringe 0.5 mg (COMPLETED) 0.5 mg, intravenous, NOW X1, 1 dose, On 09/22/23 at 1600, Routine 1543 (Given - Provid er: Blossom Reese RN) pantoprazole (PROTONIX) tablet 40 mg (COMPLETED) 40 mg, oral, NOW X1, 1 dose, On 09/22/23 at 1930, STAT 1915 (Given - Provid er: Eliel Walker RN) documented in this encounter Care Teams Ledger Clerk Relationship Specialty Start Date End Date Out Of Area, Pcp-Mp PCP - General 09/22/23 documented as of this encounter
--- OUTSIDE RECORDS SUMMARY | 2023-10-04 13:54 | XMS_ITS | Encounter Summary ---
Author Organization [facility] Address [address] [place] [address] Care Team Providers Care Interactive Multimedia Designer Name Role Phone Out Of Area, Pcp-Mp Primary Care Provider Zuly dawson Reason for Visit * Reason Comments Leg Pain Patient to Emergency room for lower back pain and bilateral leg. Patient states she ran out of her oxycodone that she uses for RA. Patient denies fevers, dyspnea or nausea. Encounter Details Date Type Department Care Team ([facility] st Contact Info) Description 09/28/2023 1:39 EDT - 09/28/2023 2:[address] [facility] Emergency Department [address], [place] [id number] Sally Santos MD [address] [place] [address] COVID-19 (Primary Dx); Essential hypertension Discharge Disposition: Home or Self Care Social History Tobacco Use Types Packs/Day Years Used Date Smoking Tobacco: Some Days Cigarettes Smokeless Tobacco: Never Alcohol Use Standard Drinks/Week Comments Not Currently 0 (1 standard drink = 0.6 oz pur e alcohol) Sex and Gender Information Value Date Recorded Sex Assigned at Not on file Gender Identity Not on file Sexual Orientation Not on file documented as of this encounter Last Filed Vital Signs Vital Sign Reading Time Taken Comments Blood Pressure 192/108 09/28/2023 0142 EDT Pulse 105 09/28/2023 0142 EDT Temperature 36.9 ??C (98.5 ??F) 09/28/2023 0142 EDT Respiratory Rate 22 09/28/2023 0142 EDT Oxygen Saturation 95% 09/28/2023 0142 EDT Inhaled Oxygen Concentration - - Weight 70.8 kg (156 lb) 09/28/20232 EDT Height 162.6 cm (5' 4) 09/28/20232 EDT Body Mass Index 26.78 09/28/2023141 EDT documented in this encounter Functional Status Functional Status Response Date of Assess ment Are you deaf or do you have serious difficulty h earing? No 09/27/2023 documented as of this encounter Discharge Instructions * Discharge Instructions* Sally Santos MD - 09/28/2023 1:56 EDT Take your lisinopril and metoprolol as already prescribed. Drink plenty of fluids. Continue to take 60 mg of ibuprofen every 6 hours as needed for fever or discomfort. Follow-up as needed. Return for increased difficulty breathing, persistent vomiting, worsening symptoms or any other concerns. documented in this encounter Medications at Time of Discharge Medication Sig Dispensed Refills Start Date End Date lisinopriL (PRINIVIL) 5 mg tablet Take 1 Tablet by mouth daily for 30 days. 30 Tablet 09/27/2023 10/27/2023 metoprolol TARtrate (LOPRESSOR) 25 mg tablet Take 1 Tablet by mouth 2 times daily for 30 days. 60 Tablet 09/27/2023 10/27/2023 nitrofurantoin, macrocrystal-monohydrat e, (MACROBID) 100 mg capsule Take 1 Capsule by mouth 2 times daily for 5 days. 10 Capsule 09/24/2023 09/29/2023 documented as of this encounter Discharge Disposition Disposition Code Departure Means Destination Comment s Home or Self [place] documented in this encounter ED Notes * Sally Santos MD - 09/28/2023 0137 EDT Emergency Department Visit Medical Decision Making 43-year-old female with a history of hypertension and coronary artery disease presents with back and leg pain. Patient was diagnosed with COVID-19 2 days ago. Patient was seen in the emergency department the day prior for overall weakness and was also noted to be hypertensive. Patient had run out of her blood pressure medication and was restarted on 5 mg of lisinopril and a prescription for 25 mg of metoprolol twice daily was provided. Patient states she has bilateral leg pain but has had that for the last 7 years for and takes oxycodone for her pain. Patient seen evaluated. No nausea or vomiting. Patient is afebrile with a temp of 98.5. No hypoxia.O2 sat of 98%. Patient states has been taking her ibuprofen and Tylenol. IM Toradol given as patient has not taken medications for about 6 hours. Patient also states that she has been taking her antihypertensives however patient's blood pressurenoted to be 192/108. Patient then states that she is not like taking all of her medications and is only intermittently compliant. Discussed with patient importance of taking her medications regularly. Metoprolol and lisinopril given. With underlying history of rheumatoid arthritis, a dose of dexamethasone given. Work note provided. Will discharge home to follow-up with PCP should symptoms persist. Return precautions provided. Medical Decision Making Risk Prescription drug management. Final diagnoses: COVID-19 Essential hypertension Disposition: Discharged Chief complaint: COVID-19, back and leg pain. LUCA Herrmann is a 43 y.o. female with a history of hypertension and coronary artery disease presents with back and leg pain. Patient was diagnosed with COVID-19 2 days ago. Patient was seen in the emergency department the day prior for overall weakness and was also noted to be hypertensive. Patient had her run out of her blood pressure medication. Patient restarted on 5 mg of lisinopril and a prescription for 25 mg of metoprolol twice daily was provided. History was provided by: Patient Records reviewed include: Chart review including ED visit 09/27/2023 Patient's pertinent PMH, FH, SH were reviewed and edited as necessary. Nursing notes reviewed. A medical screening exam was performed. Physical Exam BP (!) 192/108 (BP Cuff Location: Left arm, BP Patient Position: Sitting) Pulse 105 Temp 36.9 ??C (98.5 ??F) (Oral) Resp 22 Ht 162.6 cm (64) Wt 70.8 kg (156 lb) SpO2 95% BMI 26.78 kg/m?? Physical Exam Vitals and nursing note reviewed. Constitutional: General: She is not in acute distress. Appearance: Normal appearance. Comments: Afebrile HENT: Head: Normocephalic and atraumatic. Right Ear: External ear normal. Left Ear: External ear normal. Nose: Nose normal. Mouth/Throat: Mouth: Mucous membranes are moist. Eyes: Extraocular Movements: Extraocular movements intact. Pupils: Pupils are equal, round, and reactive to light. Cardiovascular: Rate and Rhythm: Normal rate and regular rhythm. Heart sounds: Normal heart sounds. Pulmonary: Effort: Pulmonary effort is normal. Breath sounds: Normal breath sounds. Abdominal: Palpations: Abdomen is soft. There is no mass. Tenderness: There is no abdominal tenderness. Musculoskeletal: General: No swelling or deformity. Normal range of motion. Cervical back: Normal range of motion and neck supple. Skin: General: Skin is warm and dry. Neurological: General: No focal deficit present. Mental Status: She is alert and oriented to person, place, and time. Psychiatric: Mood and Affect: Mood normal. Behavior: Behavior normal. Procedures Procedures documented in this encounter Plan of Treatment Not on file documented as of this encounter Visit Diagnoses Diagnosis COVID-19- Primary Essential hypertension Unspecified essential hypertension documented in this encounter Administered Medications Inactive Administered Medications - up to 3 most recent administrations Medication Order MAR Action Action Date Dose Rate Site dexAMETHasone (PF) (DECADRON) injection 10 mg 10 mg, oral, NOW X1, 1 dose, On Sun09/28/23 at 0215, STAT Given 09/28/2023 2:04 EDT 10 mg ketOROLAC (TORADOL) injection 30 mg 30 mg, intramuscular, NOW X1, 1 dose, On Sun09/28/23 at 0215, STAT Given 09/28/2023 2:04 EDT 30 mg lisinopriL (PRINIVIL) tablet 5 mg 5 mg, oral, NOW X1, 1 dose, On Sun09/28/23 at 0215, STAT Given 09/28/2023 1:50 EDT 5 mg metoprolol TARtrate (LOPRESSOR) tablet 25 mg 25 mg, oral, NOW X1, 1 dose, On Sun09/28/23 at 021, STAT Given 09/28/2023 1:50 EDT 25 mg documented in this encounter Active and Recently Administered Medications Times are shown in EDT. Scheduled Medication Order 09/26/2023 09/27/2023 09/28/2023 dexAMETHasone (PF) (DECADRON) injection 10 mg (COMPLETED) 10 mg, oral, NOW X1, 1 dose, On Sun09/28/23 at 0215, STAT 0204 (Given - Provid er: Mackenzie Valero RN) ketOROLAC (TORADOL) injection 30 mg (COMPLETED) 30 mg, intramuscular, NOW X1, 1 dose, On Sun09/28/23 at 0215, STAT 0204 (Given - Provid er: Mackenzie Valero RN) lisinopriL (PRINIVIL) tablet 5 mg (COMPLETED) 5 mg, oral, NOW X1, 1 dose, On Sun09/28/23 at 0215, STAT 0150 (Given - Provid er: Mackenzie Valero RN) metoprolol TARtrate (LOPRESSOR) tablet 25 mg (COMPLETED) 25 mg, oral, NOW X1, 1 dose, On Sun09/28/23 at 0215, STAT 0150 (Given - Provid er: Mackenzie Valero RN) documented in this encounter Additional Health Concerns Infection Onset Date Last Indicated Resolved Time 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 Stoner 09/24/2023 09/24/2023 09/24/2023 R/O COVID-19 09/27/2023 09/27/2023 10/02/2023 22:1 5 EDT documented as of this encounter Care Teams Interactive Multimedia Designer Relationship Specialty Start Date End Date Out Of Area, Pcp-Mp PCP - General 09/22/23 documented as of this encounter
--- OUTSIDE RECORDS SUMMARY | 2023-10-04 13:54 | XMS_ITS | Referral Summary ---
Author Organization [facility] Address [address] [place] [address] Care Team Providers Care Crane Operator Cab Name Role Phone Out Of Area, Pcp-Mp Primary Care Provider Zuly dawson Encounters Date Type Department Care Team Description 09/28/2023 1:39 EDT - 09/28/2023 2:05 EDT Emergency [facility] Emergency Department [address] [place] [address] Sally Santos MD COVID-19 (Primary Dx); Essential hypertension Discharge Disposition: Home or Self Care 09/27/2023 Travel 09/27/2023 3:12 EDT - 09/27/2023 4:06 EDT Emergency [facility] Emergency Department [address] [place] [address] Sally Santos MD COVID-19 (Primary Dx); Primary hypertension Discharge Disposition: Home or Self Care 09/22/2023 15:20 EDT - 09/22/2023 19:31 EDT Emergency [facility] Emergency Department [address] [place] [address] Frankie Sears MD Krauthamer, Gunter, MD Chest pain, unspecified type (Primary Dx) Discharge Disposition: Home or Self Care from Last 3 Months Allergies Active Allergy Reactions Criticality Noted Date Comments Penicillins Hives 09/22/2023 Medications Medication Sig Dispensed Refills Start Date End Date Status metoprolol TARtrate (LOPRESSOR) 25 mg tablet Take 1 Tablet by mouth 2 times daily for 30 days. 60 Tablet 09/27/2023 10/27/2023 Active lisinopriL (PRINIVIL) 5 mg tablet Take 1 Tablet by mouth daily for 30 days. 30 Tablet 09/27/2023 10/27/2023 Active nitrofurantoin, macrocrystal-mono hydrate, (MACROBID) 100 mg capsule Take 1 Capsule by mouth 2 times daily for 5 days. 10 Capsule 09/24/2023 09/29/2023 Additional Information Patient not taking.Reported on 09/27/2023 Social History Tobacco Use Types Packs/Day Years Used Date Smoking Tobacco: Some Days Cigarettes Smokeless Tobacco: Never Tobacco Cessation:Ready to Q uit: Not Asked; Counseling Given: Not Answered Alcohol Use Standard Drinks/Week Comments Not Currently 0 (1 standard drink = 0.6 oz pur e alcohol) Sex and Gender Information Value Date Recorded Sex Assigned at Not on file Gender Identity Not on file Sexual Orientation Not on file Last Filed Vital Signs Vital Sign Reading Time Taken Comments Blood Pressure 192/108 09/28/2023141 EDT Pulse 105 09/28/2023141 EDT Temperature 36.9 ??C (98.5 ??F) 09/28/2023 014 EDT Respiratory Rate 22 09/28/20232 EDT Oxygen Saturation 95% 09/28/2023141 EDT Inhaled Oxygen Concentration - - Weight 70.8 kg (156 lb) 09/28/2023141 EDT Height 162.6 cm (5' 4) 09/28/2023141 EDT Body Mass Index 26.78 09/28/2023141 EDT Functional Status Functional Status Response Date of Assess ment Are you deaf or do you have serious difficulty h earing? No 09/27/2023 Plan of Treatment Not on file Procedures Procedure Name Priority Date/Time Associated Diagnosis Comments ECG REPORT - SCANNED 09/23/2023 22:34 EDT TROPONIN I STAT 09/22/2023 18:28 EDT POCT URINE DIPSTICK, VISUAL READ STAT 09/22/2023 16:41 EDT UA SEDIMENT + REFLEX TO CULTURE Today 09/22/2023 16:30 EDT Chest pain, unspecified type UA WITH REFLEX SEDIMENT (CULTURE IF POS) Routine 09/22/2023 16:30 EDT Chest pain, unspecified type BACTERIAL CULTURE, URINE Today 09/22/2023 16:30 EDT Chest pain, unspecified type XR CHEST 2 VIEWS STAT 09/22/2023 16:0 9 EDT D-DIMER STAT Add-on 09/22/2023 15:27 EDT HOLD BLUE TOP STAT 09/22/2023 15:27 EDT MAGNESIUM STAT 09/22/2023 15:27 EDT TROPONIN I STAT 09/22/2023 15:27 EDT BASIC METABOLIC PANEL (BMP) STAT 09/22/2023 15:27 EDT COMPLETE BLOOD COUNT AND DIFFERENTIAL STAT 09/22/2023 15:27 EDT EKG 12-LEAD STAT 09/22/2023 15:25 EDT from Last 3 Months Results * ECG REPORT - SCANNED (09/23/2023 22:34 EDT) 09/23/2023 22:3 4 EDT Scan 2 Computer Programmer Chief PROCEDURE/MINOR ABE GICAL ORDERABLES * TROPONIN I (09/22/2023 18:28 EDT) Only the most recent of2 resultswithin the time period is included. Troponin I (ng/mL) <0.034 <0.034 ng/mL 09/22/2023 19:06 EDT [facility] Blood VENOUS BLOOD / Unknown Venipuncture / Unknown 09/22/2023 18:28 EDT 09/22/2023 18:34 EDT Narrative [facility] - 09/22/2023 19:06 EDT The results of this assay can be falsely lowered due to the consumption of Biotin. Frankie Sears MD CHEMISTRY & BLOO D GAS ORDERABLES [facility] [address] [place] [address] * (ABNORMAL) POCT URINE DIPSTICK, VISUAL READ [...] OF CARE TE ST ORDERABLES * (ABNORMAL) UA CASCADE TO CULTURE (09/22/2023 16:30 EDT) Color UA Yellow Colorless, Yellow 09/22/2023 17:03 EDT [facility] Clarity UA Cloudy(A) Clear 09/22/2023 17:03 EDT [facility] Glucose UA Negative Negative mg/dL 09/22/2023 17:03 EDT [facility] Bilirubin UA Negative Negative 09/22/2023 17:03 EDT [facility] Ketones UA Negative Negative 09/22/2023 17:03 [facility] Specific [place], Urine 1.010 1.001 - 1.030 09/22/2023 17:03 EDT [facility] Blood UA Trace(A) Negative 09/22/2023 17:03 EDT [facility] pH, UA 6.0 5.0 - 8.0 09/22/2023 17:03 [facility] Protein UA Negative Negative mg/dL 09/22/2023 17:03 [facility] Urobilinogen UA 0.2 0.2-1.0 mg/dL mg/dL 09/22/2023 17:03 [facility] Nitrite UA Positive(A) Negative 09/22/2023 17:03 [facility] Leukocyte Esterase UA 3+(A) Negative 09/22/2023 17:03 [facility] Urine URINE SPECIMEN OBTAINED BY CLEAN CATCH PROCEDURE / Unknown Urine Collect / Unknown 09/22/2023 16:30 EDT 09/22/2023 16:48 EDT Frankie Sears MD URINALYSIS ORDER MATTI Performing Organization Address City/State/[facility] Co de Phone Number [facility] [address] [place] [address] * (ABNORMAL) UA SEDIMENT + REFLEX TO CULTURE (09/22/2023 16:30 EDT) Urine RBC Count, Manual 0 - 2 0 - 2 Cells/HPF 09/22/2023 17:06 [facility] Urine WBC Count 10 - 50(A) 0 - 3 Cells/HPF 09/22/2023 17:06 [facility] Urine Squamous Count, Manual Many(A) None Seen Cells/HPF 09/22/2023 17:06 [facility] Urine Hyaline Cast Count, Manual <=10 <=10 Casts/LPF 09/22/2023 17:06 [facility] Urine Bacteria Count, Manual Many(A) None Seen Bacteria/H PF 09/22/2023 17:06 [facility] Urine URINE SPECIMEN OBTAINED BY CLEAN CATCH PROCEDURE / Unknown Urine Collect / Unknown 09/22/2023 16:30 EDT 09/22/2023 16:48 EDT Narrative [facility] - 09/22/2023 17:06 EDT Urine Sediment Analysis results are unreliable on urines that are unrefrigerated for >2 hrs or refrigerated >8 hrs. A Urine Culture test has been reflexively ordered based on result criteria from the Urine Sediment Analysis. Frankie Sears MD URINALYSIS ORDER MATTI Performing Organization Address [facility]/State/ZIP Co de Phone Number [facility] [address] [place] [address] * (ABNORMAL) BACTERIAL CULTURE, URINE (09/22/2023 16:30 EDT) Organism ID Greater than 100,000 CFU/ml Escherichia coli(A) VITEK SUSCEPTIBILITY 09/24/2023 7:36 EDT [facility] Urine URINE SPECIMEN OBTAINED [...] Sears MD MICROBIOLOGY - G ENERAL ORDERABLES [facility] [address] [place] [address] * XR CHEST 2 VIEWS (09/22/2023 16:09 EDT) Anatomical Region Laterality Modality Computed Radiogr aphy 09/22/2023 16:0 6 EDT Impressions 09/22/2023 17:51 EDT No active cardiopulmonary disease. THIS DOCUMENT HAS BEEN ELECTRONICALLY SIGNED BY NEVILLE SANTOS MD FOR ANY QUESTIONS OR CONCERNS REGARDING THIS REPORT PLEASE CALL [facility] AT [phone] Narrative 09/22/2023 17:51 EDT PROCEDURE INFORMATION: Exam: [...] CONCERNS REGARDING THIS REPORT PLEASE CALL [facility] [phone] Frankie Sears MD IMG DIAGNOSTIC I MAGING ORDERABLES * HOLD BLUE TOP (09/22/2023 15:27 EDT) Hold Hold 09/22/2023 16:45 EDT [facility] Blood VENOUS BLOOD / Unknown Venipuncture / Unknown 09/22/2023 15:27 EDT 09/22/2023 15:31 EDT Frankie Sears MD LAB INFO SERVICE AND SUPPORT & PHONE RESULT Performing Organization Address City/[facility] Co de Phone [facility] [address] [place] [address] * D-DIMER (09/22/2023 15:27 EDT) [facility] D-Dimer <150 <=230 ng/mL DDU 09/22/2023 16:00 EDT [facility] Blood VENOUS BLOOD / Unknown Venipuncture / Unknown 09/22/2023 15:27 EDT 09/22/2023 15:31 EDT Narrative [facility] - 09/22/2023 16:00 EDT Cutoff value for the exclusion of DVT and PE: 230 ng/mL D-dimer units. Frankie Sears MD HEMATOLOGY & PF4 ORDERABLES Performing Organization Address [facility] Co de [facility] [address] [place] [address] * (ABNORMAL) COMPLETE BLOOD COUNT AND DIFFERENTIAL (09/22/2023 15:27 EDT) [facility] WBC 6.31 4.00 - 12.40 K/cmm 09/22/2023 15:34 [facility] RBC 4.09 3.86 - 5.04 M/cmm 09/22/2023 15:34 [facility] Hemoglobin 9.6(L) 11.6 - 15.2 g/dL 09/22/2023 15:34 [facility] HCT 32.1(L) 34.9 - 44.4 % 09/22/2023 15:34 [facility] MCV 79(L) 81 - 98 fL 09/22/2023 15:34 [facility] MCH 23.5(L) 26.7 - 33.3 pg 09/22/2023 15:34 [facility] Hypochromia 1+ 09/22/2023 15:34 [facility] MCHC 29.9(L) 32.1 - 35.9 g/dL 09/22/2023 15:34 [facility] RDW-CV 20.2(H) <14.7 % 09/22/2023 15:34 [facility] RDW-SD 57.5(H) <50.4 fl 09/22/2023 15:34 [facility] Anisocytosis 2+ 09/22/2023 15:34 [facility] PLT 283 141 - 377 K/cmm 09/22/2023 15:34 [facility] MPV 8.3(L) 9.5 - 12.7 fL 09/22/2023 15:34 [facility] % Neutrophils 63.0 % 09/22/2023 15:34 [facility] % Lymphocytes 20.8 % 09/22/2023 15:34 [facility] % Monocytes 13.6 % 09/22/2023 15:34 [facility] % Eosinophils 1.7 % 09/22/2023 15:34 [facility] % Basophils 0.6 % 09/22/2023 15:34 [facility] % Immature Grans 0.3 <0.9 % 09/22/19 15:34 [facility] Absolute Neutrophils 3.97 2.20 - 8.85 K/cmm 09/22/2023 15:34 [facility] Absolute Lymphocytes 1.31 1.09 - 3.30 K/cmm 09/22/2023 15:34 [facility] Absolute Monocytes 0.86(H) 0.10 - 0.80 K/cmm 09/22/2023 15:34 EDT [facility] Absolute Eosinophils 0.11 0.03 - 0.61 K/cmm 09/22/2023 15:34 EDT [facility] ABS Basophils 0.04 0.01 - 0.11 K/cmm 09/22/2023 15:34 [facility] Absolute Immature Grans 0.02 0.00 - 0.06 K/cmm 09/22/2023 15:34 T [facility] Type of Differential: Auto 09/22/2023 15:34 EDT [facility] Blood VENOUS BLOOD / Unknown Venipuncture / Unknown 09/22/2023 15:27 EDT 09/22/2023 15:31 EDT Frankie Sears MD PACKAGES & DNA P ROBE ORDERABLES Performing Organization Address [facility]/ZIP Co de Phone Number [facility] [address] [place] [address] * MAGNESIUM (09/22/2023 15:27 EDT) Pathologist [facility] Magnesium 2.0 1.7 - 2.8 mg/dL 09/22/2023 15:52 EDT [facility] Blood VENOUS BLOOD / Unknown Venipuncture / Unknown 09/22/2023 15:27 EDT 09/22/2023 15:31 EDT Frankie Sears MD CHEMISTRY & BLOO D GAS ORDERABLES Performing Organization Address City/[facility]/ZIP Co de Phone Number [facility] [address] [place] [address] * (ABNORMAL) BASIC METABOLIC PANEL (BMP) (09/22/2023 15:27 EDT) Sodium 138 136 - 145 mmol/L 09/22/2023 15:52 EDT [facility] Potassium 3.8 3.5 - 5.0 mmol/L 09/22/2023 15:52 EDT [facility] Chloride 108 96 - 110 mmol/L [facility]/22[facility]23 [facility] CO2 Total 20(L) 22 - 32 mmol/L 09/22/2023 15:[facility] Anion Gap 10 5 - 14 mmol/L 09/22/2023 15:[facility] Glucose 98 70 - 99 mg/dl 09/22/2023 15:[facility] Calcium 8.7 8.5 - 10.5 mg/dL 09/22/2023 15:52 [facility] BUN 11 10 - 26 mg/dL 09/22/2023 15:52 [facility] Creatinine 1.10(H) 0.52 - 1.04 mg/dL 09/22/2023 15:52 [facility] eGFR 64 >60 mL/min/1.73 m2 09/22/2023 15:52 EDT [facility] Blood VENOUS BLOOD / Unknown Venipuncture / Unknown 09/22/2023 15:27 EDT 09/22/2023 15:31 EDT Frankie Sears MD CHEMISTRY & BLOO D GAS ORDERABLES [facility] [address] [place] [address] * EKG 12-LEAD (09/22/2023 15:25 EDT) 09/22/2023 15:2 5 EDT Narrative [facility] - 09/23/2023 22:23 EDT ? [facility] ? Test Date: ?2023-09-22 Pat Name: ? SHANTHEL JEN ?Department: ? Room: ? A03 Gender: ? Female ? Machine Tool Technician Instructor: ?? DL : ?1980 ? Requested By: ELIAS NORTON Order Number: [id number] ? Reading MD: ?? CESILIA CAMPBELL MD ? Measurements Intervals ?[place] ? Rate: ? 99 ? P: ?46 AR: ? 156 ?QRS: ?17 QRSD: ? 78 ? T: ?45 QT: ? 354 ? QTc: ?454 ? Interpretive Statements Normal sinus rhythm Possible Left atrial enlargement No previous ECG available for comparison I reviewed the tracing and have either agreed or edited the findings in this report. Electronically Signed On 09-23-2023 22:23:29 EDT by CESILIA CAMPBELL MD. Procedure Note Cesilia Campbell MD - 09/23/2023 [facility] Test Date: 2023-09-22 Pat Name: DOUGLAS LI Department: Room: A03 Gender: Female Machine Tool Technician Instructor: JAY JAY : 1980 Requested By: ELIAS FISCHER Order Number: [id number] Reading MD: CESILIA CAMPBELL MD Measurements Intervals [place] Rate: 99 P: 46 AR: 156 QRS: 17 QRSD: 78 T: 45 QT: 354 QTc: 454 Interpretive Statements Normal sinus rhythm Possible Left atrial enlargement No previous ECG available for comparison I reviewed the tracing and have either agreed or edited the findings inthis report. Electronically Signed On 09-23-2023 22:23:29 EDT by WADE PHELPS. 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
--- OUTSIDE RECORDS SUMMARY | 2023-10-04 13:54 | XMS_ITS | Encounter Summary ---
Author Organization [facility] tem Address [address] [place] [address] Care Team Providers Care Marketing Operations Assistant Name Role Phone Unavailable Primary Care Provider Unavailabl e Encounter Details Date Type Department Care Team (Latest Contact Info) Description 10/08/2020 Registration Social History Tobacco Use Types Packs/Day Years [...]
--- OUTSIDE RECORDS SUMMARY | 2023-10-04 13:54 | XMS_ITS | Clinical Summary ---
Author Organization [facility] Address [address] [place] [address] Care Team Providers Care Tubing Supervisor Name Role Phone Out Of Area, Pcp-Mp Primary Care Provider Unavai lable Allergies Active Allergy Reactions Criticality Noted Date [...] Additional Information Patient not taking.Reported on 09/27/2023 Encounters Date Type Department Care Team Description 09/28/2023 1:39 EDT - 09/28/2023 2:05 EDT Emergency [facility] Emergency Department [address] [place] [address] Sally Santos MD COVID-19 (Primary Dx); Essential hypertension Discharge Disposition: Home or Self Care 09/27/2023 3:12 EDT - 09/27/2023 4:06 EDT Emergency [facility] Emergency Department [address] [place] [address] Sally Santos MD COVID-19 (Primary Dx); Primary hypertension Discharge Disposition: Home or Self Care 09/27/2023 Travel 09/22/2023 15:20 EDT - 09/22/2023 19:31 EDT Emergency [facility] Emergency Department [address] [place] [address] Frankie Sears MD Krauthamer, Gunter, MD Chest pain, unspecified type (Primary Dx) Discharge Disposition: Home or Self Care from Last 3 Months Social History Tobacco [...] on file Sexual Orientation Not on file Obstetrics History Last Filed Vital Signs Vital Sign Reading Time Taken Comments Blood Pressure 192/108 09/28/2023 0142 EDT Pulse 105 09/28/2023 0142 EDT Temperature 36.9 ??C (98.5 ??F) 09/28/2023 0142 EDT Respiratory Rate 22 09/28/2023 0142 EDT Oxygen Saturation 95% 09/28/2023 0142 EDT Inhaled Oxygen Concentration - - Weight 70.8 kg (156 lb) 09/28/2023 0142 EDT Height 162.6 cm (5' 4) 09/28/2023 0142 EDT Body Mass Index 26.78 09/28/2023 0142 EDT Plan of Treatment Health Maintenance Due Date Last Done Comments Hepatitis C Screen 1980 Hepatitis B Vaccine (1 of 3 - 19+ 3-dose series) 05/12 COVID-19 Vaccine ( season) 2022 Procedures Procedure Name Priority Date/Time Associated Diagnosis [...] EDT) 09/23/2023 22:3 4 EDT Scan 2 Appeals Referee PROCEDURE/MINOR ABE GICAL ORDERABLES * TROPONIN I (09/22/2023 18:28 EDT) Only the most recent of2 resultswithin the time period is included. Troponin I (ng/mL) <0.034 <0.034 ng/mL 09/22/2023 19:06 EDT [facility] Blood VENOUS BLOOD / Unknown Venipuncture / Unknown 09/22/2023 18:28 EDT 09/22/2023 18:34 EDT Narrative [facility] - 09/22/2023 19:06 EDT The results of this assay can be falsely lowered due to the consumption of Biotin. Frankie Sears MD CHEMISTRY & BLOO D GAS ORDERABLES [facility] [address] [place] [address] * (ABNORMAL) POCT URINE DIPSTICK, VISUAL READ [...] UA Yellow Colorless, Yellow 09/22/2023 17:03 EDT [facility] Clarity UA Cloudy(A) Clear 09/22/2023 17:03 EDT [facility] Glucose UA Negative Negative mg/dL 09/22/2023 17:03 EDT [facility] Bilirubin UA Negative Negative 09/22/2023 17:03 EDT [facility] Ketones UA Negative Negative 09/22/2023 17:03 EDT [facility] Specific Seth, Urine 1.010 1.001 - 1.030 09/22/2023 17:03 EDT [facility] Blood UA Trace(A) Negative 09/22/2023 17:03 [facility] pH, UA 6.0 5.0 - 8.0 09/22/2023 17:03 [facility] Protein UA Negative Negative mg/dL 09/22/2023 17:03 [facility] Urobilinogen UA 0.2 0.2-1.0 mg/dL mg/dL 09/22/2023 17:03 [facility] Nitrite UA Positive(A) Negative 09/22/2023 17:03 [facility] Leukocyte Esterase UA 3+(A) Negative 09/22/2023 17:03 [facility] Urine URINE SPECIMEN OBTAINED BY CLEAN CATCH PROCEDURE / Unknown Urine Collect / Unknown 09/22/2023 16:30 EDT 09/22/2023 16:48 EDT Frankie Sears MD URINALYSIS ORDER MATTI [facility] [address] [place] [address] * (ABNORMAL) UA SEDIMENT + REFLEX TO CULTURE (09/22/2023 16:30 EDT) Urine RBC Count, Manual 0 - 2 0 - 2 Cells/HPF 09/22/2023 17:06 [facility] Urine WBC Count 10 - 50(A) 0 - 3 Cells/HPF 09/22/2023 17:06 [facility] Urine Squamous Count, Manual Many(A) None Seen Cells/HPF 09/22/2023 17:06 [facility] Urine Hyaline Cast Count, Manual <=10 <=10 Casts/LPF 09/22/2023 17:06 [facility] Urine Bacteria Count, Manual Many(A) None Seen Bacteria/H PF 09/22/2023 17:06 [facility] Urine URINE SPECIMEN OBTAINED BY CLEAN CATCH PROCEDURE / Unknown Urine Collect / Unknown 09/22/2023 16:30 EDT 09/22/2023 16:48 EDT Narrative [facility] - 09/22/2023 17:06 EDT Urine Sediment Analysis results are unreliable on urines that are unrefrigerated for >2 hrs or refrigerated >8 hrs. A Urine Culture test has been reflexively ordered based on result criteria from the Urine Sediment Analysis. Frankie Sears MD URINALYSIS ORDER MATTI [facility] [address] [place] [address] * (ABNORMAL) BACTERIAL CULTURE, URINE (09/22/2023 16:30 EDT) Organism ID Greater than 100,000 CFU/ml Escherichia coli(A) VITEK SUSCEPTIBILITY 09/24/2023 7:36 EDT [facility] Urine URINE SPECIMEN OBTAINED [...] Sears MD MICROBIOLOGY - G ENERAL ORDERABLES [facility] [address] [place] [address] * XR CHEST 2 VIEWS (09/22/2023 16:09 EDT) Anatomical Region Laterality Modality Computed Radiogr aphy 09/22/2023 16:0 6 EDT Impressions 09/22/2023 17:51 EDT No active cardiopulmonary disease. THIS DOCUMENT HAS BEEN ELECTRONICALLY SIGNED BY NEVILLE SANTOS MD FOR ANY QUESTIONS OR CONCERNS REGARDING THIS REPORT PLEASE CALL [facility] AT [phone] Narrative 09/22/2023 17:51 EDT PROCEDURE INFORMATION: Exam: [...] CONCERNS REGARDING THIS REPORT PLEASE CALL [facility] [phone] Frankie Sears MD IMG DIAGNOSTIC I MAGING ORDERABLES * HOLD BLUE TOP (09/22/2023 15:27 EDT) Hold Hold 09/22/2023 16:45 EDT [facility] Blood VENOUS BLOOD / Unknown Venipuncture / Unknown 09/22/2023 15:27 EDT 09/22/2023 15:31 EDT Frankie Sears MD LAB INFO SERVICE AND SUPPORT & PHONE RESULT Performing Organization Address City/[facility]/ZIP Co de Phone Number [facility] [address] [place] [address] * D-DIMER (09/22/2023 15:27 EDT) Pathologist [facility] D-Dimer <150 <=230 ng/mL DDU 09/22/2023 16:00 EDT [facility] Blood VENOUS BLOOD / Unknown Venipuncture / Unknown 09/22/2023 15:27 EDT 09/22/2023 15:31 EDT Narrative [facility] - 09/22/2023 16:00 EDT Cutoff value for the exclusion of DVT and PE: 230 ng/mL D-dimer units. Frankie Sears MD HEMATOLOGY & PF4 ORDERABLES Performing Organization Address [facility] Co de Phone Number [facility] [address] [place] [address] * (ABNORMAL) COMPLETE BLOOD COUNT AND DIFFERENTIAL (09/22/2023 15:27 EDT) WBC 6.31 4.00 - 12.40 K/cmm 09/22/2023 15:34 EDT [facility] RBC 4.09 3.86 - 5.04 M/cmm 09/22/2023 15:34 EDT [facility] Hemoglobin 9.6(L) 11.6 - 15.2 g/dL 09/22/2023 15:34 EDT [facility] HCT 32.1(L) 34.9 - 44.4 % 09/22/2023 15:34 [facility] MCV 79(L) 81 - 98 fL 09/22/2023 15:34 [facility] MCH 23.5(L) 26.7 - 33.3 pg 09/22/2023 15:34 [facility] Hypochromia 1+ 09/22/2023 15:34 [facility] MCHC 29.9(L) 32.1 - 35.9 g/dL 09/22/2023 15:34 [facility] RDW-CV 20.2(H) <14.7 % 09/22/2023 15:34 [facility] RDW-SD 57.5(H) <50.4 fl 09/22/2023 15:34 [facility] Anisocytosis 2+ 09/22/2023 15:34 [facility] PLT 283 141 - 377 K/cmm 09/22/2023 15:34 [facility] MPV 8.3(L) 9.5 - 12.7 fL 09/22/2023 15:34 [facility] % Neutrophils 63.0 % 09/22/2023 15:34 [facility] % Lymphocytes 20.8 % 09/22/2023 15:34 [facility] % Monocytes 13.6 % 09/22/2023 15:34 [facility] % Eosinophils 1.7 % 09/22/2023 15:34 [facility] % Basophils 0.6 % 09/22/2023 15:34 [facility] % Immature Grans 0.3 <0.9 % 09/22/19 15:34 [facility] Absolute Neutrophils 3.97 2.20 - 8.85 K/cmm 09/22/2023 15:34 [facility] Absolute Lymphocytes 1.31 1.09 - 3.30 K/cmm 09/22/2023 15:34 [facility] Absolute Monocytes 0.86(H) 0.10 - 0.80 K/cmm 09/22/2023 15:34 [facility] Absolute Eosinophils 0.11 0.03 - 0.61 K/cmm 09/22/2023 15:34 [facility] ABS Basophils 0.04 0.01 - 0.11 K/cmm 09/22/2023 15:34 [facility] Absolute Immature Grans 0.02 0.00 - 0.06 K/cmm 09/22/2023 15:34 [facility] Type of Differential: Auto 09/22/2023 15:34 [facility] Blood VENOUS BLOOD / Unknown Venipuncture / Unknown 09/22/2023 15:27 EDT 09/22/2023 15:31 EDT Frankie Sears MD PACKAGES & DNA P ROBE ORDERABLES Performing Organization Address City/[facility]/ZIP Co de Phone Number [facility] [address] [place] [address] * MAGNESIUM (09/22/2023 15:27 EDT) Pathologist [facility] Magnesium 2.0 1.7 - 2.8 mg/dL 09/22/2023 15:52 EDT [facility] Blood VENOUS BLOOD / Unknown Venipuncture / Unknown 09/22/2023 15:27 EDT 09/22/2023 15:31 EDT Frankie Sears MD CHEMISTRY & BLOO D GAS ORDERABLES Performing Organization Address [facility]/ZIP Co de Phone Number [facility] [address] [place] [address] * (ABNORMAL) BASIC METABOLIC PANEL (BMP) (09/22/2023 15:27 EDT) Sodium 138 136 - 145 mmol/L 09/22/2023 15:52 [facility] Potassium 3.8 3.5 - 5.0 mmol/L 09/22/2023 15:52 [facility] Chloride 108 96 - 110 mmol/L 09/22/2023 15:52 [facility] CO2 Total 20(L) 22 - 32 mmol/L 09/22/2023 15:52 [facility] Anion Gap 10 5 - 14 mmol/L 09/22/2023 15:52 [facility] Glucose 98 70 - 99 mg/dl 09/22/2023 15:52 [facility] Calcium 8.7 8.5 - 10.5 mg/dL 09/22/2023 15:52 [facility] BUN 11 10 - 26 mg/dL 09/22/2023 15:52 [facility] Creatinine 1.10(H) 0.52 - 1.04 mg/dL 09/22/2023 15:52 [facility] eGFR 64 >60 mL/min/1.73 m2 09/22/2023 15:52 [facility] Blood VENOUS BLOOD / Unknown Venipuncture / Unknown 09/22/2023 15:27 EDT 09/22/2023 15:31 EDT Frankie Sears MD CHEMISTRY & BLOO D GAS ORDERABLES Performing Organization Address City/State/[facility] Co de Phone Number [facility] [address] [place] [phone] * EKG 12-LEAD (09/22/2023 15:25 EDT) 09/22/2023 15:2 5 EDT Narrative [facility] - 09/23/2023 22:23 EDT ? [facility] ? Test Date: ?2023-09-22 Pat Name: ? SHANTHEL JEN ?Department: ? Room: ? A03 Gender: ? Female ? Sales Record Clerk: ?? DL : ?1980 ? Requested By: ELIAS NORTON Order Number: [id number] ? Reading MD: ?? CESILIA CAMPBELL MD ? Measurements Intervals ?[place] ? Rate: ? 99 ? P: ?46 RI: ? 156 ?QRS: ?17 QRSD: ? 78 [...] Procedure Note Cesilia Campbell MD - 09/23/2023 [facility] Test Date: 2023-09-22 Pat Name: DOUGLAS LI Department: Room: 3 Gender: Female Sales Record Clerk: DL : 1980 Requested By: ELIAS FISCHER Order Number: [id number] Reading MD: CESILIA CAMPBELL MD Measurements Intervals [place] Rate: 99 P: 46 RI: 156 QRS: 17 QRSD: 78 T: 45 QT: 354 QTc: 454 Interpretive Statements Normal sinus rhythm Possible Left atrial enlargement No previous ECG available for comparison I reviewed the tracing and have either agreed or edited the findings inthis report. Electronically Signed On 09-23-2023 22:23:29 EDT by WADE PHELPS. Frankie Sears MD CARDIAC ECG 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 Stoner 09/24/2023 09/24/2023 09/24/2023 Care Teams Tubing Supervisor Relationship Specialty Start Date End Date Out Of Area, Pcp-Mp PCP - General 09/22/23
--- OUTSIDE RECORDS SUMMARY | 2023-10-04 13:54 | XMS_ITS | Encounter Summary ---
Author Organization [facility] Address [address] [place] [address] Care Team Providers Care Knife Finisher Name Role Phone Unavailable Primary Care Provider Unavailabl e Reason for Visit * Reason Comments Gait Problem Nausea Emesis Epistaxis Encounter Details Date Type Department Care Team (Late st Contact Info) Description 10/08/2020 5:41 PM CDT - 10/09/2020 2:28 AM CDT Emergency [facility] [address] [place], [place] [id number] Discharge Disposition: L - Left Without Being Seen Social History Tobacco Use Types Packs/Day Years Used Date Smoking Tobacco: Never Assessed Sex and Gender Information Value Date Recorded Sex Assigned at Not on file Gender Identity Not on file Sexual Orientation Not on file documented as of this encounter Last Filed Vital Signs Vital Sign Reading Time Taken Comments Blood Pressure 152/101 10/08/2020 5:09 PM CDT Pulse 106 10/08/2020 5:09 PM CDT Temperature 37.5 ??C (99.5 ??F) 10/08/2020 5:09 PM CD T Respiratory Rate 18 10/08/2020 5:09 PM CDT Oxygen Saturation 100% 10/08/2020 5:09 PM CDT Inhaled Oxygen Concentration - - Weight 75.8 kg (167 lb) 10/08/2020 5:09 PM CDT Height 162.6 cm (5' 4) 10/08/2020 5:09 PM CDT Body Mass Index 28.67 10/08/2020 5:09 PM CDT documented in this encounter ED Notes * Swati Suárez RN - 10/09/2020 1:49 AM CDT Called for room assignment. No answer in waiting room/outside. * Lauren Mckinley RN - 10/08/2020 6:09 PM CDT Pt given urine cup for sample * Marlena Heart RN - 10/08/2020 5:08 PM CDT Pt to ED via wheelchair from home for unsteady gait, states she cannot walk and it feels like glassis stabbing her in legs, also c/o nose bleeds and n/v, states there is mold in the house she lives in and the dr she saw today told her she had neuropathy, this all has been going on for 3 years. documented in this encounter Plan of Treatment Not on file documented as of this encounter Procedures Procedure Name Priority Date/Time Associated Diagnosis Comments URINALYSIS WITH MICROSCOPIC ([facility]) STAT 10/08/2020 11:48 PM CDT CBC AND DIFFERENTIAL STAT 10/08/2020 6:00 PM CDT LIPASE STAT 10/08/2020 6:00 PM CDT COMPREHENSIVE METABOLIC PANEL STAT 10/08/2020 6:00 PM CDT documented in this encounter Results * (ABNORMAL) Urinalysis with Microscopic (10/08/2020 11:48 PM CDT) [facility] Signature Collect Method (UA) Clean Catch (CC 10/08/2020 5:15 PM CDT [facility] Color, Urine Dark Yellow 10/09/2020 2:52 AM CDT [facility] Turbidity, Urine Turbid(A) 10/09/2020 2:52 AM CDT [facility] Specific [place], Urine 1.028 1.003 - 1.030 10/09/2020 2:52 AM CDT [facility] pH, Urine 6.0 5.0 - 9.0 10/09/2020 2:52 AM CDT [facility] Leukocyte Esterase, Urine Moderate(A) NEG /ul 10/09/2020 2:52 AM CDT [facility] Nitrite, Urine Negative NEG mg/dl 10/09/2020 2:52 AM CDT [facility] Protein, Urine 100(A) NEG mg/dl 10/09/2020 2:52 AM CDT [facility] Glucose, Urine >=1000(A) NORM mg/dl 10/09/2020 2:52 AM CDT [facility] Ketones, Urine Trace(A) NEG mg/dl 10/09/2020 2:52 AM CDT [facility] Urobilinogen, Urine 1.0 0.0 - 1.0 E.U./DL 10/09/2020 2:52 AM CDT [facility] Bilirubin, Urine Small(A) NEG mg/dl 10/09/2020 2:52 AM CDT [facility] Blood, Urine Negative NEG hannah/ul 10/09/2020 2:52 AM CDT [facility] Bacteria, Urine MOD(A) /hpf 10/09/2020 2:52 AM CDT [facility] RBC, Urine 0 0 - 4 /hpf 10/09/2020 2:52 AM CDT [facility] WBC, Urine LOADED(A) 0 - 4 /hpf 10/09/2020 2:52 AM CDT [facility] Epithelial Cells, Urine MANY SQUAMOUS 0 - 1 /lpf 10/09/2020 2:52 AM CDT [facility] Other, Urine BUD.YEAST 10/09/2020 2:52 AM CDT [facility] Other, Urine HYPH-YEAST /hpf 10/09/2020 2:52 AM CDT [facility] Urine specimen (specimen) 10/08/2020 11:48 PM CDT 10/08/2020 11:48 PM CDT Mango Hull MD URINE ORDERABLES [facility] [address] [facility] [place], [place] * (ABNORMAL) Lipase (10/08/2020 6:00 PM CDT) Lipase 197(H) 12 - 53 U/L 10/08/2020 6:44 PM CDT [facility] Blood specimen (specimen) 10/08/2020 6:00 PM CDT 10/08/2020 6:11 PM CDT Mango Hull MD CHEMISTRY ORDERABLES [facility] [address] [facility], [place] * (ABNORMAL) Comprehensive metabolic panel (10/08/2020 6:00 PM CDT) [facility] Glucose 243(H) 70 - 99 mg/dL 10/08/2020 6:44 PM CDT [facility] BUN 4(L) 5 - 25 mg/dL 10/08/2020 6:44 PM CDT [facility] Creatinine, Serum 0.54 0.51 - 0.95 mg/dL 10/08/2020 6:44 PM CDT [facility] BUN/Creatinine Ratio 7 5 - 24 ratio 10/08/2020 6:44 PM CDT [facility] Sodium 133(L) 135 - 145 mmol/L 10/08/2020 6:44 PM CDT [facility] Potassium 3.0(L) 3.5 - 5.1 mmol/L 10/08/2020 6:44 PM CDT [facility] Chloride 88(L) 98 - 107 mmol/L 10/08/2020 6:44 PM CDT [facility] CO2 27 21 - 32 mmol/L 10/08/2020 6:44 PM CDT [facility] Anion Gap 18(H) 5 - 15 mEq/L 10/08/2020 6:44 PM CDT [facility] Calcium 10.0 8.5 - 10.5 mg/dL 10/08/2020 6:44 PM CDT [facility] Total Bilirubin 0.9 0.2 - 1.2 mg/dL 10/08/2020 6:44 PM CDT [facility] Alkaline Phosphatase 156(H) 30 - 115 U/L 10/08/2020 6:44 PM CDT [facility] AST 58(H) 0 - 40 U/L 10/08/2020 6:44 PM CDT [facility] ALT 24 0 - 40 U/L 10/08/2020 6:44 PM CDT [facility] Total Protein 9.4(H) 6.0 - 8.0 g/dL 10/08/2020 6:44 PM CDT [facility] Albumin 4.6 3.5 - 5.0 g/dL 10/08/2020 6:44 PM CDT [facility] Globulin 4.8(H) 2.0 - 4.2 g/dL 10/08/2020 6:44 PM CDT [facility] A/G Ratio 0.96(L) 1.00 - 2.20 ratio 10/08/2020 6:44 PM CDT [facility] Osmolality Calc 271 267 - 291 mOsm/kg 10/08/2020 6:44 PM CDT [facility] Glom Filt Rate, Est >60.00 >60.00 mL/min/1.7 3m2 10/08/2020 6:44 PM CDT [facility] Blood specimen (specimen) 10/08/2020 6:00 PM CDT 10/08/2020 6:11 PM CDT Mango Hull MD CHEMISTRY ORDERABLES [facility] [address] [place], [place] * (ABNORMAL) CBC and differential (10/08/2020 6:00 PM CDT) WBC 16.2(H) 5.0 - 10.0 K/ul 10/08/2020 6:23 PM CDT [facility] RBC 5.00 4.20 - 5.40 M/ul 10/08/2020 6:23 PM CDT [facility] NRBC 0 % 10/08/2020 6:23 PM CDT [facility] NRBC (Automated Absolute Ct) 0 10/08/2020 6:23 PM CDT [facility] Hemoglobin 11.3(L) 12.0 - 14.0 g/dL 10/08/2020 6:23 PM CDT [facility] Hematocrit 38 36 - 48 % 10/08/2020 6:23 PM CDT [facility] MCV 76(L) 82 - 98 fl 10/08/2020 6:23 PM CDT [facility] MCH 23(L) 26 - 31 pcg 10/08/2020 6:23 PM [facility] MCHC 30(L) 31 - 37 g/dL 10/08/2020 6:23 PM [facility] Platelets 315 140 - 450 K/ul 10/08/2020 6:23 PM [facility] RDW SD 60.20(H) 39.00 - 46.00 fL 10/08/2020 6:23 PM [facility] MPV 10.1 7.4 - 10.4 fL 10/08/2020 6:23 PM [facility] Neutrophils Automated 81 35 - 90 % 10/08/2020 6:23 PM [facility] Lymphocytes-Autom ated 12(L) 20 - 40 % 10/08/2020 6:23 PM [facility] Monocyte-Automate d 7 0 - 14 % 10/08/2020 6:23 PM [facility] Eosinophils-Autom ated 0 0 - 8 % 10/08/2020 6:23 PM [facility] Basophils-Automat ed 0 0 - 2 % 10/08/2020 6:23 PM [facility] Neutrophils Absolute 12.93(H) 1.80 - 7.00 10/08/2020 6:23 PM [facility] Lymphocytes Absolute 1.98 1.00 - 4.80 10/08/2020 6:23 PM [facility] Monocytes Absolute 1.15(H) 0.00 - 0.80 10/08/2020 6:23 PM [facility] Eosinophils Absolute 0.04 0.00 - 0.70 10/08/2020 6:23 PM [facility] Basophils Absolute 0.05 0.00 - 0.20 10/08/2020 6:23 PM [facility] Immature Granulocytes, Percent 0.00 0.00 - 5.00 % 10/08/2020 6:23 PM [facility] Absolute Immature Granulocytes 0.07 0.00 - 1.00 10/08/2020 6:23 PM [facility] Blood specimen (specimen) Venipuncture / Unknown 10/08/2020 6:00 PM CDT 10/08/2020 6:11 PM CDT Mango Hull MD HEMATOLOGY ORDERABLE S [facility] [address] [place], [place] documented in this encounter Visit Diagnoses Not on filedocumented in this encounter
--- OUTSIDE RECORDS SUMMARY | 2023-10-04 13:54 | XMS_ITS | Encounter Summary ---
Author Organization [facility] Address [address] [place] [address] Care Team Providers Care Skip Load Driver Name Role Phone Out Of Area, Pcp-Mp Primary Care Provider Zuly dawson Encounter Details Date Type Department Care Team (Latest Contact Info) Description 09/27/2023 Travel Social History Tobacco Use Types Packs/Day Years Used Date Smoking Tobacco: Some Days Cigarettes Smokeless Tobacco: Never Alcohol Use Standard Drinks/Week Comments Not Currently 0 (1 standard drink = 0.6 oz pur e alcohol) Sex and Gender Information Value Date Recorded Sex Assigned at Not on file Gender Identity Not on file Sexual Orientation Not on file documented as of this encounter Functional Status Functional Status Response Date of Assess ment Are you deaf or do you have serious difficulty h earing? No 09/27/2023 documented as of this encounter Plan of [...] documented as of this encounter Care Teams Skip Load Driver Relationship Specialty Start Date End Date Out Of Area, Pcp-Mp PCP - General 09/22/23 documented as of this encounter
--- OUTSIDE RECORDS SUMMARY | 2023-10-04 13:54 | XMS_ITS | Encounter Summary ---
Author Organization [facility] Address [address] [place] [id number] Care Team Providers Care Automatic Door Mechanic Name Role Phone Out Of Area, Pcp-Mp Primary Care Provider Zuly dawson Reason for Visit * Reason Comments Fatigue Encounter Details Date Type Department Care Team ([facility] Contact Info) Description 09/27/2023 3:12 EDT - 09/27/2023 4:06 EDT Emergency [facility] Emergency Department [address] [place] [address] [phone] Sally Santos MD [address] [place] [address] COVID-19 (Primary Dx); Primary hypertension Discharge Disposition: [...] Sign Reading Time Taken Comments Blood Pressure 200/101 09/27/2023 0322 EDT Pulse 84 09/27/2023 0322 EDT Temperature 36.8 ??C (98.3 ??F) 09/27/2023 0322 EDT Respiratory Rate 18 09/27/2023 0322 EDT Oxygen Saturation 100% 09/27/2023 0322 EDT Inhaled Oxygen Concentration - - Weight - - Height - - Body Mass Index - - documented in this encounter Functional Status Functional Status Response Date of Assess ment Are you deaf or do you have serious difficulty h earing? No 09/27/2023 documented as of this encounter Discharge Instructions * Discharge Instructions* Sally Santos MD - 09/27/2023 3:31 EDT Take 5 mg of lisinopril daily and 25 mg of metoprolol 2 times a day to better control your blood pressure. Take 600 mg of ibuprofen alternating with 1000 mg of Tylenol every 6 hours as needed for fever or discomfort. Take 1 tablet of Zofran every 6-8 hours as needed for nausea or vomiting. Return for increased difficulty breathing, worsening symptoms or any other concerns. documented [...] Dispensed Refills Start Date End Da te lisinopriL (PRINIVIL) 5 mg tablet Take 1 Tablet by mouth daily for 30 days. 30 Tablet 09/27/2023 10/27/2023 metoprolol TARtrate (LOPRESSOR) 25 mg tablet Take 1 Tablet by mouth 2 times daily for 30 days. 60 Tablet 09/27/2023 10/27/2023 documented in this encounter Discharge Disposition Disposition Code Departure Means Destination Comment s Home or Self Fdc documented in this encounter ED Notes * Nancy Klein RN - 09/27/2023 0335 EDT Pt arrives with shortness of breath, cough, fatigue and nausea after testing Covid+ today. Pt hypertensive with BP 200/101. Pt is not compliant with blood pressure medications. * Sally Santos MD - 09/27/2023 0307 EDT Emergency Department Visit Medical Decision Making 43-year-old -U[place] female with a history of coronary disease and hypertension presents with fatigue and mild cough with associated nausea and vomiting after being diagnosed with COVID-19 the day prior. No fevers. No difficulty breathing. Patient notably hypertensive with a blood pressure of 200/101. Patient states that she ran out of her prescribed 5 mg of lisinopril. When asked about metoprolol patient denies being prescribed metoprolol. With review of [facility], it was noted that patient did fill a prescription for 50 mg of metoprolol daily and April 2023. Will restart patient on both the 5 mg lisinopril as well as 25 mg of metoprolol twice daily. Of note patient was also Emergency Department on 09/22/2023 for chest pain which after workup was noted to be secondary to ACS or PE. At that time, patient's blood pressure was 195/112. Ibuprofen given for symptoms of COVID. Patient with O2 sat of 100% on room air. No respiratory distress. Patient is afebrile. Patient is comfortable with not starting antivirals.. Will discharge home to follow-up as needed. Prescription provided for antihypertensive medications. Return precautions provided. Medical Decision Making Problems Addressed: COVID-19: complicated acute illness or injury Primary hypertension: complicated acute illness or injury Risk Prescription drug management. Final diagnoses: COVID-19 Primary hypertension Disposition: Discharged Chief complaint: COVID-19 HPI Rod Herrmann is a 43 y.o. female with a history of coronary disease and hypertension presents withfatigue and mild cough with associated nausea and vomiting after being diagnosed with COVID-19 the day prior. No fevers. No difficulty breathing. History was provided by: Patient Records reviewed include: Chart review including ED visit 09/22/2023 for chest pain. Patient's pertinent PMH, FH, SH were reviewed and edited as necessary. Nursing notes reviewed. A medical screening exam was performed. Physical Exam BP (!) 200/101 Pulse 84 Temp 36.8 ??C (98.3 ??F) (Oral) Resp 18 SpO2 100% Physical Exam Vitals and nursing note reviewed. Constitutional: General: She is not in acute distress. Appearance: Normal appearance. She is not ill-appearing. Comments: Hypertensive HENT: Head: Normocephalic and atraumatic. Right Ear: [...] normal. Breath sounds: Normal breath sounds. No wheezing, rhonchi or rales. Abdominal: Palpations: Abdomen is soft. There is no mass. Tenderness: There is no abdominal tenderness. Musculoskeletal: General: No swelling or deformity. Normal range of motion. Cervical back: Normal range of motion and neck supple. No rigidity. Skin: General: Skin is warm and dry. Neurological: General: No focal deficit present. Mental Status: She is alert and oriented to person, place, and time. Psychiatric: Mood and Affect: Mood normal. Behavior: Behavior normal. Procedures Procedures documented in this encounter Plan of Treatment Not on file documented as of this encounter Visit Diagnoses Diagnosis COVID-19- Primary Primary hypertension Unspecified essential hypertension documented in this encounter Administered Medications Inactive Administered Medications - up to 3 most recent administrations Medication Order MAR Action Action Date Dose Rate Site ibuprofen (MOTRIN) tablet 600 mg 600 mg, oral, NOW X1, 1 dose, On Sun09/27/23 at 0345, STAT Given 09/27/2023 3:31 EDT 600 mg lisinopriL (PRINIVIL) tablet 5 mg 5 mg, oral, NOW X1, 1 dose, On Tawana 09/27/23 at 0345, STAT Given 09/27/2023 3:30 EDT 5 mg metoprolol TARtrate (LOPRESSOR) tablet 25 mg 25 mg, oral, NOW X1, 1 dose, On Tawana 09/27/23 at 0345 Given 09/27/2023 3:30 EDT 25 mg ondansetron (ZOFRAN-ODT) disintegrating tablet 4 mg 4 mg, oral, NOW X1, 1 dose, On Tawana 09/27/23 at 0345, STAT Given 09/27/2023 3:30 EDT 4 mg ondansetron 4 mg ODT tab STARTER PACK 1 Package, oral, Once (Without Time Specified), 1 dose, Starting on Tawana 09/27/23 at 0321, Until Tawana 09/27/23 at 0331, STAT Given 09/27/2023 3:31 EDT 1 Package documented in this encounter Active and Recently Administered Medications Times are shown in EDT. Scheduled Medication Order 09/25/2023 09/26/2023 09/27/2023 ibuprofen (MOTRIN) tablet 600 mg (COMPLETED) 600 mg, oral, NOW X1, 1 dose, On Tawana 09/27/23 at 0345, STAT 0331 (Given - Provid er: Nancy Klein RN) lisinopriL (PRINIVIL) tablet 5 mg (COMPLETED) 5 mg, oral, NOW X1, 1 dose, On Tawana 09/27/23 at 0345, STAT 0330 (Given - Provid er: Nancy Klein RN) metoprolol TARtrate (LOPRESSOR) tablet 25 mg (COMPLETED) 25 mg, oral, NOW X1, 1 dose, On Tawana 09/27/23 at 0345 0330 (Given - Provid er: Nancy Klein RN) ondansetron (ZOFRAN-ODT) disintegrating tablet 4 mg (COMPLETED) 4 mg, oral, NOW X1, 1 dose, On Tawana 09/27/23 at 0345, STAT 0330 (Given - Provid er: Nancy Klein RN) ondansetron 4 mg ODT tab STARTER PACK (COMPLETED) 1 Package, oral, Once (Without Time Specified), 1 dose, Starting on Tawana 09/27/23 at 0321, Until Tawana 09/27/23 at 0331, STAT 0331 (Given - Provid er: Nancy Klein RN) documented in this encounter Additional Health Concerns Infection Onset Date Last Indicated Resolved Time 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 Stoner 09/24/2023 09/24/2023 09/24/2023 R/O COVID-19 09/27/2023 09/27/2023 10/02/2023 22:1 5 EDT documented as of this encounter Care Teams Automatic Door Mechanic Relationship Specialty Start Date End Date Out Of Area, Pcp-Mp PCP - General 09/22/23 documented as of this encounter
--- OUTSIDE RECORDS SUMMARY | 2023-10-04 13:54 | XMS_ITS | Clinical Summary ---
Author Organization [facility] Address [address] [place] [address] Care Team Providers Care Clearing Inspector Name Role Phone Unavailable Primary Care Provider Unavailabl e Allergies Active Allergy Reactions Criticality Noted Date Comments Penicillins Swelling 10/08/2020 Social History Tobacco Use Types Packs/Day Years [...] Mass Index 28.67 10/08/2020 5:09 PM CDT Plan of Treatment Health Maintenance Due Date Last Done Comments Tetanus Vaccine 2000 Cervical Cancer Screening 2002 Breast Cancer Screening 05/13/2023 Influenza Vaccine 10/07/2023 HPV VACCINE Aged Out No longer eligi ble based on patient's age to complete this topic
--- OUTSIDE RECORDS SUMMARY | 2023-10-04 13:54 | XMS_ITS | Referral Summary ---
Author Organization [facility] Address [address] [place] [address] Care Team Providers Care Mining Analyst Name Role Phone Unavailable Primary Care Provider [...] 10/08/2020 5:09 PM CDT Plan of Treatment Not on file
--- NOTE | 2023-10-04 14:38 | W.ED.GENAD ---
Discharge Plan Disposition Patient Disposition: Other Disposition Not Listed Other Facility: [facility] Condition: Serious Discharge Details Clinical Impression: Calculus of left kidney, UTI (urinary tract infection) Primary Care Provider: Faye,Local ED Provider: Hayley Murphy HPI General Date/Time Provider Initiated Documentation: 10/04/23 08:56. HPI Narrative: This 43-year-old female with history of 4 stents/coronary artery disease, hypertension, depression and anxiety, hyperlipidemia presents after leaving AGAINST MEDICAL ADVICE this morning for a likely infected ureterolithiasis. Patient presents with persistent pain. Denies fever or chills. States she left this morning because she was hoping to gather her things for admission. States she still able to produce urine. Related Data Home Medications ?Medication ?Instructions ?Recorded ?Confirmed lisinopril 5 mg tablet 5 mg PO DAILY 09/28/23 10/04/23 oxycodone 10 mg tablet 10 mg PO BID 09/28/23 10/04/23 rosuvastatin 10 mg tablet 10 mg PO DAILY 09/28/23 10/04/23 duloxetine 30 mg capsule,delayed 30 mg PO DAILY 10/03/23 10/04/23 release (Cymbalta) Allergies Allergy/AdvReac Type Severity Reaction Status Date / Time No Known Allergies Allergy Verified 10/04/23 08:44 General Stated Complaint: Abd Prob [place]: 3 Exam Narrative Exam Narrative: Alert and oriented, no acute distress, left CVA tenderness, cardiac rate rhythm regular, lungs clear to auscultation, distal pulses intact Course Vital Signs Vital signs: Vital Signs Temperature 36.4 C 10/04/23 08:39 Pulse 94 H 10/04/23 08:39 Respiratory Rate 15 10/04/23 08:39 Blood Pressure 144/90 H 10/04/23 08:39 Pulse Oximetry 96 10/04/23 08:39 Temperature 36.2 C L 10/04/23 13:53 Temperature Source Temporal Artery Scan 10/04/23 13:53 Pulse 86 10/04/23 13:53 Pulse Rhythm Regular 10/04/23 13:54 Pulse 89 10/04/23 12:20 Respiratory Rate 18 10/04/23 13:53 Respiratory Effort Normal, Non-Labored 10/04/23 13:54 Respiratory Depth Normal 10/04/23 13:54 Respiratory Pattern Normal 10/04/23 13:54 Blood Pressure 148/90 H 10/04/23 13:53 Blood Pressure Mean 105 10/04/23 12:16 Blood Pressure Position Sitting 10/04/23 08:43 Pulse Oximetry 98 10/04/23 13:53 Oxygen Delivery Method Room Air 10/04/23 13:53 Oxygen Flow Rate 0 10/04/23 13:53 Pain Level 0 10/04/23 13:53 Lab/Test Results Lab/Test Results: 10/04/23 11:05 Blood Blood Culture - Pending 10/04/23 10:43 Blood Blood Culture - Pending Laboratory Tests Range/Units 10/04/23 10/04/23 10/04/23 09:05 09:12 10:29 WBC Cancelled RBC Cancelled Hgb Cancelled Hct Cancelled MCV Cancelled MCH Cancelled MCHC Cancelled RDW Cancelled Plt Count Cancelled MPV Cancelled Immature Gran % Cancelled Neutrophils % Cancelled Band Neutrophils % Cancelled Lymphocytes % Cancelled Atypical Lymphs % Cancelled Monocytes % Cancelled Eosinophils % Cancelled Basophils % Cancelled Metamyelocytes % Cancelled Myelocytes % Cancelled Promyelocytes % Cancelled Other Cells % Cancelled Nucleated RBC % Cancelled Absolute Neutrophils Cancelled Absolute Lymphocytes Cancelled Absolute Monocytes Cancelled Absolute Eosinophils Cancelled Absolute Basophils Cancelled RBC Morphology Cancelled Polychromasia Cancelled Hypochromasia Cancelled Poikilocytosis Cancelled Basophilic Stippling Cancelled Anisocytosis Cancelled Microcytosis Cancelled Macrocytosis Cancelled Spherocytes Cancelled Tear Drop Cells Cancelled Ovalocytes Cancelled Stomatocytes Cancelled [place] Bodies Cancelled Jeronimo Cells/Echinocytes Cancelled Acanthocytes (Spur) Cancelled Schistocytes Cancelled ESR Cancelled VBG Lactate (0.6-1.4) mmol/L Sodium Cancelled Potassium Cancelled Chloride Cancelled Carbon Dioxide Cancelled Anion Gap Cancelled BUN Cancelled Creatinine Cancelled Est GFR (CKD-EPI 2020) Cancelled Glucose Cancelled Calcium Cancelled Total Bilirubin Cancelled AST Cancelled ALT Cancelled Alkaline Phosphatase Cancelled C-Reactive Protein (<or=0.5) mg/dL Total Protein Cancelled Albumin Cancelled COVID-19 Source Nasopharynx SARS-CoV-2 (PCR) (Negative) Positive A Influenza Type A (PCR) (Negative) Negative Influenza Type B (PCR) (Negative) Negative RSV (PCR) (Negative) Negative Range/Units 10/04/23 10:43 WBC 9.05 RBC 3.76 L Hgb 9.1 L Hct 30.7 L MCV 82 MCH 24.2 L MCHC 29.6 L RDW 20.7 H Plt Count 304 MPV 9.4 Immature Gran % 0.6 Neutrophils % 62.4 Band Neutrophils % Lymphocytes % 27.4 Atypical Lymphs % Monocytes % 8.1 Eosinophils % 1.3 Basophils % 0.2 Metamyelocytes % Myelocytes % Promyelocytes % Other Cells % Nucleated RBC % 0.0 Absolute Neutrophils 5.65 Absolute Lymphocytes 2.48 Absolute Monocytes 0.73 Absolute Eosinophils 0.12 Absolute Basophils 0.02 RBC Morphology See Below Polychromasia Hypochromasia Poikilocytosis Basophilic Stippling Anisocytosis 2+ Microcytosis Macrocytosis Spherocytes Tear Drop Cells Ovalocytes Stomatocytes [place] Bodies Bone Gap Cells/Echinocytes Acanthocytes (Spur) Schistocytes ESR VBG Lactate (0.6-1.4) mmol/L 1.0 Sodium 136 Potassium 4.3 Chloride 103 Carbon Dioxide 24.6 Anion Gap 8.4 BUN 16 Creatinine 1.3 H Est GFR (CKD-EPI 2020) 52.65 Glucose 107 H Calcium 9.0 Total Bilirubin 0.22 AST 15 ALT 14 Alkaline Phosphatase 101 C-Reactive Protein (<or=0.5) mg/dL < 0.50 Total Protein 7.7 Albumin 3.0 L COVID-19 Source SARS-CoV-2 (PCR) (Negative) Influenza Type A (PCR) (Negative) Influenza Type B (PCR) (Negative) RSV (PCR) (Negative) POC Urine Test Start: 10/04/23 12:41 Freq: .Urine Test Status: Complete Protocol: Document 10/04/23 12:42 HANDY (Rec: 10/04/23 12:42 HANDY [id number]) Test(Urine)-POC POC- Test(urine) Negative POC- Test(urine) Negative Medical Decision Making This 43-year-old female is presenting with infected ureterolithiasis. Positive urinalysis for E. coli with an 8 mm stone at the left UVJ. This was done on CT scan last evening. Patient left AGAINST MEDICAL ADVICE this morning pending urology presentation in the morning. I reviewed urine culture and patient is sensitive to Unasyn which was administered in the emergency department. Her labs are reassuring and her lactate is within normal limits. Send approximately 5 minutes reviewing patient's 2 prior documented notes regarding need for admission. At this time she is willing to stay in the hospital. She received 1 L of IV fluids and Unasyn and is resting comfortably. She also received [address] Caputo was consulted and will take patient to the operating room for stent placement at this time. Of note, patient is COVID-positive, she is likely on day 8 or 9 per patient. She is asymptomatic with this. Quality:[facility] Health Related Social Needs: No Data to Display PFSH All Active Problems (Updated 10/04/23 @ 14:47 by LOLITA Jiang) Left ureteral calculus (Acute) UTI (urinary tract infection) (Acute) Hypertensive urgency (Acute) Calculus of left kidney (Acute) Chest pain (Acute) Social History Smoking/Tobacco Use Status: Current-Occasional Smoking risk assessment performed?: Yes Alcohol Intake: never Substance use type: does not use Housing: apartment Do you feel safe at home: Yes Do you feel safe in your relationship?: Yes
--- NOTE | 2023-10-04 15:48 | W.ANESPOSTOP ---
Postoperative Evaluation Date, Time and Location Date Performed: 10/04/23 Time Performed: 15:48 Patient Location: Med/Surg Vital Signs Most Recent Imported Vital Signs: Most Recent Vital Signs Temp Pulse Resp BP Pulse Ox 36.2 C L 86 18 148/90 H 98 10/04/23 13:53 10/04/23 13:53 10/04/23 13:53 10/04/23 13:53 10/04/23 13:53 Pain Score Most Recent Pain Score: Most Recent Pain Score Pain Level 0 10/04/23 13:53 Assessment Mental Status: Awake (Alert & Oriented to Patient Baseline) Airway and Respiratory Function: Patent airway with normal (patient baseline) respiratory exam Cardiovascular Function: Hemodynamically Stable Hydration Status: Adequately Hydrated Nausea & Vomiting: No Nausea or Vomiting Pain: Pt. Denies Any Pain Peripheral Nerve Block: Patient did not receive a nerve block
[2023-10-04] MEDS: Acetaminophen 500 MG TAB 1000 MG PO (16:04)
[2023-10-04] MEDS: oxyCODONE 5 MG TAB PO (16:52)
[2023-10-04] MEDS: Lactated Ringers 1,000 ML 100 ML IV (17:18)
--- NOTE | 2023-10-04 18:03 | W.PM.DS.N ---
Date of service: 10/04/23 Time of Service: 18:03 DS: Diagnosis Discharge Diagnosis (1) UTI (urinary tract infection): Status: Acute (2) Left ureteral calculus: Status: Acute Discharge Plan Disposition Patient Disposition: Home Condition: Improving Discharge Details Reason For Visit: Urinary Admit Date/Time: 10/04/23 13:31 Admit Provider: Klever Caputo Attending Provider: Klever Caputo Primary Care Provider: Faye,[facility] Hospital Course Hospital Course: The patient was seen in the emergency department and was found to have a left ureteral stone and a UTI. She underwent stent placement. She required an extended recovery, so she was monitored on the medical-surgical unit. She was afebrile and able to tolerate oral nutrition and medications, so she was discharged to home. Home Meds and New Rx's Prescriptions: New oxycodone 5 mg tablet 5 mg PO Q6H PRN (Reason: surinder) Qty: 30 0RF nitrofurantoin monohyd/m-cryst [Macrobid] 100 mg capsule 100 mg PO Q12H 7 Days Qty: 14 0RF Rx Instructions: must administer with a meal/food Continued duloxetine [Cymbalta] 30 mg capsule,delayed release(DR/EC) 30 mg PO DAILY lisinopril 5 mg tablet 5 mg PO DAILY rosuvastatin 10 mg tablet 10 mg PO DAILY Discontinued oxycodone 10 mg tablet 10 mg PO BID Discharge Instructions Additional Instructions: my office will contact patient for followup ureteroscopy and holmium laser lithotripsy of her stone Activity:: Activity as Tolerated Equipment/Supplies:: No Equipment Needed Diet:: As Tolerated Discharge Orders Discharge Orders: Discharge Order (Routine); Ordered 10/04/23 Ordered By: Klever Caputo DS: Summary Time Spent with Patient providing and/or coordinating discharge services: Less than 30 minutes Status at Discharge Functional status at discharge: independent ambulation Overall status at discharge: patient is back to baseline Mental Status: mental status grossly normal Speech and Movement: speech and movement normal Mood: congruent mood Affect: normal affect Quality:SDOH Health Related Social Needs: No Data to Display Exam Const General: cooperative and comfortable Resp Effort & Inspection: normal respiratory effort Auscultation: clear to auscultation bilaterally Cardio Rate: regular rate Rhythm: regular rhythm GI Palpation: soft Neuro General: patient alert, patient awake and patient oriented x3 Psych Mental Status: mental status grossly normal Speech and Movement: speech and movement normal Mood: congruent mood Affect: normal affect DS: Data Vitals/I&O Vitals and I&O: Vital Signs Temperature 36.3 C L 10/04/23 16:06 Temperature Source Temporal Artery Scan 10/04/23 16:06 Pulse 80 10/04/23 16:06 Pulse Rhythm Regular 10/04/23 13:54 Pulse 89 10/04/23 12:20 Respiratory Rate 18 10/04/23 16:06 Respiratory Effort Normal, Non-Labored 10/04/23 13:54 Respiratory Depth Normal 10/04/23 13:54 Respiratory Pattern Normal 10/04/23 13:54 Blood Pressure 154/84 H 10/04/23 16:06 Blood Pressure Mean 105 10/04/23 12:16 Blood Pressure Position Sitting 10/04/23 08:43 Pulse Oximetry 99 10/04/23 16:06 Oxygen Delivery Method Room Air 10/04/23 16:06 Oxygen Flow Rate 0 10/04/23 16:06 Pain Level 9 10/04/23 16:52 Intake & Output 10/03/23 10/04/23 10/04/23 23:59 11:59 23:59 Intake Total 850 / 850 Balance 850 / 850 Weight 73.028 kg Intake: IV 550 / 550 Oral 300 / 300 Other: Urine Color Yellow Voiding Methods Toilet Data Completed and Pending Labs on day of discharge: Labs from last 24 hours 10/04/23 10/04/23 10/04/23 10:43 10:29 09:12 WBC 9.05 Cancelled RBC 3.76 L Cancelled Hgb 9.1 L Cancelled Hct 30.7 L Cancelled MCV 82 Cancelled MCH 24.2 L Cancelled MCHC 29.6 L Cancelled RDW 20.7 H Cancelled Plt Count 304 Cancelled MPV 9.4 Cancelled Immature Gran % 0.6 Cancelled Neutrophils % 62.4 Cancelled Band Neutrophils % Cancelled Lymphocytes % 27.4 Cancelled Atypical Lymphs % Cancelled Monocytes % 8.1 Cancelled Eosinophils % 1.3 Cancelled Basophils % 0.2 Cancelled Metamyelocytes % Cancelled Myelocytes % Cancelled Promyelocytes % Cancelled Other Cells % Cancelled Nucleated RBC % 0.0 Cancelled Absolute Neutrophils 5.65 Cancelled Absolute Lymphocytes 2.48 Cancelled Absolute Monocytes 0.73 Cancelled Absolute Eosinophils 0.12 Cancelled Absolute Basophils 0.02 Cancelled RBC Morphology See Below Cancelled Polychromasia Cancelled Hypochromasia Cancelled Poikilocytosis Cancelled Basophilic Stippling Cancelled Anisocytosis 2+ Cancelled Microcytosis Cancelled Macrocytosis Cancelled Spherocytes Cancelled Tear Drop Cells Cancelled Ovalocytes Cancelled Stomatocytes Cancelled [place]bl[place] Bodies Cancelled Jeronimo Cells/Echinocytes Cancelled Acanthocytes (Spur) Cancelled Schistocytes Cancelled ESR Cancelled VBG Lactate 1.0 Sodium 136 Potassium 4.3 Chloride 103 Carbon Dioxide 24.6 Anion Gap 8.4 BUN 16 Creatinine 1.3 H Est GFR (CKD-EPI 2020) 52.65 Glucose 107 H Calcium 9.0 Total Bilirubin 0.22 AST 15 ALT 14 Alkaline Phosphatase 101 C-Reactive Protein < 0.50 Total Protein 7.7 Albumin 3.0 L COVID-19 Source Nasopharynx SARS-CoV-2 (PCR) Positive A Influenza Type A (PCR) Negative Influenza Type B (PCR) Negative RSV (PCR) Negative 10/04/23 09:05 WBC RBC Hgb Hct MCV MCH MCHC RDW Plt Count MPV Immature Gran % Neutrophils % Band Neutrophils % Lymphocytes % Atypical Lymphs % Monocytes % Eosinophils % Basophils % Metamyelocytes % Myelocytes % Promyelocytes % Other Cells % Nucleated RBC % Absolute Neutrophils Absolute Lymphocytes Absolute Monocytes Absolute Eosinophils Absolute Basophils RBC Morphology Polychromasia Hypochromasia Poikilocytosis Basophilic Stippling Anisocytosis Microcytosis Macrocytosis Spherocytes Tear Drop Cells Ovalocytes Stomatocytes [place] Bodies [place]on[place] Cells/Echinocytes Acanthocytes (Spur) Schistocytes ESR VBG Lactate Sodium Cancelled Potassium Cancelled Chloride Cancelled Carbon Dioxide Cancelled Anion Gap Cancelled BUN Cancelled Creatinine Cancelled Est GFR (CKD-EPI 2020) Cancelled Glucose Cancelled Calcium Cancelled Total Bilirubin Cancelled AST Cancelled ALT Cancelled Alkaline Phosphatase Cancelled C-Reactive Protein Total Protein Cancelled Albumin Cancelled COVID-19 Source SARS-CoV-2 (PCR) Influenza Type A (PCR) Influenza Type B (PCR) RSV (PCR) 10/04/23 11:05 Blood Blood Culture - Pending 10/04/23 10:43 Blood Blood Culture - Pending Preliminary micro results at discharge 10/04/23 11:05 Blood Culture - Pending Blood 10/04/23 10:43 Blood Culture - Pending Blood PFSH All Active Problems Left ureteral calculus (Acute) UTI (urinary tract infection) (Acute) Hypertensive urgency (Acute) Calculus of left kidney (Acute) Chest pain (Acute) Surgical History S/P cystoscopy with ureteral stent placement Social History Smoking/Tobacco Use Status: Current-Occasional Smoking risk assessment performed?: Yes Alcohol Intake: never Substance use type: does not use Housing: apartment Do you feel safe at home: Yes Do you feel safe in your relationship?: Yes Time Spent with Patient Time Spent with Patient: <45 minutes Time was spent: preparing to see the patient(eg.review tests) and counseling the patient
--- NOTE | 2023-10-06 08:13 | W.ED.FU ---
Date of service: 10/06/23 Time of Service: 08:13 Follow Up Plan: This patient was recently discharged following left ureteral calculus treatment with urology. She was found to be growing E. coli with ESBL activity. She was discharged on nitrofurantoin to which her E. coli is sensitive. Will continue to observe as an outpatient.
== END 2023-10-04 18:40 | disposition home or self-care (01) | DRG 690 ==
LOC: ER 12:05 → SUR 12:55 → MS 13:52
PROVIDERS: Admitting Provider Urology; Emergency Provider Physician Assistant; Visit Provider Urology
PROC: 0T9780Z Drainage of Left Ureter with Drainage Device, Via Natural or Artificial Opening Endoscopic (ICD-10-PCS; CPT 52332; principal; 2023-10-04 10:45)
DX: N13.6 Pyonephrosis (principal); B96.20 Unspecified Escherichia coli [E. coli] as the cause of diseases classified elsewhere; M06.9 Rheumatoid arthritis, unspecified; F17.210 Nicotine dependence, cigarettes, uncomplicated; I25.10 Atherosclerotic heart disease of native coronary artery without angina pectoris; Z95.5 Presence of coronary angioplasty implant and graft; I10 Essential (primary) hypertension; E78.5 Hyperlipidemia, unspecified; F41.9 Anxiety disorder, unspecified
CPT/HCPCS: 52332; 36415; 80053; 81025; 85652; 87040; 87637; 96361; 96365; 96375; 99285; 74420; 83605; 85025; 86140; G0378; J1100; J1885; J2001; J2270; J2405; J2543; J2704; Q9967